=== PATIENT | female | born 1935 | race Caucasian/White ===

== ENCOUNTER 2019-07-24 10:55 | Outpatient (CLI) | payer MEDICARE, OTHER, SELFPAY ==
[2019-07-24 11:41] LABS: Basophils Absolute Auto 0.1 K/mm3 (0.0-0.1); Basophils Percent Auto 0.7 % (0.2-1.2); Eosinophils Absolute Auto 0.2 K/mm3 (0-0.3); Eosinophils Percent Auto 1.5 % (0-4.4); Hematocrit 42.2 % (37.0-47.0); Hemoglobin 13.6 g/dL (12.0-15.0); Immature Granulocyte Absolute 0.11 K/mm3 (0.00-0.031); Lymphocytes Absolute Auto 2.88 K/mm3 (0.9-3.2); Lymphocytes Percent Auto 26.8 % (18.3-44.2); Mean Corpuscular HGB Conc 32.2 g/dl (32-36); Mean Corpuscular Hemoglobin 30.7 pg (26-34); Mean Corpuscular Volume 95.3 fl (80-100); Mean Platelet Volume 9.7 fl (7.4-10.4); Monocytes Absolute Auto 0.9 K/mm3 (0.1-0.6); Monocytes Percent Auto 8.5 % (2.6-8.5); Neutrophils Absolute Auto 6.6 K/mm3 (1.3-6.7); Neutrophils Percent Auto 61.5 % (45.5-73.1); Platelet Count Result 340 k/mm3 (150-375); Red Blood Count 4.43 M/mm3 (4.2-5.4); Red Cell Distribution Width 14.4 % (11.5-14.5); White Blood Count 10.7 K/mm3 (4.5-10.0)
[2019-07-24 11:56] LABS: Alanine Aminotransferase 18 U/L (4-35); Albumin Level 4.2 g/dL (3.5-5.1); Alkaline Phosphatase 42 U/L (38-126); Aspartate Amino Transferase 32 U/L (14-36); Bilirubin,Total 0.4 mg/dL (0.2-1.3); Blood Urea Nitrogen 12 mg/dL (7-17); Calcium 9.4 mg/dL (8.4-10.2); Carbon Dioxide 26 mmol/L (22-30); Chloride 102 mmol/L (98-107); Estimated Glomerular Filt Rate > 60; Glucose 86 mg/dL (65-105); Potassium 3.3 mmol/L (3.4-5.0); Sodium 138 mmol/L (137-145)
[2019-07-24 12:06] LABS: Erythrocyte Sedimentation Rate 13 mm/hr (0-20)
== END 2019-07-24 10:56 | disposition home or self-care (01) ==
LOC: ANHLAB 10:57
PROVIDERS: PCP Family Medicine; Visit Provider Family Medicine
DX: D72.9 Disorder of white blood cells, unspecified (principal); I10 Essential (primary) hypertension
CPT/HCPCS: 36415; 80053; 85025; 85652

== ENCOUNTER 2020-02-23 08:58 | Inpatient (IN) | payer MEDICARE, OTHER, SELFPAY ==
[2020-02-23] VITALS (9 sets, daily range): BP systolic 91–108; BP diastolic 53–77; PULSE 64–95; RESP 16–26; TEMP 36.1–38.2; O2SAT 91–98; BMI 20.5
--- NOTE | ~2020-02-23 | XR_ITS ---
XR chest 1V portable DATE: 03/04/2020 05:41 INDICATION: Covid 19 pneumonia TECHNIQUE: Portable upright AP chest on 03/04/2020 at 0528 hours COMPARISON: 03/03/2020 portable AP chest at 0535 hours FINDINGS: Right upper extremity PIC catheter tip overlies the right atrium. There are extensive patchy bilateral pulmonary infiltrates, mildly improved since 03/03/2020. There ar e Ezio B-lines suggesting pulmonary interstitial edema or interstitial pneumonitis. Heart size is l ikely within normal limits although not optimally evaluated on AP projection because of magnification . There is aortic calcification. IMPRESSION: Mild improvement of extensive bilateral pulmonary infiltrates since 03/03/2020 Reviewed, dictated and finalized at location A.
--- NOTE | ~2020-02-23 | XR_ITS ---
XR chest 1V portable DATE: 03/06/2020 05:49 INDICATION: Respiratory failure TECHNIQUE: Portable AP chest on 03/06/2020 at 0534 hours COMPARISON: 03/05/2020 portable AP chest at 0526 hours FINDINGS: There are extensive patchy bilateral pulmonary infiltrates, with minimal improvement since 03/05/2020. Cardiomegaly. Aortic calcification. There is minimal if any pleural effusion. No pneumothorax. Right upper extremity PIC catheter tip overlies the upper right atrium. IMPRESSION: Extensive patchy infiltrates are noted throughout both lungs, with minimal improvement si nce 03/05/2020 Reviewed, dictated and finalized at location A. IMPRESSION: Extensive patchy infiltrates are noted throughout both lungs, with minimal improvement since 03/05/2020
--- NOTE | ~2020-02-23 | XR_ITS ---
XR chest 1V portable EXAM DATE: 03/01/2020 06:28 INDICATION: COVID-19 pneumonia. TECHNIQUE: Portable AP frontal chest x-ray was obtained. Comparison is made to prior examination from 02/27. FINDINGS: There is a right-sided PICC line with tip projecting over the cavoatrial junction. There is diffuse acute infectious process consistent with acute lung injury from SARS-CoV-2. No pneumothorax or pleural effusion. Cardiomediastinal silhouette is normal. There is aortic arteriosclerosis. Ther e are no osseous abnormalities identified. Accounting for differences in technique, there is no significant interval change. IMPRESSION: 1. Diffuse bilateral acute infectious process unchanged. Reviewed, dictated and finalized at location A.
--- NOTE | ~2020-02-23 | CT_ITS ---
EXAMINATION: CTA chest PE protocol EXAM DATE: 02/23/2020 10:51 INDICATION: Shortness of breath with elevated d-dimer. TECHNIQUE: Spiral CTA of the chest (pulmonary arteries) was performed with 100 cc Omnipaque 350 intr avenous contrast injection. Images were acquired during the pulmonary arterial phase. Coronal maxi mum intensity projection 3D-reconstructions were created by the technologist on dedicated workstation . Axial, coronal and sagittal reformatted images were reviewed. The dose-length product (DLP) for t his examination was 153.91 mGy-cm. The exposure was tailored according to patient size (auto mA exp osure control), and iterative reconstruction (ASIR) was used as additional dose reduction technique. There is no prior study for comparison. FINDINGS: Pulmonary arteries are well opacified and without intraluminal filling defects. No thora cic aortic dissection. There are rather extensive bilateral geographically shaped peripheral predomi nant groundglass opacities. Appearance is typical of COVID 19, acute lung injury. Less likely acute possibilities include influenza, pulmonary edema or hemorrhage. Some chronic processes that can have this appearance include cryptogenic organizing pneumonia, desquamative interstitial pneumonia, nonsp ecific interstitial pneumonia, drug toxicity, connective tissue disease. Please clinically correlate and test as appropriate. There are no pleural or pericardial effusions. Tracheobronchial tree is patent. There is no media stinal, hilar or axillary lymphadenopathy. There is no pneumothorax. Mild cardiomegaly. There is small sliding gastroesophageal hiatal hernia. There is mild coronary arterial calcification, arteria l sclerosis. There are cholecystectomy clips. No osteoblastic or osteolytic lesions identified. IMPRESSION: 1. Patchy bilateral airspace disease suspicious for COVID-19 pneumonia. Clinical correlation. 2. No pulmonary emboli. Reviewed, dictated and finalized at location B. IMPRESSION: 1. Patchy bilateral airspace disease suspicious for COVID-19 pneumonia. Clinic al correlation. 2. No pulmonary emboli.
--- NOTE | ~2020-02-23 | XR_ITS ---
XR chest 1V portable 03/10/2020 06:29 Indication: Respiratory failure Procedure: AP portable chest Comparison: Comparison to multiple prior studies sequentially, with oldest reviewed study dated 11/2019. Findings: Cardiomegaly. Unchanged diffuse bilateral airspace disease. There is atherosclerosis. No pl eural effusion or pneumothorax. Central line tip in the condyle aspect of the SVC near the cavoatrial junction. Impression: 1: Unchanged bilateral airspace disease which may represent edema or pneumonia. Reviewed, dictated and finalized at location A. Impression: 1: Unchanged bilateral airspace disease which may represent edema or pneumonia.
--- NOTE | ~2020-02-23 | XR_ITS ---
XR chest 1V portable DATE: 03/07/2020 06:03 INDICATION: Respiratory failure TECHNIQUE: Portable AP chest on 03/07/2020 at 0533 hours COMPARISON: 03/06/2020 portable AP chest at 0534 hours FINDINGS: There is no significant change in extensive diffuse bilateral pulmonary infiltrates since 1 . Right upper extremity PIC catheter tip overlies the superior vena cava near this superior cavoatrial junction. Heart size is within normal range. Aortic calcification. IMPRESSION: No significant change in extensive diffuse bilateral pulmonary infiltrates since 0 Reviewed, dictated and finalized at location A. IMPRESSION: No significant change in extensive diffuse bilateral pulmonary infi ltrates since 03/06/2020
--- NOTE | ~2020-02-23 | XR_ITS ---
EXAMINATION: XR chest 1V portable EXAM DATE: 02/28/2020 05:58 INDICATION: COVID-19 pneumonia. TECHNIQUE: Portable AP frontal chest x-ray was obtained. Comparison is made to prior examination from 02/26, 02/24. FINDINGS: There is diffuse acute infectious process consistent with acute lung injury from SARS-CoV-2 . Right-sided PICC line in position. No pneumothorax or pleural effusion. The cardiomediastinal silho uette is prominent but magnified on this AP technique. There is aortic arteriosclerosis. There are n o osseous abnormalities identified. IMPRESSION: 1. Diffuse bilateral acute infectious process unchanged. Reviewed, dictated and finalized at location A.
--- NOTE | ~2020-02-23 | XR_ITS ---
XR chest 1V portable EXAM DATE: 03/02/2020 06:09 INDICATION: COVID-19 pneumonia. TECHNIQUE: Portable AP frontal chest x-ray was obtained. Comparison is made to prior examination from 03/01/2020. FINDINGS: There is a right-sided PICC line with tip projecting over the cavoatrial junction. There is diffuse acute infectious process consistent with acute lung injury from SARS-CoV-2. No pneumothorax or pleural effusion. Cardiomediastinal silhouette is normal. There is aortic arteriosclerosis. Ther e are no osseous abnormalities identified. Accounting for differences in technique, there is no significant interval change. IMPRESSION: Diffuse bilateral acute infectious process unchanged. Reviewed, dictated and finalized at location A.
--- NOTE | ~2020-02-23 | XR_ITS ---
XR chest 1V portable 03/09/2020 05:48 Indication: Respiratory failure Procedure: AP portable chest Comparison: Comparison to multiple prior studies sequentially, with oldest reviewed study dated 10/2019. Findings: Right subclavian central line tip near the cavoatrial junction. Cardiomegaly. Diffuse bilat eral airspace disease. No significant pleural effusion. There is chronic apical pleural thickening. N o acute osseous abnormality. There are cholecystectomy clips. Impression: 1: Diffuse bilateral airspace disease without significant change. This may represent edema or pneumon ia. Reviewed, dictated and finalized at location A. Impression: 1: Diffuse bilateral airspace disease without significant change. This may repr esent edema or pneumonia.
--- NOTE | ~2020-02-23 | XR_ITS ---
XR chest PICC line 02/25/2020 11:41 Indication: PICC line placement Procedure: AP portable chest Comparison: Comparison to multiple prior studies sequentially, with oldest reviewed study dated 11/2011. Findings: Cardiomegaly with interstitial edema. Right subclavian PICC line tip in the caudal aspect o f the SVC. There is atherosclerosis. No pleural effusion or pneumothorax. No acute osseous abnormalit y. Impression: 1: Cardiomegaly with mild interstitial edema. Reviewed, dictated and finalized at location A. Impression: 1: Cardiomegaly with mild interstitial edema.
--- NOTE | ~2020-02-23 | XR_ITS ---
EXAMINATION: XR chest 1V portable EXAM DATE: 02/23/2020 09:43 INDICATION: Chest pain, nausea and vomiting. TECHNIQUE: Frontal and lateral projections of the chest obtained and reviewed. Comparison is made to prior examination from 05/26/2012. FINDINGS: Patchy bilateral acute airspace disease, most pronounced in the left upper lobe and right lower lobe. Could be viral or bacterial pneumonia. Please clinically correlate. No pneumothorax or pl eural effusion. Cardiomediastinal silhouette is normal. The bones are osteopenic. There are bony deg enerative changes. IMPRESSION: Moderate patchy bilateral acute airspace disease most likely infection. Consider both vi ral and bacterial etiologies. Reviewed, dictated and finalized at location B. IMPRESSION: Moderate patchy bilateral acute airspace disease most likely infec tion. Consider both viral and bacterial etiologies.
--- NOTE | ~2020-02-23 | XR_ITS ---
XR chest 1V portable EXAM DATE: 03/03/2020 06:19 INDICATION: COVID-19 pneumonia. TECHNIQUE: Portable AP frontal chest x-ray was obtained. Comparison is made to prior examination from 03/02, 03/01, 02/28. FINDINGS: There is a right-sided PICC line with tip projecting over the cavoatrial junction. There is extensive acute infectious process consistent with acute lung injury from SARS-CoV-2. No pneumothora x or pleural effusion. Cardiomediastinal silhouette is normal. There is aortic arteriosclerosis. Th ere are no osseous abnormalities identified. Compared to 02/28, there has been progression in the extensive airspace disease, but difficult to appr eciate any significant interval change compared to yesterday's exam. IMPRESSION: Extensive bilateral acute infectious process unchanged. Reviewed, dictated and finalized at location A.
--- NOTE | ~2020-02-23 | XR_ITS ---
EXAMINATION: XR chest 1V portable EXAM DATE: 02/27/2020 06:10 INDICATION: COVID-19 pneumonia. TECHNIQUE: Portable AP frontal chest x-ray was obtained. Comparison is made to prior examination from 02/22, 02/24. FINDINGS: There is been progression in the right upper lobe component of the overall moderate diffuse acute infectious process consistent with acute lung injury from SARS-CoV-2. Right-sided PICC line in position. No pneumothorax or pleural effusion. The cardiomediastinal silhouette is prominent but mag nified on this AP technique. There are no osseous abnormalities identified. IMPRESSION: 1. Moderate bilateral acute infectious process, some progression in the right upper lobe. Reviewed, dictated and finalized at location A.
--- NOTE | ~2020-02-23 | XR_ITS ---
XR chest 1V portable DATE: 03/08/2020 05:56 INDICATION: Respiratory failure TECHNIQUE: Portable AP chest on 03/08/2020 at 0549 hours COMPARISON: 03/07/2020 portable AP chest at 0533 hours FINDINGS: There are diffuse bilateral pulmonary infiltrates, not significantly changed since 0. Heart size appears within upper limits of normal. Is aortic calcification. No pleural effusion or pne umothorax is evident. Surgical clips overlie the right upper quadrant, consistent with cholecystectomy. Diffuse osteopenia. IMPRESSION: No significant change in extensive diffuse bilateral pulmonary infiltrates since 0 Reviewed, dictated and finalized at location A. IMPRESSION: No significant change in extensive diffuse bilateral pulmonary infi ltrates since 03/07/2020
--- NOTE | ~2020-02-23 | XR_ITS ---
XR chest 1V portable EXAM DATE: 02/29/2020 05:55 INDICATION: COVID-19 pneumonia. TECHNIQUE: Portable AP frontal chest x-ray was obtained. Comparison is made to prior examination from 02/27. FINDINGS: There is diffuse acute infectious process consistent with acute lung injury from SARS-CoV-2 . Right-sided PICC line in position. No pneumothorax or pleural effusion. Cardiomediastinal silhouett e is normal. There is aortic arteriosclerosis. There are no osseous abnormalities identified. There is no significant interval change. IMPRESSION: 1. Diffuse bilateral acute infectious process unchanged. Reviewed, dictated and finalized at location A.
--- NOTE | ~2020-02-23 | XR_ITS ---
XR chest 1V portable DATE: 03/05/2020 06:01 INDICATION: Covid 19 pneumonia TECHNIQUE: Portable AP chest on 03/05/2020 at 0526 hours COMPARISON: 03/04/2020 portable AP chest at 0528 hours FINDINGS: There is no significant change of extensive patchy infiltrates throughout both lung cristobal since 03/04/2020. Right upper extremity PIC catheter tip overlies the superior vena cava. No pleural effusion or pneumothorax. IMPRESSION: No significant change of extensive bilateral pulmonary infiltrates since 03/04/2020 Reviewed, dictated and finalized at location A.
[2020-02-23] MEDS: LACTATED RINGERS 1,000 ML 999 ML IV CONT (09:21)
--- NOTE | 2020-02-23 09:23 | ED.NAVMDI ---
HPI - Nausea/Vomiting/Diarrhea General Chief complaint: Nausea/Vomiting/Diarrhea Stated complaint: nausea/diarrhea Time Seen by Provider: 02/23/20 09:04 History of Present Illness HPI Narrative: Pt c/o n/v/d, cough and fever x 6 days. Vomitus is mostly described as dry heaving, diarrhea is loose watery, non bloody. Pt denies cp, sob, abd pain, or urinary symptoms. Related Data Home Medications Medication Instructions Recorded Confirmed aspirin 81 mg tablet,delayed 81 mg PO DAILY 04/10/19 release Allergies Allergy/AdvReac Type Severity Reaction Status Date / Time Penicillins Allergy Unknown Rash Verified 02/23/20 09:08 Cxvkeft-Cpk-Kcw Reductase Allergy Unknown Muscle Verified 02/23/20 09:08 Inhibitor Spasms tetracycline Allergy Unknown Rash Verified 02/23/20 09:08 Review of Systems Review of Systems: All systems reviewed & are unremarkable except as noted in HPI and below Constitutional: Constitutional: Denies body ache(s), Reports chills, Denies excessive sweating, Reports fatigue, Reports fever(s), Denies headache(s), Denies lethargy and Denies weight loss Eyes: Eyes: Denies blurry vision, Denies change in vision and Denies loss of vision ENT: Denies dizziness, Denies ear discharge, Denies headache(s), Denies lip swelling, Denies epistaxis, Denies nasal congestion, Denies neck pain, Denies throat swelling and Denies tongue swelling Cardiovascular: Cardiovascular: Denies chest pain, Denies chest pain at rest, Denies chest pain with activity, Denies diaphoresis, Denies rapid heart rate, Denies edema, Denies irregular heart rhythm, Denies lightheadedness, Denies palpitations, Denies dyspnea and Denies dyspnea on exertion Respiratory: Respiratory: Denies chest congestion, Denies cough, Denies hemoptysis, Denies dyspnea and Denies dyspnea on exertion Gastrointestinal: Gastrointestinal: Denies melena, Denies hematochezia and Denies hematemesis Musculoskeletal: Musculoskeletal: Denies abnormal gait, Denies deformity, Denies joint swelling, Denies limited range of motion, Denies neck pain and Denies numbness Neurologic: Denies Abnormal speech present, Denies abnormal gait, Denies confusion, Denies dizziness, Denies headache(s), Denies focal weakness, Denies loss of vision, Denies numbness, Denies Other visual disturbances, Denies Sensory deficit (Neuro) and Denies weakness Psychiatric: Psychiatric: Denies confusion, Denies depression, Denies auditory hallucinations, Denies homicidal ideation and Denies suicidal ideation Endocrine: Endocrine: Denies cold intolerance, Denies excessive sweating, Denies fatigue, Denies heat intolerance and Denies palpitations Hematologic/Lymphatic: Hematologic/Lymphatic: Denies easy bleeding and Denies easy bruising Allergic/Immunologic: Allergic/Immunologic: Denies lip swelling, Denies throat swelling and Denies tongue swelling [facility] Social History Social History (Updated 07/24/19 @ 09:46 by Lavern Barone) Social History: Smoking status: Never smoker Second hand tobacco smoke exposure: No Alcohol intake: never Substance use: never Substance use type: does not use Gender identity (if verbalized by the patient): Female Exam Const: General: alert, awake and ill appearing; No confusion Orientation/consciousness: oriented to person, oriented to place, oriented to time, patient oriented x3 and No confusion Limitations: no limitations Other: moderate distress, frail, ill appearing HENMT: Head: normal to inspection, normocephalic and atraumatic Ears: hearing grossly normal bilaterally, TM normal on the right and TM normal on the left General nose exam: Normal external nose present, Normal nares present and No nasal discharge present Face and sinus: normal facial exam Mouth: Yes Normal oral and palatal mucosa present, Yes lip normal, Yes tongue normal and Yes oropharynx normal Throat: posterior oropharynx normal, tonsils normal and uvula midline Eyes: Gener
[2020-02-23 09:30] LABS: Alveolar/Arterial O2 Gradient 148.2 mmHg; Base Excess ABG -6.8 mEq/l (+/-2.0); Carboxyhemoglobin 0.6 % THb (0-2.0); Fractional Inspired Oxygen 32 %; HCO3 ABG 14.9 mEq/l (22.0-26.0); Methemoglobin ABG 0.2 %THb (0-1.5); Oxygen Content ABG 18.3 %vol (16.0-22.0); Oxygen Saturation ABG 90.1 % (95.0-100.0); Oxyhemoglobin 88.5 % THb (90.0-100.0); PO2 ABG 53.9 mmHg (80.0-100.0); PO2 FiO2 Ratio Arterial Blood 1.68 %; Reduced Hemoglobin 10.7 %THb (0-5.0); Total Hemoglobin 14.7 g/dL (12.0-18.0); pH ABG 7.444 (7.350-7.450)
[2020-02-23 09:31] LABS: Device NASAL CANNULA; Modified Allen's Test Pass; PCO2 ABG 22.3 mmHg (35.0-45.0); Site Drawn RIGHT RADIAL
[2020-02-23] MEDS: PROMETHAZINE HCL 25 MG/ML AMPUL 12.5 MG IV PUSH (09:33)
[2020-02-23 09:47] LABS: Basophils Percent Auto 0.4 % (0.2-1.2); Eosinophils Percent Auto 0.1 % (0-4.4); Hematocrit 48.7 % (37.0-47.0); Hemoglobin 15.6 g/dL (12.0-15.0); Immature Granulocyte Absolute 0.05 K/mm3 (0.00-0.031); Immature Granulocyte Percent A 0.5 % (0-0.5); Lymphocytes Absolute Auto 2.71 K/mm3 (0.9-3.2); Lymphocytes Percent Auto 24.9 % (18.3-44.2); Mean Corpuscular Hemoglobin 30.2 pg (26-34); Mean Corpuscular Volume 94.4 fl (80-100); Mean Platelet Volume 10.2 fl (7.4-10.4); Monocytes Absolute Auto 0.2 K/mm3 (0.1-0.6); Monocytes Percent Auto 1.6 % (2.6-8.5); Neutrophils Absolute Auto 7.9 K/mm3 (1.3-6.7); Neutrophils Percent Auto 72.5 % (45.5-73.1); Platelet Count Result 321 k/mm3 (150-375); Red Blood Count 5.16 M/mm3 (4.2-5.4); Red Cell Distribution Width 14.8 % (11.5-14.5); White Blood Count 10.9 K/mm3 (4.5-10.0)
[2020-02-23 09:53] LABS: Lactic Acid Reflex 2.4 mmol/L (0.7-2.1)
[2020-02-23 09:54] LABS: D Dimer 0.95 ug/mL (<0.48)
[2020-02-23 09:55] LABS: Alanine Aminotransferase 17 U/L (4-35); Albumin Level 3.9 g/dL (3.5-5.1); Alkaline Phosphatase 45 U/L (38-126); Anion Gap 11 mmol/L (8-16); Aspartate Amino Transferase 66 U/L (14-36); Bilirubin,Total 0.6 mg/dL (0.2-1.3); Blood Urea Nitrogen 17 mg/dL (7-17); Carbon Dioxide 20 mmol/L (22-30); Chloride 104 mmol/L (98-107); Estimated CRCL calculation 29 ml/min; Estimated Glomerular Filt Rate 53; Glucose 90 mg/dL (65-105); Potassium 3.8 mmol/L (3.4-5.0); Sodium 135 mmol/L (137-145)
[2020-02-23 10:13] LABS: NT Pro B Type Natriuretic Pept 681 PG/ML (5-100); Troponin I 0.037 ng/mL (0.000-0.034)
[2020-02-23] MEDS: ASPIRIN 81 MG CHEWABLE TABLET 324 MG PO (11:10)
[2020-02-23 12:40] LABS: Reflex Lactic Acid Yes or No Add Lactic
[2020-02-23 13:22] LABS: Lactic Acid 1.4 mmol/L (0.7-2.1)
--- NOTE | 2020-02-23 13:24 | ECG_ITS ---
Measurements Intervals [place] Rate: 70 P: 58 DE: 190 QRS: -16 QRSD: 97 T: 150 QT: 397 QTc: 429 Interpretive Statements SINUS RHYTHM ANTEROSEPTAL INFARCT, AGE INDETERMINATE INFERIOR INFARCT, AGE INDETERMINATE ST-T WAVE ABNORMALITY IN HIGH LATERAL LEADS- CONSIDER ISCHEMIA BASELINE ARTIFACT- I, II, AVR, AVF ABNORMAL ECG Electronically Signed On 02-23-2020 20:19:08 CDT by Rui Altman D.O.
--- NOTE | 2020-02-23 14:58 | ADMGEN ---
This patient, Tra Amin, was admitted to Intensive Care Unit-8. Patient/family oriented to hospital policies and general routines including ID bracelet, bed and alarms, visiting hours, pain management, procedures, bathroom and other care routines, personal items, smoking policy, room service/diet, and visiting hours. Valuables list has been completed. Information on how to activate the Rapid Response Team has been discussed. Patient/Family are encouraged to report perceived risks to care and to ask questions if they do not understand what they are told or what they should do.
--- NOTE | 2020-02-23 18:39 | PM.IMHP ---
H&P: HPI History of Present Illness Date/Time: 02/23/20 18:39 Chief complaint: pneumonia Narrative: Tra Amin is a 84 year old female Who lives home alone. She has her daughter come to her house and help her out at times. She stated that her daughter is not sick but the son-in-law all his sick now. The patient tells me that she has been running a fever on and off for 6 days. I asked her what was her temperature and she stated she thinks that it got up to 101 at 1 time. She has had some nausea and diarrhea as well. She did not notice any blood in her stool. She has also been having some dry heaving but did not vomit. Patient stated that her appetite was fairly well up until yesterday she said that she could not taste anything. Influenza a and B were negative. Arterial blood gases her pH was normal but her PO2 was low at 53.9. Oxygen was applied at 5 L per nasal cannula. her O2 saturation with the oxygen is now 90-91%. She does dropped down in the upper 80s when her oxygen is off. She does not wear oxygen at home. Patient is short of breath with activity. She has not taken any [id number]-[id number] medications for this. She did not follow-up with her primary care doctor. The patient had a CTA performed and was read as patchy bilateral airspace disease suspicious for covid 19 pneumonia. No pulmonary emboli. She was started on Zithromax and Rocephin. she was also started on lactated Ringer's which has been stopped. She was given an aspirin in the emergency room. She was given Phenergan in the emergency room as well. She was given Tylenol in the emergency room. Patient was tested for covid 19. Troponin 0.037. BNP 681. Date of service 02/23/2020 Review of Systems Review of Systems: All systems reviewed & are unremarkable except as noted in HPI and below Constitutional: Constitutional: Reports as per HPI and Reports no additional constitutional complaints Eyes: Eyes: Reports as per HPI and Reports no additional eye complaints ENT: Reports system reviewed and no additional complaints, except as documented and Reports Normal hearing present Cardiovascular: Cardiovascular: Reports no additional cardiovascular complaints Respiratory: Respiratory: Reports no additional respiratory complaints and Reports no additional respiratory complaints Gastrointestinal: Gastrointestinal: Reports as per HPI and Reports no additional gastrointestinal complaints Musculoskeletal: Musculoskeletal: Reports no additional musculoskeletal complaints Integumentary/Breasts: Skin/Breast: Reports system reviewed and no additional complaints, except as docu and Reports as per HPI Neurologic: Reports system reviewed and no additional complaints, except as documented, Reports as per HPI and Reports Normal hearing present Psychiatric: Psychiatric: Reports no additional psychiatric complaints and Reports as per HPI Endocrine: Endocrine: Reports no additional endocrine complaints Hematologic/Lymphatic: Hematologic/Lymphatic: Reports no additional hematologic/lymphatic complaints Allergic/Immunologic: Allergic/Immunologic: Reports no additional allergic/immunologic complaints [facility] Past Medical History Medical History (Updated 02/23/20 @ 19:05 by Tova Jackson NP) Acute arthritis Shukla's palsy Essential (primary) hypertension History of myocardial infarction Hyperlipidemia Hypothyroidism, unspecified 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
[2020-02-23 21:32] LABS: Troponin I < 0.012 ng/mL (0.000-0.034)
[2020-02-23 21:50] LABS: Alveolar/Arterial O2 Gradient 556.4 mmHg; Base Excess ABG -6.2 mEq/l (+/-2.0); Carboxyhemoglobin 0.3 % THb (0-2.0); Fractional Inspired Oxygen 100 %; HCO3 ABG 16.1 mEq/l (22.0-26.0); Methemoglobin ABG 0.1 %THb (0-1.5); Oxygen Content ABG 20.7 %vol (16.0-22.0); Oxygen Saturation ABG 98.8 % (95.0-100.0); Oxyhemoglobin 97.4 % THb (90.0-100.0); PO2 ABG 131.6 mmHg (80.0-100.0); PO2 FiO2 Ratio Arterial Blood 1.32 %; Reduced Hemoglobin 2.2 %THb (0-5.0); pH ABG 7.428 (7.350-7.450)
[2020-02-23 21:51] LABS: Device NON-REBREATHER MASK; Modified Allen's Test Pass; Site Drawn LEFT RADIAL
[2020-02-24] VITALS (12 sets, daily range): BP systolic 107–138; BP diastolic 46–93; PULSE 65–84; RESP 18–22; TEMP 36.1–36.8; O2SAT 95–100
[2020-02-24 02:12] LABS: SARS-CoV-2 RNA PCR Positive
[2020-02-24] MEDS: LEVOTHYROXINE SODIUM 25 MCG TABLET PO (06:18)
[2020-02-24 06:51] LABS: Alanine Aminotransferase 17 U/L (4-35); Albumin Level 3.4 g/dL (3.5-5.1); Alkaline Phosphatase 39 U/L (38-126); Anion Gap 9 mmol/L (8-16); Aspartate Amino Transferase 53 U/L (14-36); Bilirubin,Total 0.4 mg/dL (0.2-1.3); Blood Urea Nitrogen 16 mg/dL (7-17); Calcium 8.7 mg/dL (8.4-10.2); Carbon Dioxide 21 mmol/L (22-30); Chloride 103 mmol/L (98-107); Estimated CRCL calculation 32 ml/min; Estimated Glomerular Filt Rate 60; Glucose 156 mg/dL (65-105); Lactate Dehydrogenase 897 U/L (313-618); Potassium 4.1 mmol/L (3.4-5.0); Sodium 133 mmol/L (137-145)
[2020-02-24 07:05] LABS: CRP 23.6 mg/dL (<1.0)
[2020-02-24 07:42] LABS: Thyroid Stimulating Hormone Reflex 0.123 uIU/mL (0.465-4.68)
[2020-02-24 08:42] LABS: Free T4 Free Thyroxine Reflex 0.23 ng/dL (0.78-2.19)
[2020-02-24] MEDS: DEXAMETHASONE SOD PHOS INJ 4 MG/ML VIAL 6 MG IV PUSH (10:06)
[2020-02-24] MEDS: FENOFIBRATE NANOCRYSTALLIZED 145 MG TABLET PO (10:06)
[2020-02-24] MEDS: ASPIRIN 81 MG ENTERIC TABLET PO (10:06)
--- NOTE | 2020-02-24 16:55 | PM.IMPN ---
Progress Note: A&P Assessment and Plan (1) Suspected COVID-19 virus infection: Code(s): Z20.828 - Contact with and (suspected) exposure to other viral communicable diseases Status: Acute Assessment and Plan: COVID is positive pt is on IV rocephin and iv zithromax, oxygen and iv steroids, started yesterday I will start remdesivir after talking to her daughter (2) CAP (community acquired pneumonia): Code(s): J18.9 - Pneumonia, unspecified organism Status: Acute Assessment and Plan: Patient was treated with a Zithromax and Rocephin. (3) Hyperlipidemia: Code(s): E78.5 - Hyperlipidemia, unspecified Status: Chronic Assessment and Plan: Continue with fenofibrate. (4) Hypothyroidism, unspecified: Code(s): E03.9 - Hypothyroidism, unspecified Status: Chronic Assessment and Plan: Continue levothyroxine. (5) Essential (primary) hypertension: Code(s): I10 - Essential (primary) hypertension Status: Chronic Assessment and Plan: Continue Bp medications. Subjective Date/time seen: 02/24/20 16:55 Interval history: 84 year old female Who lives home alone. She has her daughter come to her house and help her out at times. Found to be covid positive with pneumonia on CXR. Pt is on 9 liters of oxygen and is in some resp distress. Review of Systems Constitutional: Constitutional: Reports body ache(s) and Reports fatigue Comments: fevers Respiratory: Respiratory: Reports dyspnea Exam Narrative: Exam Narrative: Temp Pulse Resp BP Pulse Ox 36.6 C 72 18 112/89 96 02/24/20 16:00 02/24/20 16:00 02/24/20 16:00 02/24/20 16:00 02/24/20 16:00 Pt is in some respiratory distress on oxygen Looks unwell, older lady Objective Data Vital Signs Vital Signs: Vital Signs - 24 hr 02/23/20 18:00 02/23/20 20:00 02/23/20 22:14 Temperature 36.1 C L Pulse Rate 69 64 82 Respiratory Rate 18 22 H Blood Pressure 108/57 L Pulse Oximetry 98 91 02/24/20 00:00 02/24/20 04:00 02/24/20 05:48 Temperature 36.1 C L 36.1 C L Pulse Rate 67 65 76 Respiratory Rate 20 21 H Blood Pressure 122/93 H 114/57 L Pulse Oximetry 95 98 02/24/20 08:00 02/24/20 10:00 02/24/20 10:55 Temperature 36.1 C L Pulse Rate 76 72 73 Respiratory Rate 18 Blood Pressure 138/63 Pulse Oximetry 95 96 02/24/20 11:56 02/24/20 12:00 02/24/20 13:28 Temperature Pulse Rate 72 69 73 Respiratory Rate 20 Blood Pressure 133/65 Pulse Oximetry 95 02/24/20 16:00 Temperature 36.6 C Pulse Rate 72 Respiratory Rate 18 Blood Pressure 112/89 Pulse Oximetry 96 Intake/Output Intake/Output: Intake & Output 02/21/20 02/22/20 02/23/20 02/24/20 23:59 23:59 23:59 23:59 Intake Total 1365 780 Output Total 400 Balance 965 780 Meds/Results Medications: Active Medications Generic Name Dose Route Start Last Admin Trade Name Freq PRN Reason Stop Dose Admin Acetaminophen 650 mg 02/23/20 19:21 Tylenol Tablet PO Q4H PRN Mild Pain (1-3) or Fever Aspirin 81 mg 02/24/20 09:00 02/24/20 10:06 Aspirin Ec PO 81 mg DAILY RORY Administration Dexamethasone Sodium Phosphate 6 mg 02/24/20 09:00 02/24/20 10:06 Decadron 4 Mg/Ml Inj IV PUSH 03/04/20 09:01 6 mg DAILY RORY Administration Fenofibrate 145 mg 02/24/20 09:00 02/24/20 10:06 Tricor PO 145 mg DAILY RORY Administration Ceftriaxone Sodium/Dextrose 1 gm in 50 mls @ 100 mls/hr 02/23/20 06:00 02/24/20 07:26 Rocephin 1 Gm/D5w 50 Ml IVPB Not Given Q24H RORY Azithromycin 500 mg in 250 mls @ 250 mls/hr 02/24/20 12:00 02/24/20 16:54 Zithromax IVPB Infused Q24H [facility] Infusion Levothyroxine Sodium 25 mcg 02/24/20 06:30 02/24/20 06:18 Synthroid PO 25 mcg DAILY@0630 [facility]
[2020-02-24] MEDS: REMDESIVIR 200 MG/NS 250 ML 200 MG/250 ML BAG 250 MG IVPB (18:17)
[2020-02-25] VITALS (13 sets, daily range): BP systolic 138–158; BP diastolic 66–85; PULSE 74–92; RESP 20–28; TEMP 36.7–37.1; O2SAT 91–98
[2020-02-25] MEDS: LEVOTHYROXINE SODIUM 25 MCG TABLET PO (06:30)
[2020-02-25] MEDS: FENOFIBRATE NANOCRYSTALLIZED 145 MG TABLET PO (10:33)
[2020-02-25] MEDS: DEXAMETHASONE SOD PHOS INJ 4 MG/ML VIAL 6 MG IV PUSH (10:33)
[2020-02-25] MEDS: METOCLOPRAMIDE HCL 10 MG TABLET PO (10:33)
[2020-02-25] MEDS: ASPIRIN 81 MG ENTERIC TABLET PO (10:34)
[2020-02-25 12:30] LABS: Alanine Aminotransferase 19 U/L (4-35)
--- NOTE | 2020-02-25 12:57 | ADMGEN ---
This patient, Tra Amin, was admitted to [facility] Surg Room 331-01. Patient/family oriented to hospital policies and general routines including ID bracelet, bed and alarms, visiting hours, pain management, procedures, bathroom and other care routines, personal items, smoking policy, room service/diet, and visiting hours. Valuables list has been completed. Information on how to activate the Rapid Response Team has been discussed. Patient/Family are encouraged to report perceived risks to care and to ask questions if they do not understand what they are told or what they should do.
[2020-02-25] MEDS: CENTRAL LINE FLUSH 10 ML IV PUSH ×2 (13:25→21:40)
[2020-02-25] MEDS: REMDESIVIR 100 MG/NS 250 ML 100 MG/250 ML BAG 250 MG IVPB (16:23)
--- NOTE | 2020-02-25 17:49 | PM.IMPN ---
Progress Note: A&P Assessment and Plan (1) Suspected COVID-19 virus infection: Code(s): Z20.828 - Contact with and (suspected) exposure to other viral communicable diseases Status: Acute Assessment and Plan: COVID is positive pt is on IV rocephin and iv zithromax, oxygen and iv steroids, started, Remdesivir started Day 2. Mucinex added (2) CAP (community acquired pneumonia): Code(s): J18.9 - Pneumonia, unspecified organism Status: Acute Assessment and Plan: Patient was treated with a Zithromax and Rocephin. Viral with superimposed Bacterial pneumonia (3) Hyperlipidemia: Code(s): E78.5 - Hyperlipidemia, unspecified Status: Chronic Assessment and Plan: Continue with fenofibrate. (4) Hypothyroidism, unspecified: Code(s): E03.9 - Hypothyroidism, unspecified Status: Chronic Assessment and Plan: Continue levothyroxine. (5) Essential (primary) hypertension: Code(s): I10 - Essential (primary) hypertension Status: Chronic Assessment and Plan: Continue Bp medications. Additional Plan Subjective Date/time seen: 02/25/20 17:49 Interval history: 84 year old female Who lives home alone. She has her daughter come to her house and help her out at times. Found to be covid positive with pneumonia on CXR. Pt is on 9 liters of oxygen but comfortable, not in distress. Nurse report difficulty with coughing. Review of Systems Respiratory: Respiratory: Reports chest congestion, Reports cough and Reports dyspnea Comments: No fever Exam Narrative: Exam Narrative: Temp Pulse Resp BP Pulse Ox 36.6 C 72 18 112/89 96 02/24/20 16:00 02/24/20 16:00 02/24/20 16:00 02/24/20 16:00 02/24/20 16:00 Seen from glass door Comfortable not in any distress Older lady on oxygen Objective Data Vital Signs Vital Signs: Vital Signs - 24 hr 02/24/20 18:00 02/24/20 20:00 02/25/20 00:00 Temperature 36.8 C 36.8 C Pulse Rate 65 77 76 Respiratory Rate 22 H 21 H Blood Pressure 107/46 L 138/69 Pulse Oximetry 100 98 02/25/20 04:00 02/25/20 07:59 02/25/20 08:00 Temperature 37.0 C 36.7 C Pulse Rate 80 83 87 Respiratory Rate 27 H 20 Blood Pressure 147/69 H 140/66 Pulse Oximetry 97 93 02/25/20 09:51 02/25/20 10:00 02/25/20 12:00 Temperature Pulse Rate 75 87 85 Respiratory Rate 20 24 H Blood Pressure 158/70 H Pulse Oximetry 92 92 02/25/20 14:00 02/25/20 16:00 Temperature 37.1 C Pulse Rate 78 92 Respiratory Rate 28 H Blood Pressure 139/74 Pulse Oximetry 91 Intake/Output Intake/Output: Intake & Output 02/22/20 02/23/20 02/24/20 02/25/20 23:59 23:59 23:59 23:59 Intake Total 1365 1440 1080 Output Total 400 300 300 Balance 965 1140 780 Meds/Results Medications: Active Medications Generic Name Dose Route Start Last Admin Trade Name Freq PRN Reason Stop Dose Admin Acetaminophen 650 mg 02/23/20 19:21 Tylenol Tablet PO Q4H PRN Mild Pain (1-3) or Fever Aspirin 81 mg 02/24/20 09:00 02/25/20 10:34 Aspirin Ec PO 81 mg DAILY RORY Administration Dexamethasone Sodium Phosphate 6 mg 02/24/20 09:00 02/25/20 10:33 Decadron 4 Mg/Ml Inj IV PUSH 03/04/20 09:01 6 mg DAILY RORY Administration Fenofibrate 145 mg 02/24/20 09:00 02/25/20 10:33 Tricor PO 145 mg DAILY RORY Administration Azithromycin 500 mg in 250 mls @ 250 mls/hr 02/24/20 12:00 02/25/20 16:24 Zithromax IVPB Infused Q24H [facility] Infusion Remdesivir 100 mg in 250 mls @ 250 mls/hr 02/25/20 18:00 02/25/20 16:23 IVPB 02/28/20 18:01 250 mls/hr Q24H RORY Administration Levothyroxine Sodium 25 mcg 02/24/20 06:30 02/25/20 06:30 Synthroid PO 25 mcg DAILY@0630 RORY Administration Lidocaine HCl 5 ml 02/25/20 17:59 02/25/20 1
[2020-02-25] MEDS: guaiFENesin 12 HR 600 MG TABCR 1200 MG PO (20:16)
[2020-02-26] VITALS (15 sets, daily range): BP systolic 152–165; BP diastolic 72–98; PULSE 64–89; RESP 18–26; TEMP 36.4–36.9; O2SAT 88–95
[2020-02-26] MEDS: CENTRAL LINE FLUSH 10 ML IV PUSH ×3 (05:20→19:50)
[2020-02-26 09:05] LABS: Hematocrit 38.4 % (37.0-47.0); Hemoglobin 12.7 g/dL (12.0-15.0); Mean Corpuscular HGB Conc 33.1 g/dl (32-36); Mean Corpuscular Hemoglobin 30.7 pg (26-34); Mean Corpuscular Volume 92.8 fl (80-100); Mean Platelet Volume 10.8 fl (7.4-10.4); Platelet Count Result 367 k/mm3 (150-375); Red Blood Count 4.14 M/mm3 (4.2-5.4); Red Cell Distribution Width 14.6 % (11.5-14.5); White Blood Count 7.8 K/mm3 (4.5-10.0)
[2020-02-26 09:17] LABS: Anion Gap 10 mmol/L (8-16); Blood Urea Nitrogen 19 mg/dL (7-17); Calcium 8.6 mg/dL (8.4-10.2); Carbon Dioxide 27 mmol/L (22-30); Chloride 101 mmol/L (98-107); Estimated CRCL calculation 36 ml/min; Estimated Glomerular Filt Rate > 60; Glucose 149 mg/dL (65-105); Potassium 3.7 mmol/L (3.4-5.0); Sodium 138 mmol/L (137-145)
[2020-02-26 09:21] LABS: Alanine Aminotransferase 16 U/L (4-35)
[2020-02-26] MEDS: guaiFENesin 12 HR 600 MG TABCR 1200 MG PO ×2 (11:13→19:49)
[2020-02-26] MEDS: DEXAMETHASONE SOD PHOS INJ 4 MG/ML VIAL 6 MG IV PUSH (11:14)
[2020-02-26] MEDS: FENOFIBRATE NANOCRYSTALLIZED 145 MG TABLET PO (11:14)
[2020-02-26] MEDS: LEVOTHYROXINE SODIUM 25 MCG TABLET PO (11:14)
[2020-02-26] MEDS: ASPIRIN 81 MG ENTERIC TABLET PO (11:14)
[2020-02-26] MEDS: SODIUM CHLORIDE 0.9% IV 1,000 ML 75 ML IV CONT (14:13)
--- NOTE | 2020-02-26 14:48 | PM.IMPN ---
Progress Note: A&P Assessment and Plan (1) Respiratory failure: Code(s): J96.90 - Respiratory failure, unspecified, unspecified whether with hypoxia or hypercapnia Status: Acute Assessment and Plan: patient with increasing oxygen requirement, currently on 15 L high-flow nasal . Patient seems to be comfortable - continue ceftriaxone and azithromycin - continue Mucinex (2) Pneumonia due to COVID-19 virus: Code(s): U07.1 - COVID-19; J12.89 - Other viral pneumonia Status: Acute Assessment and Plan: SARS-CoV-2 PCR positive on 02/23/2020 - continue Remdesivir ( started 02/25/2020) and dexamethasone( started 02/24/2020) - continue droplet, airborne, contact isolation /precautions - elevated D-dimer, LDH, C-reactive protein, ferritin (3) Hypothyroidism, unspecified: Code(s): E03.9 - Hypothyroidism, unspecified Status: Chronic Assessment and Plan: continue levothyroxine (4) Essential (primary) hypertension: Code(s): I10 - Essential (primary) hypertension Status: Chronic Assessment and Plan: patient hypertensive, will start amlodipine (5) Hyperlipidemia: Code(s): E78.5 - Hyperlipidemia, unspecified Status: Chronic (6) DVT prophylaxis: Code(s): Z29.9 - Encounter for prophylactic measures, unspecified Status: Acute Assessment and Plan: Lovenox Additional Plan discussed with patient updated with her condition and plan of care Subjective Date/time seen: 02/26/20 14:48 Interval history: 84 year old female Who lives At home alone. She has her daughter come to her house and help her out at times. Found to be covid positive with pneumonia on CXR. Oxygen requirements have increased since yesterday and now she is on 15 L high-flow nasal cannula with adequate O2 sats. Is not in any distress. States she does not know how she is feeling. Is any chest pain, shortness of breath, abdominal pain, nausea, vomiting. Patient has diarrhea incontinent stools Review of Systems Review of Systems: All systems reviewed & are unremarkable except as noted in HPI and below Exam Const: General: comfortable and no acute distress HENMT: Other: dry mucous membranes Eyes: Sclera: sclerae normal Pupils: Equal, round and reactive pupils present Neck: Neck: supple Resp: Effort & Inspection: normal respiratory effort Auscultation: rales and diminished lung sounds Cardio: Rate: regular rate Rhythm: regular rhythm GI: Other: abdominal was soft, non distended, non tender, normoactive bowel sounds : Other: Corea catheter in place Urinary Catheter: Urinary Catheter: patent and draining and urine clear Skin: Other: mild bruising noted on the lower extremities and upper extremities Neuro: Other: patient is awake, alert, oriented x3, nonfocal Extrem: General: normal to inspection, no edema and no pedal edema Psych: Mental Status: mental status grossly normal Affect: Sad affect present Objective Data Vital Signs Vital Signs: Vital Signs - 24 hr 02/25/20 16:00 02/25/20 17:57 02/25/20 20:00 Temperature 98.8 F 98.7 F Pulse Rate 92 74 87 Respiratory Rate 28 H 25 H Blood Pressure 139/74 146/85 H Pulse Oximetry 91 97 02/25/20 21:54 02/25/20 22:00 02/26/20 00:00 Temperature Pulse Rate 78 75 Respiratory Rate Blood Pressure Pulse Oximetry 98 02/26/20 00:30 02/26/20 02:00 02/26/20 04:00 Temperature 98.4 F Pulse Rate 89 66 64 Respiratory Rate 26 H Blood Pressure 156/86 H Pulse Oximetry 88 L 02/26/20 04:25 02/26/20 06:00 02/26/20 11:27 Temperature 98.1 F Pulse Rate 76 66 Respiratory Rate 24 H Blood Pressure 154/87 H Pulse Oximetry 89 L 94 Intake/Output Intake/Output: Intake & Output 02/23/20 02/24/20 02/25/20 02/26/20 23:59 23:59 23:59 23:59 Intake Total 1365 1440 1450 240 Output Total 400 300 300 Balance 965 1140 1150 240 Meds/Results Medi
[2020-02-26] MEDS: amLODIPine BESYLATE 2.5 MG TABLET PO (18:44)
[2020-02-26] MEDS: amLODIPine BESYLATE 5 MG TABLET PO (18:44)
[2020-02-26] MEDS: REMDESIVIR 100 MG/NS 250 ML 100 MG/250 ML BAG 250 MG IVPB (18:45)
[2020-02-26] MEDS: ENOXAPARIN 40 MG/0.4 ML SYRINGE SUB-Q (18:45)
[2020-02-27] VITALS (14 sets, daily range): BP systolic 145–164; BP diastolic 72–77; PULSE 67–95; RESP 15–29; TEMP 35.9–36.7; O2SAT 90–96
[2020-02-27] MEDS: LEVOTHYROXINE SODIUM 25 MCG TABLET PO (05:44)
[2020-02-27] MEDS: CENTRAL LINE FLUSH 10 ML IV PUSH ×3 (05:46→21:50)
[2020-02-27 05:50] LABS: Basophils Percent Auto 0.2 % (0.2-1.2); Hematocrit 38.3 % (37.0-47.0); Hemoglobin 12.7 g/dL (12.0-15.0); Immature Granulocyte Absolute 0.07 K/mm3 (0.00-0.031); Immature Granulocyte Percent A 0.6 % (0-0.5); Lymphocytes Absolute Auto 0.83 K/mm3 (0.9-3.2); Mean Corpuscular HGB Conc 33.2 g/dl (32-36); Mean Corpuscular Hemoglobin 30.2 pg (26-34); Mean Platelet Volume 9.8 fl (7.4-10.4); Monocytes Absolute Auto 0.3 K/mm3 (0.1-0.6); Monocytes Percent Auto 2.5 % (2.6-8.5); Neutrophils Absolute Auto 10.6 K/mm3 (1.3-6.7); Neutrophils Percent Auto 89.7 % (45.5-73.1); Platelet Count Result 361 k/mm3 (150-375); Red Blood Count 4.21 M/mm3 (4.2-5.4); Red Cell Distribution Width 14.1 % (11.5-14.5); White Blood Count 11.8 K/mm3 (4.5-10.0)
[2020-02-27 06:04] LABS: Alanine Aminotransferase 14 U/L (4-35)
[2020-02-27 06:07] LABS: Anion Gap 5 mmol/L (8-16); Blood Urea Nitrogen 16 mg/dL (7-17); Carbon Dioxide 29 mmol/L (22-30); Chloride 104 mmol/L (98-107); Estimated CRCL calculation 47 ml/min; Estimated Glomerular Filt Rate > 60; Glucose 127 mg/dL (65-105); Magnesium 2.2 mg/dL (1.6-2.3); Phosphorus 2.1 mg/dL (2.5-4.5); Potassium 3.6 mmol/L (3.4-5.0); Sodium 138 mmol/L (137-145)
[2020-02-27] MEDS: amLODIPine BESYLATE 5 MG TABLET PO (08:36)
[2020-02-27] MEDS: amLODIPine BESYLATE 2.5 MG TABLET PO (08:36)
[2020-02-27] MEDS: ASPIRIN 81 MG ENTERIC TABLET PO (08:36)
[2020-02-27] MEDS: FENOFIBRATE NANOCRYSTALLIZED 145 MG TABLET PO (08:36)
[2020-02-27] MEDS: DEXAMETHASONE SOD PHOS INJ 4 MG/ML VIAL 6 MG IV PUSH (08:37)
[2020-02-27] MEDS: ENOXAPARIN 40 MG/0.4 ML SYRINGE SUB-Q (08:37)
[2020-02-27] MEDS: guaiFENesin 12 HR 600 MG TABCR 1200 MG PO ×2 (08:38→21:48)
[2020-02-27] MEDS: POTASSIUM/PHOSPHORUS/SODIUM 1.5 GM PACKET 1 PACKET PO (12:46)
--- NOTE | 2020-02-27 13:01 | PM.IMPN ---
Progress Note: A&P Assessment and Plan (1) Respiratory failure: Code(s): J96.90 - Respiratory failure, unspecified, unspecified whether with hypoxia or hypercapnia Status: Acute Assessment and Plan: patient with increasing oxygen requirement, currently on 15 L high-flow nasal . Patient seems to be comfortable - continue ceftriaxone (#2) and azithromycin (#3) - continue Mucinex for cough (2) Pneumonia due to COVID-19 virus: Code(s): U07.1 - COVID-19; J12.89 - Other viral pneumonia Status: Acute Assessment and Plan: SARS-CoV-2 PCR positive on 02/23/2020 - continue Remdesivir ( started 02/25/2020) and dexamethasone( started 02/24/2020) - continue droplet, airborne, contact isolation /precautions - elevated D-dimer, LDH, C-reactive protein, ferritin (3) Hypothyroidism, unspecified: Code(s): E03.9 - Hypothyroidism, unspecified Status: Chronic Assessment and Plan: continue levothyroxine (4) Essential (primary) hypertension: Code(s): I10 - Essential (primary) hypertension Status: Chronic Assessment and Plan: will increase amlodipine to 10 mg daily (5) DVT prophylaxis: Code(s): Z29.9 - Encounter for prophylactic measures, unspecified Status: Acute Assessment and Plan: Lovenox (6) Hyperlipidemia: Code(s): E78.5 - Hyperlipidemia, unspecified Status: Chronic Assessment and Plan: continue fenofibrate Additional Plan discussed with patient and her daughter and updated them with patient's condition and plan of care. Both are aware that the oxygen requirements have increased. I did tell the daughter that patient is on dexamethasone and Remdesivir code status: DNR Subjective Date/time seen: 02/27/20 13:01 Interval history: 84 year old female Who lives At home alone. She has her daughter come to her house and help her out at times. Found to be covid positive with pneumonia on CXR. patient in IMU secondary to increasing oxygen requirements. 02/27/2020: Patient seen examined will remains on 50 L high-flow nasal cannula along with non-rebreather mask O2 sats have been adequate, patient seems to be comfortable with no respiratory distress. Denies any chest pain, abdominal pain, nausea vomiting output has been adequate, patient is afebrile blood cultures are negative x2, WBC count trending up which could be secondary to dexamethasone. Review of Systems Review of Systems: All systems reviewed & are unremarkable except as noted in HPI and below Exam Const: General: comfortable and no acute distress HENMT: Other: dry mucous membranes Eyes: Sclera: sclerae normal Pupils: Equal, round and reactive pupils present Neck: Neck: supple Resp: Effort & Inspection: normal respiratory effort Auscultation: rales and diminished lung sounds Cardio: Rate: regular rate Rhythm: regular rhythm GI: Other: abdominal was soft, non distended, non tender, normoactive bowel sounds : Other: Corea catheter in place Urinary Catheter: Urinary Catheter: patent and draining and urine clear Skin: Other: mild bruising noted on the lower extremities and upper extremities Neuro: Cranial nerves: Yes Equal, round and reactive pupils present Other: patient is awake, alert, oriented x3, nonfocal Extrem: General: normal to inspection, no edema and no pedal edema Psych: Mental Status: mental status grossly normal Affect: Sad affect present Objective Data Vital Signs Vital Signs: Vital Signs - 24 hr 02/26/20 14:00 02/26/20 16:00 02/26/20 18:00 Temperature 97.8 F Pulse Rate 73 75 76 Respiratory Rate 20 Blood Pressure 155/98 H Pulse Oximetry 91 02/26/20 20:00 02/26/20 22:00 02/27/20 00:00 Temperature 98.0 F Pulse Rate 78 68 73 Respiratory Rate 23 H 22 H Blood Pressure 152/82 H 158/73 H Pulse Oximetry 93 92 02/27/20 02:00 02/27/20 04:00 02/27/20 06:00 Temperature Pulse Rate
[2020-02-27 13:28] LABS: CRP 6.9 mg/dL (<1.0); Lactate Dehydrogenase 1485 U/L (313-618)
[2020-02-27] MEDS: REMDESIVIR 100 MG/NS 250 ML 100 MG/250 ML BAG 250 MG IVPB (17:17)
[2020-02-28] VITALS (20 sets, daily range): BP systolic 133–158; BP diastolic 67–88; PULSE 64–92; RESP 13–25; TEMP 36.4–36.9; O2SAT 86–96
[2020-02-28 05:35] LABS: Basophils Percent Auto 0.2 % (0.2-1.2); Hematocrit 40.7 % (37.0-47.0); Hemoglobin 13.7 g/dL (12.0-15.0); Immature Granulocyte Absolute 0.15 K/mm3 (0.00-0.031); Immature Granulocyte Percent A 0.9 % (0-0.5); Lymphocytes Absolute Auto 1.23 K/mm3 (0.9-3.2); Lymphocytes Percent Auto 7.1 % (18.3-44.2); Mean Corpuscular HGB Conc 33.7 g/dl (32-36); Mean Corpuscular Hemoglobin 30.7 pg (26-34); Mean Corpuscular Volume 91.3 fl (80-100); Mean Platelet Volume 10.2 fl (7.4-10.4); Monocytes Absolute Auto 0.4 K/mm3 (0.1-0.6); Monocytes Percent Auto 2.1 % (2.6-8.5); Neutrophils Absolute Auto 15.5 K/mm3 (1.3-6.7); Neutrophils Percent Auto 89.7 % (45.5-73.1); Platelet Count Result 429 k/mm3 (150-375); Red Blood Count 4.46 M/mm3 (4.2-5.4); Red Cell Distribution Width 14.1 % (11.5-14.5); White Blood Count 17.3 K/mm3 (4.5-10.0)
[2020-02-28] MEDS: LEVOTHYROXINE SODIUM 25 MCG TABLET PO (05:41)
[2020-02-28] MEDS: CENTRAL LINE FLUSH 10 ML IV PUSH ×3 (05:41→20:35)
[2020-02-28 05:55] LABS: D Dimer 1.33 ug/mL (<0.48)
[2020-02-28 05:58] LABS: Alanine Aminotransferase 14 U/L (4-35); Anion Gap 10 mmol/L (8-16); Blood Urea Nitrogen 14 mg/dL (7-17); CRP 7.8 mg/dL (<1.0); Calcium 8.4 mg/dL (8.4-10.2); Carbon Dioxide 29 mmol/L (22-30); Chloride 99 mmol/L (98-107); Estimated CRCL calculation 47 ml/min; Estimated Glomerular Filt Rate > 60; Glucose 134 mg/dL (65-105); Lactate Dehydrogenase 1517 U/L (313-618); Magnesium 2.4 mg/dL (1.6-2.3); Potassium 3.1 mmol/L (3.4-5.0); Sodium 138 mmol/L (137-145)
[2020-02-28] MEDS: amLODIPine BESYLATE 5 MG TABLET PO (09:41)
[2020-02-28] MEDS: POTASSIUM/PHOSPHORUS/SODIUM 1.5 GM PACKET 1 PACKET PO (09:41)
[2020-02-28] MEDS: ASPIRIN 81 MG ENTERIC TABLET PO (09:41)
[2020-02-28] MEDS: ENOXAPARIN 40 MG/0.4 ML SYRINGE SUB-Q (09:42)
[2020-02-28] MEDS: DEXAMETHASONE SOD PHOS INJ 4 MG/ML VIAL 6 MG IV PUSH (09:42)
[2020-02-28] MEDS: guaiFENesin 12 HR 600 MG TABCR 1200 MG PO ×2 (09:42→20:35)
[2020-02-28] MEDS: FENOFIBRATE NANOCRYSTALLIZED 145 MG TABLET PO (09:42)
--- NOTE | 2020-02-28 10:03 | PCSTNOTE ---
Please refer to the Bedside Swallow Evaluation in the EMR.
[2020-02-28] MEDS: REMDESIVIR 100 MG/NS 250 ML 100 MG/250 ML BAG 250 MG IVPB (17:07)
--- NOTE | 2020-02-28 17:30 | WPDCNINT ---
Assessment and Plan Assessment and plan (1) Respiratory failure: Code(s): J96.90 - Respiratory failure, unspecified, unspecified whether with hypoxia or hypercapnia Status: Acute Assessment and Plan: patient with increasing oxygen requirement, currently on 15 L high-flow nasal . Patient seems to be comfortable - continue ceftriaxone (#3) and azithromycin (#4) - continue Mucinex for cough (2) Pneumonia due to COVID-19 virus: Code(s): U07.1 - COVID-19; J12.89 - Other viral pneumonia Status: Acute Assessment and Plan: SARS-CoV-2 PCR positive on 02/23/2020 - continue Remdesivir ( started 02/25/2020) and dexamethasone( started 02/24/2020) - continue droplet, airborne, contact isolation /precautions - elevated D-dimer, LDH, C-reactive protein, ferritin - have ordered a unit of convalescent plasma to be transfused today (3) Hypothyroidism, unspecified: Code(s): E03.9 - Hypothyroidism, unspecified Status: Chronic Assessment and Plan: continue levothyroxine (4) Essential (primary) hypertension: Code(s): I10 - Essential (primary) hypertension Status: Chronic Assessment and Plan: continue amlodipine, blood pressure is more stable (5) DVT prophylaxis: Code(s): Z29.9 - Encounter for prophylactic measures, unspecified Status: Acute Assessment and Plan: Lovenox (6) Hyperlipidemia: Code(s): E78.5 - Hyperlipidemia, unspecified Status: Chronic Assessment and Plan: continue fenofibrate Additional Plan discussed with patient and her daughter and updated them with patient's condition and plan of care. Both are aware that the oxygen requirements have increased. I did tell the daughter that patient is on dexamethasone and Remdesivir and that she will be receiving a unit of continue listen plasma. code status: DNR Critical care time spent: 44 minutes [employer] Area [employer] Consult Note Consult date: 02/28/20 Time Seen: 07:09 Reason for consult: acute respiratory failure, COVID-19 pneumonia, increasing oxygen requirement, HPI: Tra Amin is a 84 year old female with past medical history of acute arthritis, essential hypertension, history of coronary artery disease and MT, hyperlipidemia, hypothyroidism presented the ED on 02/23/2020 with nausea, vomiting and diarrhea along with cough and fevers for the last 6 days prior to admission. Influenza a and B were negative. ABG showed a PO2 of 53, placed on 5 L oxygen via nasal cannula, following days intermediate unit. Patient was tested positive for COVID-19 with worsening chest x-ray increased oxygen requirements. Currently patient is on Airvo 85% FiO2, 50 L. WBC count has trended up. Ferritin, LDH and D-dimer elevated, CRP trending down. patient was made ICU this morning due to her increased oxygen requirements Patient seen and examined the ICU this morning. Remains on 85% FiO2, 50 L flow rate on the Airvo high-flow therapy. patient with will worsening leukocytosis. Elevated D-dimer, ferritin and LDH. CRP elevated but stable. Patient is unable to tell me how she feels, though she is able to answer questions and denies any chest pain, abdominal pain, nausea vomiting. 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
[2020-02-29] VITALS (17 sets, daily range): BP systolic 140–172; BP diastolic 67–89; PULSE 60–91; RESP 12–21; TEMP 35.9–36.6; O2SAT 91–96
[2020-02-29] MEDS: LEVOTHYROXINE SODIUM 25 MCG TABLET PO (05:39)
[2020-02-29 06:21] LABS: Basophils Percent Auto 0.1 % (0.2-1.2); Hematocrit 37.8 % (37.0-47.0); Hemoglobin 12.9 g/dL (12.0-15.0); Immature Granulocyte Percent A 0.7 % (0-0.5); Lymphocytes Absolute Auto 0.58 K/mm3 (0.9-3.2); Mean Corpuscular HGB Conc 34.1 g/dl (32-36); Mean Corpuscular Volume 90.9 fl (80-100); Mean Platelet Volume 10.8 fl (7.4-10.4); Monocytes Absolute Auto 0.4 K/mm3 (0.1-0.6); Monocytes Percent Auto 2.5 % (2.6-8.5); Neutrophils Absolute Auto 13.4 K/mm3 (1.3-6.7); Neutrophils Percent Auto 92.7 % (45.5-73.1); Platelet Count Result 416 k/mm3 (150-375); Red Blood Count 4.16 M/mm3 (4.2-5.4); Red Cell Distribution Width 14.1 % (11.5-14.5); White Blood Count 14.4 K/mm3 (4.5-10.0)
[2020-02-29 06:28] LABS: D Dimer 1.85 ug/mL (<0.48)
[2020-02-29] MEDS: CENTRAL LINE FLUSH 10 ML IV PUSH ×3 (06:55→20:18)
[2020-02-29 07:03] LABS: Alanine Aminotransferase 14 U/L (4-35); Albumin Level 2.9 g/dL (3.5-5.1); Alkaline Phosphatase 43 U/L (38-126); Anion Gap 6 mmol/L (8-16); Aspartate Amino Transferase 41 U/L (14-36); Bilirubin,Total 0.7 mg/dL (0.2-1.3); Blood Urea Nitrogen 16 mg/dL (7-17); CRP 8.8 mg/dL (<1.0); Calcium 8.4 mg/dL (8.4-10.2); Carbon Dioxide 28 mmol/L (22-30); Chloride 101 mmol/L (98-107); Estimated CRCL calculation 55 ml/min; Estimated Glomerular Filt Rate > 60; Glucose 133 mg/dL (65-105); Lactate Dehydrogenase 1615 U/L (313-618); Sodium 135 mmol/L (137-145)
[2020-02-29] MEDS: ASPIRIN 81 MG ENTERIC TABLET PO (08:11)
[2020-02-29] MEDS: ENOXAPARIN 40 MG/0.4 ML SYRINGE SUB-Q ×2 (08:11→20:17)
[2020-02-29] MEDS: guaiFENesin 12 HR 600 MG TABCR 1200 MG PO ×2 (08:11→20:18)
[2020-02-29] MEDS: amLODIPine BESYLATE 5 MG TABLET 10 MG PO (08:11)
[2020-02-29] MEDS: DEXAMETHASONE SOD PHOS INJ 4 MG/ML VIAL 6 MG IV PUSH (08:11)
[2020-02-29] MEDS: FENOFIBRATE NANOCRYSTALLIZED 145 MG TABLET PO (08:11)
[2020-02-29] MEDS: MEGESTROL ACETATE (*CHEMO) ORAL SUSP 40 MG/ML SYR 800 MG PO (08:12)
--- NOTE | 2020-02-29 12:18 | WPDINTPN ---
Progress Note: A&P Assessment and Plan (1) Respiratory failure: Code(s): J96.90 - Respiratory failure, unspecified, unspecified whether with hypoxia or hypercapnia Status: Acute Assessment and Plan: patient with increasing oxygen requirement, currently on 85% FiO2, 50 L flow rate on high-flow therapy . Patient seems to be comfortable - continue ceftriaxone (#4) and azithromycin (#5) - continue Mucinex for cough (2) Pneumonia due to COVID-19 virus: Code(s): U07.1 - COVID-19; J12.89 - Other viral pneumonia Status: Acute Assessment and Plan: SARS-CoV-2 PCR positive on 02/23/2020 - continue Remdesivir ( started 02/25/2020) and dexamethasone( started 02/24/2020) - continue droplet, airborne, contact isolation /precautions - elevated D-dimer, LDH, C-reactive protein, ferritin - 02/28/2020 patient was transfused 1 unit of convalescent plasma. (3) Hypothyroidism, unspecified: Code(s): E03.9 - Hypothyroidism, unspecified Status: Chronic Assessment and Plan: continue levothyroxine (4) Essential (primary) hypertension: Code(s): I10 - Essential (primary) hypertension Status: Chronic Assessment and Plan: Will increase amlodipine and start metoprolol as patient pressures are elevated (5) DVT prophylaxis: Code(s): Z29.9 - Encounter for prophylactic measures, unspecified Status: Acute Assessment and Plan: Lovenox 40 mg subcu q.12 hours (6) Hyperlipidemia: Code(s): E78.5 - Hyperlipidemia, unspecified Status: Chronic Assessment and Plan: continue fenofibrate Additional Plan discussed with patient and her daughter and updated them with patient's condition and plan of care. Both are aware that the oxygen requirements have increased. I did tell the daughter that patient is on dexamethasone and Remdesivir and that she she received a unit of convalescent plasma on 02/28/2020 code status: DNR Critical care time spent: 33 minutes Subjective Date/time seen: 02/29/20 12:18 Interval history: 84 year old female Who lives At home alone. She has her daughter come to her house and help her out at times. Found to be covid positive with pneumonia on CXR. patient in IMU secondary to increasing oxygen requirements. Reason for consult: acute respiratory failure, COVID-19 pneumonia, increasing oxygen requirement, patient made ICU 02/28/2020 - convalescent plasma transfused on 02/28/2020 02/29/2020: Patient remains on 85% FiO2, 50 L high-flow therapy. Not requiring the non-rebreather at this time. Patient seems to be more awake, able to converse better , answers questions more appropriately than yesterday. Patient denies any chest pain, abdominal pain, nausea, vomiting, diarrhea. Urine output has been adequate, blood pressures are slightly elevated. Review of Systems Review of Systems: All systems reviewed & are unremarkable except as noted in HPI and below Exam Const: General: comfortable and no acute distress HENMT: Other: dry mucous membranes Eyes: Sclera: sclerae normal Pupils: Equal, round and reactive pupils present Neck: Neck: supple Resp: Effort & Inspection: normal respiratory effort Auscultation: rales and diminished lung sounds Cardio: Rate: regular rate Rhythm: regular rhythm GI: Inspection: non-distended GI Palp: Yes Soft to palpation and No Tenderness to palpation present (GI) Auscultation: normal bowel sounds : Other: Corea catheter in place Urinary Catheter: Urinary Catheter: patent and draining and urine clear Skin: Other: mild bruising noted on the lower extremities and upper extremities Neuro: Cranial nerves: Yes Equal, round and reactive pupils present Other: patient is awake, alert, oriented x3, nonfocal Extrem: General: normal to inspection, no edema and no pedal edema Psych: Mental Status: mental status grossly normal Affect: Sad affect present
[2020-02-29] MEDS: METOPROLOL TARTRATE 25 MG TABLET PO ×2 (12:43→20:17)
[2020-03-01] VITALS (21 sets, daily range): BP systolic 126–164; BP diastolic 69–98; PULSE 67–90; RESP 13–23; TEMP 36.1–36.5; O2SAT 87–97; BMI 21.4
[2020-03-01 03:33] LABS: Hematocrit 38.1 % (37.0-47.0); Hemoglobin 12.9 g/dL (12.0-15.0); Mean Corpuscular HGB Conc 33.9 g/dl (32-36); Mean Corpuscular Hemoglobin 30.2 pg (26-34); Mean Corpuscular Volume 89.2 fl (80-100); Mean Platelet Volume 10.3 fl (7.4-10.4); Platelet Count Result 460 k/mm3 (150-375); Red Blood Count 4.27 M/mm3 (4.2-5.4); Red Cell Distribution Width 14.1 % (11.5-14.5); White Blood Count 15.7 K/mm3 (4.5-10.0)
[2020-03-01 03:42] LABS: Anion Gap 5 mmol/L (8-16); Blood Urea Nitrogen 16 mg/dL (7-17); Calcium 8.2 mg/dL (8.4-10.2); Carbon Dioxide 28 mmol/L (22-30); Chloride 102 mmol/L (98-107); Estimated CRCL calculation 55 ml/min; Estimated Glomerular Filt Rate > 60; Glucose 140 mg/dL (65-105); Magnesium 2.4 mg/dL (1.6-2.3); Phosphorus 1.7 mg/dL (2.5-4.5); Potassium 3.5 mmol/L (3.4-5.0); Sodium 135 mmol/L (137-145)
[2020-03-01] MEDS: CENTRAL LINE FLUSH 10 ML IV PUSH ×3 (06:24→20:04)
[2020-03-01] MEDS: LEVOTHYROXINE SODIUM 25 MCG TABLET PO (06:25)
[2020-03-01] MEDS: guaiFENesin 12 HR 600 MG TABCR 1200 MG PO ×2 (07:24→20:02)
[2020-03-01] MEDS: ENOXAPARIN 40 MG/0.4 ML SYRINGE SUB-Q ×2 (07:24→20:03)
[2020-03-01] MEDS: MEGESTROL ACETATE (*CHEMO) ORAL SUSP 40 MG/ML SYR 800 MG PO (07:24)
[2020-03-01] MEDS: FENOFIBRATE NANOCRYSTALLIZED 145 MG TABLET PO (07:25)
[2020-03-01] MEDS: ASPIRIN 81 MG ENTERIC TABLET PO (07:25)
[2020-03-01] MEDS: DEXAMETHASONE SOD PHOS INJ 4 MG/ML VIAL 6 MG IV PUSH (07:25)
[2020-03-01] MEDS: amLODIPine BESYLATE 5 MG TABLET 10 MG PO (07:25)
[2020-03-01] MEDS: METOPROLOL TARTRATE 25 MG TABLET PO ×2 (07:26→20:02)
[2020-03-01] MEDS: POTASSIUM PHOS,M-BASIC-D-BASIC 20 MMOL in SODIUM CHLORIDE 0.9% IV 250 ML 62.5 MMOL IVPB (08:18)
--- NOTE | 2020-03-01 11:41 | WPDINTPN ---
Progress Note: A&P Assessment and Plan (1) Respiratory failure: Code(s): J96.90 - Respiratory failure, unspecified, unspecified whether with hypoxia or hypercapnia Status: Acute Assessment and Plan: patient with increasing oxygen requirement, oxygen requirements improving, currently on 75% FiO2 and 50 L high-flow therapy. - Patient seems to be very comfortable - continue ceftriaxone (#5) and azithromycin (#6) ( continue for total of 7 days) - continue Mucinex for cough which seems to be improving (2) Pneumonia due to COVID-19 virus: Code(s): U07.1 - COVID-19; J12.89 - Other viral pneumonia Status: Acute Assessment and Plan: SARS-CoV-2 PCR positive on 02/23/2020 - continue Remdesivir ( started 02/25/2020) and dexamethasone( started 02/24/2020) - continue droplet, airborne, contact isolation /precautions - elevated D-dimer, LDH, C-reactive protein, ferritin - 02/28/2020 patient was transfused 1 unit of convalescent plasma. (3) Hypothyroidism, unspecified: Code(s): E03.9 - Hypothyroidism, unspecified Status: Chronic Assessment and Plan: continue levothyroxine (4) Essential (primary) hypertension: Code(s): I10 - Essential (primary) hypertension Status: Chronic Assessment and Plan: continue amlodipine and metoprolol, pressure is much improved (5) DVT prophylaxis: Code(s): Z29.9 - Encounter for prophylactic measures, unspecified Status: Acute Assessment and Plan: Lovenox 40 mg subcu q.12 hours (6) Hyperlipidemia: Code(s): E78.5 - Hyperlipidemia, unspecified Status: Chronic Assessment and Plan: continue fenofibrate Additional Plan discussed with patient and her daughter and updated them with patient's condition and plan of care. discussed with them regarding decrease in oxygen requirements. They aware that patient has not received a 1 unit of convalescent plasma, status post Remdesivir and continues to be on dexamethasone code status: DNR Critical care time spent: 32 minutes Subjective Date/time seen: 03/01/20 11:41 Interval history: 84 year old female Who lives At home alone. She has her daughter come to her house and help her out at times. Found to be covid positive with pneumonia on CXR. patient in IMU secondary to increasing oxygen requirements. Reason for consult: acute respiratory failure, COVID-19 pneumonia, increasing oxygen requirement, patient made ICU 02/28/2020 - convalescent plasma transfused on 02/28/2020 03/01/2020: Oxygen requirements down, currently on 75% FiO2 and 15 L high-flow therapy. Patient seems to be doing better, appetite has improved, denies any chest pain, shortness of breath, abdominal pain, nausea vomiting. Complains of mild cough. Urine output has been adequate, blood pressures better controlled after increasing her medications yesterday Review of Systems Review of Systems: All systems reviewed & are unremarkable except as noted in HPI and below Exam Const: General: comfortable and no acute distress HENMT: Mouth: Yes moist mucous membranes Other: Eyes: Sclera: sclerae normal Pupils: Equal, round and reactive pupils present Neck: Neck: supple Resp: Effort & Inspection: normal respiratory effort Auscultation: rales and diminished lung sounds Cardio: Rate: regular rate Rhythm: regular rhythm GI: Inspection: non-distended GI Palp: Yes Soft to palpation and No Tenderness to palpation present (GI) Auscultation: normal bowel sounds Other: abdominal was soft, non distended, non tender, normoactive bowel sounds : Other: Corea catheter in place Urinary Catheter: Urinary Catheter: patent and draining and urine clear Skin: Other: mild bruising noted on the lower extremities and upper extremities Neuro: Cranial nerves: Yes Equal, round and reactive pupils present Other: patient is awake, alert, oriented x3, nonfocal Extre
--- NOTE | 2020-03-01 17:21 | PM.IMPN ---
Progress Note: A&P Assessment and Plan (1) Respiratory failure: Code(s): J96.90 - Respiratory failure, unspecified, unspecified whether with hypoxia or hypercapnia Status: Acute Assessment and Plan: Patient with acute hypoxic respiratory fialure related to COVID pneumonia. Maintaining saturation on high flow nasal cannula. Patient appears comfortable and has been able to be more active. Continue to wean O2 as toelrated. Continue Mucinex for cough. Not on inhalers or nebs. (2) Pneumonia due to COVID-19 virus: Code(s): U07.1 - COVID-19; J12.89 - Other viral pneumonia Status: Acute Assessment and Plan: SARS-CoV-2 PCR positive on 02/23/2020. Treated with a 5 day course of Remdesivir through 02/28/20. Was transfused 1 unit of convalescent plasma on 02/27. Also started on dexamethasone Day 8 (started 02/22 in the ER). Also remains on ceftriaxone Day 8 (although missed 02/24 dose) and azithromycin (Day #8). Continue droplet, airborne, contact isolation. CXR showing diffuse airspace disease unchanged. LDH and DDimer climbing. CRP better initially but climbing now. (3) Hypothyroidism, unspecified: Code(s): E03.9 - Hypothyroidism, unspecified Status: Chronic Assessment and Plan: TSH low at 0.123 with FT4 0.23. Suspect euthyroid sick. Will continue levothyroxine. Plan to repeat levels once she is back to her baseline steroid dosing. (4) Inflammatory polyarthropathy: Code(s): M06.4 - Inflammatory polyarthropathy Status: Acute Assessment and Plan: No active tenosynovitis most likely the fact the patient is on dexamethasone. After 10 days of Dexamethasone, will switch to prednisone and taper down to dose. (5) Essential (primary) hypertension: Code(s): I10 - Essential (primary) hypertension Status: Chronic Assessment and Plan: Patient's blood pressure was reviewed on 03/01 Blood pressure remains reasonably well controlled. Will continue current medications with Lopressor and Norvasc. (6) Hyperlipidemia: Code(s): E78.5 - Hyperlipidemia, unspecified Status: Chronic Assessment and Plan: Stable. Fenofibrate has been continued. (7) DVT prophylaxis: Code(s): Z29.9 - Encounter for prophylactic measures, unspecified Status: Acute Assessment and Plan: Jacklynhaley Subjective Date/time seen: 03/01/20 17:21 Interval history: Date of service: 03/01 84yo female with HTN and inflammatroy arthopathy on chronic Prednisone here for acute respiratory failure with COVID pneumonia. Patient feels better today. Oxygen requirement has improved. She has been doing exercises in the bed. She was able to get up and ambulate in the room earlier today. She denies any chest pain. Shortness of breath is better. Eating well. No nausea or vomiting. Exam Narrative: Exam Narrative: AF 97.5 137/73 74 20 94% HFNC Gen - NARD sitting up in bed Chest - distant but clear BS, nml RR CV - RRR S1/S2; Tele showing occas PVCs Abd - Soft, NT/ND, Positive BS - Corea secured draining clear yellow urine Ext - No pitting pedal edema Psych - Nml mood and affect Skin - Warm and dry Objective Data Vital Signs Vital Signs: Vital Signs - 24 hr 02/29/20 18:00 02/29/20 19:50 02/29/20 20:00 Temperature 97.5 F L Pulse Rate 68 80 67 Respiratory Rate 14 17 Blood Pressure 154/80 H Pulse Oximetry 95 96 02/29/20 20:17 02/29/20 22:00 03/01/20 00:00 Temperature 97.7 F Pulse Rate 75 60 68 Respiratory Rate 20 20 Blood Pressure 156/89 H 164/72 H Pulse Oximetry 93 90 03/01/20 02:00 03/01/20 04:00 03/01/20 06:00 Temperature 97 F L Pulse Rate 70 71 80 Respiratory Rate 18 19 18 Blood Pressure 162/73 H 138/76 162/78 H Pulse Oximetry 92 97 92 03/01/20 07:26 03/01/20 08:00 03/01/20 08:10 Temperature 97.7 F Pulse Rate 75 77 81 Respiratory Rate 19 20 Blood Pressure 142/76
[2020-03-02] VITALS (22 sets, daily range): BP systolic 130–158; BP diastolic 63–79; PULSE 67–89; RESP 16–26; TEMP 36.1–36.7; O2SAT 90–96
[2020-03-02 04:26] LABS: Hematocrit 36.3 % (37.0-47.0); Hemoglobin 12.4 g/dL (12.0-15.0); Mean Corpuscular HGB Conc 34.2 g/dl (32-36); Mean Corpuscular Hemoglobin 30.2 pg (26-34); Mean Corpuscular Volume 88.3 fl (80-100); Mean Platelet Volume 10.7 fl (7.4-10.4); Platelet Count Result 462 k/mm3 (150-375); Red Blood Count 4.11 M/mm3 (4.2-5.4); Red Cell Distribution Width 14.1 % (11.5-14.5); White Blood Count 17.6 K/mm3 (4.5-10.0)
[2020-03-02 04:37] LABS: Anion Gap 5 mmol/L (8-16); Blood Urea Nitrogen 14 mg/dL (7-17); Calcium 8.2 mg/dL (8.4-10.2); Carbon Dioxide 28 mmol/L (22-30); Chloride 101 mmol/L (98-107); Estimated CRCL calculation 55 ml/min; Estimated Glomerular Filt Rate > 60; Glucose 151 mg/dL (65-105); Magnesium 2.2 mg/dL (1.6-2.3); Phosphorus 1.8 mg/dL (2.5-4.5); Potassium 3.4 mmol/L (3.4-5.0); Sodium 134 mmol/L (137-145)
[2020-03-02] MEDS: CENTRAL LINE FLUSH 10 ML IV PUSH ×3 (06:26→20:15)
[2020-03-02] MEDS: LEVOTHYROXINE SODIUM 25 MCG TABLET PO (06:26)
--- NOTE | 2020-03-02 08:57 | WPDINTPN ---
Progress Note: A&P Assessment and Plan (1) Respiratory failure: Code(s): J96.90 - Respiratory failure, unspecified, unspecified whether with hypoxia or hypercapnia Status: Acute Assessment and Plan: patient with increasing oxygen requirement, oxygen requirements improving, currently on 75% FiO2 and 50 L high-flow therapy. - Patient seems to be very comfortable - continue ceftriaxone (#5) and azithromycin (#6) ( continue for total of 7 days) - continue Mucinex for cough which seems to be improving - will add bronchodilators (2) Pneumonia due to COVID-19 virus: Code(s): U07.1 - COVID-19; J12.89 - Other viral pneumonia Status: Acute Assessment and Plan: SARS-CoV-2 PCR positive on 02/23/2020 - continue Remdesivir ( started 02/25/2020) and dexamethasone( started 02/24/2020) - continue droplet, airborne, contact isolation /precautions - follow inflammatory markers - 02/28/2020 patient was transfused 1 unit of convalescent plasma. (3) Hypothyroidism, unspecified: Code(s): E03.9 - Hypothyroidism, unspecified Status: Chronic Assessment and Plan: continue levothyroxine (4) Essential (primary) hypertension: Code(s): I10 - Essential (primary) hypertension Status: Chronic Assessment and Plan: continue amlodipine and metoprolol, pressure is much improved (5) DVT prophylaxis: Code(s): Z29.9 - Encounter for prophylactic measures, unspecified Status: Acute Assessment and Plan: Lovenox 40 mg subcu q.12 hours (6) Hyperlipidemia: Code(s): E78.5 - Hyperlipidemia, unspecified Status: Chronic Assessment and Plan: continue fenofibrate Additional Plan discussed with patient and her daughter and updated them with patient's condition and plan of care. discussed with them regarding decrease in oxygen requirements. They aware that patient has not received a 1 unit of convalescent plasma, status post Remdesivir and continues to be on dexamethasone code status: DNR Critical care time spent: 32 minutes Subjective Date/time seen: 03/02/20 08:57 Interval history: 84 year old female Who lives At home alone. She has her daughter come to her house and help her out at times. Found to be covid positive with pneumonia on CXR. patient in IMU secondary to increasing oxygen requirements. Reason for consult: acute respiratory failure, COVID-19 pneumonia, increasing oxygen requirement, patient made ICU 02/28/2020 - convalescent plasma transfused on 02/28/2020 03/02/2020: Oxygen requirement slightly going up today 80% FiO2 and 60 L flow rate on high-flow therapy. Urine output has been adequate, patient is afebrile, hemodynamically stable with adequate blood pressure control. Appetite is improving, continues to have a mild cough. PT/OT following the patient patient was up in chair yesterday Review of Systems Review of Systems: All systems reviewed & are unremarkable except as noted in HPI and below Exam Const: General: comfortable and no acute distress HENMT: Mouth: Yes moist mucous membranes Other: Eyes: Sclera: sclerae normal Pupils: Equal, round and reactive pupils present Neck: Neck: supple Resp: Effort & Inspection: normal respiratory effort Auscultation: rales and diminished lung sounds Cardio: Rate: regular rate Rhythm: regular rhythm GI: Inspection: non-distended Auscultation: normal bowel sounds Other: abdominal was soft, non distended, non tender, normoactive bowel sounds : Other: Corea catheter in place Urinary Catheter: Urinary Catheter: patent and draining and urine clear Skin: Other: mild bruising noted on the lower extremities and upper extremities Neuro: Cranial nerves: Yes Equal, round and reactive pupils present Other: patient is awake, alert, oriented x3, nonfocal Extrem: General: normal to inspection, no edema and no pedal edema Psych: Mental Status: ment
[2020-03-02] MEDS: METOPROLOL TARTRATE 25 MG TABLET PO ×2 (09:13→20:14)
[2020-03-02] MEDS: MEGESTROL ACETATE (*CHEMO) ORAL SUSP 40 MG/ML SYR 800 MG PO (09:13)
[2020-03-02] MEDS: amLODIPine BESYLATE 5 MG TABLET 10 MG PO (09:13)
[2020-03-02] MEDS: ASPIRIN 81 MG ENTERIC TABLET PO (09:13)
[2020-03-02] MEDS: guaiFENesin 12 HR 600 MG TABCR 1200 MG PO ×2 (09:13→20:14)
[2020-03-02] MEDS: FENOFIBRATE NANOCRYSTALLIZED 145 MG TABLET PO (09:13)
[2020-03-02] MEDS: DEXAMETHASONE SOD PHOS INJ 4 MG/ML VIAL 6 MG IV PUSH (09:13)
[2020-03-02] MEDS: ENOXAPARIN 40 MG/0.4 ML SYRINGE SUB-Q ×2 (09:14→20:13)
--- NOTE | 2020-03-02 13:11 | PM.IMPN ---
Progress Note: A&P Assessment and Plan (1) Respiratory failure: Code(s): J96.90 - Respiratory failure, unspecified, unspecified whether with hypoxia or hypercapnia Status: Acute Assessment and Plan: Patient with acute hypoxic respiratory fialure related to COVID pneumonia. Maintaining saturation on high flow nasal cannula. Patient appears comfortable. Continue to wean O2 as tolerated. Continue Mucinex for cough. Nebs added. (2) Pneumonia due to COVID-19 virus: Code(s): U07.1 - COVID-19; J12.89 - Other viral pneumonia Status: Acute Assessment and Plan: SARS-CoV-2 PCR positive on 02/23/2020. Treated with a 5 day course of Remdesivir through 02/28/20. Was transfused 1 unit of convalescent plasma on 02/27. Also started on dexamethasone Day 9 (started 02/22 in the ER). Patient completed a course of ceftriaxone and azithromycin. WBC worse today. CXR showing diffuse airspace disease unchanged but worsening overall. Continue droplet, airborne, contact isolation. Continue supportive care. (3) Hypothyroidism, unspecified: Code(s): E03.9 - Hypothyroidism, unspecified Status: Chronic Assessment and Plan: TSH low at 0.123 with FT4 0.23. Suspect euthyroid sick. Will continue levothyroxine. Plan to repeat levels once she is back to her baseline steroid dosing. (4) Inflammatory polyarthropathy: Code(s): M06.4 - Inflammatory polyarthropathy Status: Acute Assessment and Plan: No active tenosynovitis most likely the fact the patient is on dexamethasone. After 10 days of Dexamethasone, will switch to prednisone and taper down to home dose. (5) Essential (primary) hypertension: Code(s): I10 - Essential (primary) hypertension Status: Chronic Assessment and Plan: Patient's blood pressure was reviewed on 03/02 Blood pressure remains reasonably well controlled. Will continue current medications with Lopressor and Norvasc. (6) Hyperlipidemia: Code(s): E78.5 - Hyperlipidemia, unspecified Status: Chronic Assessment and Plan: Stable. Fenofibrate has been continued. (7) DVT prophylaxis: Code(s): Z29.9 - Encounter for prophylactic measures, unspecified Status: Acute Assessment and Plan: Lovenox Subjective Date/time seen: 03/02/20 13:11 Interval history: Date of service: 03/02 84yo female with HTN and inflammatory arthopathy on chronic Prednisone here for acute respiratory failure with COVID pneumonia. Patient slept poorly last night. She is eating but only small amounts. She denies feeling SOB. Denies CP. Exam Narrative: Exam Narrative: AF 97.4 140/74 72 22 95% HFNC Gen - NARD sitting up in bed Chest - bibasilar inspiratory crackles CV - RRR S1/S2; Tele showing occas PVCs Abd - Soft, NT/ND, Positive BS - Corea secured draining clear yellow urine Ext - No pitting pedal edema Psych - Nml mood and affect Skin - Warm and dry Objective Data Vital Signs Vital Signs: Vital Signs - 24 hr 03/01/20 13:39 03/01/20 13:58 03/01/20 14:00 Temperature Pulse Rate 76 79 79 Respiratory Rate 20 13 Blood Pressure 146/71 H Pulse Oximetry 92 94 03/01/20 14:18 03/01/20 16:00 03/01/20 18:00 Temperature 97.5 F L Pulse Rate 81 74 79 Respiratory Rate 20 20 15 Blood Pressure 137/73 147/83 H Pulse Oximetry 90 94 91 03/01/20 19:16 03/01/20 19:42 03/01/20 20:00 Temperature 97.5 F L Pulse Rate 85 81 87 Respiratory Rate 22 H 22 H 23 H Blood Pressure 129/82 Pulse Oximetry 87 L 93 92 03/01/20 20:02 03/01/20 22:00 03/02/20 00:00 Temperature 98 F Pulse Rate 86 68 69 Respiratory Rate 20 20 Blood Pressure 145/69 H 158/64 H Pulse Oximetry 91 91 03/02/20 02:00 03/02/20 04:00 03/02/20 06:00 Temperature 97.7 F Pulse Rate 71 76 76 Respiratory Rate 20 19 21 H Blood Pressure 155/79 H 156/74 H 157/73 H Pulse Oximetry 92 92 90 03/02/20 0
[2020-03-02] MEDS: IPRATROPIUM BR 0.02% INH SOLN 0.5 MG/2.5 ML VIAL INHALATION ×2 (14:52→20:59)
[2020-03-02] MEDS: ALBUTEROL SULFATE NEB 2.5 MG/0.5 ML INH INHALATION ×2 (14:52→21:00)
[2020-03-03] VITALS (23 sets, daily range): BP systolic 123–175; BP diastolic 61–99; PULSE 66–98; RESP 12–26; TEMP 36.6–37.3; O2SAT 90–97
[2020-03-03] MEDS: ALBUTEROL SULFATE NEB 2.5 MG/0.5 ML INH INHALATION ×4 (02:55→20:10)
[2020-03-03] MEDS: IPRATROPIUM BR 0.02% INH SOLN 0.5 MG/2.5 ML VIAL INHALATION ×4 (02:55→20:10)
[2020-03-03] MEDS: CENTRAL LINE FLUSH 10 ML IV PUSH ×3 (05:26→20:18)
[2020-03-03] MEDS: LEVOTHYROXINE SODIUM 25 MCG TABLET PO (05:27)
[2020-03-03 05:44] LABS: Hematocrit 35.3 % (37.0-47.0); Hemoglobin 11.8 g/dL (12.0-15.0); Mean Corpuscular HGB Conc 33.4 g/dl (32-36); Mean Corpuscular Hemoglobin 30.2 pg (26-34); Mean Corpuscular Volume 90.3 fl (80-100); Mean Platelet Volume 10.5 fl (7.4-10.4); Platelet Count Result 441 k/mm3 (150-375); Red Blood Count 3.91 M/mm3 (4.2-5.4); Red Cell Distribution Width 14.4 % (11.5-14.5); White Blood Count 15.5 K/mm3 (4.5-10.0)
[2020-03-03 05:59] LABS: D Dimer 1.58 ug/mL (<0.48)
[2020-03-03 06:46] LABS: Anion Gap 6 mmol/L (8-16); Blood Urea Nitrogen 15 mg/dL (7-17); CRP 4.2 mg/dL (<1.0); Calcium 8.1 mg/dL (8.4-10.2); Carbon Dioxide 23 mmol/L (22-30); Chloride 103 mmol/L (98-107); Estimated CRCL calculation 55 ml/min; Estimated Glomerular Filt Rate > 60; Glucose 144 mg/dL (65-105); Lactate Dehydrogenase 1406 U/L (313-618); Magnesium 2.2 mg/dL (1.6-2.3); Potassium 4.6 mmol/L (3.4-5.0); Sodium 132 mmol/L (137-145)
[2020-03-03] MEDS: DEXAMETHASONE SOD PHOS INJ 4 MG/ML VIAL 6 MG IV PUSH (08:19)
[2020-03-03] MEDS: ENOXAPARIN 40 MG/0.4 ML SYRINGE SUB-Q ×2 (08:19→20:15)
[2020-03-03] MEDS: SODIUM PHOSPHATE 20 MM in DEXTROSE 5% IN WATER 250 ML 50 MM IVPB (08:33)
--- NOTE | 2020-03-03 08:35 | WPDINTPN ---
Progress Note: A&P Assessment and Plan (1) Respiratory failure: Code(s): J96.90 - Respiratory failure, unspecified, unspecified whether with hypoxia or hypercapnia Status: Acute Assessment and Plan: patient with increasing oxygen requirement, oxygen requirements improving, currently on 75% FiO2 and 50 L high-flow therapy. - Patient seems to be very comfortable - status post 7 day course of ceftriaxone and azithromycin - continue Mucinex for cough which seems to be improving - continue bronchodilators (2) Pneumonia due to COVID-19 virus: Code(s): U07.1 - COVID-19; J12.89 - Other viral pneumonia Status: Acute Assessment and Plan: SARS-CoV-2 PCR positive on 02/23/2020 - status post Remdesivir - on dexamethasone - continue droplet, airborne, contact isolation /precautions - D-dimer, CRP, LDH will trending down, ferritin mildly elevated - 02/28/2020 patient was transfused 1 unit of convalescent plasma. (3) Hypothyroidism, unspecified: Code(s): E03.9 - Hypothyroidism, unspecified Status: Chronic Assessment and Plan: continue levothyroxine (4) Essential (primary) hypertension: Code(s): I10 - Essential (primary) hypertension Status: Chronic Assessment and Plan: continue amlodipine and metoprolol, pressure is much improved (5) DVT prophylaxis: Code(s): Z29.9 - Encounter for prophylactic measures, unspecified Status: Acute Assessment and Plan: Lovenox 40 mg subcu q.12 hours (6) Hyperlipidemia: Code(s): E78.5 - Hyperlipidemia, unspecified Status: Chronic Assessment and Plan: continue fenofibrate Additional Plan discussed with patient and her daughter and updated them with patient's condition and plan of care. discussed with them regarding decrease in oxygen requirements. They aware that patient has not received a 1 unit of convalescent plasma, status post Remdesivir and continues to be on dexamethasone code status: DNR Critical care time spent: 33 minutes Subjective Date/time seen: 03/03/20 08:35 Interval history: 84 year old female Who lives At home alone. She has her daughter come to her house and help her out at times. Found to be covid positive with pneumonia on CXR. patient in IMU secondary to increasing oxygen requirements. Reason for consult: acute respiratory failure, COVID-19 pneumonia, increasing oxygen requirement, patient made ICU 02/28/2020 - convalescent plasma transfused on 02/28/2020 03/03/2020: remains on high-flow oxygen therapy, 80% FiO2 from a 60 L flow rate, patient states she is having trouble breathing and does not feel good this morning. Patient is hemodynamically stable, urine output has been adequate. Patient is afebrile. Continues to cough. nor the issues overnight Review of Systems Review of Systems: All systems reviewed & are unremarkable except as noted in HPI and below Exam Const: General: comfortable and no acute distress HENMT: Mouth: Yes moist mucous membranes Other: Eyes: Sclera: sclerae normal Pupils: Equal, round and reactive pupils present Neck: Neck: supple Resp: Effort & Inspection: normal respiratory effort Auscultation: rales and diminished lung sounds Cardio: Rate: regular rate Rhythm: regular rhythm GI: Inspection: non-distended GI Palp: Yes Soft to palpation and No Tenderness to palpation present (GI) Auscultation: normal bowel sounds Other: abdominal was soft, non distended, non tender, normoactive bowel sounds : Other: Corea catheter in place Urinary Catheter: Urinary Catheter: patent and draining and urine clear Skin: Other: mild bruising noted on the lower extremities and upper extremities Neuro: Cranial nerves: Yes Equal, round and reactive pupils present Other: patient is awake, alert, oriented x3, nonfocal Extrem: General: normal to inspection, no edema and no pedal edema Psych: Men
[2020-03-03] MEDS: ASPIRIN 81 MG ENTERIC TABLET PO (10:18)
[2020-03-03] MEDS: amLODIPine BESYLATE 5 MG TABLET 10 MG PO (10:19)
[2020-03-03] MEDS: METOPROLOL TARTRATE 25 MG TABLET PO ×2 (10:19→20:14)
[2020-03-03] MEDS: MEGESTROL ACETATE (*CHEMO) ORAL SUSP 40 MG/ML SYR 800 MG PO (10:19)
[2020-03-03] MEDS: FENOFIBRATE NANOCRYSTALLIZED 145 MG TABLET PO (10:19)
[2020-03-03] MEDS: guaiFENesin 12 HR 600 MG TABCR 1200 MG PO ×2 (10:19→20:13)
--- NOTE | 2020-03-03 14:03 | PM.IMPN ---
Progress Note: A&P Assessment and Plan (1) Respiratory failure: Code(s): J96.90 - Respiratory failure, unspecified, unspecified whether with hypoxia or hypercapnia Status: Acute Assessment and Plan: Patient with acute hypoxic respiratory fialure related to COVID pneumonia. Maintaining saturation on high flow nasal cannula. Continue to wean O2 as tolerated. Continue Mucinex for cough and Nebs. (2) Pneumonia due to COVID-19 virus: Code(s): U07.1 - COVID-19; J12.89 - Other viral pneumonia Status: Acute Assessment and Plan: SARS-CoV-2 PCR positive on 02/23/2020. Treated with a 5 day course of Remdesivir through 02/28/20. Was transfused 1 unit of convalescent plasma on 02/27. Also started on dexamethasone Day 10 (started 02/22 in the ER). Patient completed a course of ceftriaxone and azithromycin. WBC better today. CXR showing diffuse airspace disease; xray slowly worsening over the past many days. Continue droplet, airborne, contact isolation. Continue supportive care. (3) Hypothyroidism, unspecified: Code(s): E03.9 - Hypothyroidism, unspecified Status: Chronic Assessment and Plan: TSH low at 0.123 with FT4 0.23. Suspect euthyroid sick and the fact she is on steroids. Will continue levothyroxine. Plan to repeat levels once she is back to her baseline steroid dosing. (4) Inflammatory polyarthropathy: Code(s): M06.4 - Inflammatory polyarthropathy Status: Acute Assessment and Plan: No active tenosynovitis most likely the fact the patient is on dexamethasone. After 10 days of Dexamethasone, will switch to prednisone and taper down to home dose. (5) Essential (primary) hypertension: Code(s): I10 - Essential (primary) hypertension Status: Chronic Assessment and Plan: Patient's blood pressure was reviewed on 03/03 Blood pressure remains reasonably well controlled. Will continue current medications with Lopressor and Norvasc. (6) Hyperlipidemia: Code(s): E78.5 - Hyperlipidemia, unspecified Status: Chronic Assessment and Plan: Stable. Fenofibrate has been continued. (7) DVT prophylaxis: Code(s): Z29.9 - Encounter for prophylactic measures, unspecified Status: Acute Assessment and Plan: Lovenox Subjective Date/time seen: 03/03/20 14:03 Interval history: Date of service: 03/03 84yo female with HTN and inflammatory arthopathy on chronic Prednisone here for acute respiratory failure with COVID pneumonia. Patient desats with exertion even with using bedpan. No CP. Eating better but still with occasional nausea. Exam Narrative: Exam Narrative: AF 98.0 143/71 66 20 96% HFNC Gen - NARD lying semirecumbent in bed Chest - decreased BS left base o/w improved air exchange. CV - RRR S1/S2; Tele showing abraham significnat dysrhythmias Abd - Soft, NT/ND, Positive BS - Corea secured draining clear yellow urine Ext - No pitting pedal edema Psych - Nml mood and affect Skin - Warm and dry Objective Data Vital Signs Vital Signs: Vital Signs - 24 hr 03/02/20 14:53 03/02/20 14:58 03/02/20 16:00 Temperature 97.5 F L Pulse Rate 76 79 75 Respiratory Rate 20 16 22 H Blood Pressure 138/68 Pulse Oximetry 95 03/02/20 18:00 03/02/20 20:00 03/02/20 20:14 Temperature 98.1 F Pulse Rate 89 86 82 Respiratory Rate 22 H 22 H Blood Pressure 132/67 145/72 H Pulse Oximetry 92 96 03/02/20 20:50 03/02/20 20:53 03/02/20 21:00 Temperature Pulse Rate 75 74 75 Respiratory Rate 22 H 22 H 22 H Blood Pressure Pulse Oximetry 93 03/02/20 22:00 03/02/20 23:26 03/03/20 00:00 Temperature 97.1 F L Pulse Rate 67 68 79 Respiratory Rate 19 22 H Blood Pressure 133/66 133/68 Pulse Oximetry 95 95 03/03/20 02:00 03/03/20 02:45 03/03/20 02:56 Temperature Pulse Rate 80 73 73 Respiratory Rate 12 25 H 25 H Blood Pressure 175/78 H Pulse Oxime
[2020-03-04] VITALS (22 sets, daily range): BP systolic 133–165; BP diastolic 65–80; PULSE 70–96; RESP 20–30; TEMP 36.2–36.6; O2SAT 90–99
[2020-03-04] MEDS: IPRATROPIUM BR 0.02% INH SOLN 0.5 MG/2.5 ML VIAL INHALATION ×4 (02:39→19:52)
[2020-03-04] MEDS: ALBUTEROL SULFATE NEB 2.5 MG/0.5 ML INH INHALATION ×4 (02:39→19:51)
[2020-03-04 05:28] LABS: Hematocrit 33.4 % (37.0-47.0); Hemoglobin 11.2 g/dL (12.0-15.0); Mean Corpuscular HGB Conc 33.5 g/dl (32-36); Mean Corpuscular Hemoglobin 29.8 pg (26-34); Mean Corpuscular Volume 88.8 fl (80-100); Mean Platelet Volume 10.8 fl (7.4-10.4); Platelet Count Result 420 k/mm3 (150-375); Red Blood Count 3.76 M/mm3 (4.2-5.4); White Blood Count 15.5 K/mm3 (4.5-10.0)
[2020-03-04 05:53] LABS: Anion Gap 4 mmol/L (8-16); Blood Urea Nitrogen 16 mg/dL (7-17); Calcium 8.1 mg/dL (8.4-10.2); Carbon Dioxide 28 mmol/L (22-30); Chloride 103 mmol/L (98-107); Estimated CRCL calculation 47 ml/min; Estimated Glomerular Filt Rate > 60; Glucose 157 mg/dL (65-105); Magnesium 2.2 mg/dL (1.6-2.3); Phosphorus 2.4 mg/dL (2.5-4.5); Potassium 3.7 mmol/L (3.4-5.0); Sodium 135 mmol/L (137-145)
[2020-03-04] MEDS: CENTRAL LINE FLUSH 10 ML IV PUSH ×3 (07:16→20:22)
[2020-03-04] MEDS: LEVOTHYROXINE SODIUM 25 MCG TABLET PO (07:22)
[2020-03-04] MEDS: ENOXAPARIN 40 MG/0.4 ML SYRINGE SUB-Q ×2 (08:19→20:21)
[2020-03-04] MEDS: amLODIPine BESYLATE 5 MG TABLET 10 MG PO (08:19)
[2020-03-04] MEDS: DEXAMETHASONE SOD PHOS INJ 4 MG/ML VIAL 6 MG IV PUSH (08:20)
[2020-03-04] MEDS: guaiFENesin 12 HR 600 MG TABCR 1200 MG PO ×2 (08:20→20:21)
[2020-03-04] MEDS: FENOFIBRATE NANOCRYSTALLIZED 145 MG TABLET PO (08:20)
[2020-03-04] MEDS: ASPIRIN 81 MG ENTERIC TABLET PO (08:20)
[2020-03-04] MEDS: MEGESTROL ACETATE (*CHEMO) ORAL SUSP 40 MG/ML SYR 800 MG PO (08:20)
[2020-03-04] MEDS: METOPROLOL TARTRATE 25 MG TABLET PO ×2 (08:21→20:21)
--- NOTE | 2020-03-04 09:37 | PM.IMPN ---
Progress Note: A&P Assessment and Plan (1) Respiratory failure: Code(s): J96.90 - Respiratory failure, unspecified, unspecified whether with hypoxia or hypercapnia Status: Acute Assessment and Plan: Patient with acute hypoxic respiratory failure related to COVID pneumonia. Maintaining saturation on high flow nasal cannula. Continue to wean O2 as tolerated. Continue Mucinex for cough and Nebs. (2) Pneumonia due to COVID-19 virus: Code(s): U07.1 - COVID-19; J12.89 - Other viral pneumonia Status: Acute Assessment and Plan: SARS-CoV-2 PCR positive on 02/23/2020. Treated with a 5 day course of Remdesivir through 02/28/20. Was transfused 1 unit of convalescent plasma on 02/27. Also started on dexamethasone Day 10 (started 02/22 in the ER) that was completed 03/03/20. Patient completed a course of ceftriaxone and azithromycin. WBC unchanged today and felt related to steroids. CXR showing diffuse airspace disease with may be slight improvement. Continue droplet, airborne, contact isolation. Continue supportive care. (3) Hypothyroidism, unspecified: Code(s): E03.9 - Hypothyroidism, unspecified Status: Chronic Assessment and Plan: TSH low at 0.123 with FT4 0.23. Suspect euthyroid sick and the fact she is on steroids. Will continue levothyroxine. Plan to repeat levels once she is back to her baseline steroid dosing. (4) Inflammatory polyarthropathy: Code(s): M06.4 - Inflammatory polyarthropathy Status: Acute Assessment and Plan: No active tenosynovitis most likely the fact the patient is on dexamethasone. She has finished 10 days of Dexamethasone so will switch to prednisone and taper down to home dose. (5) Essential (primary) hypertension: Code(s): I10 - Essential (primary) hypertension Status: Chronic Assessment and Plan: Patient's blood pressure was reviewed on 03/03 Blood pressure remains reasonably well controlled. Will continue current medications with Lopressor and Norvasc. (6) Hyperlipidemia: Code(s): E78.5 - Hyperlipidemia, unspecified Status: Chronic Assessment and Plan: Stable. Fenofibrate has been continued. (7) DVT prophylaxis: Code(s): Z29.9 - Encounter for prophylactic measures, unspecified Status: Acute Assessment and Plan: Lovenox Subjective Date/time seen: 03/04/20 09:37 Interval history: Date of service: 03/04 84yo female with HTN and inflammatory arthopathy on chronic Prednisone here for acute respiratory failure with COVID pneumonia. Patient slept poorly last night. She feels tired today. No CP. SOB about the same. She feels nauseous but then later states she is hungry and is waiting for breakfast. Exam Narrative: Exam Narrative: AF 97.6 150/80 84 22 96% HFNC 60L Gen - NARD lying semirecumbent in bed Chest - few lower lung field inspiratory crackles but otherwise clear. nml RR. no conversational dyspnea CV - RRR S1/S2; Tele showing PVCs Abd - Soft, NT/ND, Positive BS - Corea secured draining clear yellow urine Ext - No pitting pedal edema Psych - Nml mood and affect; appears tired Skin - Warm and dry; bruising noted bilateral abd flanks L>R Objective Data Vital Signs Vital Signs: Vital Signs - 24 hr 03/03/20 10:00 03/03/20 10:19 03/03/20 12:00 Temperature Pulse Rate 89 85 66 Respiratory Rate 22 H 20 Blood Pressure 160/75 H 143/71 H Pulse Oximetry 90 96 03/03/20 14:00 03/03/20 14:37 03/03/20 14:47 Temperature Pulse Rate 72 74 76 Respiratory Rate 22 H 22 H 21 H Blood Pressure 132/61 Pulse Oximetry 97 03/03/20 16:00 03/03/20 18:00 03/03/20 20:00 Temperature 98 F 99.1 F Pulse Rate 78 88 96 Respiratory Rate 18 20 26 H Blood Pressure 141/66 H 139/78 123/99 H Pulse Oximetry 96 95 95 03/03/20 20:11 03/03/20 20:14 03/03/20 20:21 Temperature Pulse Rate 95 94 98 Respiratory Rate 23 H 22 H
--- NOTE | 2020-03-04 10:25 | WPDINTPN ---
Progress Note: A&P Assessment and Plan (1) Respiratory failure: Code(s): J96.90 - Respiratory failure, unspecified, unspecified whether with hypoxia or hypercapnia Status: Acute Assessment and Plan: secondary to COVID-19 pneumonia - continue supplemental oxygen, patient currently on 80% FiO2 and 60 L high-flow therapy. - Patient seems to comfortable and in no respiratory distress - status post 7 day course of ceftriaxone and azithromycin - continue Mucinex for cough which seems to be improving - continue bronchodilators (2) Pneumonia due to COVID-19 virus: Code(s): U07.1 - COVID-19; J12.89 - Other viral pneumonia Status: Acute Assessment and Plan: SARS-CoV-2 PCR positive on 02/23/2020 - status post Remdesivir - on dexamethasone and will complete a 10 day course today 03/04 - convalescent plasma transfused on 02/28/2020 - chest x-ray continues to show bilateral infiltrates - continue droplet, airborne, contact isolation /precautions - monitor inflammatory markers - check BNP (3) Hypothyroidism, unspecified: Code(s): E03.9 - Hypothyroidism, unspecified Status: Chronic Assessment and Plan: continue levothyroxine (4) Essential (primary) hypertension: Code(s): I10 - Essential (primary) hypertension Status: Chronic Assessment and Plan: continue amlodipine and metoprolol, pressure is much improved (5) DVT prophylaxis: Code(s): Z29.9 - Encounter for prophylactic measures, unspecified Status: Acute Assessment and Plan: Lovenox 40 mg subcu q.12 hours (6) Hyperlipidemia: Code(s): E78.5 - Hyperlipidemia, unspecified Status: Chronic Assessment and Plan: continue fenofibrate Additional Plan SUP- PPI code status: DNR Total Critical Care Time - 30 minutes Due to a high probability of clinically significant, life threatening deterioration, the patient required my highest level of preparedness to intervene emergently and I personally spent this critical care time directly and personally managing the patient. This critical care time included obtaining a history; examining the patient; pulse oximetry; ordering and review of studies; arranging urgent treatment with development of a management plan; evaluation of patient's response to treatment; frequent reassessment; and discussions with other providers. It was exclusive of separately billable procedures and treating other patients and teaching time. Please see Assessment and Plan section and the rest of the note for further information on patient assessment and treatment Subjective Date/time seen: 03/04/20 Overnight events reviewed. Afebrile . Continues to be Airvo at 80% and 60 L Vitals acceptable she states she feels short of breath whenever her oxygen is off and feels all right as long as her oxygen is on. Positive dry cough, diarrhea p.o. intake is decreased from baseline but she is able to eat portion of her meal Patient denies fever, chest pain, nausea vomiting, abdominal pain, headache or constipation. Interval history: 84 year old female Who lives At home alone. She has her daughter come to her house and help her out at times. Found to be covid positive with pneumonia on CXR. patient in IMU secondary to increasing oxygen requirements. Reason for consult: acute respiratory failure, COVID-19 pneumonia, increasing oxygen requirement, patient made ICU 02/28/2020 - convalescent plasma transfused on 02/28/2020 Review of Systems Review of Systems: All systems reviewed & are unremarkable except as noted in HPI and below ( subjective) Exam Const: General: comfortable and no acute distress HENMT: Mouth: Yes moist mucous membranes Other: Eyes: Sclera: sclerae normal Pupils: Equal, round and reactive pupils present Neck: Neck: supple Resp: Effort & Inspection: normal respiratory effort Auscultation: rales and
[2020-03-04 11:11] LABS: NT Pro B Type Natriuretic Pept 1040 PG/ML (5-100)
[2020-03-04] MEDS: PANTOPRAZOLE 40 MG TABLET PO (11:18)
--- NOTE | 2020-03-04 13:17 | PCDIET ---
Nutrition Follow-Up Complete: Nutrition Diagnosis: Suboptimal oral intake related to low appetite as evidenced by meal records less than 50% at most meals. Nutrition Goal: Patient to consume 50% of meals/supplements or greater. Goal in progress. Most meals consumed have been 50% or less on regular diet. Patient requesting increase in Thrive to TID with meals which is appropriate. Recommend continuing Ensure Clear TID at this time. Last recorded weight is 54.6 kg which is increased from last review. Bowel Motility: +BMs overnight, per RN. Labs Reviewed: Hgb (11.2), Hct (33.4), Glu (157), Cr (0.6), PO4 (2.4), Na (135) Meds Noted: Albuterol, Decadron, Synthroid, Megace, Reglan Additional Notes: Right arm skin tear. No documented pressure ulcers. Will continue to monitor with same goal. Nutrition Monitoring and Evaluation: Follow up every 3 days.
[2020-03-05] VITALS (26 sets, daily range): BP systolic 124–163; BP diastolic 64–90; PULSE 73–115; RESP 15–29; TEMP 36–36.9; O2SAT 89–98
[2020-03-05] MEDS: ALBUTEROL SULFATE NEB 2.5 MG/0.5 ML INH INHALATION ×4 (01:25→19:31)
[2020-03-05] MEDS: IPRATROPIUM BR 0.02% INH SOLN 0.5 MG/2.5 ML VIAL INHALATION ×4 (01:25→19:31)
[2020-03-05 04:44] LABS: Hematocrit 35.6 % (37.0-47.0); Hemoglobin 11.9 g/dL (12.0-15.0); Mean Corpuscular HGB Conc 33.4 g/dl (32-36); Mean Corpuscular Hemoglobin 30.4 pg (26-34); Mean Corpuscular Volume 90.8 fl (80-100); Mean Platelet Volume 10.8 fl (7.4-10.4); Platelet Count Result 411 k/mm3 (150-375); Red Blood Count 3.92 M/mm3 (4.2-5.4); White Blood Count 15.5 K/mm3 (4.5-10.0)
[2020-03-05 05:07] LABS: Anion Gap 4 mmol/L (8-16); Blood Urea Nitrogen 18 mg/dL (7-17); CRP 1.1 mg/dL (<1.0); Calcium 8.1 mg/dL (8.4-10.2); Carbon Dioxide 28 mmol/L (22-30); Chloride 102 mmol/L (98-107); Estimated CRCL calculation 47 ml/min; Estimated Glomerular Filt Rate > 60; Glucose 141 mg/dL (65-105); Lactate Dehydrogenase 992 U/L (313-618); Magnesium 2.1 mg/dL (1.6-2.3); Phosphorus 1.9 mg/dL (2.5-4.5); Potassium 3.4 mmol/L (3.4-5.0); Sodium 134 mmol/L (137-145)
[2020-03-05] MEDS: LEVOTHYROXINE SODIUM 25 MCG TABLET PO (05:36)
[2020-03-05] MEDS: CENTRAL LINE FLUSH 10 ML IV PUSH ×3 (05:36→19:43)
[2020-03-05] MEDS: guaiFENesin 12 HR 600 MG TABCR 1200 MG PO ×2 (08:46→19:42)
[2020-03-05] MEDS: FENOFIBRATE NANOCRYSTALLIZED 145 MG TABLET PO (08:46)
[2020-03-05] MEDS: FUROSEMIDE INJ 40 MG/4 ML VIAL 20 MG IV PUSH (08:46)
[2020-03-05] MEDS: PANTOPRAZOLE 40 MG TABLET PO (08:47)
[2020-03-05] MEDS: METOPROLOL TARTRATE 25 MG TABLET PO ×2 (08:47→19:43)
[2020-03-05] MEDS: amLODIPine BESYLATE 5 MG TABLET 10 MG PO (08:47)
[2020-03-05] MEDS: MEGESTROL ACETATE (*CHEMO) ORAL SUSP 40 MG/ML SYR 800 MG PO (08:47)
[2020-03-05] MEDS: predniSONE 20 MG TABLET 40 MG PO (08:47)
[2020-03-05] MEDS: ASPIRIN 81 MG ENTERIC TABLET PO (08:47)
[2020-03-05] MEDS: ENOXAPARIN 40 MG/0.4 ML SYRINGE SUB-Q ×2 (08:47→19:42)
--- NOTE | 2020-03-05 10:57 | PCDIET ---
ICU Rounding Note: Patient remains on regular diet with Thrive TID and Ensure Clear TID. Intakes only around 25% of meals, but patient taking supplements well, per RN. Recommend continuing current diet and supplements. Last recorded weight is 56.5kg which is increased from last review. Bowel Motility: BM x 5 today. ordering c. Diff testing. Labs Reviewed: Hgb (11.9), Hct (35.6), BUN (18), Cr (0.6), Na (134), PO4 (1.9), Ca (8.1) Meds Noted: Albuterol, Norvasc, Atrovent, Synthroid, Megace, Protonix, Prednisone, Lasix Additional Notes: No new albumin available for calcium correction. Right upper lip with scab. Right arm with skin tear. No documented pressure ulcers. Following daily in ICU rounds. Assessing/reassessing every 3 days.
--- NOTE | 2020-03-05 11:43 | WPDINTPN ---
Progress Note: A&P Assessment and Plan (1) Respiratory failure: Code(s): J96.90 - Respiratory failure, unspecified, unspecified whether with hypoxia or hypercapnia Status: Acute Assessment and Plan: secondary to COVID-19 pneumonia - continue supplemental oxygen, patient currently on 60% FiO2 and 50 L high-flow therapy. - Patient seems to slightly tachypneic but in no respiratory distress - status post 7 day course of ceftriaxone and azithromycin - continue Mucinex for cough which seems to be improving - continue bronchodilators - will give Lasix 20 mg IV x1 today as BNP 1040 and patient positive on her balance (2) Pneumonia due to COVID-19 virus: Code(s): U07.1 - COVID-19; J12.89 - Other viral pneumonia Status: Acute Assessment and Plan: SARS-CoV-2 PCR positive on 02/23/2020 - status post 5 day course of Remdesivir - on dexamethasone and will complete a 10 day course today 03/04 - convalescent plasma transfused on 02/28/2020 - chest x-ray continues to show bilateral infiltrates without significant improvement - continue droplet, airborne, contact isolation /precautions - monitor inflammatory markers which have improved but are still elevated (3) Hypothyroidism, unspecified: Code(s): E03.9 - Hypothyroidism, unspecified Status: Chronic Assessment and Plan: continue levothyroxine (4) Essential (primary) hypertension: Code(s): I10 - Essential (primary) hypertension Status: Chronic Assessment and Plan: continue amlodipine and metoprolol, pressure is much improved (5) DVT prophylaxis: Code(s): Z29.9 - Encounter for prophylactic measures, unspecified Status: Acute Assessment and Plan: Lovenox 40 mg subcu q.12 hours (6) Hyperlipidemia: Code(s): E78.5 - Hyperlipidemia, unspecified Status: Chronic Assessment and Plan: continue fenofibrate Additional Plan SUP- PPI code status: I had a detailed discussion with patient. Low patient is alert oriented x3 it does not appear that she understands the details and nature of her illness she kept on repeatedly asking me why her treatment for COVID-19 pneumonia was stopped when I try to explain to her that her course of steroids and remdesivir was complete. When I inquired about code status she did not give me a straight answer and kept on referring me to her daughter Awa. She asked me details about CPR which I explained to her but she requested me to call and talk to her daughter to clarify. I called and spoke to patient's daughter Awa by phone and explained her patient's current status and Hospital Course over last 10 days and her continued need for significant amount of oxygen. I also explained that patient may need intubation if further worsens although at this time oxygenation remains stable with current supplemental oxygen therapy. She told me that she wants her mother to be full code which includes resuscitation in the event of cardiac arrest and intubation and mechanical ventilation if her respiratory status worsened. I did explain to her the expected morbidity and mortality with COVID-19 pneumonia related respiratory failure specially in patient's age group. I also explained that once patient is on ventilator she may not come off of it. I modified the order in the chart to full code and will continue current medical therapy Total Critical Care Time - 50 minutes Due to a high probability of clinically significant, life threatening deterioration, the patient required my highest level of preparedness to intervene emergently and I personally spent this critical care time directly and personally managing the patient. This critical care time included obtaining a history; examining the patient; pulse oximetry; ordering and review of studies; arranging urgent treatment with development of a management plan; evaluation of patient's response to treatment; fr
--- NOTE | 2020-03-05 15:01 | PM.IMPN ---
Progress Note: A&P Assessment and Plan (1) Respiratory failure: Code(s): J96.90 - Respiratory failure, unspecified, unspecified whether with hypoxia or hypercapnia Status: Acute Assessment and Plan: Patient with acute hypoxic respiratory failure related to COVID pneumonia. Maintaining saturation on high flow nasal cannula. Continue to wean O2 as tolerated. Continue Mucinex for cough and Nebs. (2) Pneumonia due to COVID-19 virus: Code(s): U07.1 - COVID-19; J12.89 - Other viral pneumonia Status: Acute Assessment and Plan: SARS-CoV-2 PCR positive on 02/23/2020. Treated with a 5 day course of Remdesivir through 02/28/20. Was transfused 1 unit of convalescent plasma on 02/27. Also started on dexamethasone Day 10 (started 02/22 in the ER) that was completed 03/03/20. Patient completed a course of ceftriaxone and azithromycin. WBC unchanged today and felt related to steroids. Continue supportive care. (3) Hypothyroidism, unspecified: Code(s): E03.9 - Hypothyroidism, unspecified Status: Chronic Assessment and Plan: TSH low at 0.123 with FT4 0.23. Suspect euthyroid sick and the fact she is on steroids. Will continue levothyroxine. Plan to repeat levels once she is back to her baseline steroid dosing. (4) Inflammatory polyarthropathy: Code(s): M06.4 - Inflammatory polyarthropathy Status: Acute Assessment and Plan: No active tenosynovitis most likely the fact the patient is on dexamethasone. She has finished 10 days of Dexamethasone so will switch to prednisone and taper down to home dose. (5) Essential (primary) hypertension: Code(s): I10 - Essential (primary) hypertension Status: Chronic Assessment and Plan: Patient's blood pressure was reviewed on 03/05 Blood pressure remains reasonably well controlled. Will continue current medications with Lopressor and Norvasc. (6) Hyperlipidemia: Code(s): E78.5 - Hyperlipidemia, unspecified Status: Chronic Assessment and Plan: Stable. Fenofibrate has been continued. (7) DVT prophylaxis: Code(s): Z29.9 - Encounter for prophylactic measures, unspecified Status: Acute Assessment and Plan: Lovenox Subjective Date/time seen: 03/05/20 15:01 Interval history: Date of service: 03/05 84yo female with HTN and inflammatory arthopathy on chronic Prednisone here for acute respiratory failure with COVID pneumonia. Sitting in chair. She feels tired today. No CP. SOB about the same. appetite still poor Exam Narrative: Exam Narrative: AF 97.6 136/70 84 22 98 % HFNC 40L at 60% Gen - NARD sitting in chair Chest - few lower lung field inspiratory crackles but otherwise clear. nml RR. no conversational dyspnea CV - RRR S1/S2 Abd - Soft, NT/ND, Positive BS - Corea secured draining clear yellow urine Ext - No pitting pedal edema Psych - Nml mood and affect; appears tired Skin - Warm and dry; bruising noted bilateral abd flanks L>R Objective Data Vital Signs Vital Signs: Vital Signs - 24 hr 03/04/20 16:00 03/04/20 18:00 03/04/20 19:49 Temperature 36.6 C Pulse Rate 77 85 83 Respiratory Rate 20 27 H 22 H Blood Pressure 133/71 134/77 Pulse Oximetry 93 93 92 03/04/20 20:00 03/04/20 20:02 03/04/20 20:21 Temperature 36.6 C Pulse Rate 89 88 88 Respiratory Rate 22 H 30 H Blood Pressure 163/71 H Pulse Oximetry 90 03/04/20 22:00 03/05/20 00:00 03/05/20 01:26 Temperature Pulse Rate 79 73 76 Respiratory Rate 24 H 21 H 19 Blood Pressure 140/72 146/71 H Pulse Oximetry 95 93 03/05/20 01:35 03/05/20 02:00 03/05/20 03:41 Temperature Pulse Rate 75 73 Respiratory Rate 19 21 H Blood Pressure 146/71 H Pulse Oximetry 93 93 03/05/20 04:00 03/05/20 06:00 03/05/20 08:00 Temperature 36.6 C Pulse Rate 81 87 91 Respiratory Rate 23 H 15 24 H Blood Pressure 151/71 H 151/75 H 139/73 Pulse Oximet
[2020-03-06] VITALS (27 sets, daily range): BP systolic 116–162; BP diastolic 61–80; PULSE 81–123; RESP 15–27; TEMP 35.8–37.3; O2SAT 85–99
[2020-03-06] MEDS: IPRATROPIUM BR 0.02% INH SOLN 0.5 MG/2.5 ML VIAL INHALATION ×4 (01:16→20:56)
[2020-03-06] MEDS: ALBUTEROL SULFATE NEB 2.5 MG/0.5 ML INH INHALATION ×4 (01:16→20:56)
[2020-03-06 05:02] LABS: Hematocrit 36.3 % (37.0-47.0); Hemoglobin 12.4 g/dL (12.0-15.0); Mean Corpuscular HGB Conc 34.2 g/dl (32-36); Mean Corpuscular Volume 90.8 fl (80-100); Mean Platelet Volume 10.7 fl (7.4-10.4); Platelet Count Result 420 k/mm3 (150-375); White Blood Count 18.9 K/mm3 (4.5-10.0)
[2020-03-06] MEDS: CENTRAL LINE FLUSH 10 ML IV PUSH ×3 (05:02→20:09)
[2020-03-06] MEDS: LEVOTHYROXINE SODIUM 25 MCG TABLET PO (05:02)
[2020-03-06 05:14] LABS: Alanine Aminotransferase 14 U/L (4-35); Albumin Level 2.8 g/dL (3.5-5.1); Alkaline Phosphatase 76 U/L (38-126); Anion Gap 9 mmol/L (8-16); Aspartate Amino Transferase 26 U/L (14-36); Bilirubin,Total 0.4 mg/dL (0.2-1.3); Blood Urea Nitrogen 19 mg/dL (7-17); Calcium 8.4 mg/dL (8.4-10.2); Carbon Dioxide 27 mmol/L (22-30); Chloride 99 mmol/L (98-107); Estimated CRCL calculation 41 ml/min; Estimated Glomerular Filt Rate > 60; Glucose 141 mg/dL (65-105); Magnesium 2.2 mg/dL (1.6-2.3); Potassium 3.2 mmol/L (3.4-5.0); Sodium 135 mmol/L (137-145)
[2020-03-06] MEDS: ENOXAPARIN 40 MG/0.4 ML SYRINGE SUB-Q ×2 (08:04→20:03)
[2020-03-06] MEDS: FENOFIBRATE NANOCRYSTALLIZED 145 MG TABLET PO (08:48)
[2020-03-06] MEDS: guaiFENesin 12 HR 600 MG TABCR 1200 MG PO (08:48)
[2020-03-06] MEDS: ASPIRIN 81 MG ENTERIC TABLET PO (08:48)
[2020-03-06] MEDS: PANTOPRAZOLE 40 MG TABLET PO (08:48)
[2020-03-06] MEDS: MEGESTROL ACETATE (*CHEMO) ORAL SUSP 40 MG/ML SYR 800 MG PO (08:48)
[2020-03-06] MEDS: amLODIPine BESYLATE 5 MG TABLET 10 MG PO (08:49)
[2020-03-06] MEDS: predniSONE 20 MG, predniSONE 10 MG 30 MG PO (08:49)
[2020-03-06] MEDS: METOPROLOL TARTRATE 25 MG TABLET PO ×2 (08:49→20:02)
--- NOTE | 2020-03-06 11:13 | PCDIET ---
ICU Rounding Note: Patient continues to eat poorly (0-25% of meals) but is taking Thrive/Frozen Nutritional Treat (300kcal, 9g protein) TID. Refused Nepro and has refused all other supplements available. Recommend continuing regular diet with Thrive TID and discontinuing Nepro. Last recorded weight is 55.2kg which is down from last review, but still up from admission. Bowel Motility: Small liquid BM this morning, per RN. Labs Reviewed: Glu (141), K (3.2), Na (135), Alb (2.8) Meds Noted: Albuterol, Norvasc, Atrovent, Synthroid, Megace, Reglan, Protonix, Prednisone, KCl Additional Notes: Right upper arm skin tear. Right upper lip scab. No pressure sores. Following daily in ICU rounds. Assessing/reassessing every 3 days.
--- NOTE | 2020-03-06 11:23 | WPDINTPN ---
Progress Note: A&P Assessment and Plan (1) Respiratory failure: Code(s): J96.90 - Respiratory failure, unspecified, unspecified whether with hypoxia or hypercapnia Status: Acute Assessment and Plan: secondary to COVID-19 pneumonia - continue supplemental oxygen, patient currently on 60% FiO2 and 30 L high-flow therapy. - Patient seems to slightly tachypneic but in no respiratory distress - status post 7 day course of ceftriaxone and azithromycin - continue bronchodilators - will give Lasix 20 mg IV x1 03/05, continue Lasix as needed (2) Pneumonia due to COVID-19 virus: Code(s): U07.1 - COVID-19; J12.89 - Other viral pneumonia Status: Acute Assessment and Plan: SARS-CoV-2 PCR positive on 02/23/2020 - status post 5 day course of Remdesivir - on dexamethasone and will complete a 10 day course today 03/04 - convalescent plasma transfused on 02/28/2020 - chest x-ray continues to show bilateral infiltrates without significant improvement - continue droplet, airborne, contact isolation /precautions - monitor inflammatory markers which have improved but are still elevated (3) Hypothyroidism, unspecified: Code(s): E03.9 - Hypothyroidism, unspecified Status: Chronic Assessment and Plan: continue levothyroxine (4) Essential (primary) hypertension: Code(s): I10 - Essential (primary) hypertension Status: Chronic Assessment and Plan: continue amlodipine and metoprolol, pressure is much improved (5) DVT prophylaxis: Code(s): Z29.9 - Encounter for prophylactic measures, unspecified Status: Acute Assessment and Plan: Lovenox 40 mg subcu q.12 hours (6) Hyperlipidemia: Code(s): E78.5 - Hyperlipidemia, unspecified Status: Chronic Assessment and Plan: continue fenofibrate (7) Electrolyte abnormality: Code(s): E87.8 - Other disorders of electrolyte and fluid balance, not elsewhere classified Status: Acute Assessment and Plan: replace low potassium (8) Leucocytosis: Code(s): D72.829 - Elevated white blood cell count, unspecified Status: Acute Assessment and Plan: likely secondary to steroids. Patient is afebrile and completed a course of antibiotic monitor Additional Plan SUP- PPI PT/OT code status: 03/05 I had a detailed discussion with patient. Low patient is alert oriented x3 it does not appear that she understands the details and nature of her illness she kept on repeatedly asking me why her treatment for COVID-19 pneumonia was stopped when I try to explain to her that her course of steroids and remdesivir was complete. When I inquired about code status she did not give me a straight answer and kept on referring me to her daughter Aaw. She asked me details about CPR which I explained to her but she requested me to call and talk to her daughter to clarify. I called and spoke to patient's daughter Awa by phone and explained her patient's current status and Hospital Course over last 10 days and her continued need for significant amount of oxygen. I also explained that patient may need intubation if further worsens although at this time oxygenation remains stable with current supplemental oxygen therapy. She told me that she wants her mother to be full code which includes resuscitation in the event of cardiac arrest and intubation and mechanical ventilation if her respiratory status worsened. I did explain to her the expected morbidity and mortality with COVID-19 pneumonia related respiratory failure specially in patient's age group. I also explained that once patient is on ventilator she may not come off of it. I modified the order in the chart to full code and will continue current medical therapy patient is full code at this time Total Critical Care Time - 30 minutes Due to a high probability of clinically significant, life threatening deterioration, t
[2020-03-06] MEDS: POTASSIUM CHLORIDE 20 MEQ TABLET 40 MEQ PO ×2 (12:38→17:18)
--- NOTE | 2020-03-06 15:16 | PM.IMPN ---
Progress Note: A&P Assessment and Plan (1) Respiratory failure: Code(s): J96.90 - Respiratory failure, unspecified, unspecified whether with hypoxia or hypercapnia Status: Acute Assessment and Plan: Patient with acute hypoxic respiratory failure related to COVID pneumonia. Maintaining saturation on high flow nasal cannula. Continue to wean O2 as tolerated. Continue Mucinex for cough and Nebs. (2) Pneumonia due to COVID-19 virus: Code(s): U07.1 - COVID-19; J12.89 - Other viral pneumonia Status: Acute Assessment and Plan: SARS-CoV-2 PCR positive on 02/23/2020. Treated with a 5 day course of Remdesivir through 02/28/20. Was transfused 1 unit of convalescent plasma on 02/27. Also started on dexamethasone Day 10 (started 02/22 in the ER) that was completed 03/03/20. Patient completed a 7 day course of ceftriaxone and azithromycin. WBC unchanged today and felt related to steroids. Continue supportive care. (3) Hypothyroidism, unspecified: Code(s): E03.9 - Hypothyroidism, unspecified Status: Chronic Assessment and Plan: TSH low at 0.123 with FT4 0.23. Suspect euthyroid sick and the fact she is on steroids. Will continue levothyroxine. Plan to repeat levels once she is back to her baseline steroid dosing. (4) Inflammatory polyarthropathy: Code(s): M06.4 - Inflammatory polyarthropathy Status: Acute Assessment and Plan: No active tenosynovitis most likely the fact the patient is on dexamethasone. She has finished 10 days of Dexamethasone so will switch to prednisone and taper down to home dose. (5) Essential (primary) hypertension: Code(s): I10 - Essential (primary) hypertension Status: Chronic Assessment and Plan: Patient's blood pressure was reviewed on 03/06 Blood pressure remains reasonably well controlled. Will continue current medications with Lopressor and Norvasc. (6) Hyperlipidemia: Code(s): E78.5 - Hyperlipidemia, unspecified Status: Chronic Assessment and Plan: Stable. Fenofibrate has been continued. (7) DVT prophylaxis: Code(s): Z29.9 - Encounter for prophylactic measures, unspecified Status: Acute Assessment and Plan: Lovenox bid with covid Subjective Date/time seen: 03/06/20 15:16 Interval history: Date of service: 03/06 84yo female with HTN and inflammatory arthopathy on chronic Prednisone here for acute respiratory failure with COVID pneumonia. Sitting in chair. She feels tired today. No CP. SOB about the same. appetite still poor but eating a lilttle more Exam Narrative: Exam Narrative: AF 97.6 124/72 82 22 95 % HFNC 30L at 55% Gen - NARD sitting in chair Chest - few right sided lower lung field inspiratory crackles but otherwise clear. CV - RRR S1/S2 Abd - Soft, NT/ND, Positive BS - Corea secured draining clear yellow urine Ext - No pitting pedal edema Psych - Slightly depressed mood and affect; appears tired Skin - Warm and dry; bruising noted bilateral abd flanks L>R Objective Data Vital Signs Vital Signs: Vital Signs - 24 hr 03/05/20 16:00 03/05/20 18:00 03/05/20 19:31 Temperature 36.6 C Pulse Rate 102 H 99 92 Respiratory Rate 26 H 24 H 22 H Blood Pressure 151/88 H 148/81 H Pulse Oximetry 93 93 93 03/05/20 19:38 03/05/20 19:43 03/05/20 20:00 Temperature 36.9 C Pulse Rate 101 H 110 H 115 H Respiratory Rate 29 H 24 H Blood Pressure 163/90 H Pulse Oximetry 89 L 03/05/20 22:00 03/05/20 22:44 03/05/20 23:47 Temperature Pulse Rate 99 109 H Respiratory Rate 24 H 25 H Blood Pressure 138/72 Pulse Oximetry 97 93 97 03/06/20 00:00 03/06/20 01:16 03/06/20 01:22 Temperature Pulse Rate 92 82 83 Respiratory Rate 21 H 24 H 15 Blood Pressure 133/75 Pulse Oximetry 98 03/06/20 02:00 03/06/20 04:00 03/06/20 06:00 Temperature Pulse Rate 81 84 83 Respiratory Rate 20 22 H 20 Blood
[2020-03-07] VITALS (23 sets, daily range): BP systolic 124–162; BP diastolic 62–90; PULSE 86–113; RESP 19–32; TEMP 36.2–36.8; O2SAT 85–98
[2020-03-07] MEDS: IPRATROPIUM BR 0.02% INH SOLN 0.5 MG/2.5 ML VIAL INHALATION ×4 (02:20→19:50)
[2020-03-07] MEDS: ALBUTEROL SULFATE NEB 2.5 MG/0.5 ML INH INHALATION ×4 (02:20→19:50)
[2020-03-07 05:10] LABS: Hematocrit 35.8 % (37.0-47.0); Hemoglobin 12.1 g/dL (12.0-15.0); Mean Corpuscular HGB Conc 33.8 g/dl (32-36); Mean Corpuscular Hemoglobin 30.6 pg (26-34); Mean Corpuscular Volume 90.6 fl (80-100); Mean Platelet Volume 11.1 fl (7.4-10.4); Platelet Count Result 372 k/mm3 (150-375); Red Blood Count 3.95 M/mm3 (4.2-5.4); Red Cell Distribution Width 14.1 % (11.5-14.5); White Blood Count 16.4 K/mm3 (4.5-10.0)
[2020-03-07 05:27] LABS: D Dimer 1.35 ug/mL (<0.48)
[2020-03-07] MEDS: LEVOTHYROXINE SODIUM 25 MCG TABLET PO (05:46)
[2020-03-07] MEDS: CENTRAL LINE FLUSH 10 ML IV PUSH ×3 (05:47→20:33)
[2020-03-07 05:53] LABS: CRP 1.5 mg/dL (<1.0); Lactate Dehydrogenase 1081 U/L (313-618)
[2020-03-07 07:40] LABS: Alanine Aminotransferase 14 U/L (4-35); Albumin Level 2.9 g/dL (3.5-5.1); Alkaline Phosphatase 62 U/L (38-126); Anion Gap 6 mmol/L (8-16); Aspartate Amino Transferase 32 U/L (14-36); Bilirubin,Total 0.7 mg/dL (0.2-1.3); Blood Urea Nitrogen 17 mg/dL (7-17); Calcium 8.1 mg/dL (8.4-10.2); Carbon Dioxide 26 mmol/L (22-30); Chloride 104 mmol/L (98-107); Estimated CRCL calculation 55 ml/min; Estimated Glomerular Filt Rate > 60; Glucose 123 mg/dL (65-105); Magnesium 2.3 mg/dL (1.6-2.3); Potassium 5.4 mmol/L (3.4-5.0); Sodium 136 mmol/L (137-145)
[2020-03-07] MEDS: ENOXAPARIN 40 MG/0.4 ML SYRINGE SUB-Q ×2 (08:30→20:32)
[2020-03-07] MEDS: amLODIPine BESYLATE 5 MG TABLET 10 MG PO (08:33)
[2020-03-07] MEDS: MEGESTROL ACETATE (*CHEMO) ORAL SUSP 40 MG/ML SYR 800 MG PO (08:33)
[2020-03-07] MEDS: PANTOPRAZOLE 40 MG TABLET PO (08:33)
[2020-03-07] MEDS: METOPROLOL TARTRATE 25 MG TABLET PO ×2 (08:33→20:33)
[2020-03-07] MEDS: ASPIRIN 81 MG ENTERIC TABLET PO (08:33)
[2020-03-07] MEDS: FENOFIBRATE NANOCRYSTALLIZED 145 MG TABLET PO (08:34)
[2020-03-07] MEDS: predniSONE 20 MG, predniSONE 10 MG 30 MG PO (08:34)
--- NOTE | 2020-03-07 10:48 | PCDIET ---
Nutrition Follow-Up Complete: Nutrition Diagnosis: Suboptimal oral intake related to low appetite as evidenced by meal records less than 50% at most meals. Nutrition Goal: Patient to consume 50% of meals/supplements or greater. Goal not met. Patient consumed 25-75% of meals yesterday. Continues to take Thrive with most meals, but has refused all other supplements. Recommend continuing Thrive TID with meals. If medically appropriate, may benefit from medication to help with mood. Last recorded weight is 54.2 kg which is down from last review, slightly up from admission. Bowel Motility: BM x 2 on 03/06/20. Labs Reviewed: Hct (35.8), Glu (123), Cr (0.5), K (5.4), Na (136), Alb (2.9) Meds Noted: Albuterol, Atrovent, Synthroid, Megace, Protonix Additional Notes: Corrected calcium WNL. Right upper lip scab. Right upper arm skin tear. No documented pressure sores. Nutrition Monitoring and Evaluation: Follow up every 3 days.
--- NOTE | 2020-03-07 11:31 | WPDINTPN ---
Progress Note: A&P Assessment and Plan (1) Respiratory failure: Code(s): J96.90 - Respiratory failure, unspecified, unspecified whether with hypoxia or hypercapnia Status: Acute Assessment and Plan: secondary to COVID-19 pneumonia - continue supplemental oxygen, patient currently on 60% FiO2 and 30 L high-flow therapy. - Patient is intermittently slightly tachypneic when anxious but settle down easily and in no respiratory distress - status post 7 day course of ceftriaxone and azithromycin - continue bronchodilators - will give Lasix 20 mg IV x1 03/05, will give another dose today (2) Pneumonia due to COVID-19 virus: Code(s): U07.1 - COVID-19; J12.89 - Other viral pneumonia Status: Acute Assessment and Plan: SARS-CoV-2 PCR positive on 02/23/2020 - status post 5 day course of Remdesivir - on dexamethasone and will complete a 10 day course today 03/04 - convalescent plasma transfused on 02/28/2020 - chest x-ray continues to show bilateral infiltrates without significant improvement - continue droplet, airborne, contact isolation /precautions - monitor inflammatory markers which have improved but are still elevated (3) Hypothyroidism, unspecified: Code(s): E03.9 - Hypothyroidism, unspecified Status: Chronic Assessment and Plan: continue levothyroxine (4) Essential (primary) hypertension: Code(s): I10 - Essential (primary) hypertension Status: Chronic Assessment and Plan: continue amlodipine and metoprolol, pressure is much improved (5) DVT prophylaxis: Code(s): Z29.9 - Encounter for prophylactic measures, unspecified Status: Acute Assessment and Plan: Lovenox 40 mg subcu q.12 hours (6) Hyperlipidemia: Code(s): E78.5 - Hyperlipidemia, unspecified Status: Chronic Assessment and Plan: continue fenofibrate (7) Electrolyte abnormality: Code(s): E87.8 - Other disorders of electrolyte and fluid balance, not elsewhere classified Status: Acute Assessment and Plan: Lasix today (8) Leucocytosis: Code(s): D72.829 - Elevated white blood cell count, unspecified Status: Acute Assessment and Plan: likely secondary to steroids. Patient is afebrile and completed a course of antibiotic monitor Additional Plan SUP- PPI PT/OT code status: 03/05 I had a detailed discussion with patient. Low patient is alert oriented x3 it does not appear that she understands the details and nature of her illness she kept on repeatedly asking me why her treatment for COVID-19 pneumonia was stopped when I try to explain to her that her course of steroids and remdesivir was complete. When I inquired about code status she did not give me a straight answer and kept on referring me to her daughter Awa. She asked me details about CPR which I explained to her but she requested me to call and talk to her daughter to clarify. I called and spoke to patient's daughter Awa by phone and explained her patient's current status and Hospital Course over last 10 days and her continued need for significant amount of oxygen. I also explained that patient may need intubation if further worsens although at this time oxygenation remains stable with current supplemental oxygen therapy. She told me that she wants her mother to be full code which includes resuscitation in the event of cardiac arrest and intubation and mechanical ventilation if her respiratory status worsened. I did explain to her the expected morbidity and mortality with COVID-19 pneumonia related respiratory failure specially in patient's age group. I also explained that once patient is on ventilator she may not come off of it. I modified the order in the chart to full code and will continue current medical therapy patient is full code at this time patient does appear withdrawn and disheartened with lack of improvement in her heal
[2020-03-07] MEDS: FUROSEMIDE INJ 40 MG/4 ML VIAL 20 MG IV PUSH (13:40)
--- NOTE | 2020-03-07 15:35 | PC.NURSE ---
Received report from YIFAN Dixon. No change isn assessment at this time.
--- NOTE | 2020-03-07 16:49 | PC.NURSE ---
Received update from PT. Patient unable to transfer to chair. Linen change and bath per PT.
--- NOTE | 2020-03-07 16:59 | PM.IMPN ---
Progress Note: A&P Assessment and Plan (1) Respiratory failure: Code(s): J96.90 - Respiratory failure, unspecified, unspecified whether with hypoxia or hypercapnia Status: Acute Assessment and Plan: Patient with acute hypoxic respiratory failure related to COVID pneumonia. Maintaining saturation on high flow nasal cannula. Continue to wean O2 as tolerated. Continue Mucinex for cough and Nebs. (2) Pneumonia due to COVID-19 virus: Code(s): U07.1 - COVID-19; J12.89 - Other viral pneumonia Status: Acute Assessment and Plan: SARS-CoV-2 PCR positive on 02/23/2020. Treated with a 5 day course of Remdesivir through 02/28/20. Was transfused 1 unit of convalescent plasma on 02/27. Also started on dexamethasone Day 10 (started 02/22 in the ER) that was completed 03/03/20. Patient completed a 7 day course of ceftriaxone and azithromycin. WBC unchanged today and felt related to steroids. Continue supportive care. (3) Hypothyroidism, unspecified: Code(s): E03.9 - Hypothyroidism, unspecified Status: Chronic Assessment and Plan: TSH low at 0.123 with FT4 0.23. Suspect euthyroid sick and the fact she is on steroids. Will continue levothyroxine. Plan to repeat levels once she is back to her baseline steroid dosing. (4) Inflammatory polyarthropathy: Code(s): M06.4 - Inflammatory polyarthropathy Status: Acute Assessment and Plan: No active tenosynovitis most likely the fact the patient is on dexamethasone. She has finished 10 days of Dexamethasone so will switch to prednisone and taper down to home dose. (5) Essential (primary) hypertension: Code(s): I10 - Essential (primary) hypertension Status: Chronic Assessment and Plan: Patient's blood pressure was reviewed on 03/07 Blood pressure remains reasonably well controlled. Will continue current medications with Lopressor and Norvasc. (6) Hyperlipidemia: Code(s): E78.5 - Hyperlipidemia, unspecified Status: Chronic Assessment and Plan: Stable. Fenofibrate has been continued. (7) DVT prophylaxis: Code(s): Z29.9 - Encounter for prophylactic measures, unspecified Status: Acute Assessment and Plan: Lovenox bid with covid Subjective Date/time seen: 03/07/20 16:59 Interval history: Date of service: 03/07 84yo female with HTN and inflammatory arthopathy on chronic Prednisone here for acute respiratory failure with COVID pneumonia. Sitting in bed. She feels tired today. No CP. SOB about the same. appetite still poor but eating a lilttle Exam Narrative: Exam Narrative: AF 97.6 124/78 100 22 95 % HFNC 30L at 55% Gen - NARD sitting in chair Chest - clear today CV - RRR S1/S2 Abd - Soft, NT/ND, Positive BS - Corea secured draining clear yellow urine Ext - No pitting pedal edema Psych - depressed mood and affect; appears tired Skin - Warm and dry; bruising noted bilateral abd flanks L>R Objective Data Vital Signs Vital Signs: Vital Signs - 24 hr 03/06/20 18:00 03/06/20 20:00 03/06/20 20:02 Temperature 37.3 C Pulse Rate 94 108 H 110 H Respiratory Rate 22 H 20 Blood Pressure 128/70 137/80 Pulse Oximetry 95 95 03/06/20 20:56 03/06/20 21:03 03/06/20 21:06 Temperature Pulse Rate 97 100 99 Respiratory Rate 23 H 23 H 24 H Blood Pressure Pulse Oximetry 96 03/06/20 22:00 03/07/20 00:00 03/07/20 02:00 Temperature 36.8 C Pulse Rate 93 106 H 86 Respiratory Rate 18 22 H 20 Blood Pressure 130/77 157/84 H 134/87 Pulse Oximetry 99 94 94 03/07/20 02:15 03/07/20 04:00 03/07/20 04:25 Temperature 36.6 C Pulse Rate 90 94 92 Respiratory Rate 25 H 21 H 24 H Blood Pressure 162/88 H Pulse Oximetry 94 96 03/07/20 06:00 03/07/20 08:00 03/07/20 08:02 Temperature 36.6 C Pulse Rate 93 100 104 H Respiratory Rate 19 32 H 24 H Blood Pressure 143/80 H 140/75 Pulse Oximetry 96 89 L 89 L 10
[2020-03-08] VITALS (25 sets, daily range): BP systolic 114–144; BP diastolic 53–95; PULSE 84–122; RESP 14–29; TEMP 36.2–36.9; O2SAT 88–95
[2020-03-08] MEDS: ALBUTEROL SULFATE NEB 2.5 MG/0.5 ML INH INHALATION ×4 (02:27→20:44)
[2020-03-08] MEDS: IPRATROPIUM BR 0.02% INH SOLN 0.5 MG/2.5 ML VIAL INHALATION ×4 (02:27→20:44)
[2020-03-08] MEDS: CENTRAL LINE FLUSH 10 ML IV PUSH ×3 (06:28→21:24)
[2020-03-08] MEDS: LEVOTHYROXINE SODIUM 25 MCG TABLET PO (06:29)
[2020-03-08 06:34] LABS: Hematocrit 38.9 % (37.0-47.0); Hemoglobin 13.1 g/dL (12.0-15.0); Mean Corpuscular HGB Conc 33.7 g/dl (32-36); Mean Corpuscular Hemoglobin 30.4 pg (26-34); Mean Corpuscular Volume 90.3 fl (80-100); Mean Platelet Volume 10.9 fl (7.4-10.4); Platelet Count Result 421 k/mm3 (150-375); Red Blood Count 4.31 M/mm3 (4.2-5.4); Red Cell Distribution Width 14.4 % (11.5-14.5); White Blood Count 17.8 K/mm3 (4.5-10.0)
[2020-03-08 06:58] LABS: Alanine Aminotransferase 17 U/L (4-35); Albumin Level 3.2 g/dL (3.5-5.1); Alkaline Phosphatase 83 U/L (38-126); Anion Gap 10 mmol/L (8-16); Aspartate Amino Transferase 31 U/L (14-36); Bilirubin,Total 0.5 mg/dL (0.2-1.3); Blood Urea Nitrogen 16 mg/dL (7-17); Calcium 8.5 mg/dL (8.4-10.2); Carbon Dioxide 22 mmol/L (22-30); Chloride 104 mmol/L (98-107); Estimated CRCL calculation 41 ml/min; Estimated Glomerular Filt Rate > 60; Glucose 170 mg/dL (65-105); Magnesium 2.3 mg/dL (1.6-2.3); Potassium 3.6 mmol/L (3.4-5.0); Sodium 136 mmol/L (137-145)
[2020-03-08] MEDS: ALTEPLASE 2 MG VIAL (CATHFLO) IV PUSH ×2 (09:26)
[2020-03-08] MEDS: predniSONE 20 MG TABLET PO (09:30)
[2020-03-08] MEDS: amLODIPine BESYLATE 5 MG TABLET 10 MG PO (09:30)
[2020-03-08] MEDS: ENOXAPARIN 40 MG/0.4 ML SYRINGE SUB-Q ×2 (09:31→21:23)
[2020-03-08] MEDS: FENOFIBRATE NANOCRYSTALLIZED 145 MG TABLET PO (09:32)
[2020-03-08] MEDS: METOPROLOL TARTRATE 25 MG TABLET PO ×2 (09:32→21:23)
[2020-03-08] MEDS: MEGESTROL ACETATE (*CHEMO) ORAL SUSP 40 MG/ML SYR 800 MG PO (09:32)
[2020-03-08] MEDS: ASPIRIN 81 MG ENTERIC TABLET PO (09:33)
[2020-03-08] MEDS: PANTOPRAZOLE 40 MG TABLET PO (09:33)
--- NOTE | 2020-03-08 10:22 | WPDINTPN ---
Progress Note: A&P Assessment and Plan (1) Respiratory failure: Code(s): J96.90 - Respiratory failure, unspecified, unspecified whether with hypoxia or hypercapnia Status: Acute Assessment and Plan: secondary to COVID-19 pneumonia - continue supplemental oxygen, patient currently AirVo on 30 L high-flow therapy. I have wean down FiO2 to 45% - Patient is intermittently slightly tachypneic when anxious but settle down easily and in no respiratory distress - status post 7 day course of ceftriaxone and azithromycin - continue bronchodilators - patient receiving Lasix intermittently (2) Pneumonia due to COVID-19 virus: Code(s): U07.1 - COVID-19; J12.89 - Other viral pneumonia Status: Acute Assessment and Plan: SARS-CoV-2 PCR positive on 02/23/2020 - status post 5 day course of Remdesivir - on dexamethasone and will complete a 10 day course today 03/04 - convalescent plasma transfused on 02/28/2020 - chest x-ray continues to show bilateral infiltrates without significant improvement - continue droplet, airborne, contact isolation /precautions - monitor inflammatory markers which have improved but are still elevated (3) Hypothyroidism, unspecified: Code(s): E03.9 - Hypothyroidism, unspecified Status: Chronic Assessment and Plan: continue levothyroxine (4) Essential (primary) hypertension: Code(s): I10 - Essential (primary) hypertension Status: Chronic Assessment and Plan: continue amlodipine and metoprolol, pressure is much improved (5) DVT prophylaxis: Code(s): Z29.9 - Encounter for prophylactic measures, unspecified Status: Acute Assessment and Plan: Lovenox 40 mg subcu q.12 hours (6) Hyperlipidemia: Code(s): E78.5 - Hyperlipidemia, unspecified Status: Chronic Assessment and Plan: continue fenofibrate (7) Electrolyte abnormality: Code(s): E87.8 - Other disorders of electrolyte and fluid balance, not elsewhere classified Status: Acute Assessment and Plan: replace potassium (8) Leucocytosis: Code(s): D72.829 - Elevated white blood cell count, unspecified Status: Acute Assessment and Plan: likely secondary to steroids. Patient is afebrile and completed a course of antibiotic monitor Additional Plan SUP- PPI PT/OT code status: 03/05 I had a detailed discussion with patient. Low patient is alert oriented x3 it does not appear that she understands the details and nature of her illness she kept on repeatedly asking me why her treatment for COVID-19 pneumonia was stopped when I try to explain to her that her course of steroids and remdesivir was complete. When I inquired about code status she did not give me a straight answer and kept on referring me to her daughter Awa. She asked me details about CPR which I explained to her but she requested me to call and talk to her daughter to clarify. I called and spoke to patient's daughter Awa by phone and explained her patient's current status and Hospital Course over last 10 days and her continued need for significant amount of oxygen. I also explained that patient may need intubation if further worsens although at this time oxygenation remains stable with current supplemental oxygen therapy. She told me that she wants her mother to be full code which includes resuscitation in the event of cardiac arrest and intubation and mechanical ventilation if her respiratory status worsened. I did explain to her the expected morbidity and mortality with COVID-19 pneumonia related respiratory failure specially in patient's age group. I also explained that once patient is on ventilator she may not come off of it. I modified the order in the chart to full code and will continue current medical therapy patient is full code at this time patient does appear withdrawn and disheartened with lack of improvement in her h
--- NOTE | 2020-03-08 10:40 | PC.NURSE ---
At bedside, attempted to assist patient with zoom call to family with out success. Attempted to call Awa without success.
--- NOTE | 2020-03-08 10:57 | PC.NURSE ---
Contacted daughter Awa, family to coordinate zoom call with patient. Daughter updated on plan of care.
--- NOTE | 2020-03-08 11:45 | PCDIET ---
Nutrition Follow-Up Complete: Nutrition Diagnosis: Suboptimal oral intake related to low appetite as evidenced by meal records less than 50% at most meals. Nutrition Goal: Patient to consume 50% of meals/supplements or greater. Goal in progress. Patient continues to eat small amounts at meals, but does take Thrive (Frozen Nutritional Treat: 300kcal, 9g protein) which is provided with meals. Last recorded weight is 54 kg which is stable with last review. Bowel Motility: BM x 2 on 03/06/20. Labs Reviewed: Glu (170), Na (136), Alb (3.2) Meds Noted: Albuterol, Atrovent, Synthroid, Megace, Protonix, Prednisone Additional Notes: Upper lip scab; right upper arm skin tear. Will continue to monitor with same goal. Nutrition Monitoring and Evaluation: Follow up every 3 days.
[2020-03-08] MEDS: POTASSIUM CHLORIDE 20 MEQ PACKET (FOR LIQUID) PO (12:09)
--- NOTE | 2020-03-08 13:02 | PCPTNOTE ---
The PT treatment was unable to be completed today due to patient refusal. Will continue per Plan of Care frequency and duration.
--- NOTE | 2020-03-08 14:45 | PC.NURSE ---
Roopa Crenshaw notified that one visitor allowed outside room for no more than fifteen minutes.
--- NOTE | 2020-03-08 15:07 | PC.NURSE ---
Daughter Flower outside room communicating with patient via personal telephone from [phone].
--- NOTE | 2020-03-08 17:10 | PM.IMPN ---
Progress Note: A&P Assessment and Plan (1) Respiratory failure: Code(s): J96.90 - Respiratory failure, unspecified, unspecified whether with hypoxia or hypercapnia Status: Acute Assessment and Plan: Patient with acute hypoxic respiratory failure related to COVID pneumonia. Maintaining saturation on high flow nasal cannula. Continue to wean O2 as tolerated and decreased to 45% today. Continue Mucinex for cough and Nebs. (2) Pneumonia due to COVID-19 virus: Code(s): U07.1 - COVID-19; J12.89 - Other viral pneumonia Status: Acute Assessment and Plan: SARS-CoV-2 PCR positive on 02/23/2020. Treated with a 5 day course of Remdesivir through 02/28/20. Was transfused 1 unit of convalescent plasma on 02/27. Also started on dexamethasone Day 10 (started 02/22 in the ER) that was completed 03/03/20. Patient completed a 7 day course of ceftriaxone and azithromycin. WBC unchanged today and felt related to steroids. Continue supportive care. (3) Hypothyroidism, unspecified: Code(s): E03.9 - Hypothyroidism, unspecified Status: Chronic Assessment and Plan: TSH low at 0.123 with FT4 0.23. Suspect euthyroid sick and the fact she is on steroids. Will continue levothyroxine. Plan to repeat levels once she is back to her baseline steroid dosing. (4) Inflammatory polyarthropathy: Code(s): M06.4 - Inflammatory polyarthropathy Status: Acute Assessment and Plan: No active tenosynovitis most likely the fact the patient is on dexamethasone. She has finished 10 days of Dexamethasone so will switch to prednisone and taper down to home dose. (5) Essential (primary) hypertension: Code(s): I10 - Essential (primary) hypertension Status: Chronic Assessment and Plan: Patient's blood pressure was reviewed on 03/08 Blood pressure remains reasonably well controlled. Will continue current medications with Lopressor and Norvasc. (6) Hyperlipidemia: Code(s): E78.5 - Hyperlipidemia, unspecified Status: Chronic Assessment and Plan: Stable. Fenofibrate has been continued. (7) DVT prophylaxis: Code(s): Z29.9 - Encounter for prophylactic measures, unspecified Status: Acute Assessment and Plan: Lovenox bid with covid Subjective Date/time seen: 03/08/20 17:10 Interval history: Date of service: 03/08 84yo female with HTN and inflammatory arthopathy on chronic Prednisone here for acute respiratory failure with COVID pneumonia. Sitting in bed. . No CP. SOB about the same. appetite still poor but eating a little Exam Narrative: Exam Narrative: AF 97.6 132/90 96 20 95 % HFNC 30L at 45% Gen - NARD sitting in chair Chest - clear today CV - RRR S1/S2 Abd - Soft, NT/ND, Positive BS - Corea secured draining clear yellow urine Ext - No pitting pedal edema Psych - depressed mood and affect; appears tired Skin - Warm and dry; bruising noted bilateral abd flanks L>R Objective Data Vital Signs Vital Signs: Vital Signs - 24 hr 03/07/20 18:00 03/07/20 19:51 03/07/20 20:00 Temperature 36.4 C Pulse Rate 108 H 99 99 Respiratory Rate 23 H 22 H 22 H Blood Pressure 139/74 139/77 Pulse Oximetry 93 91 95 03/07/20 20:33 03/07/20 22:00 03/08/20 00:00 Temperature 36.6 C Pulse Rate 113 H 107 H 94 Respiratory Rate 22 H 18 Blood Pressure 129/74 120/67 Pulse Oximetry 92 89 L 03/08/20 02:00 03/08/20 02:27 03/08/20 02:32 Temperature 36.7 C Pulse Rate 94 94 100 Respiratory Rate 14 23 H 23 H Blood Pressure 121/70 Pulse Oximetry 90 03/08/20 04:00 03/08/20 06:00 03/08/20 08:00 Temperature 36.9 C Pulse Rate 98 99 97 Respiratory Rate 16 22 H 23 H Blood Pressure 140/84 114/53 L 130/84 Pulse Oximetry 89 L 89 L 92 03/08/20 09:22 03/08/20 09:23 03/08/20 09:30 Temperature Pulse Rate 122 H 99 118 H Respiratory Rate 29 H 22 H 25 H Blood Pressure Pulse Oximetry 92
[2020-03-09] VITALS (29 sets, daily range): BP systolic 112–153; BP diastolic 73–99; PULSE 88–112; RESP 17–30; TEMP 36.1–36.9; O2SAT 83–96
[2020-03-09] MEDS: IPRATROPIUM BR 0.02% INH SOLN 0.5 MG/2.5 ML VIAL INHALATION ×4 (02:37→21:27)
[2020-03-09] MEDS: ALBUTEROL SULFATE NEB 2.5 MG/0.5 ML INH INHALATION ×4 (02:37→21:27)
[2020-03-09] MEDS: METOCLOPRAMIDE HCL 10 MG TABLET PO (04:40)
[2020-03-09] MEDS: CENTRAL LINE FLUSH 10 ML IV PUSH ×3 (04:41→20:57)
[2020-03-09 05:09] LABS: Hematocrit 37.9 % (37.0-47.0); Hemoglobin 12.4 g/dL (12.0-15.0); Mean Corpuscular HGB Conc 32.7 g/dl (32-36); Mean Corpuscular Hemoglobin 30.4 pg (26-34); Mean Corpuscular Volume 92.9 fl (80-100); Mean Platelet Volume 11.1 fl (7.4-10.4); Platelet Count Result 379 k/mm3 (150-375); Red Blood Count 4.08 M/mm3 (4.2-5.4); Red Cell Distribution Width 14.8 % (11.5-14.5); White Blood Count 17.5 K/mm3 (4.5-10.0)
[2020-03-09 05:20] LABS: Alveolar/Arterial O2 Gradient 257.5 mmHg; Carboxyhemoglobin 0.3 % THb (0-2.0); Fractional Inspired Oxygen 50 %; HCO3 ABG 19.8 mEq/l (22.0-26.0); Methemoglobin ABG 0.1 %THb (0-1.5); Oxygen Content ABG 17.4 %vol (16.0-22.0); Oxygen Saturation ABG 95.5 % (95.0-100.0); Oxyhemoglobin 93.1 % THb (90.0-100.0); PCO2 ABG 26.1 mmHg (35.0-45.0); PO2 ABG 69.6 mmHg (80.0-100.0); PO2 FiO2 Ratio Arterial Blood 1.39 %; Reduced Hemoglobin 6.5 %THb (0-5.0); Total Hemoglobin 13.3 g/dL (12.0-18.0); pH ABG 7.497 (7.350-7.450)
[2020-03-09 05:21] LABS: Device HIGH FLOW THERAPY; Modified Allen's Test Pass; Site Drawn RIGHT RADIAL
[2020-03-09 05:25] LABS: Glucose Point of Care 148 (65-105)
[2020-03-09 05:26] LABS: D Dimer 1.11 ug/mL (<0.48)
[2020-03-09] MEDS: LEVOTHYROXINE SODIUM 25 MCG TABLET PO (05:30)
[2020-03-09] MEDS: ENOXAPARIN 40 MG/0.4 ML SYRINGE SUB-Q ×2 (08:37→19:33)
[2020-03-09] MEDS: MEGESTROL ACETATE (*CHEMO) ORAL SUSP 40 MG/ML SYR 800 MG PO (08:38)
[2020-03-09] MEDS: predniSONE 20 MG TABLET PO (08:38)
[2020-03-09] MEDS: amLODIPine BESYLATE 5 MG TABLET 10 MG PO (08:39)
[2020-03-09] MEDS: ASPIRIN 81 MG ENTERIC TABLET PO (08:39)
[2020-03-09] MEDS: METOPROLOL TARTRATE 25 MG TABLET PO ×2 (08:40→20:57)
[2020-03-09] MEDS: PANTOPRAZOLE 40 MG TABLET PO (08:40)
[2020-03-09] MEDS: FENOFIBRATE NANOCRYSTALLIZED 145 MG TABLET PO (08:40)
[2020-03-09 10:53] LABS: Alanine Aminotransferase 18 U/L (4-35); Albumin Level 2.8 g/dL (3.5-5.1); Alkaline Phosphatase 80 U/L (38-126); Anion Gap 13 mmol/L (8-16); Aspartate Amino Transferase 36 U/L (14-36); Bilirubin,Total 0.7 mg/dL (0.2-1.3); Blood Urea Nitrogen 17 mg/dL (7-17); CRP 1.4 mg/dL (<1.0); Calcium 8.5 mg/dL (8.4-10.2); Carbon Dioxide 16 mmol/L (22-30); Chloride 107 mmol/L (98-107); Estimated CRCL calculation 47 ml/min; Estimated Glomerular Filt Rate > 60; Glucose 174 mg/dL (65-105); Lactate Dehydrogenase 874 U/L (313-618); Magnesium 2.3 mg/dL (1.6-2.3); Potassium 4.4 mmol/L (3.4-5.0); Sodium 136 mmol/L (137-145)
--- NOTE | 2020-03-09 11:18 | WPDINTPN ---
Progress Note: A&P Assessment and Plan (1) Respiratory failure: Code(s): J96.90 - Respiratory failure, unspecified, unspecified whether with hypoxia or hypercapnia Status: Acute Assessment and Plan: secondary to COVID-19 pneumonia - continue supplemental oxygen, patient currently AirVo on 30 L high-flow therapy. I have wean down FiO2 to 45% - Patient is intermittently slightly tachypneic when anxious but settle down easily and in no respiratory distress - status post 7 day course of ceftriaxone and azithromycin - continue bronchodilators - patient receiving Lasix intermittently (2) Pneumonia due to COVID-19 virus: Code(s): U07.1 - COVID-19; J12.89 - Other viral pneumonia Status: Acute Assessment and Plan: SARS-CoV-2 PCR positive on 02/23/2020 - status post 5 day course of Remdesivir - on dexamethasone and will complete a 10 day course today 03/04 - convalescent plasma transfused on 02/28/2020 - chest x-ray continues to show bilateral infiltrates without significant improvement - continue droplet, airborne, contact isolation /precautions - monitor inflammatory markers which have improved but are still elevated (3) Hypothyroidism, unspecified: Code(s): E03.9 - Hypothyroidism, unspecified Status: Chronic Assessment and Plan: continue levothyroxine (4) Essential (primary) hypertension: Code(s): I10 - Essential (primary) hypertension Status: Chronic Assessment and Plan: continue amlodipine and metoprolol, pressure is much improved (5) DVT prophylaxis: Code(s): Z29.9 - Encounter for prophylactic measures, unspecified Status: Acute Assessment and Plan: Lovenox 40 mg subcu q.12 hours (6) Hyperlipidemia: Code(s): E78.5 - Hyperlipidemia, unspecified Status: Chronic Assessment and Plan: continue fenofibrate (7) Electrolyte abnormality: Code(s): E87.8 - Other disorders of electrolyte and fluid balance, not elsewhere classified Status: Acute Assessment and Plan: monitor electrolytes and replace accordingly (8) Leucocytosis: Code(s): D72.829 - Elevated white blood cell count, unspecified Status: Acute Assessment and Plan: likely secondary to steroids. Patient is afebrile and completed a course of antibiotic patient is on steroid taper monitor Additional Plan SUP- PPI PT/OT Code status: patient on admission wanted to be DNR but later changed her mind and her daughters also felt the patient would want full resuscitation. patient is full code at this time 03/08- had a long meeting with patient's 3 daughters by phone. I updated them with patient's current status and her hospital. I answered the questions regarding the treatment the patient is leaving an experimental treatment they had heard about on social media and news media. Patient does appear withdrawn and disheartened with lack of improvement in her health status. I again today tried to encourage patient to stay positive today. I have requested memory care director to start process for LTAC placement next week Total Critical Care Time - 30 minutes Due to a high probability of clinically significant, life threatening deterioration, the patient required my highest level of preparedness to intervene emergently and I personally spent this critical care time directly and personally managing the patient. This critical care time included obtaining a history; examining the patient; pulse oximetry; ordering and review of studies; arranging urgent treatment with development of a management plan; evaluation of patient's response to treatment; frequent reassessment; and discussions with other providers. It was exclusive of separately billable procedures and treating other patients and teaching time. Please see Assessment and Plan section and the rest of the note for further information on patient asse
[2020-03-09] MEDS: SODIUM BICARBONATE TAB 650 MG TABLET 1300 MG PO (15:50)
--- NOTE | 2020-03-09 17:11 | PM.IMPN ---
Progress Note: A&P Assessment and Plan (1) Respiratory failure: Code(s): J96.90 - Respiratory failure, unspecified, unspecified whether with hypoxia or hypercapnia Status: Acute Assessment and Plan: Patient with acute hypoxic respiratory failure related to COVID pneumonia. Maintaining saturation on high flow nasal cannula. Continue to wean O2 as tolerated and decreased to 50% today up slightly from 03/08. Continue Mucinex for cough and Nebs. (2) Pneumonia due to COVID-19 virus: Code(s): U07.1 - COVID-19; J12.89 - Other viral pneumonia Status: Acute Assessment and Plan: SARS-CoV-2 PCR positive on 02/23/2020. Treated with a 5 day course of Remdesivir through 02/28/20. Was transfused 1 unit of convalescent plasma on 02/27. Also started on dexamethasone Day 10 (started 02/22 in the ER) that was completed 03/03/20. Patient completed a 7 day course of ceftriaxone and azithromycin. WBC unchanged today and felt related to steroids. Continue supportive care. (3) Hypothyroidism, unspecified: Code(s): E03.9 - Hypothyroidism, unspecified Status: Chronic Assessment and Plan: TSH low at 0.123 with FT4 0.23. Suspect euthyroid sick and the fact she is on steroids. Will continue levothyroxine. Plan to repeat levels once she is back to her baseline steroid dosing. (4) Inflammatory polyarthropathy: Code(s): M06.4 - Inflammatory polyarthropathy Status: Acute Assessment and Plan: No active tenosynovitis most likely the fact the patient is on dexamethasone. She has finished 10 days of Dexamethasone so will switch to prednisone and taper down to home dose. (5) Essential (primary) hypertension: Code(s): I10 - Essential (primary) hypertension Status: Chronic Assessment and Plan: Patient's blood pressure was reviewed on 03/08 Blood pressure remains reasonably well controlled. Will continue current medications with Lopressor and Norvasc. (6) Hyperlipidemia: Code(s): E78.5 - Hyperlipidemia, unspecified Status: Chronic Assessment and Plan: Stable. Fenofibrate has been continued. (7) DVT prophylaxis: Code(s): Z29.9 - Encounter for prophylactic measures, unspecified Status: Acute Assessment and Plan: Lovenox bid with covid Subjective Date/time seen: 03/09/20 17:11 Interval history: Date of service: 03/09 84yo female with HTN and inflammatory arthopathy on chronic Prednisone here for acute respiratory failure with COVID pneumonia. Sitting in chair. . No CP. SOB about the same. appetite still poor but eating a little Exam Narrative: Exam Narrative: AF 97.6 124/80 100 20 95 % HFNC 30L at 50% Gen - NARD sitting in chair Chest - clear today CV - RRR S1/S2 Abd - Soft, NT/ND, Positive BS - Corea secured draining clear yellow urine Ext - No pitting pedal edema Psych - depressed mood and affect; appears tired Skin - Warm and dry; bruising noted bilateral abd flanks L>R Objective Data Vital Signs Vital Signs: Vital Signs - 24 hr 03/08/20 18:00 03/08/20 20:00 03/08/20 20:35 Temperature 36.7 C Pulse Rate 107 H 102 H 98 Respiratory Rate 21 H 23 H 25 H Blood Pressure 135/80 141/84 H Pulse Oximetry 93 88 L 03/08/20 20:44 03/08/20 20:45 03/08/20 21:23 Temperature Pulse Rate 103 H 98 109 H Respiratory Rate 25 H 25 H Blood Pressure Pulse Oximetry 94 03/08/20 22:00 03/09/20 00:00 03/09/20 02:00 Temperature 36.9 C Pulse Rate 103 H 104 H 100 Respiratory Rate 20 20 20 Blood Pressure 139/80 130/74 134/78 Pulse Oximetry 91 95 93 03/09/20 02:25 03/09/20 02:38 03/09/20 04:00 Temperature 36.4 C Pulse Rate 98 98 104 H Respiratory Rate 23 H 23 H 20 Blood Pressure 132/83 Pulse Oximetry 83 L 03/09/20 04:02 03/09/20 04:08 03/09/20 06:00 Temperature Pulse Rate 105 H 102 H Respiratory Rate 20 30 H Blood Pressure 136/81 Pulse Oximet
[2020-03-09 21:43] LABS: Alveolar/Arterial O2 Gradient 434.2 mmHg; Base Excess ABG 0.9 mEq/l (+/-2.0); Carboxyhemoglobin 0.3 % THb (0-2.0); Fractional Inspired Oxygen 73 %; HCO3 ABG 22.5 mEq/l (22.0-26.0); Methemoglobin ABG 0.3 %THb (0-1.5); Oxygen Content ABG 16.8 %vol (16.0-22.0); Oxygen Saturation ABG 92.8 % (95.0-100.0); Oxyhemoglobin 89.9 % THb (90.0-100.0); PCO2 ABG 27.7 mmHg (35.0-45.0); PO2 ABG 56.7 mmHg (80.0-100.0); PO2 FiO2 Ratio Arterial Blood 0.78 %; Reduced Hemoglobin 9.5 %THb (0-5.0); Total Hemoglobin 13.3 g/dL (12.0-18.0)
[2020-03-09 21:44] LABS: Device HIGH FLOW THERAPY; Modified Allen's Test Pass; Site Drawn LEFT RADIAL; pH ABG 7.528 (7.350-7.450)
--- NOTE | 2020-03-09 22:15 | PC.NURSE ---
Spoke with pt's daughter, Awa Garcia ([phone]). Updated her to pt's current condition. Explained that pt required an increase in O2 requirements over a short period of time. Pt's O2 sat currently in the mid 90s. Awa states that the family has already discussed that they would like for the pt to be intubated if she were to require it. Awa verbalized that she understands pt's condition could rapidly deteriorate. Staff to notify Awa of any changes.
[2020-03-10] VITALS (27 sets, daily range): BP systolic 102–149; BP diastolic 60–111; PULSE 83–115; RESP 18–26; TEMP 36.1–36.6; O2SAT 93–100
[2020-03-10] MEDS: ALBUTEROL SULFATE NEB 2.5 MG/0.5 ML INH INHALATION ×4 (02:20→19:29)
[2020-03-10] MEDS: IPRATROPIUM BR 0.02% INH SOLN 0.5 MG/2.5 ML VIAL INHALATION ×4 (02:20→19:29)
[2020-03-10] MEDS: CENTRAL LINE FLUSH 10 ML IV PUSH ×3 (05:35→19:37)
[2020-03-10] MEDS: LEVOTHYROXINE SODIUM 25 MCG TABLET PO (05:35)
[2020-03-10 06:00] LABS: Hematocrit 36.5 % (37.0-47.0); Mean Corpuscular HGB Conc 32.9 g/dl (32-36); Mean Corpuscular Hemoglobin 30.6 pg (26-34); Mean Corpuscular Volume 93.1 fl (80-100); Platelet Count Result 347 k/mm3 (150-375); Red Blood Count 3.92 M/mm3 (4.2-5.4); Red Cell Distribution Width 14.8 % (11.5-14.5); White Blood Count 15.9 K/mm3 (4.5-10.0)
[2020-03-10 06:13] LABS: Alanine Aminotransferase 15 U/L (4-35); Albumin Level 2.8 g/dL (3.5-5.1); Alkaline Phosphatase 60 U/L (38-126); Anion Gap 5 mmol/L (8-16); Aspartate Amino Transferase 35 U/L (14-36); Bilirubin,Total 0.8 mg/dL (0.2-1.3); Blood Urea Nitrogen 17 mg/dL (7-17); Calcium 8.1 mg/dL (8.4-10.2); Carbon Dioxide 25 mmol/L (22-30); Chloride 106 mmol/L (98-107); Estimated CRCL calculation 41 ml/min; Estimated Glomerular Filt Rate > 60; Glucose 113 mg/dL (65-105); Magnesium 2.3 mg/dL (1.6-2.3); Potassium 4.5 mmol/L (3.4-5.0); Sodium 136 mmol/L (137-145)
[2020-03-10] MEDS: ASPIRIN 81 MG ENTERIC TABLET PO (08:50)
[2020-03-10] MEDS: FENOFIBRATE NANOCRYSTALLIZED 145 MG TABLET PO (08:50)
[2020-03-10] MEDS: PANTOPRAZOLE 40 MG TABLET PO (08:50)
[2020-03-10] MEDS: METOPROLOL TARTRATE 25 MG TABLET PO ×2 (08:50→19:37)
[2020-03-10] MEDS: ENOXAPARIN 40 MG/0.4 ML SYRINGE SUB-Q ×2 (08:51→19:37)
[2020-03-10] MEDS: amLODIPine BESYLATE 5 MG TABLET 10 MG PO (08:51)
[2020-03-10] MEDS: SODIUM BICARBONATE TAB 650 MG TABLET 1300 MG PO ×2 (08:52→18:15)
[2020-03-10] MEDS: MEGESTROL ACETATE (*CHEMO) ORAL SUSP 40 MG/ML SYR 800 MG PO (08:52)
--- NOTE | 2020-03-10 11:51 | WPDINTPN ---
Progress Note: A&P Assessment and Plan (1) Respiratory failure: Code(s): J96.90 - Respiratory failure, unspecified, unspecified whether with hypoxia or hypercapnia Status: Acute Assessment and Plan: secondary to COVID-19 pneumonia - continue supplemental oxygen, patient currently AirVo on 50 L high-flow therapy and FiO2 is at 50% - chest x-ray reviewed and shows persistent bilateral infiltrates - status post 7 day course of ceftriaxone and azithromycin - continue bronchodilators - patient receiving Lasix intermittently (2) Pneumonia due to COVID-19 virus: Code(s): U07.1 - COVID-19; J12.89 - Other viral pneumonia Status: Acute Assessment and Plan: SARS-CoV-2 PCR positive on 02/23/2020 - status post 5 day course of Remdesivir - on dexamethasone and will complete a 10 day course today 03/04 - convalescent plasma transfused on 02/28/2020 - chest x-ray continues to show bilateral infiltrates without significant improvement - continue droplet, airborne, contact isolation /precautions - monitor inflammatory markers which have improved but are still elevated (3) Hypothyroidism, unspecified: Code(s): E03.9 - Hypothyroidism, unspecified Status: Chronic Assessment and Plan: continue levothyroxine (4) Essential (primary) hypertension: Code(s): I10 - Essential (primary) hypertension Status: Chronic Assessment and Plan: continue amlodipine and metoprolol, pressure is much improved (5) DVT prophylaxis: Code(s): Z29.9 - Encounter for prophylactic measures, unspecified Status: Acute Assessment and Plan: Lovenox 40 mg subcu q.12 hours (6) Hyperlipidemia: Code(s): E78.5 - Hyperlipidemia, unspecified Status: Chronic Assessment and Plan: continue fenofibrate (7) Electrolyte abnormality: Code(s): E87.8 - Other disorders of electrolyte and fluid balance, not elsewhere classified Status: Acute Assessment and Plan: monitor electrolytes and replace accordingly (8) Leucocytosis: Code(s): D72.829 - Elevated white blood cell count, unspecified Status: Acute Assessment and Plan: likely secondary to steroids. Patient is afebrile and completed a course of antibiotic patient is on steroid taper WBC improving (9) Dietary counseling and surveillance: Code(s): Z71.3 - Dietary counseling and surveillance Status: Acute Assessment and Plan: patient is getting nutrition supplementation as her p.o. intake is limited (10) Delirium: Code(s): R41.0 - Disorientation, unspecified Status: Acute Assessment and Plan: she appears to be having delirium at night which has been getting worse through the hospital's course I will decrease her prednisone down to her home dose of 5 mg May need low-dose Seroquel Additional Plan SUP- PPI continue PT/OT Code status: patient on admission wanted to be DNR but later changed her mind and her daughters also felt the patient would want full resuscitation. patient is full code at this time 03/08- had a long meeting with patient's 3 daughters by phone. I updated them with patient's current status and her hospital. I answered the questions regarding the treatment the patient is leaving an experimental treatment they had heard about on social media and news media. Total Critical Care Time - 35 minutes Due to a high probability of clinically significant, life threatening deterioration, the patient required my highest level of preparedness to intervene emergently and I personally spent this critical care time directly and personally managing the patient. This critical care time included obtaining a history; examining the patient; pulse oximetry; ordering and review of studies; arranging urgent treatment with development of a management plan; evaluation of patient's response to treatment; frequent reas
--- NOTE | 2020-03-10 12:28 | PCPTNOTE ---
The PT treatment was unable to be completed today due to patient refusal. Will continue per Plan of Care frequency and duration.
[2020-03-10] MEDS: predniSONE 5 MG TABLET PO (12:29)
--- NOTE | 2020-03-10 16:35 | PM.IMPN ---
Progress Note: A&P Assessment and Plan (1) Respiratory failure: Code(s): J96.90 - Respiratory failure, unspecified, unspecified whether with hypoxia or hypercapnia Status: Acute Assessment and Plan: Patient with acute hypoxic respiratory failure related to COVID pneumonia. Maintaining saturation on high flow nasal cannula. Continue to wean O2 as tolerated and decreased to 50% today up slightly from 03/08. Continue Mucinex for cough and Nebs. (2) Pneumonia due to COVID-19 virus: Code(s): U07.1 - COVID-19; J12.89 - Other viral pneumonia Status: Acute Assessment and Plan: SARS-CoV-2 PCR positive on 02/23/2020. Treated with a 5 day course of Remdesivir through 02/28/20. Was transfused 1 unit of convalescent plasma on 02/27. Also started on dexamethasone Day 10 (started 02/22 in the ER) that was completed 03/03/20. Patient completed a 7 day course of ceftriaxone and azithromycin. WBC unchanged today and felt related to steroids. Continue supportive care. (3) Hypothyroidism, unspecified: Code(s): E03.9 - Hypothyroidism, unspecified Status: Chronic Assessment and Plan: TSH low at 0.123 with FT4 0.23. Suspect euthyroid sick and the fact she is on steroids. Will continue levothyroxine. Plan to repeat levels once she is back to her baseline steroid dosing. (4) Inflammatory polyarthropathy: Code(s): M06.4 - Inflammatory polyarthropathy Status: Acute Assessment and Plan: No active tenosynovitis most likely the fact the patient is on dexamethasone. She has finished 10 days of Dexamethasone so will switch to prednisone and taper down to home dose. (5) Essential (primary) hypertension: Code(s): I10 - Essential (primary) hypertension Status: Chronic Assessment and Plan: Patient's blood pressure was reviewed on 03/10 Blood pressure remains reasonably well controlled. Will continue current medications with Lopressor and Norvasc. (6) Hyperlipidemia: Code(s): E78.5 - Hyperlipidemia, unspecified Status: Chronic Assessment and Plan: Stable. Fenofibrate has been continued. (7) DVT prophylaxis: Code(s): Z29.9 - Encounter for prophylactic measures, unspecified Status: Acute Assessment and Plan: Lovenox bid with covid Subjective Date/time seen: 03/10/20 16:35 Interval history: Date of service: 03/10 84yo female with HTN and inflammatory arthopathy on chronic Prednisone here for acute respiratory failure with COVID pneumonia. Lying in bed. . No CP. SOB about the same. appetite still poor but eating a little Exam Narrative: Exam Narrative: AF 97.6 126/74 90 20 95 % HFNC 45L at 50% Gen - NARD lying in bed Chest - clear today CV - RRR S1/S2 Abd - Soft, NT/ND, Positive BS - Corea secured draining clear yellow urine Ext - No pitting pedal edema Psych - depressed mood and affect; appears tired Skin - Warm and dry; bruising noted bilateral abd flanks L>R Objective Data Vital Signs Vital Signs: Vital Signs - 24 hr 03/09/20 17:52 03/09/20 18:00 03/09/20 19:29 Temperature 36.7 C Pulse Rate 106 H 111 H 96 Respiratory Rate 29 H 26 H Blood Pressure 129/79 131/94 H Pulse Oximetry 94 96 03/09/20 20:00 03/09/20 20:57 03/09/20 21:00 Temperature Pulse Rate 96 108 H Respiratory Rate Blood Pressure Pulse Oximetry 83 L 03/09/20 21:06 03/09/20 21:08 03/09/20 21:25 Temperature Pulse Rate 110 H 99 Respiratory Rate 23 H 20 Blood Pressure Pulse Oximetry 83 L 88 L 93 03/09/20 21:28 03/09/20 21:38 03/09/20 22:00 Temperature Pulse Rate 100 102 H 112 H Respiratory Rate 18 21 H 28 H Blood Pressure 153/74 H Pulse Oximetry 96 03/10/20 00:00 03/10/20 02:00 03/10/20 02:20 Temperature 36.2 C L Pulse Rate 108 H 88 95 Respiratory Rate 19 18 21 H Blood Pressure 132/91 H 123/70 Pulse Oximetry 97 97 03/10/20 02:28 03/10
[2020-03-11] VITALS (23 sets, daily range): BP systolic 112–135; BP diastolic 56–88; PULSE 86–104; RESP 16–25; TEMP 36.4–36.9; O2SAT 93–98
[2020-03-11] MEDS: SALINE 0.65% NAS SOLN 44 ML BTL 1 SPRAY NASAL (01:00)
[2020-03-11] MEDS: IPRATROPIUM BR 0.02% INH SOLN 0.5 MG/2.5 ML VIAL INHALATION ×4 (01:27→20:15)
[2020-03-11] MEDS: ALBUTEROL SULFATE NEB 2.5 MG/0.5 ML INH INHALATION ×4 (01:27→20:15)
[2020-03-11 06:24] LABS: Hematocrit 35.1 % (37.0-47.0); Hemoglobin 11.4 g/dL (12.0-15.0); Mean Corpuscular HGB Conc 32.5 g/dl (32-36); Mean Corpuscular Hemoglobin 29.8 pg (26-34); Mean Corpuscular Volume 91.6 fl (80-100); Mean Platelet Volume 10.7 fl (7.4-10.4); Platelet Count Result 309 k/mm3 (150-375); Red Blood Count 3.83 M/mm3 (4.2-5.4); Red Cell Distribution Width 14.8 % (11.5-14.5); White Blood Count 14.2 K/mm3 (4.5-10.0)
[2020-03-11 06:35] LABS: D Dimer 0.72 ug/mL (<0.48)
[2020-03-11] MEDS: LEVOTHYROXINE SODIUM 25 MCG TABLET PO (06:44)
[2020-03-11] MEDS: CENTRAL LINE FLUSH 10 ML IV PUSH ×3 (06:44→21:14)
[2020-03-11 06:49] LABS: Alanine Aminotransferase 14 U/L (4-35); Albumin Level 2.7 g/dL (3.5-5.1); Alkaline Phosphatase 60 U/L (38-126); Anion Gap 4 mmol/L (8-16); Aspartate Amino Transferase 31 U/L (14-36); Bilirubin,Total 0.7 mg/dL (0.2-1.3); Blood Urea Nitrogen 15 mg/dL (7-17); CRP 2.3 mg/dL (<1.0); Calcium 8.1 mg/dL (8.4-10.2); Carbon Dioxide 29 mmol/L (22-30); Chloride 105 mmol/L (98-107); Estimated CRCL calculation 41 ml/min; Estimated Glomerular Filt Rate > 60; Glucose 93 mg/dL (65-105); Lactate Dehydrogenase 769 U/L (313-618); Magnesium 2.4 mg/dL (1.6-2.3); Potassium 3.6 mmol/L (3.4-5.0); Sodium 138 mmol/L (137-145)
[2020-03-11] MEDS: FENOFIBRATE NANOCRYSTALLIZED 145 MG TABLET PO (09:13)
[2020-03-11] MEDS: ASPIRIN 81 MG ENTERIC TABLET PO (09:13)
[2020-03-11] MEDS: SODIUM BICARBONATE TAB 650 MG TABLET 1300 MG PO (09:13)
[2020-03-11] MEDS: PANTOPRAZOLE 40 MG TABLET PO (09:13)
[2020-03-11] MEDS: METOPROLOL TARTRATE 25 MG TABLET PO ×2 (09:14→21:14)
[2020-03-11] MEDS: MEGESTROL ACETATE (*CHEMO) ORAL SUSP 40 MG/ML SYR 800 MG PO (09:14)
[2020-03-11] MEDS: ENOXAPARIN 40 MG/0.4 ML SYRINGE SUB-Q ×2 (09:14→21:15)
[2020-03-11] MEDS: amLODIPine BESYLATE 5 MG TABLET 10 MG PO (09:14)
[2020-03-11] MEDS: predniSONE 5 MG TABLET PO (09:16)
--- NOTE | 2020-03-11 09:31 | WPDINTPN ---
Progress Note: A&P Assessment and Plan (1) Respiratory failure: Code(s): J96.90 - Respiratory failure, unspecified, unspecified whether with hypoxia or hypercapnia Status: Acute Assessment and Plan: secondary to COVID-19 pneumonia - continue supplemental oxygen, patient currently on 4 L nasal cannula with adequate O2 sats between 93-98% - chest x-ray reviewed and shows persistent bilateral infiltrates - status post 7 day course of ceftriaxone and azithromycin - continue bronchodilators - patient receiving Lasix intermittently (2) Pneumonia due to COVID-19 virus: Code(s): U07.1 - COVID-19; J12.89 - Other viral pneumonia Status: Acute Assessment and Plan: SARS-CoV-2 PCR positive on 02/23/2020 - status post 5 day course of Remdesivir - status post 10 day course of dexamethasone - convalescent plasma transfused on 02/28/2020 - chest x-ray continues to show bilateral infiltrates without significant improvement - continue droplet, airborne, contact isolation /precautions - monitor inflammatory markers which have improved but are still elevated (3) Hypothyroidism, unspecified: Code(s): E03.9 - Hypothyroidism, unspecified Status: Chronic Assessment and Plan: continue levothyroxine (4) Essential (primary) hypertension: Code(s): I10 - Essential (primary) hypertension Status: Chronic Assessment and Plan: continue amlodipine and metoprolol, pressure is much improved (5) DVT prophylaxis: Code(s): Z29.9 - Encounter for prophylactic measures, unspecified Status: Acute Assessment and Plan: Lovenox 40 mg subcu q.12 hours (6) Hyperlipidemia: Code(s): E78.5 - Hyperlipidemia, unspecified Status: Chronic Assessment and Plan: continue fenofibrate (7) Electrolyte abnormality: Code(s): E87.8 - Other disorders of electrolyte and fluid balance, not elsewhere classified Status: Acute Assessment and Plan: monitor electrolytes and replace accordingly (8) Leucocytosis: Code(s): D72.829 - Elevated white blood cell count, unspecified Status: Acute Assessment and Plan: likely secondary to steroids. Patient is afebrile and completed a course of antibiotic patient is on steroid taper WBC improving (9) Dietary counseling and surveillance: Code(s): Z71.3 - Dietary counseling and surveillance Status: Acute Assessment and Plan: patient is getting nutrition supplementation as her p.o. intake is limited (10) Delirium: Code(s): R41.0 - Disorientation, unspecified Status: Acute Assessment and Plan: she appears to be having delirium at night which has been getting worse through the hospital's course I will decrease her prednisone down to her home dose of 5 mg May need low-dose Seroquel Additional Plan SUP- PPI continue PT/OT Code status: full code Total Critical Care Time - 32 minutes Due to a high probability of clinically significant, life threatening deterioration, the patient required my highest level of preparedness to intervene emergently and I personally spent this critical care time directly and personally managing the patient. This critical care time included obtaining a history; examining the patient; pulse oximetry; ordering and review of studies; arranging urgent treatment with development of a management plan; evaluation of patient's response to treatment; frequent reassessment; and discussions with other providers. It was exclusive of separately billable procedures and treating other patients and teaching time. Please see Assessment and Plan section and the rest of the note for further information on patient assessment and treatment Subjective Date/time seen: 03/11/20 09:31 Interval history: Reason for consult: acute respiratory failure, COVID-19 pneumonia, increasing oxygen requirement, patient made ICU 02/27
--- NOTE | 2020-03-11 11:49 | PCDIET ---
Nutrition Follow-Up Complete: Nutrition Diagnosis: Suboptimal oral intake related to low appetite as evidenced by meal records less than 50% at most meals. Nutrition Goal: Patient to consume 50% of meals/supplements or greater. Goal not met. Intakes 0-30% since last review on regular diet. Recommend continuing [employer] TID with meals. If aggressive nutritional therapy is desired, would begin to consider supplemental nutrition support. Last recorded weight is 53.7 kg which is stable with last review. Bowel Motility: Last documented BM on 03/10/20 x 1. Labs Reviewed: Hgb (11.4), Hct (35.1), Alb (2.7), Serafin Ca (9.14) Meds Noted: Albuterol, Megace, Protonix, Prednisone, Atrovent, Synthroid, Reglan Additional Notes: Right arm skin tear. Right upper lip scab. Will continue to monitor with same goal. Nutrition Monitoring and Evaluation: Follow up every 3 days.
--- NOTE | 2020-03-11 12:52 | PCPTNOTE ---
The PT treatment was unable to be completed today. Attempted PT, patient became agitated and argumentative. Will continue per Plan of Care frequency and duration.
--- NOTE | 2020-03-11 13:38 | PCOTNOTE ---
Attempted to see patient this pm, however patient refused. Pt repeated Odin Uh. when encouraged to participate.
--- NOTE | 2020-03-11 17:38 | PM.IMPN ---
Progress Note: A&P Assessment and Plan (1) Respiratory failure: Code(s): J96.90 - Respiratory failure, unspecified, unspecified whether with hypoxia or hypercapnia Status: Acute Assessment and Plan: Patient with acute hypoxic respiratory failure related to COVID pneumonia. Maintaining now on 4L NC nasal cannula. Continue to wean O2 as tolerated and . Continue Mucinex for cough and Nebs. (2) Pneumonia due to COVID-19 virus: Code(s): U07.1 - COVID-19; J12.89 - Other viral pneumonia Status: Acute Assessment and Plan: SARS-CoV-2 PCR positive on 02/23/2020. Treated with a 5 day course of Remdesivir through 02/28/20. Was transfused 1 unit of convalescent plasma on 02/27. Also started on dexamethasone Day 10 (started 02/22 in the ER) that was completed 03/03/20. Patient completed a 7 day course of ceftriaxone and azithromycin. WBC slowly falling and felt related to steroids. Continue supportive care. (3) Hypothyroidism, unspecified: Code(s): E03.9 - Hypothyroidism, unspecified Status: Chronic Assessment and Plan: TSH low at 0.123 with FT4 0.23. Suspect euthyroid sick and the fact she is on steroids. Will continue levothyroxine. Plan to repeat levels once she is back to her baseline steroid dosing. (4) Inflammatory polyarthropathy: Code(s): M06.4 - Inflammatory polyarthropathy Status: Acute Assessment and Plan: No active tenosynovitis most likely the fact the patient is on dexamethasone. She has finished 10 days of Dexamethasone so will switch to prednisone and tapered down to home dose jof 5mg qd. (5) Essential (primary) hypertension: Code(s): I10 - Essential (primary) hypertension Status: Chronic Assessment and Plan: Patient's blood pressure was reviewed on 03/11 Blood pressure remains reasonably well controlled. Will continue current medications with Lopressor and Norvasc. (6) Hyperlipidemia: Code(s): E78.5 - Hyperlipidemia, unspecified Status: Chronic Assessment and Plan: Stable. Fenofibrate has been continued. (7) DVT prophylaxis: Code(s): Z29.9 - Encounter for prophylactic measures, unspecified Status: Acute Assessment and Plan: Lovenox bid with covid (8) Failure to thrive: Status: Acute Assessment and Plan: Continues to be withdrawn and depressed. Megace was added for appetite stimulant. hopefully family will be able to visit soon for encouragement Subjective Date/time seen: 03/11/20 17:38 Interval history: Date of service: 03/11 84yo female with HTN and inflammatory arthopathy on chronic Prednisone here for acute respiratory failure with COVID pneumonia. Lying in bed. . No CP. SOB about the same. appetite still poor but eating a little Off high flow 02 Exam Narrative: Exam Narrative: AF 97.6 118/64 90 20 96 % 4L NC Gen - NARD lying in bed Chest - clear today CV - RRR S1/S2 Abd - Soft, NT/ND, Positive BS - Corea secured draining clear yellow urine Ext - No pitting pedal edema Psych - depressed mood and affect; appears tired Skin - Warm and dry; Objective Data Vital Signs Vital Signs: Vital Signs - 24 hr 03/10/20 18:00 03/10/20 19:30 03/10/20 19:31 Temperature Pulse Rate 96 97 90 Respiratory Rate 24 H 21 H 20 Blood Pressure 120/77 Pulse Oximetry 96 93 03/10/20 19:35 03/10/20 19:37 03/10/20 20:00 Temperature 36.2 C L Pulse Rate 92 91 101 H Respiratory Rate 22 H 18 Blood Pressure 120/77 Pulse Oximetry 96 03/10/20 21:29 03/10/20 22:00 03/10/20 23:58 Temperature 36.4 C L Pulse Rate 85 83 Respiratory Rate 26 H Blood Pressure 134/70 Pulse Oximetry 95 03/11/20 00:00 03/11/20 01:26 03/11/20 01:27 Temperature Pulse Rate 88 89 93 Respiratory Rate 20 16 22 H Blood Pressure 116/63 Pulse Oximetry 97 98 03/11/20 01:32 03/11/20 02:00 03/11/20 03:15 Temperature
--- NOTE | 2020-03-11 18:37 | PC.NURSE ---
This patient, Tra Amin, was transferred to [facility] on 03/11/20 at 1825. Personal belongings sent with patient. Report given to Paul SAHA. Appropriate documentation sent with patient.
--- NOTE | 2020-03-11 19:25 | PC.NURSE ---
Patient arrived on 3 med surg at 1835
[2020-03-11] MEDS: SODIUM CHLORIDE NASAL GEL 14.1 GM 1 APPLIC NASAL (21:15)
[2020-03-12] VITALS (16 sets, daily range): BP systolic 101–142; BP diastolic 59–75; PULSE 78–102; RESP 20–22; TEMP 36.3–37; O2SAT 90–99
[2020-03-12] MEDS: CENTRAL LINE FLUSH 10 ML IV PUSH ×3 (05:55→21:40)
[2020-03-12] MEDS: LEVOTHYROXINE SODIUM 25 MCG TABLET PO (05:55)
[2020-03-12 06:13] LABS: Basophils Absolute Auto 0.1 K/mm3 (0.0-0.1); Basophils Percent Auto 0.5 % (0.2-1.2); Eosinophils Absolute Auto 0.3 K/mm3 (0-0.3); Eosinophils Percent Auto 2.1 % (0-4.4); Hematocrit 36.3 % (37.0-47.0); Hemoglobin 11.8 g/dL (12.0-15.0); Immature Granulocyte Absolute 0.45 K/mm3 (0.00-0.031); Lymphocytes Absolute Auto 1.58 K/mm3 (0.9-3.2); Lymphocytes Percent Auto 10.5 % (18.3-44.2); Mean Corpuscular HGB Conc 32.5 g/dl (32-36); Mean Corpuscular Hemoglobin 30.4 pg (26-34); Mean Corpuscular Volume 93.6 fl (80-100); Mean Platelet Volume 10.6 fl (7.4-10.4); Monocytes Absolute Auto 0.7 K/mm3 (0.1-0.6); Monocytes Percent Auto 4.6 % (2.6-8.5); Neutrophils Absolute Auto 11.9 K/mm3 (1.3-6.7); Neutrophils Percent Auto 79.3 % (45.5-73.1); Nucleated Red Blood Cells Absolute Auto 0.1 K/mm3 (0.0-0.012); Nucleated Red Blood Cells Perc 0.3 % (0.0-0.2); Platelet Count Result 264 k/mm3 (150-375); Red Blood Count 3.88 M/mm3 (4.2-5.4); Red Cell Distribution Width 15.2 % (11.5-14.5)
[2020-03-12 06:39] LABS: Alanine Aminotransferase 13 U/L (4-35); Albumin Level 2.7 g/dL (3.5-5.1); Alkaline Phosphatase 48 U/L (38-126); Anion Gap 5 mmol/L (8-16); Aspartate Amino Transferase 30 U/L (14-36); Bilirubin,Total 0.7 mg/dL (0.2-1.3); Blood Urea Nitrogen 14 mg/dL (7-17); Carbon Dioxide 28 mmol/L (22-30); Chloride 106 mmol/L (98-107); Estimated CRCL calculation 41 ml/min; Estimated Glomerular Filt Rate > 60; Glucose 89 mg/dL (65-105); Magnesium 2.4 mg/dL (1.6-2.3); Phosphorus 3.2 mg/dL (2.5-4.5); Potassium 3.5 mmol/L (3.4-5.0); Sodium 139 mmol/L (137-145)
[2020-03-12] MEDS: IPRATROPIUM BR 0.02% INH SOLN 0.5 MG/2.5 ML VIAL INHALATION ×3 (08:11→19:49)
[2020-03-12] MEDS: ALBUTEROL SULFATE NEB 2.5 MG/0.5 ML INH INHALATION ×3 (08:11→19:49)
[2020-03-12] MEDS: ASPIRIN 81 MG ENTERIC TABLET PO (08:25)
[2020-03-12] MEDS: ENOXAPARIN 40 MG/0.4 ML SYRINGE SUB-Q (08:25)
[2020-03-12] MEDS: amLODIPine BESYLATE 5 MG TABLET 10 MG PO (08:25)
[2020-03-12] MEDS: FENOFIBRATE NANOCRYSTALLIZED 145 MG TABLET PO (08:27)
[2020-03-12] MEDS: PANTOPRAZOLE 40 MG TABLET PO (08:28)
[2020-03-12] MEDS: MEGESTROL ACETATE (*CHEMO) ORAL SUSP 40 MG/ML SYR 800 MG PO (08:29)
[2020-03-12] MEDS: METOPROLOL TARTRATE 25 MG TABLET PO ×2 (08:29→20:14)
--- NOTE | 2020-03-12 10:18 | ECG_ITS ---
Measurements Intervals [place] Rate: 85 P: 35 NV: 190 QRS: -15 QRSD: 103 T: 176 QT: 398 QTc: 475 Interpretive Statements SINUS RHYTHM LEFT VENTRICULAR HYPERTROPHY AND ST-T CHANGE BORDERLINE R WAVE PROGRESSION, ANTERIOR LEADS ST-T WAVE ABNORMALITY IN ANTEROLAT/HIGH LAT LEADS- CONSIDER ISCHEMIA BASELINE ARTIFACT- I, II, III, AVR, AVL, AVF, V2-V4 ABNORMAL ECG Electronically Signed On 03-12-2020 10:57:09 CDT by Rui Altman D.O.
--- NOTE | 2020-03-12 11:07 | PC.NURSE ---
Daughter (Deena) of Khadra called in and was updated about her mothers current condition and how her mothers night went. All questions answered verbalized by Deena.
[2020-03-12] MEDS: predniSONE 5 MG TABLET PO (12:08)
[2020-03-12 13:13] LABS: SARS-CoV-2 RNA PCR Positive
--- NOTE | 2020-03-12 15:36 | PM.IMPN ---
Progress Note: A&P Assessment and Plan (1) Respiratory failure: Code(s): J96.90 - Respiratory failure, unspecified, unspecified whether with hypoxia or hypercapnia Status: Acute Assessment and Plan: Patient with acute hypoxic respiratory failure related to COVID pneumonia. Improving O2 requirement. Now on 3L NC nasal cannula. Continue to wean O2 as tolerated. Decrease frequency of Nebs. (2) Pneumonia due to COVID-19 virus: Code(s): U07.1 - COVID-19; J12.89 - Other viral pneumonia Status: Acute Assessment and Plan: SARS-CoV-2 PCR positive on 02/23/2020. Treated with a 5 day course of Remdesivir through 02/28/20. Was transfused 1 unit of convalescent plasma on 02/27. Also started on dexamethasone Day 10 (started 02/22 in the ER) that was completed 03/04/20. Patient completed a 7 day course of ceftriaxone and azithromycin. WBC about the same today. Repeat COVID-19 test still positive. Continue supportive care. (3) Failure to thrive: Status: Acute Assessment and Plan: Continues to be withdrawn and depressed. Megace was added for appetite stimulant. Eating anywhere from 0-50% of meals. Continue to encourage oral intake. Increase activity. (4) Hypothyroidism, unspecified: Code(s): E03.9 - Hypothyroidism, unspecified Status: Chronic Assessment and Plan: TSH low at 0.123 with FT4 0.23. Suspect euthyroid sick and the fact she is on steroids. Will continue levothyroxine. Plan to repeat levels once she is back to her baseline steroid dosing. (5) Inflammatory polyarthropathy: Code(s): M06.4 - Inflammatory polyarthropathy Status: Acute Assessment and Plan: No active tenosynovitis most likely the fact the patient was on dexamethasone for 10 days. She was switched to prednisone and tapered down to home dose of 5mg qd. (6) Essential (primary) hypertension: Code(s): I10 - Essential (primary) hypertension Status: Chronic Assessment and Plan: Patient's blood pressure was reviewed on 03/12 Blood pressure remains well controlled. Continue current medications with Lopressor and Norvasc. (7) Hyperlipidemia: Code(s): E78.5 - Hyperlipidemia, unspecified Status: Chronic Assessment and Plan: Stable. Continue Fenofibrate. (8) DVT prophylaxis: Code(s): Z29.9 - Encounter for prophylactic measures, unspecified Status: Acute Assessment and Plan: Lovenox bid with covid; will change to daily. Subjective Date/time seen: 03/12/20 15:36 Interval history: Date of service: 03/12 84yo female with HTN and inflammatory arthopathy on chronic Prednisone here for acute respiratory failure with COVID pneumonia. Denies feeling SOB. Denies cough. No CP. Eating okay. Out of bed for meals. Exam Narrative: Exam Narrative: AF 97.4 101/59 80 20 96% 3L NC Gen - NARD lying almost flat in bed HEENT - dried eschar right upper lip Chest - CTA bilaterally, nml RR CV - RRR S1/S2 Abd - Soft, NT/ND, Positive BS - Corea secured draining clear yellow urine Ext - No pedal edema Psych - depressed mood and affect Skin - Warm and dry Objective Data Vital Signs Vital Signs: Vital Signs - 24 hr 03/11/20 16:00 03/11/20 18:00 03/11/20 18:30 Temperature 98.4 F 98.3 F Pulse Rate 94 92 Respiratory Rate 22 H 18 18 Blood Pressure 118/64 130/68 Pulse Oximetry 96 95 03/11/20 20:00 03/11/20 20:15 03/11/20 20:24 Temperature 97.6 F Pulse Rate 100 97 95 Respiratory Rate 16 18 18 Blood Pressure 128/77 Pulse Oximetry 93 93 03/11/20 21:14 03/12/20 00:00 03/12/20 04:00 Temperature 98.3 F 98.3 F Pulse Rate 94 93 93 Respiratory Rate 20 20 Blood Pressure 135/61 135/61 Pulse Oximetry 90 90 03/12/20 08:00 03/12/20 08:12 03/12/20 08:21 Temperature 98.0 F Pulse Rate 90 78 80 Respiratory Rate 20 20 20 Blood Pressure 142/75 H Pulse Oximetry 97
--- NOTE | 2020-03-12 18:05 | PC.NURSE ---
Daughter Deena was called and was notified that her mother was sleeping and that she would not be able to participate in a video chat. This nurse told Deena that maybe trying again tomorrow for a video chat while her mother is awake would be best.
[2020-03-12] MEDS: SODIUM CHLORIDE NASAL GEL 14.1 GM 1 APPLIC NASAL (20:14)
[2020-03-13] VITALS (11 sets, daily range): BP systolic 98–132; BP diastolic 60–77; PULSE 80–100; RESP 16–22; TEMP 36.6–36.9; O2SAT 90–99
[2020-03-13 05:21] LABS: Hematocrit 34.5 % (37.0-47.0); Hemoglobin 11.4 g/dL (12.0-15.0); Mean Corpuscular Volume 93.8 fl (80-100); Mean Platelet Volume 10.6 fl (7.4-10.4); Platelet Count Result 245 k/mm3 (150-375); Red Blood Count 3.68 M/mm3 (4.2-5.4); Red Cell Distribution Width 15.5 % (11.5-14.5); White Blood Count 13.4 K/mm3 (4.5-10.0)
[2020-03-13] MEDS: LEVOTHYROXINE SODIUM 25 MCG TABLET PO (05:40)
[2020-03-13] MEDS: CENTRAL LINE FLUSH 10 ML IV PUSH (05:40)
[2020-03-13] MEDS: ENOXAPARIN 40 MG/0.4 ML SYRINGE SUB-Q (08:45)
[2020-03-13] MEDS: ASPIRIN 81 MG ENTERIC TABLET PO (08:46)
[2020-03-13] MEDS: PANTOPRAZOLE 40 MG TABLET PO (08:46)
[2020-03-13] MEDS: MEGESTROL ACETATE (*CHEMO) ORAL SUSP 40 MG/ML SYR 800 MG PO (08:46)
[2020-03-13] MEDS: predniSONE 5 MG TABLET PO (08:46)
[2020-03-13] MEDS: FENOFIBRATE NANOCRYSTALLIZED 145 MG TABLET PO (08:46)
[2020-03-13] MEDS: amLODIPine BESYLATE 5 MG TABLET 10 MG PO (08:47)
--- NOTE | 2020-03-13 08:57 | PM.IMPN ---
Progress Note: A&P Assessment and Plan (1) Respiratory failure: Code(s): J96.90 - Respiratory failure, unspecified, unspecified whether with hypoxia or hypercapnia Status: Acute Assessment and Plan: Patient with acute hypoxic respiratory failure related to COVID pneumonia. Improving O2 requirement. Now on 2L NC nasal cannula. Continue to wean O2 as tolerated. Continue nebs. (2) Pneumonia due to COVID-19 virus: Code(s): U07.1 - COVID-19; J12.89 - Other viral pneumonia Status: Acute Assessment and Plan: SARS-CoV-2 PCR positive on 02/23/2020. Treated with a 5 day course of Remdesivir through 02/28/20. Was transfused 1 unit of convalescent plasma on 02/27. Also started on dexamethasone Day 10 (started 02/22 in the ER) that was completed 03/04/20. Patient completed a 7 day course of ceftriaxone and azithromycin. WBC better today. Repeat COVID-19 test still positive. Continue supportive care. Placement being arranged. (3) Failure to thrive: Status: Acute Assessment and Plan: Continues to be withdrawn and depressed. Megace was added for appetite stimulant. Eating anywhere from 0-50% of meals. Continue to encourage oral intake. Increase activity. (4) Hypothyroidism, unspecified: Code(s): E03.9 - Hypothyroidism, unspecified Status: Chronic Assessment and Plan: TSH low at 0.123 with FT4 0.23. Suspect euthyroid sick and the fact she is on steroids. Will continue levothyroxine. Plan to repeat levels once she is back to her baseline steroid dosing. (5) Inflammatory polyarthropathy: Code(s): M06.4 - Inflammatory polyarthropathy Status: Acute Assessment and Plan: No active tenosynovitis most likely the fact the patient was on dexamethasone for 10 days. She was switched to prednisone and tapered down to home dose of 5mg qd. (6) Essential (primary) hypertension: Code(s): I10 - Essential (primary) hypertension Status: Chronic Assessment and Plan: Patient's blood pressure was reviewed on 03/13 Blood pressure remains well controlled. Continue current medications with Lopressor and Norvasc. (7) Hyperlipidemia: Code(s): E78.5 - Hyperlipidemia, unspecified Status: Chronic Assessment and Plan: Stable. Continue Fenofibrate. (8) DVT prophylaxis: Code(s): Z29.9 - Encounter for prophylactic measures, unspecified Status: Acute Assessment and Plan: Lovenox Subjective Date/time seen: 03/13/20 08:57 Interval history: Date of service: 03/13 84yo female with HTN and inflammatory arthropathy on chronic Prednisone here for acute respiratory failure with COVID pneumonia. Slept well. Complains of dry mouth. No issues overnight Exam Narrative: Exam Narrative: AF 98.5 129/77 87 20 92% 2L NC Gen - NARD lying almost flat in bed HEENT - dried eschar right upper lip Chest - few basilar rhonchi, nml RR CV - RRR S1/S2 Abd - Soft, NT/ND, Positive BS - Corea secured draining clear yellow urine Ext - No pedal edema Psych - depressed mood and affect Skin - Warm and dry Objective Data Vital Signs Vital Signs: Vital Signs - 24 hr 03/12/20 10:19 03/12/20 12:00 03/12/20 14:10 Temperature 97.4 F L Pulse Rate 102 H 80 Respiratory Rate 20 20 Blood Pressure 101/59 L Pulse Oximetry 98 96 03/12/20 16:00 03/12/20 19:38 03/12/20 19:50 Temperature 98.1 F Pulse Rate 97 93 Respiratory Rate 20 22 H Blood Pressure 124/72 Pulse Oximetry 98 99 95 03/12/20 20:00 03/12/20 20:06 03/12/20 20:14 Temperature 98.6 F Pulse Rate 94 98 95 Respiratory Rate 20 20 Blood Pressure 125/69 Pulse Oximetry 94 03/13/20 00:00 03/13/20 04:00 Temperature 98.5 F 98.5 F Pulse Rate 80 87 Respiratory Rate 18 20 Blood Pressure 127/71 129/77 Pulse Oximetry 90 92 Intake/Output Intake/Output: Intake & Output 03/10/20 03/11/20 03/12/20
[2020-03-13] MEDS: IPRATROPIUM BR 0.02% INH SOLN 0.5 MG/2.5 ML VIAL INHALATION (09:03)
[2020-03-13] MEDS: ALBUTEROL SULFATE NEB 2.5 MG/0.5 ML INH INHALATION ×2 (09:03→13:12)
[2020-03-13] MEDS: METOPROLOL TARTRATE 25 MG TABLET PO (09:30)
--- NOTE | 2020-03-13 13:06 | PM.DS ---
DS: Admitting Diagnosis Admitting Diagnosis Admitting Diagnosis: pneumonia DS: Discharge Diagnosis Discharge Diagnosis (1) Respiratory failure: Code(s): J96.90 - Respiratory failure, unspecified, unspecified whether with hypoxia or hypercapnia Status: Acute Assessment and Plan: Patient with acute hypoxic respiratory failure related to COVID pneumonia. Improving O2 requirement. We continued to wean O2 as tolerated. We continued nebs. (2) Pneumonia due to COVID-19 virus: Code(s): U07.1 - COVID-19; J12.89 - Other viral pneumonia Status: Acute Assessment and Plan: SARS-CoV-2 PCR positive on 02/23/2020. Treated with a 5 day course of Remdesivir through 02/28/20. Was transfused 1 unit of convalescent plasma on 02/27. Also treated with dexamethasone and completed a 10 Day course (started 02/22 in the ER) that was completed 03/04/20. Patient completed a 7 day course of ceftriaxone and azithromycin. WBC better today. Repeat COVID-19 test still positive. Patient moved to rehab facility today. (3) Failure to thrive: Status: Acute Assessment and Plan: Continues to be withdrawn and depressed. Megace was added for appetite stimulant. Eating anywhere from 0-50% of meals. We continued to encourage oral intake and increased her activity. She did have persistent urine retention with Corea trials. Plan for Corea at discharge and to hopefully be able to remove once she is more ambulatory. (4) Hypothyroidism, unspecified: Code(s): E03.9 - Hypothyroidism, unspecified Status: Chronic Assessment and Plan: TSH low at 0.123 with FT4 0.23. Suspect euthyroid sick and the fact she is on steroids. We continued levothyroxine. Plan to repeat levels once she is back to her baseline steroid dosing. (5) Inflammatory polyarthropathy: Code(s): M06.4 - Inflammatory polyarthropathy Status: Acute Assessment and Plan: No active tenosynovitis most likely the fact the patient was on dexamethasone for 10 days. She was switched to prednisone and tapered down to home dose of 5mg qd. (6) Essential (primary) hypertension: Code(s): I10 - Essential (primary) hypertension Status: Chronic Assessment and Plan: Patient's blood pressure was monitored Blood pressure remained well controlled. We continued current medications with Lopressor and Norvasc. (7) Hyperlipidemia: Code(s): E78.5 - Hyperlipidemia, unspecified Status: Chronic Assessment and Plan: Stable. We continued Fenofibrate. DS: Summary Hospital Course Reason for hospitalization: 84yo female here for acute respiratory failure from COVID. Please see H&P for details Hospital Course: as above Time Spent with Patient Time attestation: Total time spent providing and/or coordinating discharge services: 35 minutes Time spent: Greater than 30 minutes Exam Narrative: Exam Narrative: AF 98.5 129/77 87 20 92% 2L NC Gen - NARD lying almost flat in bed HEENT - dried eschar right upper lip Chest - few basilar rhonchi, nml RR CV - RRR S1/S2 Abd - Soft, NT/ND, Positive BS - Corea secured draining clear yellow urine Ext - No pedal edema Psych - depressed mood and affect Skin - Warm and dry DS: Data Data Completed and Pending Labs on day of discharge: Labs from last 24 hours 03/13/20 03/11/20 05:08 15:15 WBC 13.4 H RBC 3.68 L Hgb 11.4 L Hct 34.5 L MCV 93.8 MCH 31.0 MCHC 33.0 RDW 15.5 H Plt Count 245 MPV 10.6 H SARS-CoV-2 RNA (RT-PCR) Positive A Discharge Plan Discharge Attending physician on discharge: Alonzo Jarquin Consulting providers: Lasha Steven Discharging Clinician: Alonzo Jarquin Anticipated Discharge Date/Time: 03/13/20 13:12 Patient Disposition: Hospital Swing Bed Activity: as tolerated Diet: other - see discharge instructions Discharge Instructions: Regula
[2020-03-13] MEDS: NEOMYCIN/POLYMYXIN/BACITRACIN OINTMENT PACKET 1 PACKET (13:51)
== END 2020-03-13 16:00 | disposition swing bed (61) | DRG 177 ==
LOC: ANHED 13:42 → ANHICU 02-26 15:40 → ANH3MEDSUR 03-11 20:08 → ANHICU 03-14 13:35
PROVIDERS: Family Medicine; Internal Medicine; Nurse Practitioner; Admitting Provider Family Medicine; Emergency Provider Emergency Medicine; PCP Family Medicine; Visit Provider Internal Medicine
DX: U07.1 COVID-19 (principal); J12.89 Other viral pneumonia; J96.00 Acute respiratory failure, unspecified whether with hypoxia or hypercapnia; E78.5 Hyperlipidemia, unspecified; E03.9 Hypothyroidism, unspecified; I10 Essential (primary) hypertension; M06.4 Inflammatory polyarthropathy; R62.7 Adult failure to thrive; Z68.21 Body mass index [BMI] 21.0-21.9, adult
CPT/HCPCS: 36415; 36430; 36569; 36600; 71045; 71275; 80048; 80053; 82375; 82728; 82805; 83050; 83605; 83615; 83735; 83880; 84100; 84439; 84443; 84460; 84484; 85025; 85027; 85380; 85730; 86140; 86850; 86900; 86901; 87040; 87086; 87088; 87324; 87635; 87804; 92610; 93005; 94640; 96361; 96365; 96367; 96368; 96375; 97110; 97161; 97165; 97530; 99285; A9270; C1751; C9803; J0131; J0456; J0696; J1100; J1650; J1940; J2550; J2997; J3480; J7030; J7050; J7060; J7120; J7512; P9059; Q9967; U0003

== ENCOUNTER 2020-03-13 17:06 | Inpatient (IN) | payer MEDICARE, OTHER, SELFPAY ==
--- NOTE | ~2020-03-13 | CT_ITS ---
EXAMINATION: CTA chest PE protocol DATE: 03/21/2020 11:30 INDICATION: Shortness of breath. TECHNIQUE: Computed tomography angiography (CTA) of the chest was performed with 100 mL Omnipaque-350 intravenous contrast timed to evaluate the pulmonary arteries. Coronal maximum intensity projection 3D-reconstructions were created by the technologist. Automated exposure control and iterative reconst ruction technique were employed. The dose-length product was 214.99 mGy-cm. COMPARISON: Chest CT 02/23/2020 FINDINGS: There are airspace, groundglass, and interstitial opacities with architectural distortion t hroughout the lungs bilaterally. There is widespread mild bronchiectasis. No honeycombing. Calcified left lung nodules and calcified left hilar lymph nodes are consistent with old granulomatous disease. No pleural effusion. Cardiomegaly is noted. There are coronary artery calcifications. No pericardial effusion. There is a small sliding hiatal hernia. Calcifications in the spleen are consistent with o ld granulomatous disease. There is no pulmonary embolus. Thoracic kyphosis is noted. IMPRESSION: 1. No pulmonary embolus. 2. Diffuse lung disease with worsening from 02/23/2020, consistent with a combination of pneumonia and /or pulmonary edema and worsening chronic interstitial lung disease. 3. Small sliding hiatal hernia. Reviewed, dictated and finalized at location A. IMPRESSION: 1. No pulmonary embolus. 2. Diffuse lung disease with worsening from 02/23/2020, consistent with a combin ation of pneumonia and/or pulmonary edema and worsening chronic interstitial adolfo ng disease. 3. Small sliding hiatal hernia.
--- NOTE | ~2020-03-13 | XR_ITS ---
EXAMINATION: XR chest 1V portable DATE: 03/16/2020 09:10 INDICATION: Shortness of breath. TECHNIQUE: A single frontal view of the chest was obtained. COMPARISON: Chest single view 03/10/2020, chest CT 02/23/2020 FINDINGS: There are patchy airspace opacities involving all lung zones bilaterally. Calcified left adolfo ng nodules and calcified left hilar lymph nodes are consistent with old granulomatous disease. No ple ural effusion or pneumothorax. The heart size is normal. IMPRESSION: 1. Diffuse lung disease with slight improvement, consistent with pneumonia versus pulmonary edema willie karthik acute respiratory distress syndrome (ARDS). Reviewed, dictated and finalized at location A. IMPRESSION: 1. Diffuse lung disease with slight improvement, consistent with pneumonia vers us pulmonary edema versus acute respiratory distress syndrome (ARDS).
--- NOTE | ~2020-03-13 | XR_ITS ---
EXAMINATION: XR chest 2V DATE: 03/20/2020 14:50 INDICATION: Hypoxia. TECHNIQUE: Frontal and lateral views of the chest were obtained. COMPARISON: Chest single view 03/16/2020, chest CT 02/23/2020, CT abdomen and pelvis 06/24/2019 FINDINGS: There are patchy airspace opacities and coarse interstitial opacities throughout the lungs bilaterally. Calcified left lung nodules and calcified left hilar lymph nodes are consistent with old granulomatous disease. No pleural effusion or pneumothorax. Cardiomegaly is noted. There is a chroni c burst fracture of L1. IMPRESSION: 1. Stable diffuse lung disease, consistent with pneumonia versus pulmonary edema versus acute respira tory distress syndrome (ARDS). 2. Cardiomegaly. Reviewed, dictated and finalized at location A. IMPRESSION: 1. Stable diffuse lung disease, consistent with pneumonia versus pulmonary vonda a versus acute respiratory distress syndrome (ARDS). 2. Cardiomegaly.
[2020-03-13 17:15] VITALS: BP 126/67; PULSE 94; RESP 20; TEMP 36.6; O2SAT 93; BMI 21.7
[2020-03-13 17:59] VITALS: PULSE 86; RESP 20; O2SAT 92
--- NOTE | 2020-03-13 19:26 | PM.IMHP ---
H&P: HPI History of Present Illness Date/Time: 03/13/20 19:26 Chief complaint: Covid Narrative: Tra Amin is a 84 year old female that presented to [facility] for swing rehab. She was admitted to [place] for acute hypoxic respiratory failure 2/2 covid pneumonia and CAP. She tested positive on 02/22 and was treated with 5 days of Remdesivir, 1u of convalescent plasma, and 10 days of dexamethasone. She was weaned down to 2L. During her stay she became weak, started eating less and appeared depressed. As she was not strong enough to go home she was sent here for rehab. Today she admits being weak but has no other acute concerns and denies any acute pain. Review of Systems Constitutional: Constitutional: Reports body ache(s), Reports fatigue, Reports lethargy and Reports weakness Eyes: Eyes: Reports no additional eye complaints ENT: Reports system reviewed and no additional complaints, except as documented Cardiovascular: Cardiovascular: Denies chest pain and Denies palpitations Respiratory: Respiratory: Reports cough, Denies hemoptysis, Reports dyspnea and Reports dyspnea on exertion Gastrointestinal: Gastrointestinal: Reports no additional gastrointestinal complaints Genitourinary: Genitourinary: Reports no additional female genitourinary complaints Musculoskeletal: Musculoskeletal: Reports myalgias Integumentary/Breasts: Skin/Breast: Reports system reviewed and no additional complaints, except as docu Neurologic: Reports system reviewed and no additional complaints, except as documented Psychiatric: Psychiatric: Reports no additional psychiatric complaints [facility] Past Medical History Medical History (Updated 03/11/20 @ 17:43 by Jignesh Cruz MD) Acute arthritis Shukla's palsy Essential (primary) hypertension History of myocardial infarction Hyperlipidemia Hypothyroidism, unspecified 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) Low back pain Nausea Other chronic pain Other malaise Weakness Wedge compression fracture of first lumbar vertebra, subsequent encounter for fracture with routine healing Surgical History Surgical History H/O bilateral cataract extraction H/O heart artery stent 2011 H/O tubal ligation Hx of cholecystectomy Presence of left artificial hip joint Family History Family History Mother Hypertension Cerebrovascular accident, Onset Age: 40 Patient's mother is Father Family history of chronic obstructive pulmonary disease, Onset Age: 70 Patient's father is Daughter MS (multiple sclerosis) Social History Social History Social History: . the patient has 7 daughters but 1 has due to MS. The patient does not have a durable power senior attorney for healthcare. States that she wants to be a DNR. The patient worked at [employer] for brief period time before she retired. She lives home alone. And her daughter comes over to help her out at times. She is a lifelong nonsmoker does not use any marijuana alcohol or illicit drugs. Smoking status: Never smoker Second hand tobacco smoke exposure: No Alcohol intake: never Substance use: never Substance use type: does not use Gender identity (if verbalized by the patient): Female Spiritual care concerns: No Meds Home Medications and Allergies Home Medications Medication Instructions Recorded Confirmed Type aspirin 81 mg tablet,delayed 81 mg PO DAILY 04/10/19 03/13/20 History release ergocalciferol (vitamin D2) 1,250 50,000 unit PO WEEKLY #14 cap 05/29/19 03/13/20 Rx mcg (50,000 unit) capsule metoclopramide HCl [Reglan] 10 mg PO Q6H PRN #14 tablet 06/24/19 03/13/20 Rx levothyroxine 25 mcg tablet 25 mcg PO DAILY #90 tablet 12/05/19
--- NOTE | 2020-03-13 19:36 | PC.NURSE ---
Patient admitted to room 210 on droplet precautions isolation. Patient oriented to room and call light.
[2020-03-13] MEDS: NYSTATIN OINTMENT 15 GM TUBE 1 APPLIC TOPICAL (21:37)
[2020-03-14] VITALS: BP 112/70; PULSE 94; RESP 20; TEMP 36.4; O2SAT 94
--- NOTE | 2020-03-14 00:13 | PC.NURSE ---
Addendum entered by Danielle Ryan RN 03/14/20 00:23: Charge nurse was made aware. Original Note: Patient incontinent of a large amount of BM. Medium Cycle Salesperson assisted patient with incontinence care and changed linens. Patient able to roll easily independently using bedside rails to hold herself over. After cares were completed the patient began reporting feeling short of breath. SPO2 was checked and noted to be down to 87-88% on 3.5 liters O2. Medium Cycle Salesperson increased her oxygen one liter at at a time until SPO2 began to increase. SPO2 got up to 94% at 6 liters. Patient was noted to be tachycardic at this time with rate in the 110s and palpated pulse was irregular. After a few minutes the patients pulse slowed to between 75-80 and her SPO2 increased. Oxygen was lowered to 4 liters and spo2 stayed steady at 95% on the 4 liters. Patient has call light in reach and she was instructed to call if she became short of breath again. Bed alarm was also activated for patient safety.
--- NOTE | 2020-03-14 01:15 | PC.NURSE ---
Patient appears to be sleeping. Breathing appears unlabored.
--- NOTE | 2020-03-14 02:22 | PC.NURSE ---
Patient appears to be sleeping. Breathing appears unlabored.
[2020-03-14] MEDS: LEVOTHYROXINE SODIUM 25 MCG TABLET PO (05:28)
[2020-03-14 08:00] VITALS: BP 120/69; PULSE 92; RESP 20; TEMP 37.1; O2SAT 93
[2020-03-14] MEDS: ENOXAPARIN 40 MG/0.4 ML SYRINGE SUB-Q (09:47)
[2020-03-14 09:48] VITALS: PULSE 93
[2020-03-14] MEDS: predniSONE 5 MG TABLET PO (09:48)
[2020-03-14] MEDS: FENOFIBRATE NANOCRYSTALLIZED 145 MG TABLET PO (09:48)
[2020-03-14] MEDS: ASPIRIN 81 MG ENTERIC TABLET PO (09:48)
[2020-03-14] MEDS: amLODIPine BESYLATE 5 MG TABLET 10 MG PO (09:48)
[2020-03-14] MEDS: MEGESTROL ACETATE (*CHEMO) ORAL SUSP 40 MG/ML SYR 800 MG PO (09:48)
[2020-03-14] MEDS: PANTOPRAZOLE 40 MG TABLET PO (09:48)
[2020-03-14] MEDS: NYSTATIN OINTMENT 15 GM TUBE 1 APPLIC TOPICAL ×2 (09:48→20:30)
[2020-03-14] MEDS: METOPROLOL TARTRATE 25 MG TABLET PO ×2 (09:48→17:48)
--- NOTE | 2020-03-14 11:15 | PC.NURSE ---
Patient resting quietly in bed. Denies any needs. HOB elevated. Call light at side. 02@4l per nc on.
--- NOTE | 2020-03-14 14:26 | PM.EVENT ---
Event Note Event Note Event Note: 03/14/2020 RN brought to my attention that the Pt has a sore tongue. When asked the Pt states that a sore came up on her upper left lip prior to her tongue becoming sore. 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 Currently the lip canker sore is present with a large right buccal lesion and multiple lesions about her tongue. Pt's mouth was too sore to explore further without more pain. Outcome: Ordered Mag-Al Plus with Benadryl as a swish and spit Q2H PRN and Acyclovir 400 mg TID PO x 7 days. At this time I did not want to add Viscous Lidocaine to the mixture as I have been informed that this Pt is sometimes confused and I did not want to risk Pt attempting to drink or eat with a numb oral cavity.
[2020-03-14 16:25] VITALS: BP 100/79; PULSE 88; RESP 20; TEMP 36.3; O2SAT 93
--- NOTE | 2020-03-14 16:40 | PCSTNOTE ---
Please refer to the Bedside Swallow Evaluation in the EMR.
--- NOTE | 2020-03-14 17:00 | PC.NURSE ---
Patient states daughter Awa is the main contact she would like us to speak with about her care.
[2020-03-14 17:48] VITALS: PULSE 90
[2020-03-14] MEDS: ACETAMINOPHEN 325 MG TABLET 650 MG PO (17:48)
[2020-03-14] MEDS: ACYCLOVIR 200 MG CAPSULE 400 MG PO (17:48)
[2020-03-15] VITALS: BP 124/63; PULSE 77; RESP 18; TEMP 36; O2SAT 95
[2020-03-15] MEDS: ACETAMINOPHEN 325 MG TABLET 650 MG PO (00:30)
[2020-03-15 05:36] LABS: Hematocrit 36.2 % (35.0-42.0); Hemoglobin 11.3 g/dL (11.7-13.8); Mean Corpuscular HGB Conc 31.2 g/dL (32.0-36.0); Mean Corpuscular Hemoglobin 29.7 pg (27.0-31.0); Mean Corpuscular Volume 95.3 fL (78.0-102.0); Platelet Count Result 223 K/mm3 (150-420); Red Cell Distribution Width 15.5 % (11.6-14.4); White Blood Count 7.4 K/mm3 (4.8-10.8)
[2020-03-15 05:48] LABS: Anion Gap 10 mmol/L (8-16); Blood Urea Nitrogen 7 mg/dL (7-18); Carbon Dioxide 24 mmol/L (21-32); Chloride 105 mmol/L (98-108); Estimated CRCL calculation 30 ml/min; Estimated Glomerular Filt Rate 57; Glucose 109 mg/dL (70-99); Magnesium 2.1 mg/dL (1.8-2.4); Osmolality Calculated 287 mOsm/kg (285-295); Potassium 2.7 mmol/L (3.5-5.1); Sodium 139 mmol/L (136-145)
[2020-03-15] MEDS: LEVOTHYROXINE SODIUM 25 MCG TABLET PO (06:11)
[2020-03-15 07:30] VITALS: BP 129/63; PULSE 82; RESP 20; TEMP 35.9; O2SAT 94
--- NOTE | 2020-03-15 08:06 | PC.NURSE ---
CALLED ADMITTING TO LET THEM KNOW PATIENT WAS MOVED TO [address]
--- NOTE | 2020-03-15 08:16 | PM.IMPN ---
Progress Note: A&P Assessment and Plan (1) Failure to thrive: Status: Acute <LIZBETH ArteagaN-C - Last Filed: 03/15/20 13:16> Assessment and Plan: 03/15/2020 Megace to increase appetite, PT/OT to increase strength and abilities to perform most ADLs, regular diet <Gaurav Gonzalez CANDLE POURER-C - Last Filed: 03/15/20 13:16> (2) COVID-19 virus detected: Code(s): U07.1 - COVID-19 <Gaurav Gonzalez CANDLE POURER-C - Last Filed: 03/15/20 13:16> Status: Acute <Gaurav Gonzalez APN-C - Last Filed: 03/15/20 13:16> Assessment and Plan: 03/15/2020 patient was positive on 02/23/2020, a 2nd test was performed on 03/11/2020 which was positive and can be expected to be so, this was done for senior living placement at previous facility, patient was on isolation for the severe respiratory illness related to COVID, patient has since gone 20 days of post positive test in [place] be placed in a regular room, will continue to monitor respiratory status, as noted above occasional shortness of breath reported by patient without increased oxygen demand, Lovenox for DVT prophylaxis, supplemental oxygen for SpO2 greater than or equal to 92% <Gaurav Gonzalez CANDLE POURER-C - Last Filed: 03/15/20 13:16> (3) Hypothyroidism, unspecified: Code(s): E03.9 - Hypothyroidism, unspecified <Gaurav Gonzalez CANDLE POURER-C - Last Filed: 03/15/20 13:16> Status: Chronic <Gaurav Gonzalez CANDLE POURER-C - Last Filed: 03/15/20 13:16> Assessment and Plan: continue with home medication <Gaurav Gonzalez CANDLE POURER-C - Last Filed: 03/15/20 13:16> Additional Plan Chronic Conditions: will be monitored, interventions and medication adjustments will be made as needed CAD/HLD/HTN: -fenofibrate (does not tolerate statins) -ASA 81mg QD -metoprolol -Amlodipine Inflammatory polyarthropathy -prednisone 5mg daily GERD: -Continue protonix DVT/GI -Lovenox for DVT prophylaxis -Protonix for GI ulcer prophylaxis. <FAMILIA Arteaga - Last Filed: 03/15/20 13:16> Subjective Date/time seen: 03/15/20 08:16 Patient is sitting up in chair watching television. She states she is feeling fine with occasional shortness of breath. States her mouth today feels better some of the times with the oral swish and spit medication. She denies chest pain, no abdominal issues, and as stated occasional slight shortness of breath. <FAMILIA Arteaga - Last Filed: 03/15/20 13:16> Review of Systems Constitutional: Constitutional: Reports no additional constitutional complaints <FAMILIA Arteaga - Last Filed: 03/15/20 13:16> Cardiovascular: Cardiovascular: Denies chest pain, Denies chest pain at rest and Denies chest pain with activity <FAMILIA Arteaga - Last Filed: 03/15/20 13:16> Respiratory: Respiratory: Reports dyspnea (Occasional not requiring additional oxygen than what she is currently using) <FAMILIA Arteaga - Last Filed: 03/15/20 13:16> Gastrointestinal: Gastrointestinal: Reports no additional gastrointestinal complaints <FAMILIA Arteaga - Last Filed: 03/15/20 13:16> Exam Const: General: cooperative, no acute distress, alert, awake, tired appearing and other (frail in appearance) <FAMILIA Arteaga - Last Filed: 03/15/20 13:16> Resp: Auscultation: clear to auscultation bilaterally (shallow respirations) <FAMILIA Arteaga - Last Filed: 03/15/20 13:16> Cardio: Rate: regular rate <FAMILIA Arteaga - Last Filed: 03/15/20 13:16> Rhythm: regular rhythm <FAMILIA Arteaga - Last Filed: 03/15/20 13:16> Heart sounds: S1 normal heart sound present and S2 normal heart sound present <FAMILIA Arteaga - Last Filed: 03/15/20 13:16> GI: GI Palp: Yes Soft to palpation and Yes No hepatosplenomegaly present <FAMILIA Arteaga - Last Filed: 03/15/20 13:16> Auscultation: normal bowel sounds <FAMILIA Arteaga - Last Filed: 03/15/20 13:16> Urinary Catheter:
[2020-03-15] MEDS: KCL 20 MEQ/SW 100 ML 100 ML 50 MEQ IVPB ×2 (09:19→11:23)
[2020-03-15] MEDS: SODIUM CHLORIDE 0.9% IV 500 ML 100 ML IV CONT (09:22)
[2020-03-15] MEDS: MEGESTROL ACETATE (*CHEMO) ORAL SUSP 40 MG/ML SYR 800 MG PO (09:25)
[2020-03-15] MEDS: ENOXAPARIN 40 MG/0.4 ML SYRINGE SUB-Q (09:25)
[2020-03-15] MEDS: ASPIRIN 81 MG ENTERIC TABLET PO (09:25)
[2020-03-15] MEDS: POTASSIUM CHLORIDE 20 MEQ TABLET 40 MEQ PO (09:25)
[2020-03-15] MEDS: amLODIPine BESYLATE 5 MG TABLET 10 MG PO (09:25)
[2020-03-15 09:26] VITALS: PULSE 82
[2020-03-15] MEDS: METOPROLOL TARTRATE 25 MG TABLET PO ×2 (09:26→17:59)
[2020-03-15] MEDS: predniSONE 5 MG TABLET PO (09:26)
[2020-03-15] MEDS: PANTOPRAZOLE 40 MG TABLET PO (09:26)
[2020-03-15] MEDS: ACYCLOVIR 200 MG CAPSULE 400 MG PO ×3 (09:26→17:59)
[2020-03-15] MEDS: FENOFIBRATE NANOCRYSTALLIZED 145 MG TABLET PO (09:37)
[2020-03-15] MEDS: SALINE LOCK FLUSH 2 ML IV PUSH (13:50)
--- NOTE | 2020-03-15 15:10 | PM.EVENT ---
Event Note Event Note Event Note: 03/15/2020 Removed 1/[address] from patient's incision on her back, 18 ct were removed, site is clean and well healed, no bleeding, no signs of infection, patient tolerated this well, will remove the remaining ct in 2 days.
--- NOTE | 2020-03-15 15:20 | PC.NURSE ---
Patient sitting up in recliner with BLE elevated. Denies any needs. Daughter in room sitting at patients side visiting. Call light at side. 02 4L per nc on.
[2020-03-15 16:00] VITALS: BP 123/62; PULSE 86; RESP 18; TEMP 36.3; O2SAT 97
[2020-03-15 17:59] VITALS: PULSE 86
[2020-03-15] MEDS: NYSTATIN OINTMENT 15 GM TUBE 1 APPLIC TOPICAL (21:31)
[2020-03-16] VITALS (8 sets, daily range): BP systolic 115–122; BP diastolic 53–68; PULSE 84–102; RESP 16–30; TEMP 36.1–36.9; O2SAT 86–95
[2020-03-16] MEDS: ACETAMINOPHEN 325 MG TABLET 650 MG PO (05:30)
[2020-03-16] MEDS: LEVOTHYROXINE SODIUM 25 MCG TABLET PO (05:31)
[2020-03-16 05:36] LABS: Anion Gap 9 mmol/L (8-16); Blood Urea Nitrogen 7 mg/dL (7-18); Calcium 7.9 mg/dL (8.5-10.1); Carbon Dioxide 23 mmol/L (21-32); Chloride 108 mmol/L (98-108); Estimated CRCL calculation 31 ml/min; Estimated Glomerular Filt Rate > 60; Glucose 97 mg/dL (70-99); Osmolality Calculated 288 mOsm/kg (285-295); Sodium 140 mmol/L (136-145)
--- NOTE | 2020-03-16 08:21 | ECG_ITS ---
Measurements Intervals [place] Rate: 87 P: 56 RI: 163 QRS: -5 QRSD: 102 T: 193 QT: 352 QTc: 424 Interpretive Statements SINUS RHYTHM LEFT VENTRICULAR HYPERTROPHY WITH ST-T CHANGE BORDERLINE R WAVE PROGRESSION, ANTERIOR LEADS BORDERLINE ST-T WAVE ABNORMALITY- DIFFUSE LEADS BASELINE ARTIFACT- I, II, III, AVR, AVL, AVF BORDERLINE ECG Electronically Signed On 03-18-2020 6:30:52 CDT by Rui Altman D.O.
[2020-03-16] MEDS: ENOXAPARIN 40 MG/0.4 ML SYRINGE SUB-Q (09:33)
[2020-03-16] MEDS: NYSTATIN OINTMENT 15 GM TUBE 1 APPLIC TOPICAL ×2 (09:34→21:27)
[2020-03-16] MEDS: amLODIPine BESYLATE 5 MG TABLET 10 MG PO (09:34)
[2020-03-16] MEDS: MEGESTROL ACETATE (*CHEMO) ORAL SUSP 40 MG/ML SYR 800 MG PO (09:34)
[2020-03-16] MEDS: PANTOPRAZOLE 40 MG TABLET PO (09:34)
[2020-03-16] MEDS: ACYCLOVIR 200 MG CAPSULE 400 MG PO ×3 (09:34→17:51)
[2020-03-16] MEDS: ASPIRIN 81 MG ENTERIC TABLET PO (09:34)
[2020-03-16] MEDS: FENOFIBRATE NANOCRYSTALLIZED 145 MG TABLET PO (09:34)
[2020-03-16] MEDS: METOPROLOL TARTRATE 25 MG TABLET PO ×2 (09:35→17:50)
[2020-03-16] MEDS: predniSONE 5 MG TABLET PO (09:36)
--- NOTE | 2020-03-16 11:00 | PM.EVENT ---
Event Note Event Note Event Note: 03/16/2020 At approximately 0830 hours this morning I was called to the patient's room by the nurse. After the patient was transferred to the commode the patient had increased heart rate respiration rate of about 30 per minute with increased oxygen demand. SpO2 dropped to 88% on 3 L. oxygen flow was eventually increased to 7 L to maintain SpO2 at 92%. EKG and chest x-ray one view obtained. Radiology report for chest x-ray: diffuse lung disease with slight improvement, consistent with pneumonia versus pulmonary edema versus acute respiratory distress syndrome. My interpretation of EKG was normal sinus rhythm. Patient's lungs are clear in all cristobal. After about 15-20 minutes patient's breathing returned normal as did her oxygen demand. She was transferred to bed and at that point her oxygen was weaned down to her current needs of 3 L and her SpO2 was 93%. I discussed this with Dr. Nunez and the plan at this time is to continue monitoring the patient. <FAMILIA Arteaga - Last Filed: 03/16/20 11:06> I personally saw the patient with the nurse practitioner on rounds. I agree with the assessment and plan. See above note for further details. <Jose Nunez, - Last Filed: 03/17/20 01:09>
[2020-03-17] MEDS: ACETAMINOPHEN 325 MG TABLET 650 MG PO ×2 (03:03→12:59)
[2020-03-17] MEDS: LEVOTHYROXINE SODIUM 25 MCG TABLET PO (05:32)
[2020-03-17 08:00] VITALS: BP 127/66; PULSE 97; RESP 18; TEMP 36.7; O2SAT 93
[2020-03-17] MEDS: MEGESTROL ACETATE (*CHEMO) ORAL SUSP 40 MG/ML SYR 800 MG PO (08:44)
[2020-03-17] MEDS: ENOXAPARIN 40 MG/0.4 ML SYRINGE SUB-Q (08:44)
[2020-03-17 08:45] VITALS: PULSE 96
[2020-03-17] MEDS: predniSONE 5 MG TABLET PO (08:45)
[2020-03-17] MEDS: METOPROLOL TARTRATE 25 MG TABLET PO ×2 (08:45→16:43)
[2020-03-17] MEDS: NYSTATIN OINTMENT 15 GM TUBE 1 APPLIC TOPICAL ×2 (08:45→21:07)
[2020-03-17] MEDS: ACYCLOVIR 200 MG CAPSULE 400 MG PO ×3 (08:45→16:43)
[2020-03-17] MEDS: amLODIPine BESYLATE 5 MG TABLET 10 MG PO (08:45)
[2020-03-17] MEDS: ASPIRIN 81 MG ENTERIC TABLET PO (08:45)
[2020-03-17] MEDS: FENOFIBRATE NANOCRYSTALLIZED 145 MG TABLET PO (08:45)
[2020-03-17] MEDS: PANTOPRAZOLE 40 MG TABLET PO (08:46)
[2020-03-17 16:00] VITALS: BP 118/64; PULSE 86; RESP 18; TEMP 36.6; O2SAT 96
[2020-03-17 16:43] VITALS: PULSE 86
[2020-03-17 23:53] VITALS: BP 114/60; PULSE 83; RESP 20; TEMP 36.1; O2SAT 95
[2020-03-18] MEDS: LEVOTHYROXINE SODIUM 25 MCG TABLET PO (06:13)
[2020-03-18 08:00] VITALS: BP 119/64; PULSE 92; RESP 20; TEMP 36.1; O2SAT 94
[2020-03-18 09:14] VITALS: PULSE 92
[2020-03-18] MEDS: METOPROLOL TARTRATE 25 MG TABLET PO ×2 (09:14→17:21)
[2020-03-18] MEDS: predniSONE 5 MG TABLET PO (09:14)
[2020-03-18] MEDS: PANTOPRAZOLE 40 MG TABLET PO (09:14)
[2020-03-18] MEDS: amLODIPine BESYLATE 5 MG TABLET 10 MG PO (09:14)
[2020-03-18] MEDS: FENOFIBRATE NANOCRYSTALLIZED 145 MG TABLET PO (09:14)
[2020-03-18] MEDS: ACYCLOVIR 200 MG CAPSULE 400 MG PO ×3 (09:14→17:20)
[2020-03-18] MEDS: ASPIRIN 81 MG ENTERIC TABLET PO (09:14)
[2020-03-18] MEDS: ENOXAPARIN 40 MG/0.4 ML SYRINGE SUB-Q (09:17)
[2020-03-18] MEDS: MEGESTROL ACETATE (*CHEMO) ORAL SUSP 40 MG/ML SYR 800 MG PO (09:17)
[2020-03-18] MEDS: NYSTATIN OINTMENT 15 GM TUBE 1 APPLIC TOPICAL ×2 (09:17→20:52)
[2020-03-18] MEDS: THERAPEUTIC MULTIVITAMINS/MINERALS TAB (*BKC) 1 TABLET PO (11:37)
[2020-03-18 16:00] VITALS: BP 114/71; PULSE 94; RESP 18; TEMP 36.3; O2SAT 93
[2020-03-18 17:21] VITALS: PULSE 94
[2020-03-19] VITALS: BP 115/64; PULSE 90; RESP 20; TEMP 36.3; O2SAT 94
[2020-03-19] MEDS: LEVOTHYROXINE SODIUM 25 MCG TABLET PO (05:38)
[2020-03-19 07:41] VITALS: BP 115/56; PULSE 94; RESP 20; TEMP 36.2; O2SAT 92
--- NOTE | 2020-03-19 08:32 | PC.NURSE ---
Incontinent of loose pasty stool, cleansed and cream applied, parmjit care provided around weeks, redness around parmjit area noted, more pink than red today, assisted up to chair for breakfast, feels more SOB today, used gait belt and SBA, took steps well, just very fatigued with activity, compalints of dry mouth
--- NOTE | 2020-03-19 08:48 | PM.EVENT ---
Event Note Event Note Event Note: labs and vital signs reviewed
[2020-03-19] MEDS: ENOXAPARIN 40 MG/0.4 ML SYRINGE SUB-Q (08:52)
[2020-03-19] MEDS: PANTOPRAZOLE 40 MG TABLET PO (08:53)
[2020-03-19] MEDS: MEGESTROL ACETATE (*CHEMO) ORAL SUSP 40 MG/ML SYR 800 MG PO (08:53)
[2020-03-19] MEDS: FENOFIBRATE NANOCRYSTALLIZED 145 MG TABLET PO (08:53)
[2020-03-19] MEDS: ACYCLOVIR 200 MG CAPSULE 400 MG PO ×3 (08:54→17:01)
[2020-03-19] MEDS: ASPIRIN 81 MG ENTERIC TABLET PO (08:54)
[2020-03-19] MEDS: amLODIPine BESYLATE 5 MG TABLET 10 MG PO (08:55)
[2020-03-19] MEDS: predniSONE 5 MG TABLET PO (08:55)
[2020-03-19] MEDS: THERAPEUTIC MULTIVITAMINS/MINERALS TAB (*BKC) 1 TABLET PO (08:55)
[2020-03-19 08:56] VITALS: PULSE 94
[2020-03-19] MEDS: NYSTATIN OINTMENT 15 GM TUBE 1 APPLIC TOPICAL ×2 (08:56→20:36)
[2020-03-19] MEDS: METOPROLOL TARTRATE 25 MG TABLET PO ×2 (08:56→17:00)
--- NOTE | 2020-03-19 13:30 | PC.NURSE ---
napping off and on in bed, daughter at the bedside, call light in reach, weeks patent and draining
[2020-03-19 15:50] VITALS: BP 118/62; PULSE 86; RESP 20; TEMP 36.3; O2SAT 93
[2020-03-19 17:00] VITALS: PULSE 83
--- NOTE | 2020-03-19 18:10 | PC.NURSE ---
Resting in bed, call light in reach of patient, frequent checks completed
[2020-03-19 20:00] VITALS: PULSE 82; RESP 20; O2SAT 93
[2020-03-19] MEDS: ACETAMINOPHEN 325 MG TABLET 650 MG PO (21:30)
[2020-03-20] VITALS (7 sets, daily range): BP systolic 122–131; BP diastolic 55–65; PULSE 68–95; RESP 16–22; TEMP 36.3–36.6; O2SAT 92–95
[2020-03-20] MEDS: LEVOTHYROXINE SODIUM 25 MCG TABLET PO (05:48)
--- NOTE | 2020-03-20 07:20 | PC.NURSE ---
physical therapy in to get patient to chair for breakfast, noted increase compalint of sob, PO noted 82%, increase to 5 L for activity, will recheck once at rest, legs elevated and warm blanket applied
--- NOTE | 2020-03-20 07:50 | PC.NURSE ---
Recheck oxygen level 94-95%, oxygen decreased back to 4 L NC, resting quietly in chair
[2020-03-20] MEDS: ACYCLOVIR 200 MG CAPSULE 400 MG PO ×3 (08:50→16:30)
[2020-03-20] MEDS: ENOXAPARIN 40 MG/0.4 ML SYRINGE SUB-Q (08:50)
[2020-03-20] MEDS: MEGESTROL ACETATE (*CHEMO) ORAL SUSP 40 MG/ML SYR 800 MG PO (08:50)
[2020-03-20] MEDS: NYSTATIN OINTMENT 15 GM TUBE 1 APPLIC TOPICAL ×2 (08:51→20:03)
[2020-03-20] MEDS: PANTOPRAZOLE 40 MG TABLET PO (08:52)
[2020-03-20] MEDS: THERAPEUTIC MULTIVITAMINS/MINERALS TAB (*BKC) 1 TABLET PO (08:52)
[2020-03-20] MEDS: METOPROLOL TARTRATE 25 MG TABLET PO ×2 (08:52→16:29)
[2020-03-20] MEDS: ASPIRIN 81 MG ENTERIC TABLET PO (08:52)
[2020-03-20] MEDS: amLODIPine BESYLATE 5 MG TABLET 10 MG PO (08:52)
[2020-03-20] MEDS: predniSONE 5 MG TABLET PO (09:01)
[2020-03-20] MEDS: FENOFIBRATE NANOCRYSTALLIZED 145 MG TABLET PO (09:01)
[2020-03-20] MEDS: ERGOCALCIFEROL 50,000 UNIT CAPSULE 50000 UNITS PO (09:02)
--- NOTE | 2020-03-20 10:11 | PC.NURSE ---
Daughter requesting urine be checked for UTI, plan is to try taking weeks out and trial void today, will obtain urine sample prior to removal of catheter
--- NOTE | 2020-03-20 10:29 | P.PN_ITS ---
Progress Note: A&P Assessment and Plan (1) COVID-19 virus detected: Code(s): U07.1 - COVID-19 <Jak Robins TALENT DEVELOPMENT CONSULTANTAlejandroCate - Last Filed: 03/20/20 12:14> Status: Acute <Jak Robins GABINOCate - Last Filed: 03/20/20 12:14> Assessment and Plan: * patient was positive on 02/23/2020, a 2nd test was performed on 03/11/2020 which was positive and can be expected to be so, this was done for snf placement at previous facility, patient was on isolation for the severe respiratory illness related to COVID, patient has since gone 20 days of post positive test in [place] be placed in a regular room, will continue to monitor respiratory status, as noted above occasional shortness of breath reported by patient without increased oxygen demand, Lovenox for DVT prophylaxis, supplemental oxygen for SpO2 greater than or equal to 92% <Levonmali FlashDEINSON AdameAlejandroCate - Last Filed: 03/20/20 12:14> (2) Failure to thrive: Status: Acute <Jak Robins HUMAIRA - Last Filed: 03/20/20 12:14> Assessment and Plan: * Continue Megace, slight improvement. <Jak Morales ANA RobinsKathieCate - Last Filed: 03/20/20 12:14> (3) Hyperlipidemia: Code(s): E78.5 - Hyperlipidemia, unspecified <Jak Robins GABINOCate - Last Filed: 03/20/20 12:14> Status: Chronic <Jak Morales ANA RobinsKathieCate - Last Filed: 03/20/20 12:14> Assessment and Plan: * -fenofibrate (does not tolerate statins) <Levonmali FlashANA AdameP-C - Last Filed: 03/20/20 12:14> (4) Essential (primary) hypertension: Code(s): I10 - Essential (primary) hypertension <Levonmali FlashEDINSON Adame-Cate - Last Filed: 03/20/20 12:14> Status: Chronic <Jak FlashEDINSON AdameAlejandroCate - Last Filed: 03/20/20 12:14> Assessment and Plan: * Continue metoprolol 25 mg twice daily and Norvasc 10 mg daily * Blood pressure 122/55 * Continue vital signs * Adjust medication as needed <Levonmali FlashHUMAIRA Adame - Last Filed: 03/20/20 12:14> (5) GERD (gastroesophageal reflux disease): Code(s): K21.9 - Gastro-esophageal reflux disease without esophagitis <Levonmali FlashHUMAIRA Adame - Last Filed: 03/20/20 12:14> Status: Acute <Jak VidalesHUMAIRA Adame - Last Filed: 03/20/20 12:14> Assessment and Plan: * Continue Protonix <Levonmali FlashHUMAIRA Adame - Last Filed: 03/20/20 12:14> (6) Polyarthralgia: Code(s): M25.50 - Pain in unspecified joint <LevonHUMAIRA Montiel - Last Filed: 03/20/20 12:14> Status: Acute <Levonmali FlashHUMAIRA Adame - Last Filed: 03/20/20 12:14> Assessment and Plan: * Continue prednisone 5 mg daily <LevonHUMAIRA Montiel - Last Filed: 03/20/20 12:14> (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 - Herpesviral infection, unspecified <LevonHUMAIRA Montiel - Last Filed: 03/20/20 12:14> Status: Acute <Jak Morales HUMAIRA Robins - Last Filed: 03/20/20 12:14> Assessment and Plan: * Blisters to her mouth * Continue antiviral zovirax for 7 days * Continue Magic wash * Started benzocaine/ menthol lozenge <HUMAIRA Chambers - Last Filed: 03/20/20 12:14> (8) Hypothyroidism, unspecified: Code(s): E03.9 - Hypothyroidism, unspecified <HUMAIRA Chambers - Last Filed: 03/20/20 12:14> Status: Chronic <Jak FlashHUMAIRA Adame - Last Filed: 03/20/20 12:14> Assessment and Plan: * Continue Synthroid t 25 MCG's daily <EDINSON Chambers-C - Last Filed: 03/20/20 12:14> (9) CAD (coronary artery disease): Code(s): I25.10 - Atherosclerot
--- NOTE | 2020-03-20 10:29 | WPDPN ---
Progress Note: A&P Assessment and Plan (1) COVID-19 virus detected: Code(s): U07.1 - COVID-19 <Jak Morales HUMAIRA Robins - Last Filed: 03/20/20 12:14> Status: Acute <Jak RobinsEDINSONAlejandroCate - Last Filed: 03/20/20 12:14> Assessment and Plan: patient was positive on 02/23/2020, a 2nd test was performed on 03/11/2020 which was positive and can be expected to be so, this was done for penitentiary placement at previous facility, patient was on isolation for the severe respiratory illness related to COVID, patient has since gone 20 days of post positive test in [place] be placed in a regular room, will continue to monitor respiratory status, as noted above occasional shortness of breath reported by patient without increased oxygen demand, Lovenox for DVT prophylaxis, supplemental oxygen for SpO2 greater than or equal to 92% <Levonmali FlashHUMAIRA Adame - Last Filed: 03/20/20 12:14> (2) Failure to thrive: Status: Acute <Jak RobinsEDINSONAlejandroCate - Last Filed: 03/20/20 12:14> Assessment and Plan: Continue Megace, slight improvement. <Levonmali FlashHUMAIRA Adame - Last Filed: 03/20/20 12:14> (3) Hyperlipidemia: Code(s): E78.5 - Hyperlipidemia, unspecified <Jak RobinsEDINSONAlejandroCate - Last Filed: 03/20/20 12:14> Status: Chronic <Jak FlashEDINSON AdameAlejandroCate - Last Filed: 03/20/20 12:14> Assessment and Plan: -fenofibrate (does not tolerate statins) <LevonEDINSON Montiel-Cate - Last Filed: 03/20/20 12:14> (4) Essential (primary) hypertension: Code(s): I10 - Essential (primary) hypertension <Levonmali FlashHUMAIRA Adame - Last Filed: 03/20/20 12:14> Status: Chronic <Jak FlashHUMAIRA Adame - Last Filed: 03/20/20 12:14> Assessment and Plan: Continue metoprolol 25 mg twice daily and Norvasc 10 mg daily Blood pressure 122/55 Continue vital signs Adjust medication as needed <Jak VidalesHUMAIRA Adame - Last Filed: 03/20/20 12:14> (5) GERD (gastroesophageal reflux disease): Code(s): K21.9 - Gastro-esophageal reflux disease without esophagitis <Jak VidalesHUMAIRA Adame - Last Filed: 03/20/20 12:14> Status: Acute <Jak VidalesHUMAIRA Adame - Last Filed: 03/20/20 12:14> Assessment and Plan: Continue Protonix <Jak VidalesHUMAIRA Adame - Last Filed: 03/20/20 12:14> (6) Polyarthralgia: Code(s): M25.50 - Pain in unspecified joint <Levonmali FlashHUMAIRA Adame - Last Filed: 03/20/20 12:14> Status: Acute <Levonmali FlashHUMAIRA Adame - Last Filed: 03/20/20 12:14> Assessment and Plan: Continue prednisone 5 mg daily <Jak VidalesHUMAIRA Adame - Last Filed: 03/20/20 12:14> (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 - Herpesviral infection, unspecified <LevonHUMAIRA Montiel - Last Filed: 03/20/20 12:14> Status: Acute <Jak VidalesHUMAIRA Adame - Last Filed: 03/20/20 12:14> Assessment and Plan: Blisters to her mouth Continue antiviral zovirax for 7 days Continue Magic wash Started benzocaine/ menthol lozenge <LevonHUMAIRA Montiel - Last Filed: 03/20/20 12:14> (8) Hypothyroidism, unspecified: Code(s): E03.9 - Hypothyroidism, unspecified <HUMAIRA Chambers - Last Filed: 03/20/20 12:14> Status: Chronic <Levonmali FlashHUMAIRA Adame - Last Filed: 03/20/20 12:14> Assessment and Plan: Continue Synthroid t 25 MCG's daily <HUMAIRA Chambers - Last Filed: 03/20/20 12:14> (9) CAD (coronary artery disease): Code(s): I25.10 - Atherosclerotic heart disease of [place] coronary artery without angina pectoris <HUMAIRA Chambers - Last Filed: 03/20/20 12:14> Status: Acute <HUMAIRA Chambers - Last Filed: 03/20/20 12:14> (10) Urinary tract infection: Code(s): N39.0 - Urinary tract infection, site not specified <HUMAIRA Chambers - Last Filed: 03/20/20 12:1
[2020-03-20 10:43] LABS: Add Urine Microscopic? YES; Appearance Urine Cloudy (Clear); Bilirubin Urine Negative (Negative); Blood Urine 2+ (Negative); Color Urine Yellow (Yellow); Glucose Urine UA Negative (Negative); Ketones Urine Negative (Negative); Leukocyte Esterase Ur 2+ LEU/UL (Negative); Nitrate Urine Positive (Negative); Protein Urine Trace (Negative); Specific Grav Ur 1.015 (1.010-1.020); Urobilinogen Urine 0.2 mg/dL (0.2-1.0)
[2020-03-20 10:50] LABS: Bacteria Urine 1+ /hpf; Squamous Epithelial Cell Urine Rare /hpf (Few); WBC Urine 31-50 /hpf (0-3)
--- NOTE | 2020-03-20 13:37 | PM.EVENT ---
Event Note Event Note Event Note: Please see the white count physical therapy/Occupational Therapy that during treatment today patient saturations dropped in the upper 80s. She also notes that she talked oxygen up to 6 L and at that time patient saturations were in the 90s. Will complete a chest x-ray and a D-dimer with a BMP.
[2020-03-20 14:12] LABS: BNP 107 pg/mL (0-100)
--- NOTE | 2020-03-20 14:25 | PC.NURSE ---
Currently up in chair, daughter here to visit, no void at this time, sats noted 80's with activity continue, additional orders per hosptialist obtained
--- NOTE | 2020-03-20 14:39 | PC.NURSE ---
Assisted up from chair to WC, oxygen in place, to imaging for CXR
--- NOTE | 2020-03-20 14:55 | PC.NURSE ---
PT RETURNING FROM RADIOLOGY NOW. NO DISTRESS.
[2020-03-20 14:56] LABS: D Dimer 0.63 mg/L (0.19-0.50)
--- NOTE | 2020-03-20 16:14 | PC.NURSE ---
Tamia Robins NP, notified of BNP and DDImer results. No new orders at this time.
[2020-03-20] MEDS: BENZOCAINE/MENTHOL (*BKC) 18 EA LOZENGE 1 LOZENGE PO (16:33)
--- NOTE | 2020-03-20 16:40 | PC.NURSE ---
LOZENGE GIVEN TO HOPEFULLY NUMB MOUTH FOR DINNER AND ALLOW PATIENT TO EAT W/LESS DISCOMFORT, PT STATES IT DID NOT HELP AND SPIT IT OUT.
--- NOTE | 2020-03-20 18:40 | PC.NURSE ---
PT GIVEN TOOTHETTES MOISTENED WITH ICE WATER FOR PATIENT TO WIPE INSIDE MOUTH, PT USING PAPERTOWELS CURRENTLY. LIKES THE TOOTHETTES AND ICE WATER FEELS GOOD . DAUGHTER REMAINS AT BEDSIDE.
[2020-03-20] MEDS: ACETAMINOPHEN 325 MG TABLET 650 MG PO (20:17)
[2020-03-21] VITALS: BP 119/62; PULSE 84; RESP 18; TEMP 36.6; O2SAT 92
[2020-03-21] MEDS: LEVOTHYROXINE SODIUM 25 MCG TABLET PO (05:43)
[2020-03-21 08:00] VITALS: BP 129/63; PULSE 95; RESP 20; TEMP 36.3; O2SAT 94
--- NOTE | 2020-03-21 08:34 | PM.EVENT ---
Event Note Event Note Event Note: Patient chest x-ray has not changed from previous 1 chest x-ray indicate Stable diffuse lung disease, consistent with pneumonia versus pulmonary edema versus acute respiratory distress syndrome (ARDS). Started patient on cefdinir 300 mg twice daily for the treatment of a urinary tract infection and possible pneumonia. Blood culture collected
[2020-03-21 09:18] LABS: Hematocrit 36.6 % (35.0-42.0); Hemoglobin 11.6 g/dL (11.7-13.8); Mean Corpuscular HGB Conc 31.7 g/dL (32.0-36.0); Mean Corpuscular Hemoglobin 30.2 pg (27.0-31.0); Mean Corpuscular Volume 95.3 fL (78.0-102.0); Platelet Count Result 434 K/mm3 (150-420); Red Blood Count 3.84 M/mm3 (4.20-5.40); Red Cell Distribution Width 16.6 % (11.6-14.4); White Blood Count 9.6 K/mm3 (4.8-10.8)
[2020-03-21 09:33] LABS: Alanine Aminotransferase 15 U/L (14-59); Albumin Level 2.5 g/dL (3.4-5.0); Alkaline Phosphatase 45 U/L (46-116); Anion Gap 14 mmol/L (8-16); Aspartate Amino Transferase 18 U/L (15-37); Bilirubin,Total 0.4 mg/dL (0.00-1.00); Blood Urea Nitrogen 10 mg/dL (7-18); Calcium 8.5 mg/dL (8.5-10.1); Carbon Dioxide 20 mmol/L (21-32); Chloride 105 mmol/L (98-108); Estimated CRCL calculation 26 ml/min; Estimated Glomerular Filt Rate 49; Glucose 100 mg/dL (70-99); Osmolality Calculated 287 mOsm/kg (285-295); Potassium 3.3 mmol/L (3.5-5.1); Sodium 139 mmol/L (136-145); Total Protein 6.5 g/dL (6.4-8.2)
[2020-03-21] MEDS: ENOXAPARIN 40 MG/0.4 ML SYRINGE SUB-Q (09:37)
[2020-03-21] MEDS: ACYCLOVIR 200 MG CAPSULE 400 MG PO ×3 (09:37→16:42)
[2020-03-21] MEDS: MEGESTROL ACETATE (*CHEMO) ORAL SUSP 40 MG/ML SYR 800 MG PO (09:37)
[2020-03-21] MEDS: PANTOPRAZOLE 40 MG TABLET PO (09:38)
[2020-03-21] MEDS: NYSTATIN OINTMENT 15 GM TUBE 1 APPLIC TOPICAL ×2 (09:38→20:36)
[2020-03-21] MEDS: CEFDINIR 300 MG CAPSULE PO ×2 (09:38→20:35)
[2020-03-21] MEDS: predniSONE 5 MG TABLET PO (09:38)
[2020-03-21] MEDS: THERAPEUTIC MULTIVITAMINS/MINERALS TAB (*BKC) 1 TABLET PO (09:38)
[2020-03-21] MEDS: FENOFIBRATE NANOCRYSTALLIZED 145 MG TABLET PO (09:38)
[2020-03-21 09:39] VITALS: PULSE 95
[2020-03-21] MEDS: amLODIPine BESYLATE 5 MG TABLET 10 MG PO (09:39)
[2020-03-21] MEDS: METOPROLOL TARTRATE 25 MG TABLET PO ×2 (09:39→16:45)
[2020-03-21] MEDS: ASPIRIN 81 MG ENTERIC TABLET PO (09:39)
--- NOTE | 2020-03-21 11:28 | PCOTNOTE ---
03-21-20 Pt was attempted to be seen by OT at 8:30 am but nursing recommended to hold off of seeing patient due to change in medical/mental status. Pt was checked on again for OT about 10:00 am but daughter and dr/nurses were in room with patient. Therapist came back at 11:30 and patient was not in room. Daughter reported to therapist that patient was taken down for CT scan and was unsure when patient would return. Pt was unable/unavailable to be seen by OT for morning session. Therapist will attempt to see patient in the PM.
[2020-03-21] MEDS: POTASSIUM CHLORIDE 20 MEQ TABLET 40 MEQ PO (15:42)
[2020-03-21 16:00] VITALS: BP 116/65; PULSE 89; RESP 18; TEMP 37.2; O2SAT 95
[2020-03-21] MEDS: BISMUTH SUBSALICYLATE 262 MG CHEWABLE TABLET 524 MG PO (16:42)
[2020-03-21 16:45] VITALS: PULSE 89
[2020-03-21 23:40] VITALS: BP 115/58; PULSE 85; RESP 22; TEMP 36.9; O2SAT 93
[2020-03-22] MEDS: LEVOTHYROXINE SODIUM 25 MCG TABLET PO (05:51)
[2020-03-22 07:28] VITALS: BP 116/55; PULSE 90; RESP 22; TEMP 36.4; O2SAT 94
--- NOTE | 2020-03-22 08:17 | PC.NURSE ---
repositioned in bed for breakfast, cleansed due to incontinent of bowel and bladder, loose stool noted, protective cream applied to redened areas
[2020-03-22] MEDS: ENOXAPARIN 40 MG/0.4 ML SYRINGE SUB-Q (08:48)
[2020-03-22 08:49] VITALS: PULSE 90
[2020-03-22] MEDS: PANTOPRAZOLE 40 MG TABLET PO (08:49)
[2020-03-22] MEDS: METOPROLOL TARTRATE 25 MG TABLET PO ×2 (08:49→16:43)
[2020-03-22] MEDS: MEGESTROL ACETATE (*CHEMO) ORAL SUSP 40 MG/ML SYR 800 MG PO (08:49)
[2020-03-22] MEDS: THERAPEUTIC MULTIVITAMINS/MINERALS TAB (*BKC) 1 TABLET PO (08:49)
[2020-03-22] MEDS: ASPIRIN 81 MG ENTERIC TABLET PO (08:49)
[2020-03-22] MEDS: CEFDINIR 300 MG CAPSULE PO ×2 (08:49→21:01)
[2020-03-22] MEDS: predniSONE 5 MG TABLET PO (08:49)
[2020-03-22] MEDS: amLODIPine BESYLATE 5 MG TABLET 10 MG PO (08:49)
[2020-03-22] MEDS: NYSTATIN OINTMENT 15 GM TUBE 1 APPLIC TOPICAL ×2 (08:50→21:29)
[2020-03-22] MEDS: FENOFIBRATE NANOCRYSTALLIZED 145 MG TABLET PO (08:50)
--- NOTE | 2020-03-22 09:58 | PC.NURSE ---
Therapy attempted to get patient to sit up and go to chair, refuses, cries out that she can't breath, pulse ox checked and does drop with activity, will try a simple mask to see if assists in helping patient to breath easier with activity, hospitalist aware
--- NOTE | 2020-03-22 10:35 | PC.NURSE ---
Oxygen decreased to 4 L NC, after therapy and at rest, oxygen level in creased to 96%, felt like nose was burning,
[2020-03-22] MEDS: ACETAMINOPHEN 325 MG TABLET 650 MG PO ×2 (11:57→21:02)
[2020-03-22] MEDS: LORazepam (*CRX) 0.5 MG TABLET PO ×2 (13:13→21:01)
--- NOTE | 2020-03-22 13:15 | PC.NURSE ---
ativan 0.5 mg given prior to working with therapy per family request
--- NOTE | 2020-03-22 13:45 | PC.NURSE ---
Therapy in to see patient
[2020-03-22 16:00] VITALS: BP 110/61; PULSE 86; RESP 20; TEMP 36.7; O2SAT 91
[2020-03-22 16:43] VITALS: PULSE 86
[2020-03-22] MEDS: predniSONE 20 MG TABLET PO (16:44)
[2020-03-22] MEDS: BENZOCAINE/MENTHOL (*BKC) 18 EA LOZENGE 1 LOZENGE PO (19:38)
--- NOTE | 2020-03-22 19:48 | PC.NURSE ---
Patient complaining that she was SOB and felt like 02 was not on. Tested 02 -was functioning properly. changed )2 to alternative side and changed water bottle -bubbling reassures her 02 is functioning. Reminded patient to close her mouth when breathing.
[2020-03-23] VITALS: BP 105/52; PULSE 81; RESP 18; TEMP 36.1; O2SAT 97
[2020-03-23] MEDS: LEVOTHYROXINE SODIUM 25 MCG TABLET PO (05:53)
[2020-03-23 07:17] VITALS: BP 131/62; PULSE 90; RESP 20; TEMP 36.9; O2SAT 97
--- NOTE | 2020-03-23 07:55 | PM.EVENT ---
Event Note Event Note Event Note: Patient UA with the growth of Klebsielle pneumonia sensitive to Cefdinir. I have spoken with the daughter on a daily basis concerning treatment plan for patient. I have explained the patient's condition and treatment plan daily. Patient's daughter was under the impression that her mother will be seen daily by the hospitalist and MD. I explained to daughter that patient is a rehab swing patient before transferring to swing bed she is medically stable and it is not required for us to visit her on a daily basis her main objective here is to complete physical therapy/Occupational Therapy for strengthening. During physical therapy/Occupational Therapy it was reported that patient sats drop in the 88%. It was also noted that patient is a mouth breather and does not breathe through her nose which could be possible causing her sats to dropping. Patient will wear a facemask during physical therapy/Occupational Therapy. I have also increased prednisone from 5 mg to 20 mg daily. She is being treated for UTI the antibiotic that I am giving her cefdinir will also treat pneumonia if it exists. Daughter is also concerned about patient abdomen being distended. Approximately 2 days ago we did do a bladder scan which showed 94 mL in her bladder patient is not complaining of abdominal pain.
[2020-03-23] MEDS: NYSTATIN OINTMENT 15 GM TUBE 1 APPLIC TOPICAL ×2 (08:44→20:46)
[2020-03-23] MEDS: THERAPEUTIC MULTIVITAMINS/MINERALS TAB (*BKC) 1 TABLET PO (08:45)
[2020-03-23] MEDS: amLODIPine BESYLATE 5 MG TABLET 10 MG PO (08:45)
[2020-03-23] MEDS: CEFDINIR 300 MG CAPSULE PO (08:45)
[2020-03-23] MEDS: PANTOPRAZOLE 40 MG TABLET PO ×2 (08:46→20:46)
[2020-03-23] MEDS: predniSONE 20 MG TABLET PO (08:46)
[2020-03-23 08:47] VITALS: PULSE 97
[2020-03-23] MEDS: METOPROLOL TARTRATE 25 MG TABLET PO ×2 (08:47→16:51)
[2020-03-23] MEDS: ENOXAPARIN 40 MG/0.4 ML SYRINGE SUB-Q (08:47)
[2020-03-23] MEDS: ASPIRIN 81 MG ENTERIC TABLET PO (08:47)
[2020-03-23] MEDS: FENOFIBRATE NANOCRYSTALLIZED 145 MG TABLET PO (08:47)
[2020-03-23] MEDS: MEGESTROL ACETATE (*CHEMO) ORAL SUSP 40 MG/ML SYR 800 MG PO (08:48)
--- NOTE | 2020-03-23 10:31 | PC.NURSE ---
Family concerned patient appears more confused today, not wanting to get out of bed, turned and cleansed, cream to red areas, tolerated fair
--- NOTE | 2020-03-23 10:55 | P.PNCROSS_ITS ---
Event Note Event Note Event Note: family is requesting that patient be transferred to [facility]. family member feel as if the patient condition and confusion had worsened. Called [facility] waiting call back. Informed family that patient will need to be on isolation for COVID 19 due to positive testing. Daughter doesn't want patient on isolation she believe patient will deteriorate more.
[2020-03-23 12:58] LABS: Hematocrit 35.1 % (35.0-42.0); Hemoglobin 11.2 g/dL (11.7-13.8); Mean Corpuscular HGB Conc 31.9 g/dL (32.0-36.0); Mean Corpuscular Hemoglobin 30.4 pg (27.0-31.0); Mean Corpuscular Volume 95.4 fL (78.0-102.0); Mean Platelet Volume 9.9 fl (9.2-11.8); Platelet Count Result 650 K/mm3 (150-420); Red Blood Count 3.68 M/mm3 (4.20-5.40); Red Cell Distribution Width 16.5 % (11.6-14.4); White Blood Count 7.9 K/mm3 (4.8-10.8)
[2020-03-23 13:01] LABS: Alanine Aminotransferase 18 U/L (14-59); Albumin Level 2.6 g/dL (3.4-5.0); Alkaline Phosphatase 48 U/L (46-116); Anion Gap 15 mmol/L (8-16); Aspartate Amino Transferase 23 U/L (15-37); Bilirubin,Total 0.2 mg/dL (0.00-1.00); Blood Urea Nitrogen 12 mg/dL (7-18); Calcium 8.7 mg/dL (8.5-10.1); Carbon Dioxide 19 mmol/L (21-32); Chloride 104 mmol/L (98-108); Estimated CRCL calculation 23 ml/min; Estimated Glomerular Filt Rate 42; Glucose 179 mg/dL (70-99); Osmolality Calculated 289 mOsm/kg (285-295); Potassium 4.1 mmol/L (3.5-5.1); Sodium 138 mmol/L (136-145); Total Protein 6.7 g/dL (6.4-8.2)
[2020-03-23 13:06] LABS: Lactic Acid Reflex 2.9 mmol/L (0.4-2.0)
[2020-03-23 13:07] LABS: BNP 149 pg/mL (0-100)
[2020-03-23] MEDS: SODIUM CHLORIDE 0.9% IV 1,000 ML 150 ML IV CONT (14:57)
[2020-03-23 15:31] VITALS: BP 111/56; PULSE 90; RESP 22; TEMP 36.6; O2SAT 96
[2020-03-23 15:45] LABS: Reflex Lactic Acid Yes or No Add Lactic
[2020-03-23 16:51] VITALS: PULSE 90
[2020-03-23] MEDS: SACCHAROMYCES BOULARDII 250 MG CAPSULE PO (16:51)
[2020-03-23 16:58] LABS: Lactic Acid 2.5 mmol/L (0.4-2.0)
[2020-03-23] MEDS: BUDESONIDE/FORMOTEROL 80/4.5 MCG 6.9 GM INHALER (*SP) 2 PUFF INHALATION (18:00)
--- NOTE | 2020-03-23 18:50 | PC.NURSE ---
Fluids infusing for 1 liter, tolerated well, more oriented this evening than was this am, daughter here all day and noted difference, sob appears to be less this evening with turning for diaper changes, having good wet diapers this evening
--- NOTE | 2020-03-23 21:41 | PC.NURSE ---
Fluids infused, saline lock flushed, tolerated well, more oriented and using call light, wide awake tonight, feeling better, oxygen at 4 L NC
[2020-03-24] VITALS (12 sets, daily range): BP systolic 110–120; BP diastolic 50–90; PULSE 74–90; RESP 20–24; TEMP 35.8–36.8; O2SAT 86–97
--- NOTE | 2020-03-24 00:16 | PC.NURSE ---
Inc care provided. Barrier cream applied.
[2020-03-24] MEDS: BUDESONIDE/FORMOTEROL 80/4.5 MCG 6.9 GM INHALER (*SP) 2 PUFF INHALATION (05:26)
[2020-03-24] MEDS: LEVOTHYROXINE SODIUM 25 MCG TABLET PO (05:27)
--- NOTE | 2020-03-24 05:47 | PCDIET ---
Rested good from 3a.m- 7am No complaints other then gets winded with exertion. Have o2 to 3l/ min.n.c. with sats in mid 90's. Will continue to observe/check.
[2020-03-24 06:16] LABS: Alanine Aminotransferase 18 U/L (14-59)
--- NOTE | 2020-03-24 07:38 | PM.EVENT ---
Event Note Event Note Event Note: Note from 03/23/2020 -once again spoke with patient's daughter. Patient's daughter requests the patient be transferred to [place] according patient's daughter patient is declined. I also informed the patient that due to patient's positive Covid results per [place] protocol patient will have to go back on isolation. Patient daughter noted if patient goes back on isolation and cannot see her family she will deteriorate. Called to [place] spoke with Dr. Mohan, Dr Mohan informed me that due to lack of beds and the great demand to admit patient with higher priority he would not be able to accept the patient. He also noted that the treatment that the patient is receiving at [place] would be the same treatment she is receiving here and we are capable of managing her condition. Patient's daughter also noted that PO antibiotics may be the cause for her stomach upset and confusion. I did start the patient on IV antibiotics, and DC the Ativan. Patient asked that I contact [facility] to see if they would admit her. I will call [facility] today to see if they will admit patient. I did repeat labs on patient her renal function has slightly worsened gave patient 1 L of fluids lactic acid slightly elevated at 2.9 and then again at 2.5. I also repeated a COVID-19 test in hopes that the repeat test will be negative so that she will not be placed on isolation with her lateral transfer.
[2020-03-24] MEDS: THERAPEUTIC MULTIVITAMINS/MINERALS TAB (*BKC) 1 TABLET PO (09:05)
[2020-03-24] MEDS: ENOXAPARIN 40 MG/0.4 ML SYRINGE SUB-Q (09:06)
[2020-03-24] MEDS: FENOFIBRATE NANOCRYSTALLIZED 145 MG TABLET PO (09:06)
[2020-03-24] MEDS: MEGESTROL ACETATE (*CHEMO) ORAL SUSP 40 MG/ML SYR 800 MG PO (09:06)
[2020-03-24] MEDS: amLODIPine BESYLATE 5 MG TABLET 10 MG PO (09:06)
[2020-03-24] MEDS: predniSONE 20 MG TABLET PO (09:06)
[2020-03-24] MEDS: ASPIRIN 81 MG ENTERIC TABLET PO (09:06)
[2020-03-24] MEDS: METOPROLOL TARTRATE 25 MG TABLET PO ×2 (09:06→16:54)
[2020-03-24] MEDS: PANTOPRAZOLE 40 MG TABLET PO ×2 (09:06→20:54)
[2020-03-24] MEDS: SACCHAROMYCES BOULARDII 250 MG CAPSULE PO (09:17)
--- NOTE | 2020-03-24 11:21 | PM.EVENT ---
Event Note Event Note Event Note: Patient's daughter informs me the patient has had multiple bowel movements today. According to nursing staff she has always had soft stools since admission. I will stop the Florastor to see if that is the cause of the frequent bowel movement. If it does not resolve I will complete a C diff. I will also work work on transferring her to [place] per family request today.
--- NOTE | 2020-03-24 11:46 | PC.NURSE ---
Roddy in chair at this time
--- NOTE | 2020-03-24 13:18 | PC.NURSE ---
Remains in chair at this time, rocephin infusing
--- NOTE | 2020-03-24 13:24 | P.PNCROSS_ITS ---
Event Note Event Note Event Note: Call ed transfer line at [facility] for acceptance of patient. Patient placed on waiting list no beds currently available. Informed by patient's daughter that she would need a few hours to decide whether or not the patient needs to transfer. I informed patient family she will need to let me know as soon as possible whether or not she want her mother to transfer to [facility]. I informed her that her mother is on the waiting list and if she is not going to transfer the bed can be given to someone in need. Today patient's daughter states that her mother situation has improved she wants her mother to remain. I did educate patient's daughter that she would have to be patient with the care of her mother and that her mother will have bad days. I did complete a COVID-19 in case patient's daughetr change her mind again.
--- NOTE | 2020-03-24 16:25 | PC.NURSE ---
In chair visiting with daughter
--- NOTE | 2020-03-24 18:21 | PC.NURSE ---
Resting in bed with head of bed elevated and legs on pillow for comfort to keep heels off bed, no acute distress noted, oxygen at 4 L NC when at rest, good day today, sat in chair for better part of afternoon,
[2020-03-24] MEDS: ACETAMINOPHEN 325 MG TABLET 650 MG PO (21:07)
[2020-03-25] VITALS: BP 117/53; PULSE 80; RESP 18; TEMP 36.9; O2SAT 96
[2020-03-25 05:57] LABS: Alanine Aminotransferase 18 U/L (14-59)
[2020-03-25] MEDS: LEVOTHYROXINE SODIUM 25 MCG TABLET PO (06:02)
[2020-03-25 08:00] VITALS: BP 129/69; PULSE 97; RESP 20; TEMP 37.1; O2SAT 96
--- NOTE | 2020-03-25 08:57 | PM.EVENT ---
Event Note Event Note Event Note: Spoke with patient this a.m. patient notes that when she wakes up in the morning she gets a little confused and sometimes it takes her time to get orientated. I explained to patient that this could be caused residual from her COVID-19 and throughout the day her orientation will improve as it has the last few days. Patient did note that she thinks her anxiety is getting better yesterday when she got up her heart did start beating fast. I explained to patient that with time her condition will possibly improve but we are would need to be patient.
[2020-03-25 09:09] VITALS: PULSE 97
[2020-03-25] MEDS: amLODIPine BESYLATE 5 MG TABLET 10 MG PO (09:09)
[2020-03-25] MEDS: METOPROLOL TARTRATE 25 MG TABLET PO ×2 (09:09→17:53)
[2020-03-25] MEDS: THERAPEUTIC MULTIVITAMINS/MINERALS TAB (*BKC) 1 TABLET PO (09:09)
[2020-03-25] MEDS: ASPIRIN 81 MG ENTERIC TABLET PO (09:09)
[2020-03-25] MEDS: predniSONE 20 MG TABLET PO (09:10)
[2020-03-25] MEDS: FENOFIBRATE NANOCRYSTALLIZED 145 MG TABLET PO (09:10)
[2020-03-25] MEDS: PANTOPRAZOLE 40 MG TABLET PO ×2 (09:10→21:05)
[2020-03-25] MEDS: ENOXAPARIN 40 MG/0.4 ML SYRINGE SUB-Q (09:10)
[2020-03-25] MEDS: MEGESTROL ACETATE (*CHEMO) ORAL SUSP 40 MG/ML SYR 800 MG PO (09:11)
[2020-03-25 11:16] LABS: SARS-CoV-2 RNA PCR Negative
[2020-03-25 16:00] VITALS: BP 118/66; PULSE 78; RESP 18; TEMP 36.5; O2SAT 97
[2020-03-25 17:53] VITALS: PULSE 78
[2020-03-25] MEDS: BUDESONIDE/FORMOTEROL 80/4.5 MCG 6.9 GM INHALER (*SP) 2 PUFF INHALATION (17:53)
[2020-03-25 20:00] VITALS: PULSE 82; RESP 18; O2SAT 96
[2020-03-26] VITALS: BP 115/52; PULSE 78; RESP 18; TEMP 36.6; O2SAT 97
[2020-03-26] MEDS: LEVOTHYROXINE SODIUM 25 MCG TABLET PO (06:06)
[2020-03-26 07:25] VITALS: BP 112/62; PULSE 88; RESP 20; TEMP 37.2; O2SAT 97
[2020-03-26] MEDS: FENOFIBRATE NANOCRYSTALLIZED 145 MG TABLET PO (09:03)
[2020-03-26] MEDS: MEGESTROL ACETATE (*CHEMO) ORAL SUSP 40 MG/ML SYR 800 MG PO (09:03)
[2020-03-26 09:04] VITALS: PULSE 88
[2020-03-26] MEDS: amLODIPine BESYLATE 5 MG TABLET 10 MG PO (09:04)
[2020-03-26] MEDS: predniSONE 20 MG TABLET PO (09:04)
[2020-03-26] MEDS: METOPROLOL TARTRATE 25 MG TABLET PO ×2 (09:04→16:48)
[2020-03-26] MEDS: ASPIRIN 81 MG ENTERIC TABLET PO (09:04)
[2020-03-26] MEDS: THERAPEUTIC MULTIVITAMINS/MINERALS TAB (*BKC) 1 TABLET PO (09:05)
[2020-03-26] MEDS: PANTOPRAZOLE 40 MG TABLET PO ×2 (09:05→21:10)
[2020-03-26] MEDS: ENOXAPARIN 40 MG/0.4 ML SYRINGE SUB-Q (09:05)
--- NOTE | 2020-03-26 10:03 | PC.NURSE ---
Fresh pepsi given to patient, in chair, re adjusted for comfort, denies pain, no distress at rest
[2020-03-26 12:22] LABS: Alanine Aminotransferase 20 U/L (14-59); Vancomycin Trough 5.8 ug/mL (10.0-15.0)
--- NOTE | 2020-03-26 13:21 | PC.NURSE ---
While up with therapy sat on commode and voided urine, parmjit care given
[2020-03-26 16:00] VITALS: BP 121/65; PULSE 82; RESP 20; TEMP 36.3; O2SAT 98
[2020-03-26 16:48] VITALS: PULSE 82
--- NOTE | 2020-03-26 17:19 | PC.NURSE ---
pt sitting up in chair, dinner tray set up, daughter reports the pt c/o pain when swallowing, charge nurse notified
[2020-03-26] MEDS: BUDESONIDE/FORMOTEROL 80/4.5 MCG 6.9 GM INHALER (*SP) 2 PUFF INHALATION (18:30)
[2020-03-27] VITALS: BP 120/60; PULSE 77; RESP 20; TEMP 37.1; O2SAT 98
--- NOTE | 2020-03-27 01:19 | PC.NURSE ---
Sleeping, turned self to left. No distress noted.
[2020-03-27 06:01] LABS: Alanine Aminotransferase 18 U/L (14-59)
[2020-03-27] MEDS: BUDESONIDE/FORMOTEROL 80/4.5 MCG 6.9 GM INHALER (*SP) 2 PUFF INHALATION ×2 (06:20→17:56)
[2020-03-27] MEDS: LEVOTHYROXINE SODIUM 25 MCG TABLET PO (06:21)
--- NOTE | 2020-03-27 07:40 | PM.IMPN ---
Progress Note: A&P Assessment and Plan (1) COVID-19 virus detected: Code(s): U07.1 - COVID-19 Status: Acute Assessment and Plan: patient was positive on 02/23/2020, a 2nd test was performed on 03/11/2020 which was positive and can be expected to be so, this was done for residential placement at previous facility, patient was on isolation for the severe respiratory illness related to COVID, patient has since gone 20 days of post positive test in canal be placed in a regular room, will continue to monitor respiratory status, as noted above occasional shortness of breath reported by patient without increased oxygen demand, Lovenox for DVT prophylaxis, supplemental oxygen for SpO2 greater than or equal to 92% 03/27/2020 patient remains on 3 L/min NC with SpO2 greater than 92%, PT report indicates that SpO2 decreases into the 80s with activity, will need to do a walk test for home oxygen prior to discharge (2) Failure to thrive: Status: Acute Assessment and Plan: Continue Megace, slight improvement. 03/27/2020 continue with Megace, appetite has improved, patient states she is eating more today, nursing staff says she completed her breakfast today, however patient says she feels bloated (3) Hyperlipidemia: Code(s): E78.5 - Hyperlipidemia, unspecified Status: Chronic Assessment and Plan: -fenofibrate (does not tolerate statins) 03/27/2020 continue (4) Essential (primary) hypertension: Code(s): I10 - Essential (primary) hypertension Status: Chronic Assessment and Plan: 03/27/2020 continue medication, continue to monitor, make adjustments as necessary (5) GERD (gastroesophageal reflux disease): Code(s): K21.9 - Gastro-esophageal reflux disease without esophagitis Status: Acute Assessment and Plan: Continue Protonix (6) Polyarthralgia: Code(s): M25.50 - Pain in unspecified joint Status: Acute Assessment and Plan: 03/27/2020 prednisone was increased last week to 20 mg daily (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 - Herpesviral infection, unspecified Status: Acute Assessment and Plan: 03/27/2020 this has resolved, no more lesions on the tongue or cheek or the upper lip (8) Hypothyroidism, unspecified: Code(s): E03.9 - Hypothyroidism, unspecified Status: Chronic Assessment and Plan: Continue Synthroid t 25 MCG's daily (9) CAD (coronary artery disease): Code(s): I25.10 - Atherosclerotic heart disease of [place] coronary artery without angina pectoris Status: Acute Assessment and Plan: 03/27/2020 no complaints of chest pain (10) Urinary tract infection: Code(s): N39.0 - Urinary tract infection, site not specified Status: Acute Assessment and Plan: 03/27/2020 today is supposed to be the last day for antibiotics for Klebsiella UTI Additional Plan Chronic Conditions: will be monitored, interventions and medication adjustments will be made as needed CAD/HLD/HTN: -fenofibrate (does not tolerate statins) -ASA 81mg QD -metoprolol -Amlodipine Inflammatory polyarthropathy -prednisone 20mg daily GERD: -Continue Protonix DVT/GI -Lovenox for DVT prophylaxis -Protonix for GI ulcer prophylaxis. Subjective Date/time seen: 03/27/20 07:40 This morning patient states that she was doing fine she is having no aches or pains, no trouble with breathing, no chest pain, no abdominal pain, patient had no complaints. with the daughter at the bedside patient seems to have sensation of abdominal bloating, feeling like she is being rushed through activities, does not feel like she is getting better as fast as she hoped. Review of Systems Constitutional: Constitutional: Reports lethargy Cardiovascular: Cardiovascular: Denies chest pain, Denies chest pain at rest and Denies chest pain with activity Respiratory: Respiratory: Denies cough, Denies pain on inspirat
[2020-03-27 08:00] VITALS: BP 121/58; PULSE 78; RESP 20; TEMP 36.4; O2SAT 97
[2020-03-27 08:20] LABS: Hemoglobin 10.4 g/dL (11.7-13.8); Mean Corpuscular HGB Conc 32.5 g/dL (32.0-36.0); Mean Corpuscular Volume 95.5 fL (78.0-102.0); Mean Platelet Volume 9.5 fl (9.2-11.8); Platelet Count Result 620 K/mm3 (150-420); Red Blood Count 3.35 M/mm3 (4.20-5.40); White Blood Count 6.9 K/mm3 (4.8-10.8)
[2020-03-27 08:31] LABS: Anion Gap 9 mmol/L (8-16); Blood Urea Nitrogen 11 mg/dL (7-18); Calcium 8.6 mg/dL (8.5-10.1); Carbon Dioxide 26 mmol/L (21-32); Chloride 105 mmol/L (98-108); Estimated CRCL calculation 31 ml/min; Estimated Glomerular Filt Rate 60; Glucose 96 mg/dL (70-99); Osmolality Calculated 289 mOsm/kg (285-295); Potassium 3.4 mmol/L (3.5-5.1); Sodium 140 mmol/L (136-145)
[2020-03-27] MEDS: ENOXAPARIN 40 MG/0.4 ML SYRINGE SUB-Q (09:47)
[2020-03-27] MEDS: MEGESTROL ACETATE (*CHEMO) ORAL SUSP 40 MG/ML SYR 800 MG PO (09:47)
[2020-03-27] MEDS: FENOFIBRATE NANOCRYSTALLIZED 145 MG TABLET PO (09:47)
[2020-03-27 09:48] VITALS: PULSE 72
[2020-03-27] MEDS: amLODIPine BESYLATE 5 MG TABLET 10 MG PO (09:48)
[2020-03-27] MEDS: predniSONE 20 MG TABLET PO (09:48)
[2020-03-27] MEDS: PANTOPRAZOLE 40 MG TABLET PO ×2 (09:48→20:52)
[2020-03-27] MEDS: ASPIRIN 81 MG ENTERIC TABLET PO (09:48)
[2020-03-27] MEDS: THERAPEUTIC MULTIVITAMINS/MINERALS TAB (*BKC) 1 TABLET PO (09:48)
[2020-03-27] MEDS: METOPROLOL TARTRATE 25 MG TABLET PO ×2 (09:48→17:53)
[2020-03-27] MEDS: ERGOCALCIFEROL 50,000 UNIT CAPSULE 50000 UNITS PO (09:50)
[2020-03-27] MEDS: POTASSIUM CHLORIDE 20 MEQ TABLET 40 MEQ PO (09:50)
[2020-03-27 16:00] VITALS: BP 109/61; PULSE 80; RESP 20; TEMP 36.6; O2SAT 96
[2020-03-27 17:53] VITALS: PULSE 72
[2020-03-28] VITALS: BP 122/61; PULSE 75; RESP 18; TEMP 36.4; O2SAT 98
[2020-03-28] MEDS: ACETAMINOPHEN 325 MG TABLET 650 MG PO (00:45)
[2020-03-28] MEDS: LEVOTHYROXINE SODIUM 25 MCG TABLET PO (05:56)
[2020-03-28] MEDS: BUDESONIDE/FORMOTEROL 80/4.5 MCG 6.9 GM INHALER (*SP) 2 PUFF INHALATION ×2 (05:56→18:45)
[2020-03-28 07:35] VITALS: BP 121/59; PULSE 76; RESP 18; TEMP 36.5; O2SAT 98
[2020-03-28] MEDS: FENOFIBRATE NANOCRYSTALLIZED 145 MG TABLET PO (08:45)
[2020-03-28 08:46] VITALS: PULSE 76
[2020-03-28] MEDS: ENOXAPARIN 40 MG/0.4 ML SYRINGE SUB-Q (08:46)
[2020-03-28] MEDS: amLODIPine BESYLATE 5 MG TABLET 10 MG PO (08:46)
[2020-03-28] MEDS: predniSONE 20 MG TABLET PO (08:46)
[2020-03-28] MEDS: PANTOPRAZOLE 40 MG TABLET PO ×2 (08:46→20:16)
[2020-03-28] MEDS: MEGESTROL ACETATE (*CHEMO) ORAL SUSP 40 MG/ML SYR 800 MG PO (08:46)
[2020-03-28] MEDS: METOPROLOL TARTRATE 25 MG TABLET PO ×2 (08:46→16:56)
[2020-03-28] MEDS: THERAPEUTIC MULTIVITAMINS/MINERALS TAB (*BKC) 1 TABLET PO (08:46)
[2020-03-28] MEDS: ASPIRIN 81 MG ENTERIC TABLET PO (08:46)
[2020-03-28 16:05] VITALS: BP 116/54; PULSE 86; RESP 20; TEMP 36.4; O2SAT 98
[2020-03-28 16:56] VITALS: PULSE 86
[2020-03-28 23:59] VITALS: BP 113/58; PULSE 116; TEMP 36.6; O2SAT 99
[2020-03-29] MEDS: LEVOTHYROXINE SODIUM 25 MCG TABLET PO (05:53)
[2020-03-29] MEDS: BUDESONIDE/FORMOTEROL 80/4.5 MCG 6.9 GM INHALER (*SP) 2 PUFF INHALATION ×2 (05:53→17:35)
[2020-03-29 07:35] VITALS: BP 115/61; PULSE 83; RESP 20; TEMP 36.7; O2SAT 98
[2020-03-29] MEDS: BISMUTH SUBSALICYLATE 262 MG CHEWABLE TABLET 524 MG PO (08:38)
[2020-03-29] MEDS: ENOXAPARIN 40 MG/0.4 ML SYRINGE SUB-Q (08:38)
[2020-03-29] MEDS: MEGESTROL ACETATE (*CHEMO) ORAL SUSP 40 MG/ML SYR 800 MG PO (08:38)
[2020-03-29] MEDS: FENOFIBRATE NANOCRYSTALLIZED 145 MG TABLET PO (08:38)
[2020-03-29 08:39] VITALS: PULSE 83
[2020-03-29] MEDS: METOPROLOL TARTRATE 25 MG TABLET PO ×2 (08:39→17:35)
[2020-03-29] MEDS: PANTOPRAZOLE 40 MG TABLET PO ×2 (08:39→20:19)
[2020-03-29] MEDS: THERAPEUTIC MULTIVITAMINS/MINERALS TAB (*BKC) 1 TABLET PO (08:39)
[2020-03-29] MEDS: ASPIRIN 81 MG ENTERIC TABLET PO (08:39)
[2020-03-29] MEDS: amLODIPine BESYLATE 5 MG TABLET 10 MG PO (08:39)
[2020-03-29] MEDS: predniSONE 20 MG TABLET PO (08:39)
[2020-03-29 15:50] VITALS: BP 120/60; PULSE 76; RESP 18; TEMP 36.1; O2SAT 99
[2020-03-29 17:35] VITALS: PULSE 81
[2020-03-29 23:42] VITALS: BP 112/54; PULSE 70; RESP 20; TEMP 36.3; O2SAT 96
--- NOTE | 2020-03-29 23:57 | PC.NURSE ---
Pt expelled liquid stool mixed with urine in BSC. Short of breath with exertion.
[2020-03-30] MEDS: LEVOTHYROXINE SODIUM 25 MCG TABLET PO (06:11)
[2020-03-30] MEDS: BUDESONIDE/FORMOTEROL 80/4.5 MCG 6.9 GM INHALER (*SP) 2 PUFF INHALATION ×2 (06:11→17:59)
--- NOTE | 2020-03-30 06:38 | PC.NURSE ---
Inc lg amt thin brown liquid stool. Inc care provided. Barrier cream applied.
[2020-03-30 08:00] VITALS: BP 121/58; PULSE 79; RESP 18; TEMP 36.3; O2SAT 98
[2020-03-30 09:23] VITALS: PULSE 79
[2020-03-30] MEDS: PANTOPRAZOLE 40 MG TABLET PO ×2 (09:23→20:26)
[2020-03-30] MEDS: BISMUTH SUBSALICYLATE 262 MG CHEWABLE TABLET 524 MG PO ×2 (09:23→20:26)
[2020-03-30] MEDS: ASPIRIN 81 MG ENTERIC TABLET PO (09:23)
[2020-03-30] MEDS: ENOXAPARIN 40 MG/0.4 ML SYRINGE SUB-Q (09:23)
[2020-03-30] MEDS: predniSONE 20 MG TABLET PO (09:23)
[2020-03-30] MEDS: METOPROLOL TARTRATE 25 MG TABLET PO ×2 (09:23→17:58)
[2020-03-30] MEDS: FENOFIBRATE NANOCRYSTALLIZED 145 MG TABLET PO (09:23)
[2020-03-30] MEDS: THERAPEUTIC MULTIVITAMINS/MINERALS TAB (*BKC) 1 TABLET PO (09:23)
[2020-03-30] MEDS: amLODIPine BESYLATE 5 MG TABLET 10 MG PO (09:23)
[2020-03-30] MEDS: MEGESTROL ACETATE (*CHEMO) ORAL SUSP 40 MG/ML SYR 800 MG PO (09:24)
[2020-03-30] MEDS: ACETAMINOPHEN 325 MG TABLET 650 MG PO (14:32)
[2020-03-30 16:00] VITALS: BP 122/62; PULSE 82; RESP 18; TEMP 36.2; O2SAT 96
[2020-03-30 17:58] VITALS: PULSE 82
[2020-03-30 23:25] VITALS: BP 114/46; PULSE 70; RESP 18; TEMP 36.9; O2SAT 97
[2020-03-31] MEDS: LEVOTHYROXINE SODIUM 25 MCG TABLET PO (06:05)
[2020-03-31] MEDS: BUDESONIDE/FORMOTEROL 80/4.5 MCG 6.9 GM INHALER (*SP) 2 PUFF INHALATION ×2 (06:05→17:54)
[2020-03-31 08:00] VITALS: BP 113/60; PULSE 80; RESP 18; TEMP 36.4; O2SAT 98
[2020-03-31] MEDS: BISMUTH SUBSALICYLATE 262 MG CHEWABLE TABLET 524 MG PO (09:10)
[2020-03-31] MEDS: FENOFIBRATE NANOCRYSTALLIZED 145 MG TABLET PO (09:11)
[2020-03-31] MEDS: amLODIPine BESYLATE 5 MG TABLET 10 MG PO (09:11)
[2020-03-31] MEDS: ASPIRIN 81 MG ENTERIC TABLET PO (09:11)
[2020-03-31] MEDS: PANTOPRAZOLE 40 MG TABLET PO ×2 (09:11→20:56)
[2020-03-31] MEDS: predniSONE 20 MG TABLET PO (09:11)
[2020-03-31 09:12] VITALS: PULSE 80
[2020-03-31] MEDS: THERAPEUTIC MULTIVITAMINS/MINERALS TAB (*BKC) 1 TABLET PO (09:12)
[2020-03-31] MEDS: METOPROLOL TARTRATE 25 MG TABLET PO ×2 (09:12→17:54)
[2020-03-31] MEDS: MEGESTROL ACETATE (*CHEMO) ORAL SUSP 40 MG/ML SYR 800 MG PO (09:12)
[2020-03-31] MEDS: ENOXAPARIN 40 MG/0.4 ML SYRINGE SUB-Q (09:12)
[2020-03-31 16:00] VITALS: BP 107/59; PULSE 74; RESP 18; TEMP 36.2; O2SAT 97
[2020-03-31 17:54] VITALS: PULSE 74
[2020-04-01] VITALS (11 sets, daily range): BP systolic 104–132; BP diastolic 45–62; PULSE 72–90; RESP 16–18; TEMP 36.2–36.4; O2SAT 87–98
[2020-04-01] MEDS: BUDESONIDE/FORMOTEROL 80/4.5 MCG 6.9 GM INHALER (*SP) 2 PUFF INHALATION ×2 (05:49→18:01)
[2020-04-01] MEDS: LEVOTHYROXINE SODIUM 25 MCG TABLET PO (05:49)
[2020-04-01] MEDS: ASPIRIN 81 MG ENTERIC TABLET PO (09:08)
[2020-04-01] MEDS: MEGESTROL ACETATE (*CHEMO) ORAL SUSP 40 MG/ML SYR 800 MG PO (09:08)
[2020-04-01] MEDS: amLODIPine BESYLATE 5 MG TABLET 10 MG PO (09:08)
[2020-04-01] MEDS: THERAPEUTIC MULTIVITAMINS/MINERALS TAB (*BKC) 1 TABLET PO (09:08)
[2020-04-01] MEDS: ENOXAPARIN 40 MG/0.4 ML SYRINGE SUB-Q (09:08)
[2020-04-01] MEDS: BISMUTH SUBSALICYLATE 262 MG CHEWABLE TABLET 524 MG PO ×2 (09:08→15:48)
[2020-04-01] MEDS: FENOFIBRATE NANOCRYSTALLIZED 145 MG TABLET PO (09:08)
[2020-04-01] MEDS: PANTOPRAZOLE 40 MG TABLET PO ×2 (09:09→21:58)
[2020-04-01] MEDS: predniSONE 20 MG TABLET PO (09:09)
[2020-04-01] MEDS: METOPROLOL TARTRATE 25 MG TABLET PO ×2 (09:09→18:01)
[2020-04-01] MEDS: ACETAMINOPHEN 325 MG TABLET 650 MG PO (12:01)
--- NOTE | 2020-04-01 15:48 | HOMEO2EVAL ---
Home Oxygen Evaluation RC: Home Oxygen (O2) Evaluation Start: 04/01/20 15:39 Freq: Status: Active Protocol: RPE Activity Type Activity Date Activity User E-Sign Co-Sign Detail Recorded Client Recorded Date Recorded By Document 04/01/20 15:00 KATHY [id number] 04/01/20 15:48 KATHY Document 04/01/20 15:03 KATHY [id number] 04/01/20 15:48 KATHY Document 04/01/20 15:05 KATHY [id number] 04/01/20 15:48 KATHY Document 04/01/20 15:07 KATHY [id number] 04/01/20 15:48 KATHY Document 04/01/20 15:09 KATHY [id number] 04/01/20 15:48 KATHY Document 04/01/20 15:11 KATHY [id number] 04/01/20 15:48 KATHY 04/01/20 04/01/20 04/01/20 15:00 15:03 15:05 Home O2 Evaluation Test Phase Resting Exercise Resting Oxygen Delivery Room Air Room Air Nasal Cannula Oxygen Flow Rate (L/min) 2 Pulse Oximetry (90-100 %) 91 87 L 97 Pulse Rate (60-100 beats/min) 74 90 79 Activity Tolerance Good Rating of Perceived Dyspnea (PD) +2 Mild, Some Difficulty, Noticeable to the Observer Rate of Perceived Exertion (PE) 13 Somewhat Hard Ambulation Distance (feet) 15 Home Oxygen Evaluation Comments patient walked 15 feet on room air with desaturation to 87%. will start 02 2 lpm Treatment Charges O2 Evaluation 04/01/20 04/01/20 04/01/20 15:07 15:09 15:11 Home O2 Evaluation Test Phase Exercise Exercise Exercise Oxygen Delivery Nasal Cannula Nasal Cannula Nasal Cannula Oxygen Flow Rate (L/min) 2 3 4 Pulse Oximetry (90-100 %) 89 L 89 L 95 Pulse Rate (60-100 beats/min) 90 86 82 Activity Tolerance Fair Fair Good Rating of Perceived Dyspnea (PD) +2 Mild, Some +2 Mild, Some +2 Mild, Some Difficulty, Difficulty, Difficulty, Noticeable to Noticeable to Noticeable to the Observer the Observer the Observer Rate of Perceived Exertion (PE) 13 Somewhat 13 Somewhat 13 Somewhat Hard Hard Hard Ambulation Distance (feet) 45 15 30 Home Oxygen Evaluation Comments walked 45 ft. w getting tired. Sp02 maintained / 02 @ 2lpm desaturation to at 95% with with 89%. will activity on 4 desaturation to increase to 4 lpm 89%. will lpm increase to 3 lpm Treatment Charges
[2020-04-02] VITALS: BP 123/57; PULSE 77; RESP 18; TEMP 36.3; O2SAT 95
[2020-04-02] MEDS: BUDESONIDE/FORMOTEROL 80/4.5 MCG 6.9 GM INHALER (*SP) 2 PUFF INHALATION (05:33)
[2020-04-02] MEDS: LEVOTHYROXINE SODIUM 25 MCG TABLET PO (05:34)
[2020-04-02 05:42] LABS: Hematocrit 34.1 % (35.0-42.0); Hemoglobin 10.5 g/dL (11.7-13.8); Mean Corpuscular HGB Conc 30.8 g/dL (32.0-36.0); Mean Corpuscular Hemoglobin 29.5 pg (27.0-31.0); Mean Corpuscular Volume 95.8 fL (78.0-102.0); Mean Platelet Volume 9.6 fl (9.2-11.8); Platelet Count Result 409 K/mm3 (150-420); Red Blood Count 3.56 M/mm3 (4.20-5.40); Red Cell Distribution Width 15.2 % (11.6-14.4); White Blood Count 10.4 K/mm3 (4.8-10.8)
[2020-04-02 05:54] LABS: Anion Gap 11 mmol/L (8-16); Blood Urea Nitrogen 11 mg/dL (7-18); Calcium 8.2 mg/dL (8.5-10.1); Carbon Dioxide 25 mmol/L (21-32); Chloride 105 mmol/L (98-108); Estimated CRCL calculation 34 ml/min; Estimated Glomerular Filt Rate > 60; Glucose 111 mg/dL (70-99); Osmolality Calculated 292 mOsm/kg (285-295); Potassium 3.4 mmol/L (3.5-5.1); Sodium 141 mmol/L (136-145)
[2020-04-02 08:00] VITALS: BP 135/61; PULSE 73; RESP 20; TEMP 36.9; O2SAT 97
[2020-04-02] MEDS: METOPROLOL TARTRATE 25 MG TABLET PO (08:17)
[2020-04-02] MEDS: ENOXAPARIN 40 MG/0.4 ML SYRINGE SUB-Q (08:17)
[2020-04-02] MEDS: predniSONE 20 MG TABLET PO (08:17)
[2020-04-02] MEDS: ASPIRIN 81 MG ENTERIC TABLET PO (08:17)
[2020-04-02] MEDS: THERAPEUTIC MULTIVITAMINS/MINERALS TAB (*BKC) 1 TABLET PO (08:17)
[2020-04-02] MEDS: PANTOPRAZOLE 40 MG TABLET PO (08:17)
[2020-04-02] MEDS: MEGESTROL ACETATE (*CHEMO) ORAL SUSP 40 MG/ML SYR 800 MG PO (08:17)
[2020-04-02] MEDS: amLODIPine BESYLATE 5 MG TABLET 10 MG PO (08:17)
[2020-04-02] MEDS: FENOFIBRATE NANOCRYSTALLIZED 145 MG TABLET PO (08:18)
[2020-04-02] MEDS: POTASSIUM CHLORIDE 20 MEQ TABLET 40 MEQ PO (09:45)
--- NOTE | 2020-04-02 10:55 | PM.DS ---
DS: Admitting Diagnosis Admitting Diagnosis Admitting Diagnosis: Covid DS: Discharge Diagnosis Discharge Diagnosis (1) COVID-19 virus detected: Code(s): U07.1 - COVID-19 Status: Acute Assessment and Plan: patient was positive on 02/23/2020, a 2nd test was performed on 03/11/2020 tested neg 03/23 (2) Failure to thrive: Status: Acute Assessment and Plan: Continue Megace, (3) Hyperlipidemia: Code(s): E78.5 - Hyperlipidemia, unspecified Status: Chronic Assessment and Plan: -fenofibrate (does not tolerate statins) (4) Essential (primary) hypertension: Code(s): I10 - Essential (primary) hypertension Status: Chronic Assessment and Plan: Continue metoprolol 25 mg twice daily and Norvasc 10 mg daily (5) GERD (gastroesophageal reflux disease): Code(s): K21.9 - Gastro-esophageal reflux disease without esophagitis Status: Acute Assessment and Plan: Continue Protonix (6) Polyarthralgia: Code(s): M25.50 - Pain in unspecified joint Status: Acute Assessment and Plan: Continue prednisone 5 mg daily (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 - Herpesviral infection, unspecified Status: Acute Assessment and Plan: Blisters to her mouth resolved (8) Hypothyroidism, unspecified: Code(s): E03.9 - Hypothyroidism, unspecified Status: Chronic Assessment and Plan: Continue Synthroid t 25 MCG's daily (9) CAD (coronary artery disease): Code(s): I25.10 - Atherosclerotic heart disease of [place] coronary artery without angina pectoris Status: Acute (10) Urinary tract infection: Code(s): N39.0 - Urinary tract infection, site not specified Status: Acute Assessment and Plan: Resolved DS: Summary Time Spent with Patient Time attestation: Total time spent providing and/or coordinating discharge services:60 Exam Narrative: Exam Narrative: GENERAL: Alert and orientated to self, year and president not aware of location in no apparent distress. HEAD: normocephalic, atraumatic. EYES: PERRL. Sclera clear/white. Vision is grossly intact. EARS: External ears normal, auditory canals clear and without drainage, TMs normal without perforation. Hearing grossly intact. NOSE: External nose normal with no obvious nasal discharge, nares without redness, no rhinorrhea. THROAT: Mucous membranes moist, posterior pharynx clear. NECK: Neck supple, non-tender without lymphadenopathy, masses or thyromegaly. CARDIOVASCULAR: Regular rate and rhythm without murmurs, gallops, or rubs. RESPIRATORY: Clear to auscultation. Breath sounds equal bilaterally. No wheezes, rales, or rhonchi. GASTROINTESTINAL: Abdomen soft, non-tender, nondistended. Bowel sounds are active. No hepato-splenomegaly, or palpable masses. No guarding. SKIN: warm, intact with no suspicious lesions or rash, good texture and turgor. NEURO: awake, alert, and oriented to person, place and time. There were no obvious focal neurologic abnormalities. Steady gait EXTREMITIES: Normal range of motion. Trace edema lower extremities. No calf tenderness. Negative Homans sign bilaterally. BACK: Nontender without deformity or crepitance. No flank tenderness. DS: Data Data Completed and Pending Labs on day of discharge: Labs from last 24 hours 04/02/20 04/02/20 05:29 05:29 WBC 10.4 RBC 3.56 L Hgb 10.5 L Hct 34.1 L MCV 95.8 MCH 29.5 MCHC 30.8 L RDW 15.2 H Plt Count 409 MPV 9.6 Sodium 141 Potassium 3.4 L Chloride 105 Carbon Dioxide 25 Anion Gap 11 BUN 11 Creatinine 0.82 Estim Creat Clear Calc 34 Estimated GFR > 60 Glucose 111 H Calculated Osmolality 292 Calcium 8.2 L Discharge Plan Discharge Attending physician on discharge: Anthony Miller Discharging Clinician: Jak Robins Anticipated Discharge Date/Time: 04/02/20 00:00 Patient Disposition:
--- NOTE | 2020-04-02 12:39 | PC.NURSE ---
discharge instructions reviewed with daughter and patient. teraching provided for medications (inhaler use and incentyive spirometry). all questions answered. daughter packing up belongings at this time.
--- NOTE | 2020-04-03 13:44 | PC.NURSE ---
Daughter states they understood the discharge instructions and also states I appreciate everything that you guys did .
== END 2020-04-02 13:12 | disposition home health service (06) | DRG 177 ==
PROVIDERS: Nurse Practitioner; Nurse Practitioner Family; Admitting Provider Family Medicine; PCP Family Medicine; Visit Provider Family Medicine
DX: U07.1 COVID-19 (principal); J12.89 Other viral pneumonia; N39.0 Urinary tract infection, site not specified; R62.7 Adult failure to thrive; R53.1 Weakness; B00.9 Herpesviral infection, unspecified; R00.0 Tachycardia, unspecified; I10 Essential (primary) hypertension; I25.10 Atherosclerotic heart disease of native coronary artery without angina pectoris; D50.0 Iron deficiency anemia secondary to blood loss (chronic); E78.5 Hyperlipidemia, unspecified; E03.9 Hypothyroidism, unspecified; K21.9 Gastro-esophageal reflux disease without esophagitis; M06.4 Inflammatory polyarthropathy; M54.5 Low back pain; G89.29 Other chronic pain; Z96.642 Presence of left artificial hip joint; Z95.5 Presence of coronary angioplasty implant and graft
CPT/HCPCS: 36415; 71045; 71046; 71275; 80048; 80053; 80202; 81001; 83605; 83735; 83880; 84460; 85027; 85055; 85380; 87040; 87077; 87086; 87088; 87186; 87635; 92610; 93005; 94618; 97110; 97162; 97165; 97530; 97535; A9270; C9803; J0696; J1650; J3370; J3480; J7030; J7040; J7512; Q9965; U0003

== ENCOUNTER 2020-05-08 11:19 | Outpatient (NON) | payer MEDICARE, SELFPAY ==
[2020-05-08 11:40] LABS: Basophils Absolute Auto 0.1 K/mm3 (0.0-0.1); Basophils Percent Auto 0.8 % (0.2-1.2); Eosinophils Absolute Auto 0.1 K/mm3 (0-0.3); Eosinophils Percent Auto 0.4 % (0-4.4); Hematocrit 40.8 % (37.0-47.0); Hemoglobin 13.3 g/dL (12.0-15.0); Immature Granulocyte Absolute 0.29 K/mm3 (0.00-0.031); Immature Granulocyte Percent A 2.2 % (0-0.5); Lymphocytes Absolute Auto 4.46 K/mm3 (0.9-3.2); Lymphocytes Percent Auto 33.3 % (18.3-44.2); Mean Corpuscular HGB Conc 32.6 g/dl (32-36); Mean Corpuscular Hemoglobin 30.9 pg (26-34); Mean Corpuscular Volume 94.7 fl (80-100); Mean Platelet Volume 10.1 fl (7.4-10.4); Monocytes Absolute Auto 0.9 K/mm3 (0.1-0.6); Monocytes Percent Auto 6.5 % (2.6-8.5); Neutrophils Absolute Auto 7.6 K/mm3 (1.3-6.7); Neutrophils Percent Auto 56.8 % (45.5-73.1); Platelet Count Result 418 k/mm3 (150-375); Red Blood Count 4.31 M/mm3 (4.2-5.4); Red Cell Distribution Width 15.2 % (11.5-14.5); White Blood Count 13.4 K/mm3 (4.5-10.0)
[2020-05-08 11:48] LABS: Alanine Aminotransferase 14 U/L (4-35); Albumin Level 3.8 g/dL (3.5-5.1); Alkaline Phosphatase 47 U/L (38-126); Anion Gap 9 mmol/L (8-16); Aspartate Amino Transferase 25 U/L (14-36); Bilirubin,Total 0.5 mg/dL (0.2-1.3); Blood Urea Nitrogen 17 mg/dL (7-17); Calcium 9.9 mg/dL (8.4-10.2); Carbon Dioxide 24 mmol/L (22-30); Chloride 107 mmol/L (98-107); Cholesterol 241 mg/dL (0-200); Estimated Glomerular Filt Rate > 60; Glucose 79 mg/dL (65-105); HDL Direct 40 mg/dL; Potassium 3.7 mmol/L (3.4-5.0); Sodium 140 mmol/L (137-145); Triglycerides 249 mg/dL (<150)
[2020-05-08 11:59] LABS: LDL Cholesterol Direct 198 mg/dL
[2020-05-08 12:27] LABS: Thyroid Stimulating Hormone Reflex 0.661 uIU/mL (0.465-4.68)
== END 2020-05-08 11:20 ==
PROVIDERS: PCP Family Medicine; Visit Provider Family Medicine
DX: I10 Essential (primary) hypertension (principal); Z95.5 Presence of coronary angioplasty implant and graft; E03.9 Hypothyroidism, unspecified
CPT/HCPCS: 80053; 80061; 84443; 85025

== ENCOUNTER 2020-12-04 08:01 | Outpatient (CLI) | payer MEDICARE, OTHER, SELFPAY ==
[2020-12-04 09:09] LABS: HDL Direct 38 mg/dL
[2020-12-04 09:12] LABS: LDL Cholesterol Direct 160 mg/dL
[2020-12-04 09:13] LABS: Cholesterol 355 mg/dL (0-200); Triglycerides 615 mg/dL (<150)
[2020-12-04 09:53] LABS: Thyroid Stimulating Hormone Reflex 0.973 uIU/mL (0.465-4.68)
[2020-12-04 17:11] LABS: Creatinine Urine 50.6 mg/dL
[2020-12-04 17:16] LABS: MALB Creatinine Ratio 23.7 mg/g (0-30)
== END 2020-12-04 08:02 | disposition home or self-care (01) ==
PROVIDERS: PCP Family Medicine; Visit Provider Family Medicine
DX: E03.9 Hypothyroidism, unspecified (principal); E78.5 Hyperlipidemia, unspecified; I10 Essential (primary) hypertension
CPT/HCPCS: 36415; 80061; 82043; 84443

== ENCOUNTER 2021-01-18 12:57 | Emergency (ER) | payer MEDICARE, OTHER, SELFPAY ==
--- NOTE | ~2021-01-18 | CT_ITS ---
EXAMINATION: CT cervical spine wo con DATE: 01/18/2021 13:32 INDICATION: Fall. Right neck and shoulder pain. Patient on blood thinners. TECHNIQUE: Computed tomography (CT) of the cervical spine was performed without intravenous contrast. Automated exposure control and iterative reconstruction technique were employed. Exam dose: 125.13 mGy-cm total exam DLP. COMPARISON: None FINDINGS: Prominent emphysematous changes and scarring are noted in the upper lung zones. Levoscoliosis of the cervical spine. C1 and C2 are normally aligned and the odontoid process is intact. There is minimal retrolisthesis at C3-4. There is degenerative change at the cervical apophyseal joints. Cervical interspaces are relatively w ell preserved. No fracture or dislocation or locked facet is evident. IMPRESSION: No cervical spine fracture is evident Levoscoliosis Minimal retrolisthesis at C3-4 Reviewed, dictated and finalized at [facility]. Reviewed, dictated and finalized at [facility].
--- NOTE | ~2021-01-18 | XR_ITS ---
XR shoulder LT min 2V DATE: 01/18/2021 13:20 INDICATION: Ground-level fall. Left shoulder pain, unable to move arm. TECHNIQUE: 3 views COMPARISON: None FINDINGS: There is diffuse osteopenia. There is a comminuted fractures of the proximal left humerus including mildly medially displaced lozano sverse surgical neck fracture and comminuted fractures of the greater tuberosity. There is an apparen t fracture line extending into the proximal medial humeral shaft. Alignment is preserved at the acromioclavicular and glenohumeral joints. Cardiomegaly and aortic atherosclerotic calcification. IMPRESSION: Comminuted fractures of the proximal humerus including minimally medially displaced trans verse surgical neck fracture, fracture the greater tuberosity. There is an apparent linear fracture l ine extending into the proximal medial humeral shaft. Reviewed, dictated and finalized at [facility]. IMPRESSION: Comminuted fractures of the proximal humerus including minimally me dially displaced transverse surgical neck fracture, fracture the greater tubero sity. There is an apparent linear fracture line extending into the proximal med ial humeral shaft.
--- NOTE | ~2021-01-18 | CT_ITS ---
EXAMINATION: CT brain wo con DATE: 01/18/2021 13:32 INDICATION: Fall. Patient struck forehead. TECHNIQUE: Computed tomography (CT) of the head was performed without intravenous contrast. The mA wa s adjusted according to patient size. Iterative reconstruction technique was employed. Exam dose: 60 5.33 mGy-cm total exam DLP. COMPARISON: None FINDINGS: Bilateral vertebral artery calcifications. Bilateral carotid siphon and supraclinoid chemistry intern al carotid artery calcifications. There is nonspecific diminished attenuation of the subcortical and periventricular cerebral white mat ter, likely due to chronic small vessel ischemic changes. There is central and cortical cerebral and cerebellar atrophy. Mild bilateral basal ganglia calcification. No intracranial mass lesion or hemorrhage, midline shift or mass effect effect or cerebrovascular acc ident is evident. Right frontal cephalohematoma is noted. No skull fracture is detected. No coup or contrecoup intracra nial injury is noted. IMPRESSION: Right frontal cephalohematoma; no coup or contrecoup intracranial injury or other acute intracranial finding No skull fracture Cerebral atherosclerosis and chronic small vessel ischemic changes of cerebral white matter Cerebral and cerebellar atrophy Reviewed, dictated and finalized at [facility] Reviewed, dictated and finalized at [facility].
[2021-01-18 12:58] VITALS: BP 150/84; PULSE 85; RESP 20; TEMP 36.3; O2SAT 96
--- NOTE | 2021-01-18 13:43 | ED.FALL ---
HPI - Fall General Chief Complaint: Fall Stated Complaint: fall Time Seen by Provider: 01/18/21 13:41 History of Present Illness HPI Narrative: 85 yo female presents to the Ed from home after a fall. 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 She has severe pain in the left shoulder. She is unable to move the shoulder. she is able to move her hand and elbow. Sensation intact throughout. She aslo struck her head. No LOC . She has a mild head ache. Related Data Allergies Allergy/AdvReac Type Severity Reaction Status Date / Time Penicillins Allergy Unknown Rash Verified 04/09/20 11:10 [id number]-Gqr-Jpi Reductase Allergy Unknown Muscle Verified 04/09/20 11:10 Inhibitor Spasms tetracycline Allergy Unknown Rash Verified 04/09/20 11:10 Review of Systems Review of Systems: All systems reviewed & are unremarkable except as noted in HPI and below Constitutional: Constitutional: Denies chills, Denies fever(s) and Denies weakness Eyes: Eyes: Reports no additional eye complaints Cardiovascular: Cardiovascular: Denies chest pain Respiratory: Respiratory: Denies dyspnea Gastrointestinal: Gastrointestinal: Denies abdominal pain and Denies nausea Genitourinary: Genitourinary: Reports no additional female genitourinary complaints Musculoskeletal: Musculoskeletal: Denies back pain Neurologic: Denies confusion, Denies dizziness and Denies weakness PMFSH Past Medical History Medical History Acute arthritis Shukla's palsy Essential (primary) hypertension History of myocardial infarction Hyperlipidemia Hypothyroidism, unspecified 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) Low back pain Nausea Other chronic pain Other malaise Weakness Wedge compression fracture of first lumbar vertebra, subsequent encounter for fracture with routine healing Surgical History Surgical History H/O bilateral cataract extraction H/O heart artery stent 2011 H/O tubal ligation Hx of cholecystectomy Presence of left artificial hip joint Family History Family History Mother Hypertension Cerebrovascular accident, Onset Age: 40 Patient's mother is Father Family history of chronic obstructive pulmonary disease, Onset Age: 70 Patient's father is Daughter MS (multiple sclerosis) Social History Social History Social History: . the patient has 7 daughters but 1 has due to MS. The patient does not have a durable power trademark attorney for healthcare. States that she wants to be a DNR. The patient worked at [employer] for brief period time before she retired. She lives home alone. And her daughter comes over to help her out at times. She is a lifelong nonsmoker does not use any marijuana alcohol or illicit drugs. Smoking status: Never smoker Second hand tobacco smoke exposure: No Alcohol intake: never Substance use: never Substance use type: does not use Gender identity (if verbalized by the patient): Female Spiritual care concerns: No Exam Const: General: no acute distress and alert Orientation/consciousness: patient oriented x3 HENMT: Head: contusion (left frontotemporal) Neck: Neck: normal visual inspection and no lymphadenopathy Chest: Chest palpation & inspection: no tenderness Resp: Effort & Inspection: normal respiratory effort Auscultation: clear to auscultation bilaterally, no rales, no rhonchi and no wheezes Cardio: Jugular venous distension: no JVD Rate: regular rate Rhythm: regular rhythm Heart sounds: no murmurs GI: Inspection: non-distended GI Palp: Yes Soft to palpation and No Tenderness to palpation present (GI) Skin: General skin exam
[2021-01-18] MEDS: fentaNYL CITRATE INJ (*CRX) 100 MCG/2 ML VIAL 50 MCG IV PUSH (14:10)
--- NOTE | 2021-01-18 14:11 | PC.NURSE ---
pt arrived with bruising to right side of face, dried blood to her nose. pt has skin tear to right forearm. wounds cleaned and dressed, steri strips appiled
[2021-01-18] MEDS: HYDROcodone/acetaminophen (*CRX) 5-325 MG TABLET 1 TAB (15:04)
--- NOTE | 2021-01-18 15:06 | PC.NURSE ---
ruby from dr drew, for norco 5-325 po x1
[2021-01-18 15:30] VITALS: BP 139/88; PULSE 84; RESP 16; O2SAT 98
[2021-01-18] MEDS: METOCLOPRAMIDE HCL INJ 10 MG/2 ML VIAL (16:54)
== END 2021-01-18 16:56 | disposition home or self-care (01) ==
PROVIDERS: Emergency Provider Emergency Medicine; PCP Family Medicine
DX: S42.002A Fracture of unspecified part of left clavicle, initial encounter for closed fracture (principal); S42.212A Unspecified displaced fracture of surgical neck of left humerus, initial encounter for closed fracture; E03.9 Hypothyroidism, unspecified; I10 Essential (primary) hypertension; I25.2 Old myocardial infarction; W01.0XXA Fall on same level from slipping, tripping and stumbling without subsequent striking against object, initial encounter
CPT/HCPCS: 70450; 72125; 73030; 96374; 99284; A9270; J2765; J3010

== ENCOUNTER 2021-02-01 20:52 | Observation (INO) | payer MEDICARE, OTHER, SELFPAY ==
--- NOTE | ~2021-02-01 | CT_ITS ---
EXAMINATION: CT abdomen pelvis w con DATE: 02/01/2021 22:16 INDICATION: Nausea and vomiting. Abdominal pain. TECHNIQUE: Computed tomography (CT) of the abdomen and pelvis was performed with 100 mL Omnipaque 350 intravenous contrast. Automated exposure control and iterative reconstruction technique were employe d. The dose-length product was 459.91 mGy-cm. COMPARISON: CT abdomen and pelvis 06/24/19, 03/21/20 FINDINGS: The visualized portions of the lung bases demonstrate widespread groundglass opacities with septal thickening and architectural distortion. There is bronchiectasis in right middle lobe and jesús gula. No pleural effusion. Cardiomegaly is noted. There are coronary artery calcifications. No perica rdial effusion. There is heterogeneous hepatic steatosis. There is a small sliding hiatal hernia. The re are changes of prostatectomy. Calcifications in the spleen are consistent with old granulomatous d isease. The pancreas is normal. The adrenal glands are small. There is a 9 mm cyst in right kidney. L eft kidney is normal. There are no dilated loops of bowel. The appendix is normal. There are no patho logically enlarged lymph nodes. There is no free intraperitoneal fluid. There is subcutaneous fat str anding in left buttock, likely a small hematoma or inflammation. There is a left hip arthroplasty. Th ere is a chronic burst fracture of L1. IMPRESSION: 1. Diffuse hepatic steatosis. 2. Small sliding hiatal hernia. 3. Diffuse lung disease, likely at least predominantly chronic interstitial lung disease. Superimpose d mild pulmonary edema cannot be excluded. Reviewed, dictated and finalized at location A. IMPRESSION: 1. Diffuse hepatic steatosis. 2. Small sliding hiatal hernia. 3. Diffuse lung disease, likely at least predominantly chronic interstitial louis g disease. Superimposed mild pulmonary edema cannot be excluded.
[2021-02-01 20:48] VITALS: BP 160/94; PULSE 105; RESP 20; TEMP 37; O2SAT 96
--- NOTE | 2021-02-01 21:05 | ED.NAVMDI ---
HPI - Nausea/Vomiting/Diarrhea General Chief complaint: Nausea/Vomiting/Diarrhea Stated complaint: n/v Time Seen by Provider: 02/01/21 21:00 Source: RN notes reviewed History of Present Illness HPI Narrative: Patient presents emergency department from home via EMS for nausea and vomiting. History is per the patient and the daughter. States that patient's been having nausea and vomiting for the past 2 days but unable to keep anything down. Patient states her she tries anything she becomes nauseous and vomits she states that she cannot take Zofran but has taken Reglan before with good relief she does note some abdominal pain with vomiting but denies no abdominal pain which is not vomiting she denies any fevers or chills, chest pain shortness of breath or any other symptoms the patient does states she is currently being treated for a wound infection on her right arm from a skin tear she had been seen in urgent care last week and started on Bactrim which caused her have nausea vomiting and has been switched of doxycycline which she has been taking Related Data Home Medications Medication Instructions Recorded Confirmed amlodipine benzoate 1 mg/mL oral 5 mg PO DAILY 01/21/21 suspension ascorbic acid (vitamin C) 100 mg See Rx Instructions PO DAILY 01/21/21 tablet aspirin 81 mg tablet,delayed 81 mg PO DAILY 01/21/21 release levothyroxine 13 mcg capsule See Rx Instructions PO DAILY cap 01/21/21 metoprolol tartrate 25 mg tablet 25 mg PO DAILY 01/21/21 polysaccharide iron complex 150 mg See Rx Instructions PO DAILY 01/21/21 iron capsule potassium chloride 8 mEq See Rx Instructions PO DAILY 01/21/21 capsule,extended release prednisone 5 mg tablet 5 mg PO DAILY 01/21/21 travoprost (benzalkonium) 0.004 % drp OPHTHALMIC (EYE) 01/21/21 eye drops Allergies Allergy/AdvReac Type Severity Reaction Status Date / Time Penicillins Allergy Unknown Rash Verified 01/21/21 08:34 Gpudekf-Dvn-Rpo Reductase Allergy Unknown Muscle Verified 01/21/21 08:34 Inhibitor Spasms tetracycline Allergy Unknown Rash Verified 01/21/21 08:34 Review of Systems Review of Systems: Gen.: Denies fevers or chills ENT: Denies congestion Respiratory: Denies shortness of breath or cough CV: Denies chest pain or palpitations GI: See HPI denies burning, urgency, frequency or hematuria Musculoskeletal: Denies back pain or muscle pain Neuro: Denies numbness, tingling, weakness or focal weakness Skin: Denies rash Except as documented, all other systems reviewed and negative [facility] Past Medical History Medical History Acute arthritis Shukla's palsy Essential (primary) hypertension Hearing loss History of myocardial infarction History of shortness of breath Hyperlipidemia Hypothyroidism, unspecified 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) Low back pain Nausea Other chronic pain Other malaise Skin tear of forearm without complication Weakness Wedge compression fracture of first lumbar vertebra, subsequent encounter for fracture with routine healing Surgical History Surgical History H/O bilateral cataract extraction H/O heart artery stent 2011 H/O tubal ligation Hx of cholecystectomy Presence of left artificial hip joint Family History Family History Mother Hypertension Cerebrovascular accident, Onset Age: 40 Patient's mother is Father Family history of chronic obstructive pulmonary disease, Onset Age: 70 Patient's father is Daughter MS (multiple sclerosis) Social History Social History Social History: . the patient has 7 daughters but 1 has due to MS. The patient does not have a durable power immigration attorney for h
[2021-02-01] MEDS: SODIUM CHLORIDE 0.9% IV 1,000 ML 999 ML IV CONT (21:18)
[2021-02-01] MEDS: METOCLOPRAMIDE HCL INJ 10 MG/2 ML VIAL 5 MG IV PUSH (21:18)
[2021-02-01 21:21] LABS: Basophils Absolute Auto 0.1 K/mm3 (0.0-0.1); Basophils Percent Auto 0.7 % (0.2-1.2); Eosinophils Absolute Auto 0.2 K/mm3 (0-0.3); Eosinophils Percent Auto 0.9 % (0-4.4); Hematocrit 44.1 % (37.0-47.0); Hemoglobin 14.8 g/dL (12.0-15.0); Immature Granulocyte Absolute 0.11 K/mm3 (0.00-0.031); Immature Granulocyte Percent A 0.7 % (0-0.5); Lymphocytes Absolute Auto 4.16 K/mm3 (0.9-3.2); Lymphocytes Percent Auto 25.5 % (18.3-44.2); Mean Corpuscular HGB Conc 33.6 g/dl (32-36); Mean Corpuscular Hemoglobin 30.5 pg (26-34); Mean Corpuscular Volume 90.9 fl (80-100); Mean Platelet Volume 9.3 fl (7.4-10.4); Monocytes Absolute Auto 0.8 K/mm3 (0.1-0.6); Monocytes Percent Auto 4.7 % (2.6-8.5); Neutrophils Percent Auto 67.5 % (45.5-73.1); Platelet Count Result 418 k/mm3 (150-375); Red Blood Count 4.85 M/mm3 (4.2-5.4); Red Cell Distribution Width 14.1 % (11.5-14.5); White Blood Count 16.3 K/mm3 (4.5-10.0)
[2021-02-01 21:28] LABS: Prothrombin Time 12.9 Seconds (11.1-14.7)
[2021-02-01 21:29] LABS: Partial Thromboplastin Time 37.1 SECONDS (22.3-36.8)
[2021-02-01 21:42] LABS: Alanine Aminotransferase 17 U/L (4-35); Albumin Level 3.9 g/dL (3.5-5.1); Alkaline Phosphatase 155 U/L (38-126); Anion Gap 10 mmol/L (8-16); Aspartate Amino Transferase 34 U/L (14-36); Bilirubin,Total 0.8 mg/dL (0.2-1.3); Blood Urea Nitrogen 9 mg/dL (7-17); Calcium 8.6 mg/dL (8.4-10.2); Carbon Dioxide 22 mmol/L (22-30); Chloride 94 mmol/L (98-107); Estimated Glomerular Filt Rate > 60; Glucose 147 mg/dL (65-110); Lipase 106 U/L (23-300); Potassium 2.2 mmol/L (3.4-5.0); Sodium 126 mmol/L (137-145)
--- NOTE | 2021-02-01 21:42 | ECG_ITS ---
Measurements Intervals [place] Rate: 105 P: 52 AL: 204 QRS: 267 QRSD: 132 T: 192 QT: 330 QTc: 437 Interpretive Statements SINUS TACHYCARDIA LEFT BUNDLE BRANCH BLOCK BASELINE ARTIFACT- I, II, III, AVR, AVL, AVF, V1-V6 ABNORMAL ECG Electronically Signed On 02-02-2021 7:07:25 CDT by Rui Altman D.O.
[2021-02-01 21:55] LABS: Magnesium 1.4 mg/dL (1.6-2.3)
[2021-02-01 22:16] LABS: Lactic Acid Reflex 2.2 mmol/L (0.7-2.1)
[2021-02-01] MEDS: MAGNESIUM SULF 2 GM/WATER 50ML 2 GM/50 ML BAG IVPB (22:34)
[2021-02-01 22:43] VITALS: BP 167/92; PULSE 104; RESP 18; O2SAT 94
[2021-02-01] MEDS: POTASSIUM CHLORIDE 20 MEQ TABLET 40 MEQ PO (23:41)
[2021-02-01 23:42] VITALS: BP 171/90; PULSE 107; RESP 20; O2SAT 93
[2021-02-01 23:49] LABS: Add Urine Microscopic? YES; Appearance Urine Clear (Clear); Bacteria Urine Trace /hpf; Bilirubin Urine Negative (Negative); Blood Urine 1+ (Negative); Color Urine Colorless (Yellow); Glucose Urine UA Negative (Negative); Ketones Urine Negative (Negative); Leukocyte Esterase Ur Trace LEU/UL (Negative); Nitrate Urine Negative (Negative); Protein Urine Negative (Negative); RBC Urine 0-2 /hpf (0-2); Specific Grav Ur 1.023 (1.001-1.035); Squamous Epithelial Cell Urine Rare /hpf (Few); Urobilinogen Urine Negative mg/dL (<2.0)
[2021-02-02] VITALS (8 sets, daily range): BP systolic 135–161; BP diastolic 72–80; PULSE 107–130; RESP 17–18; TEMP 36.8–36.9; O2SAT 95–96; BMI 24.0
--- NOTE | 2021-02-02 00:56 | ADMGEN ---
This patient, Tra Amin, was admitted to Medical Room 247-. Patient/family oriented to hospital policies and general routines including ID bracelet, bed and alarms, visiting hours, pain management, procedures, bathroom and other care routines, personal items, smoking policy, room service/diet, and visiting hours. Information on how to activate the Rapid Response Team has been discussed. Patient/Family are encouraged to report perceived risks to care and to ask questions if they do not understand what they are told or what they should do.
[2021-02-02 01:03] LABS: Reflex Lactic Acid Yes or No Add Lactic
[2021-02-02 02:42] LABS: Lactic Acid 2.1 mmol/L (0.7-2.1)
--- NOTE | 2021-02-02 03:32 | PM.IMHP ---
H&P: HPI History of Present Illness Date/Time: 02/02/21 03:32 Chief Complaint: Nausea and vomiting Narrative: This is an 85-year-old female with past medical history significant for hypertension, Shukla's palsy, hearing loss: Hyperlipidemia, inflammatory polyarthropathy, iron deficiency anemia, chronic low back pain, osteoporosis, wedge compression fracture of lumbar vertebrae. Patient was brought today to the emergency room due to intractable nausea and vomiting she was just seen and released home after she had a fall with skin tear was sent home on antibiotics and has had nausea and vomiting as well as pain medication. She has not been able to keep anything down. Upon arrival to the emergency preliminary workup was significant for several electrolyte derangements. Patient has a closed fracture of the left proximal humerus for which she has been following outpatient setting with orthopedic surgeon. She denies any rigors any chills, any pain or burning with urination, no shortness of breath, no cough, no sputum production. Review of Systems Review of Systems: Nausea and vomiting Constitutional: Constitutional: Denies chills and Denies fever(s) Eyes: Eyes: Denies change in vision ENT: Denies dysphagia, Denies nasal congestion, Denies nasal discharge, Denies nasal obstruction and Denies odynophagia Cardiovascular: Cardiovascular: Denies irregular heart rhythm, Denies radiating jaw, neck or arm pain, Denies palpitations and Denies dyspnea Respiratory: Respiratory: Denies dyspnea Gastrointestinal: Gastrointestinal: Denies abdominal pain, Denies diarrhea, Reports nausea and Reports vomiting Genitourinary: Genitourinary: Reports no additional female genitourinary complaints Musculoskeletal: Comments: Left closed fracture of proximal femur. Integumentary/Breasts: Skin/Breast: Reports wounds (Right distal forearm) Neurologic: Reports system reviewed and no additional complaints, except as documented Psychiatric: Psychiatric: Reports no additional psychiatric complaints Endocrine: Endocrine: Reports no additional endocrine complaints Hematologic/Lymphatic: Hematologic/Lymphatic: Reports no additional hematologic/lymphatic complaints Allergic/Immunologic: Allergic/Immunologic: Reports no additional allergic/immunologic complaints [facility] Past Medical History Medical History Acute arthritis Shukla's palsy Essential (primary) hypertension Hearing loss History of myocardial infarction History of shortness of breath Hyperlipidemia Hypothyroidism, unspecified 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) Low back pain Nausea Other chronic pain Other malaise Skin tear of forearm without complication Weakness Wedge compression fracture of first lumbar vertebra, subsequent encounter for fracture with routine healing Surgical History Surgical History H/O bilateral cataract extraction H/O heart artery stent 2011 H/O tubal ligation Hx of cholecystectomy Presence of left artificial hip joint Family History Family History Mother Hypertension Cerebrovascular accident, Onset Age: 40 Patient's mother is Father Family history of chronic obstructive pulmonary disease, Onset Age: 70 Patient's father is Daughter MS (multiple sclerosis) Social History Social History Social History: . the patient has 7 daughters but 1 has due to MS. The patient does not have a durable power health care attorney for healthcare. States that she wants to be a DNR. The patient worked at [employer] for brief period time before she retired. She lives home alone. And her daughter comes over to help her out at times. She is a lifelong nonsmoker does not u
[2021-02-02] MEDS: SODIUM CHLORIDE 0.9% IV 1,000 ML 80 ML IV CONT (04:30)
[2021-02-02] MEDS: LEVOTHYROXINE SODIUM 25 MCG TABLET BY MOUTH (06:09)
[2021-02-02 06:12] LABS: Basophils Absolute Auto 0.1 K/mm3 (0.0-0.1); Basophils Percent Auto 0.6 % (0.2-1.2); Eosinophils Absolute Auto 0.1 K/mm3 (0-0.3); Eosinophils Percent Auto 0.7 % (0-4.4); Hematocrit 42.1 % (37.0-47.0); Immature Granulocyte Absolute 0.11 K/mm3 (0.00-0.031); Immature Granulocyte Percent A 0.7 % (0-0.5); Lymphocytes Absolute Auto 2.67 K/mm3 (0.9-3.2); Lymphocytes Percent Auto 17.1 % (18.3-44.2); Mean Corpuscular HGB Conc 33.3 g/dl (32-36); Mean Corpuscular Hemoglobin 30.5 pg (26-34); Mean Corpuscular Volume 91.7 fl (80-100); Mean Platelet Volume 9.9 fl (7.4-10.4); Monocytes Absolute Auto 0.9 K/mm3 (0.1-0.6); Monocytes Percent Auto 5.6 % (2.6-8.5); Neutrophils Absolute Auto 11.8 K/mm3 (1.3-6.7); Neutrophils Percent Auto 75.3 % (45.5-73.1); Platelet Count Result 381 k/mm3 (150-375); Red Blood Count 4.59 M/mm3 (4.2-5.4); Red Cell Distribution Width 13.9 % (11.5-14.5); White Blood Count 15.6 K/mm3 (4.5-10.0)
[2021-02-02 06:23] LABS: Alanine Aminotransferase 16 U/L (4-35); Albumin Level 3.4 g/dL (3.5-5.1); Alkaline Phosphatase 153 U/L (38-126); Anion Gap 8 mmol/L (8-16); Aspartate Amino Transferase 34 U/L (14-36); Bilirubin,Total 0.5 mg/dL (0.2-1.3); Blood Urea Nitrogen 5 mg/dL (7-17); Calcium 8.1 mg/dL (8.4-10.2); Carbon Dioxide 22 mmol/L (22-30); Chloride 102 mmol/L (98-107); Estimated CRCL calculation 54 ml/min; Estimated Glomerular Filt Rate > 60; Glucose 135 mg/dL (65-110); Potassium 2.9 mmol/L (3.4-5.0); Sodium 132 mmol/L (137-145)
[2021-02-02] MEDS: POLYSACCHARIDE IRON COMPLEX 150 MG CAPSULE PO (09:00)
[2021-02-02] MEDS: polyethylene glycoL 3350 17 GM POWD.PACK PO (09:00)
[2021-02-02] MEDS: ASCORBIC ACID 125 MG TABLET PO (09:00)
[2021-02-02] MEDS: amLODIPine BESYLATE 5 MG TABLET PO (09:00)
[2021-02-02] MEDS: POTASSIUM CHLORIDE 10 MEQ TABLET PO (09:00)
[2021-02-02] MEDS: HEPARIN SODIUM 5,000 UNITS/ML VIAL 5000 UNITS SUB-Q (09:00)
[2021-02-02] MEDS: ASPIRIN 81 MG ENTERIC TABLET PO (09:00)
[2021-02-02] MEDS: oxyCODONE HCL (*CRX) 10 MG TAB SR 12HR PO (09:05)
[2021-02-02] MEDS: POTASSIUM CHLORIDE 20 MEQ TABLET PO (09:06)
[2021-02-02 09:13] LABS: Magnesium 2.1 mg/dL (1.6-2.3)
--- NOTE | 2021-02-02 09:50 | PCPTNOTE ---
Attempted eval-pt very nauseated and with dry heaves. Attempt eval later today.
--- NOTE | 2021-02-02 12:28 | PC.NURSE ---
At approximately 1220, pt's daughter, Awa Garcia, called stating that pt has been taking doxycycline since 01/26/21 and did she need to bring the medication to pt so that she may continue with the ABX
[2021-02-02] MEDS: METOPROLOL TARTRATE 25 MG TABLET PO (15:05)
--- NOTE | 2021-02-02 15:20 | PM.TDS ---
Transfer Discharge Sum: Prov Provider Date of admission: 02/01/21 22:49 Primary care physician: Jose Martin Phillips, Admitting clinician: Nadia Ramos MD Attending physician on admission: Nadia Ramos Attending physician on discharge: Keny Floyd Discharging clinician: Yi Corbett Anticipated date of transfer: 02/02/21 Receiving physician/facility: [facility], Dr. Soto DS: Admitting Diagnosis Admitting Diagnosis Nausea and vomiting, hypokalemia DS: Discharge Diagnosis Discharge Diagnosis (1) Nausea and vomiting: Code(s): R11.2 - Nausea with vomiting, unspecified Status: Acute Assessment and Plan: Resolved. May have been due to doxycycline. No evidence of infection or other abnormality on CT abdomen/pelvis. Tolerated clear liquid diet Antiemetics as needed Doxycycline was being held (2) Acute hypokalemia: Code(s): E87.6 - Hypokalemia Status: Acute Assessment and Plan: Secondary to nausea and vomiting. Potassium 2.2 at presentation. Increased to 2.9 today. She received 40 mEq IV KCl and 30 mEq p.o. KCl. Continue to monitor potassium levels closely. Recommend repeat this evening and supplement further as needed. (3) Acute hyponatremia: Code(s): E87.1 - Hypo-osmolality and hyponatremia Status: Acute Assessment and Plan: Likely due to dehydration. Sodium 126 at presentation and improved to 132 with IV fluid rehydration. Continue to monitor. (4) Hypomagnesemia: Code(s): E83.42 - Hypomagnesemia Status: Acute Assessment and Plan: Likely due to GI losses. Magnesium 1.4 presentation and improved to 2.1 was supplementation. Continue to monitor magnesium levels. (5) Skin tear of forearm without complication: Qualifiers: Encounter type: initial encounter Laterality: right Qualified Code(s): S51.811A - Laceration without foreign body of right forearm, initial encounter Code(s): S51.819A - Laceration without foreign body of unspecified forearm, initial encounter Status: Acute Assessment and Plan: Secondary to fall on 01/18/2021. The wound was evaluated at urgent care 1 week ago and she was started on Bactrim for concerns of wound infection. This caused her to have nausea and vomiting, therefore she was switched to doxycycline. Seems that she also had nausea and vomiting with this. No evidence of infection on my exam, no purulence or drainage. Doxycycline on hold. (6) Closed fracture of left proximal humerus: Qualifiers: Encounter type: initial encounter Fracture alignment: displaced Fracture morphology: other fracture Qualified Code(s): S42.292A - Other displaced fracture of upper end of left humerus, initial encounter for closed fracture Code(s): S42.202A - Unspecified fracture of upper end of left humerus, initial encounter for closed fracture Status: Acute Assessment and Plan: Secondary to fall as above. Evaluated by Orthopedic Dr. Louise. Declined surgical treatment. Continue with immobilizer. Supportive care. (7) CAD (coronary artery disease): Code(s): I25.10 - Atherosclerotic heart disease of [place] coronary artery without angina pectoris Status: Acute Assessment and Plan: No acute issues. Continue aspirin and metoprolol. (8) Leukocytosis: Code(s): D72.829 - Elevated white blood cell count, unspecified Status: Acute Assessment and Plan: White blood cell count elevated on arrival at 16.3. Etiology for this not entirely clear. No signs or symptoms to suggest infection clinically or based on CT. The wound did not appear infected. No urinary or respiratory symptoms. No fevers. I do not believe she had been on steroids. May have been reactive. Trended down and was 15.6 today. Continue to monitor CBC at outside facility. Transfer Discharge Sum: Med Medications
[2021-02-02 15:32] LABS: EDCOVIDSCREEN Negative (Negative)
== END 2021-02-02 18:44 | disposition other institution (70) ==
LOC: ANHED 21:38 → ANH2MED 23:04
PROVIDERS: Physician Assistant; Admitting Provider Internal Medicine; Emergency Provider Emergency Medicine; PCP Family Medicine; Visit Provider Internal Medicine
DX: R11.2 Nausea with vomiting, unspecified (principal); E87.6 Hypokalemia; E87.1 Hypo-osmolality and hyponatremia; S51.819D Laceration without foreign body of unspecified forearm, subsequent encounter; S42.202D Unspecified fracture of upper end of left humerus, subsequent encounter for fracture with routine healing; W19.XXXD Unspecified fall, subsequent encounter; D72.829 Elevated white blood cell count, unspecified; J96.11 Chronic respiratory failure with hypoxia; I25.10 Atherosclerotic heart disease of native coronary artery without angina pectoris; M25.50 Pain in unspecified joint; K21.9 Gastro-esophageal reflux disease without esophagitis; S32.010D Wedge compression fracture of first lumbar vertebra, subsequent encounter for fracture with routine healing; R00.0 Tachycardia, unspecified; I10 Essential (primary) hypertension; I25.2 Old myocardial infarction; M81.0 Age-related osteoporosis without current pathological fracture; E78.5 Hyperlipidemia, unspecified; E03.9 Hypothyroidism, unspecified; M15.8 Other polyosteoarthritis; D50.0 Iron deficiency anemia secondary to blood loss (chronic); Z95.5 Presence of coronary angioplasty implant and graft; Z79.82 Long term (current) use of aspirin; Z79.52 Long term (current) use of systemic steroids; Z20.822 Contact with and (suspected) exposure to COVID-19
CPT/HCPCS: 36415; 74177; 80053; 81001; 83605; 83690; 83735; 85025; 85610; 85730; 87040; 87426; 93005; 96361; 96365; 96372; 96375; 96376; 97162; 97165; 99285; A9270; C9803; G0378; J1644; J2765; J3475; J3480; J7030; Q9967

== ENCOUNTER 2021-05-01 09:57 | Inpatient (IN) | payer MEDICARE, OTHER, SELFPAY ==
[2021-05-01] VITALS (33 sets, daily range): BP systolic 140–162; BP diastolic 72–90; PULSE 83–126; RESP 14–39; TEMP 36.4–37.6; O2SAT 90–100; BMI 19.5
--- NOTE | ~2021-05-01 | CT_ITS ---
EXAMINATION: CT chest abdomen pelvis w con EXAM DATE: 05/01/2021 12:50 INDICATION: Chest pain, abd pain, vomiting. TECHNIQUE: Spiral CT of the chest, abdomen and pelvis was performed following intravenous injection o f 100 mL Omnipaque 350. Axial, coronal and sagittal images chest, abdomen and pelvis were reviewed. Coronal maximum intensity pixel images of chest reviewed. The dose-length product (DLP) for this ex amination was 332.51 mGy-cm. The exposure was tailored according to patient size (auto mA exposure c ontrol), and iterative reconstruction (ASIR) was used as additional dose reduction technique. Compari son is made to prior examination from 02/01/2021. FINDINGS: CHEST: There is subsegmental geographic shaped region of consolidation in the right middle lobe appe arance most consistent with pneumonia. This was not present on prior scan. Interlobular septal thicke earl, could be chronic interstitial lung disease an/or edema. There is cardiomegaly. Left anterior de scending coronary artery stent. No central pulmonary emboli. No pleural or pericardial effusions. No thoracic lymphadenopathy. ABDOMEN PELVIS: Again there is heterogeneous liver attenuation, probably regions of focal hepatic scar atosis. 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 Pancreas and adrenal glands are unremarkable. There are cholecystectomy clips. Portal and splenic veins are patent. Kidneys enhance symmetrical ly. Severe stenosis of the right renal artery origin. There is no hydronephrosis. The uterus is unr emarkable. The bladder is unremarkable. There is no retroperitoneal or pelvic lymphadenopathy. T here is mild to moderate scattered arteriosclerotic disease. The appendix is normal. There is small sliding gastroesophageal hiatal hernia. There is colonic flu id, correlate for diarrhea or gastroenteritis. No free intraperitoneal gas. There are no osteobla stic or osteolytic lesions identified. Stable burst fracture of L1. There is left hip arthroplasty. S ubacute appearing left humeral neck fracture. IMPRESSION: 1. Right middle lobe pneumonia. 2. Severely stenotic right renal artery origin. 3. Colonic fluid, possible diarrhea or gastroenteritis. 4. Cardiomegaly. Mild to moderate chronic interstitial lung disease an/or pulmonary edema. 5. Other chronic findings. Reviewed, dictated and finalized at location A. DENT EXAMINER IMPRESSION: 1. Right middle lobe pneumonia. 2. Severely stenotic right renal artery origin. 3. Colonic fluid, possible diarrhea or gastroenteritis. 4. Cardiomegaly. Mild to moderate chronic interstitial lung disease an/or pulm onary edema. 5. Other chronic findings.
--- NOTE | ~2021-05-01 | XR_ITS ---
MODIFIED ESOPHAGRAM HISTORY: Aspiration TECHNIQUE: Modified barium esophagram was performed on 05/03/2021. I administered fluoroscopy and perf ormed the exam with speech pathologist. Patient was seated for lateral fluoroscopic imaging for madalyn stion of thin liquids, pudding, solids and quantified amounts, followed by thin liquids in uncontroll ed amounts. This was recorded on tape. A single fluoroscopic spot image was also recorded. The DAP fo r this procedure was 2.041 Gycm2. The amount of fluoroscopy time used during this procedure was 3.6 m inutes. FINDINGS: Oral stage: Adequate function with reduced labial seal and premature spillage to the piriform sinus w ith thin liquids. Pharyngeal stage: Pharyngeal penetration without aspiration with thin and mildly thickened liquids.. Cervical/esophageal stage: Esophageal/pharyngeal backflow was present.. IMPRESSION: Laryngeal penetration without aspiration with thin and mildly thickened liquids. Please correlate with speech pathologist findings and specific feeding recommendations. Reviewed, dictated and finalized at location A. RINARY SURGERY TECHNICIAN IMPRESSION: Laryngeal penetration without aspiration with thin and mildly thick ened liquids. Please correlate with speech pathologist findings and specific f eeding recommendations.
--- NOTE | ~2021-05-01 | XR_ITS ---
XR chest 2V 05/01/2021 11:29 Indication: Severe right-sided chest pain with nausea Procedure: AP and lateral views of the chest Comparison: 03/09/2020 Findings: Diffuse bilateral airspace disease. Cardiomegaly. Elevated right diaphragm. There is biapic al pleural thickening/scarring. There is elevated right diaphragm which appears chronic. There is ath erosclerosis and ectasia of the aorta. There is an age-indeterminate left humeral neck fracture. Showroom Executive Director vicki upper lumbar burst fracture. Impression: 1: Diffuse bilateral airspace disease which may represent edema or pneumonia. 2: Cardiomegaly. 3: Age-indeterminate left humeral neck fracture. Reviewed, dictated and finalized at location B. MANAGER Impression: 1: Diffuse bilateral airspace disease which may represent edema or pneumonia. 2: Cardiomegaly. 3: Age-indeterminate left humeral neck fracture.
--- NOTE | 2021-05-01 10:05 | ECG_ITS ---
Measurements Intervals [place] Rate: 110 P: 62 NE: 157 QRS: 16 QRSD: 114 T: 191 QT: 344 QTc: 465 Interpretive Statements SINUS TACHYCARDIA FREQUENT VENTRICULAR PREMATURE COMPLEXES INCOMPLETE LEFT BUNDLE BRANCH BLOCK BORDERLINE ST-T WAVE ABNORMALITY IN INF/HIGH LAT LEADS- CONSIDER ISCHEMIA BASELINE ARTIFACT- I, II, III, AVR, AVL, AVF, V3, V6 ABNORMAL ECG Electronically Signed On 05-01-2021 10:22:24 [employer]IGH SCHO[employer] TEACH[employer] by Rui Altman D.O.
--- NOTE | 2021-05-01 11:04 | ED.GENADULT ---
HPI - General Adult General Chief complaint: Unspecified Stated complaint: my whole body hurts Time Seen by Provider: 05/01/21 11:03 Source: patient and family Mode of arrival: ambulatory Limitations: no limitations History of Present Illness HPI narrative: Patient is an 86-year-old female with a history of hypertension, hypothyroidism, chronic steroid use, presenting for evaluation of right-sided chest pain, nausea, vomiting. Patient denies any abdominal pain. No diarrhea. States she has been feeling unwell since early this morning when she awakened with nausea and has had numerous episodes of nonbloody, nonbilious emesis. Patient denies fever or chills. Reports pain in the right chest is dull, aching in nature at times it is sharp and worse with movement. Patient states initially she thought the pain may be due to a muscle strain because she was sitting up, rolling over in bed when she felt the acute pain. Patient denies fever, cough or shortness of breath. Patient does have radiation of pain to the back. No flank pain. No ripping or tearing sensation. No focal numbness or weakness. Patient states she does feel diffusely weak, and dehydrated. She denies constipation. Reports some loose stools this week. She denies rhinorrhea, congestion, shortness of breath. Related Data Home Medications Medication Instructions Recorded Confirmed amlodipine benzoate 1 mg/mL oral 5 mg PO HS 01/21/21 04/01/21 suspension ascorbic acid (vitamin C) 100 mg 100 mg PO BID 01/21/21 04/01/21 tablet aspirin 81 mg tablet,delayed 81 mg PO DAILY 01/21/21 04/01/21 release metoprolol tartrate 25 mg tablet 25 mg PO BID 01/21/21 04/01/21 polysaccharide iron complex 150 mg 150 mg PO DAILY 01/21/21 04/01/21 iron capsule potassium chloride 8 mEq 10 meq PO BID 01/21/21 04/01/21 capsule,extended release travoprost (benzalkonium) 0.004 % 1 drp OPHTHALMIC (EYE) HS 01/21/21 04/01/21 eye drops doxycycline hyclate 100 mg BID 02/02/21 04/01/21 ergocalciferol (vitamin D2) 1,250 mcg WEEKLY 02/02/21 04/01/21 levothyroxine 25 mcg DAILY 02/02/21 04/01/21 ondansetron 4 mg PO Q4-6H 02/02/21 04/01/21 Allergies Allergy/AdvReac Type Severity Reaction Status Date / Time Sulfa (Sulfonamide Allergy Mild Nausea and Verified 04/01/21 09:54 Antibiotics) Vomiting Penicillins Allergy Unknown Rash Verified 04/01/21 09:54 Jdnrbih-NOY-LrV Reductase Allergy Unknown Muscle Verified 04/01/21 09:54 Inhibitor Spasms [Vzdpztm-Src-Xtv Reductase Inhibitor] tetracycline Allergy Unknown Rash Verified 04/01/21 09:54 Review of Systems Review of Systems: CONSTITUTIONAL: Denies fever, chills, or sweats. EYES: Denies visual changes, redness, or discharge. ENT: Denies rhinorrhea, congestion, sore throat, or otalgia. CARDIOVASCULAR: Reports right-sided chest pain without palpitations or edema RESPIRATORY: Denies cough or shortness of breath GASTROINTESTINAL: Denies abdominal pain, reports nausea, vomiting, intermittent loose stools, denies constipation GENITOURINARY: Denies dysuria or hematuria. SKIN: Denies rash or itching. MUSCULOSKELETAL: Reports radiation of the pain to the middle back, denies focal joint pain or myalgias NEUROLOGIC: Denies headache, reports feeling diffusely weak PMFSH Past Medical History Medical History Acute arthritis Shukla's palsy Essential (primary) hypertension Hearing loss History of myocardial infarction History of shortness of breath Hyperlipidemia Hypothyroidism, unspecified 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) Low back pain Nausea Other chronic pain Other malaise Skin tear of forearm without complication Weakness Wedge compression fracture of first lumbar vertebra, subsequent encounter for fracture with routine healing Surgical History Surgical History H/O bilater
[2021-05-01 11:31] LABS: Basophils Absolute Auto 0.1 K/mm3 (0.0-0.1); Basophils Percent Auto 0.5 % (0.2-1.2); Eosinophils Percent Auto 0.1 % (0-4.4); Hematocrit 41.3 % (37.0-47.0); Immature Granulocyte Absolute 0.21 K/mm3 (0.00-0.031); Lymphocytes Absolute Auto 3.67 K/mm3 (0.9-3.2); Lymphocytes Percent Auto 17.2 % (18.3-44.2); Mean Corpuscular HGB Conc 33.9 g/dl (32-36); Mean Corpuscular Hemoglobin 30.8 pg (26-34); Mean Platelet Volume 9.8 fl (7.4-10.4); Monocytes Absolute Auto 1.4 K/mm3 (0.1-0.6); Monocytes Percent Auto 6.4 % (2.6-8.5); Neutrophils Percent Auto 74.8 % (45.5-73.1); Platelet Count Result 355 k/mm3 (150-375); Red Blood Count 4.54 M/mm3 (4.2-5.4); White Blood Count 21.4 K/mm3 (4.5-10.0)
[2021-05-01 11:44] LABS: Alanine Aminotransferase 14 U/L (4-35); Albumin Level 3.7 g/dL (3.5-5.1); Alkaline Phosphatase 96 U/L (38-126); Anion Gap 9 mmol/L (8-16); Aspartate Amino Transferase 26 U/L (14-36); Bilirubin,Total 0.6 mg/dL (0.2-1.3); Blood Urea Nitrogen 4 mg/dL (7-17); Calcium 8.4 mg/dL (8.4-10.2); Carbon Dioxide 24 mmol/L (22-30); Chloride 97 mmol/L (98-107); Estimated CRCL calculation 41 ml/min; Estimated Glomerular Filt Rate > 60; Glucose 107 mg/dL (65-110); Potassium 2.5 mmol/L (3.4-5.0); Sodium 130 mmol/L (137-145)
[2021-05-01 11:45] LABS: D Dimer 0.61 ug/mL (<0.48)
[2021-05-01 11:51] LABS: Lipase 165 U/L (23-300)
[2021-05-01 11:57] LABS: Troponin I < 0.012 ng/mL (0.000-0.034)
[2021-05-01] MEDS: MORPHINE SULFATE (*CRX) 2 MG/ML INJ IV PUSH (12:14)
[2021-05-01] MEDS: SODIUM CHLORIDE 0.9% IV 1,000 ML 999 ML IV CONT (12:14)
[2021-05-01] MEDS: METOCLOPRAMIDE HCL INJ 10 MG/2 ML VIAL IV PUSH (12:15)
[2021-05-01] MEDS: SODIUM CHLORIDE 0.9% IV 1,000 ML 100 ML IV CONT (13:17)
[2021-05-01] MEDS: KCL 40 MEQ/WATER 100 ML 100 ML 20 ML IVPB (13:18)
[2021-05-01 13:36] LABS: Lactic Acid Reflex 2.4 mmol/L (0.7-2.1)
[2021-05-01] MEDS: ERTAPENEM SODIUM 0.5 GM in SODIUM CHLORIDE 0.9% IV 50 ML IVPB (14:43)
[2021-05-01 15:47] LABS: Troponin I 0.014 ng/mL (0.000-0.034)
[2021-05-01 16:17] LABS: Reflex Lactic Acid Yes or No Add Lactic
[2021-05-01 17:17] LABS: Add Urine Microscopic? NO; Appearance Urine Clear (Clear); Bilirubin Urine Negative (Negative); Blood Urine Negative (Negative); Color Urine Straw (Yellow); Glucose Urine UA Negative (Negative); Ketones Urine Negative (Negative); Leukocyte Esterase Ur Negative LEU/UL (Negative); Nitrate Urine Negative (Negative); Protein Urine Negative (Negative); Specific Grav Ur 1.027 (1.001-1.035); Urobilinogen Urine Negative mg/dL (<2.0)
--- NOTE | 2021-05-01 18:04 | PM.IMHP ---
H&P: HPI History of Present Illness Date/Time: 05/01/21 18:04 this is an 86-year-old female patient who lives home alone. She is here today with her daughter at the bedside. The daughter is answering most of the questions as the patient is very hard of hearing. She has a history of coronary artery disease, hypertension, hypothyroidism, and chronic steroid use. Patient presented to the emergency room with right sided chest pain. The patient had been having nausea with dry heaves according to the daughter. Patient had a non bloody emesis previous to this. The patient had been feeling unwell since early this morning. She denied any fever chills or cough for shortness of breath. White count 21.4. D-dimer 0.61. Sodium 130. Potassium 2.5. Troponin 0.012 and 0.014 respectively. Chest x-ray was read as 1. Right middle lobe pneumonia. 2. Severely stenotic right renal artery origin. 3. Colonic fluid, possible diarrhea or gastroenteritis. 4. Cardiomegaly. Mild to moderate chronic interstitial lung disease an/or pulmonary edema. 5. Other chronic findings. The patient was given Tylenol, IV fluids, Reglan, morphine, potassium and ertapenem. The patient is being admitted to inpatient service on the date of service of 05/01/2021. Chief Complaint: Chest pain Review of Systems Review of Systems: All systems reviewed & are unremarkable except as noted in HPI and below Constitutional: Constitutional: Reports as per HPI and Reports no additional constitutional complaints Eyes: Eyes: Reports as per HPI and Reports no additional eye complaints ENT: Reports system reviewed and no additional complaints, except as documented and Reports Normal hearing present Cardiovascular: Cardiovascular: Reports no additional cardiovascular complaints Respiratory: Respiratory: Reports no additional respiratory complaints and Reports no additional respiratory complaints Gastrointestinal: Gastrointestinal: Reports as per HPI and Reports no additional gastrointestinal complaints Musculoskeletal: Musculoskeletal: Reports no additional musculoskeletal complaints Integumentary/Breasts: Skin/Breast: Reports system reviewed and no additional complaints, except as docu and Reports as per HPI Neurologic: Reports system reviewed and no additional complaints, except as documented, Reports as per HPI and Reports Normal hearing present Psychiatric: Psychiatric: Reports no additional psychiatric complaints and Reports as per HPI Endocrine: Endocrine: Reports no additional endocrine complaints Hematologic/Lymphatic: Hematologic/Lymphatic: Reports no additional hematologic/lymphatic complaints Allergic/Immunologic: Allergic/Immunologic: Reports no additional allergic/immunologic complaints PMFSH Past Medical History Medical History Acute arthritis Shukla's palsy Essential (primary) hypertension Hearing loss History of myocardial infarction History of shortness of breath Hyperlipidemia Hypothyroidism, unspecified 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) Low back pain Nausea Other chronic pain Other malaise Skin tear of forearm without complication Weakness Wedge compression fracture of first lumbar vertebra, subsequent encounter for fracture with routine healing Surgical History Surgical History H/O bilateral cataract extraction H/O heart artery stent 2011 H/O tubal ligation Hx of cholecystectomy Presence of left artificial hip joint Family History Family History Mother Hypertension Cerebrovascular accident, Onset Age: 40 Patient's mother is Father Family history of chronic obstructive pulmonary disease, Onset Age: 70 Patient's father is Daughter MS (multiple sclerosis) Social History Social History
[2021-05-01 22:47] LABS: Lactic Acid 1.9 mmol/L (0.7-2.1)
[2021-05-01 22:59] LABS: Troponin I 0.026 ng/mL (0.000-0.034)
[2021-05-02] VITALS (14 sets, daily range): BP systolic 127–157; BP diastolic 61–86; PULSE 70–111; RESP 16–20; TEMP 35.9–36.6; O2SAT 90–97; BMI 19.5
--- NOTE | 2021-05-02 01:30 | ADMGEN ---
This patient, Tra Amin, was admitted to IMU Room 206-02 on 05/01/21 at 2208. Patient/family oriented to hospital policies and general routines including ID bracelet, bed and alarms, visiting hours, pain management, procedures, bathroom and other care routines, personal items, smoking policy, room service/diet, and visiting hours. Information on how to activate the Rapid Response Team has been discussed. Patient/Family are encouraged to report perceived risks to care and to ask questions if they do not understand what they are told or what they should do.
[2021-05-02] MEDS: ACETAMINOPHEN 325 MG TABLET 650 MG PO ×2 (04:18→12:23)
[2021-05-02] MEDS: ONDANSETRON INJ 4 MG/2 ML VIAL IV PUSH (04:19)
[2021-05-02 05:27] LABS: Basophils Absolute Auto 0.1 K/mm3 (0.0-0.1); Basophils Percent Auto 0.6 % (0.2-1.2); Eosinophils Absolute Auto 0.1 K/mm3 (0-0.3); Eosinophils Percent Auto 0.3 % (0-4.4); Hematocrit 40.3 % (37.0-47.0); Hemoglobin 13.3 g/dL (12.0-15.0); Immature Granulocyte Absolute 0.12 K/mm3 (0.00-0.031); Immature Granulocyte Percent A 0.6 % (0-0.5); Lymphocytes Absolute Auto 3.32 K/mm3 (0.9-3.2); Lymphocytes Percent Auto 15.8 % (18.3-44.2); Mean Corpuscular Hemoglobin 30.2 pg (26-34); Mean Corpuscular Volume 91.6 fl (80-100); Mean Platelet Volume 9.6 fl (7.4-10.4); Monocytes Absolute Auto 1.1 K/mm3 (0.1-0.6); Monocytes Percent Auto 5.3 % (2.6-8.5); Neutrophils Absolute Auto 16.3 K/mm3 (1.3-6.7); Neutrophils Percent Auto 77.4 % (45.5-73.1); Platelet Count Result 339 k/mm3 (150-375); Red Cell Distribution Width 14.4 % (11.5-14.5)
[2021-05-02 05:51] LABS: Alanine Aminotransferase 12 U/L (4-35); Albumin Level 3.1 g/dL (3.5-5.1); Alkaline Phosphatase 93 U/L (38-126); Anion Gap 8 mmol/L (8-16); Aspartate Amino Transferase 26 U/L (14-36); Bilirubin,Total 0.7 mg/dL (0.2-1.3); Blood Urea Nitrogen 5 mg/dL (7-17); Carbon Dioxide 24 mmol/L (22-30); Chloride 101 mmol/L (98-107); Estimated CRCL calculation 42 ml/min; Estimated Glomerular Filt Rate > 60; Glucose 104 mg/dL (65-110); Lactate Dehydrogenase 441 U/L (313-618); Magnesium 1.6 mg/dL (1.6-2.3); Potassium 2.9 mmol/L (3.4-5.0); Sodium 133 mmol/L (137-145)
[2021-05-02 06:58] LABS: Thyroid Stimulating Hormone Reflex 0.578 uIU/mL (0.465-4.68)
[2021-05-02] MEDS: MAGNESIUM SULF 4 GM/WATER100ML 4 GM/100 ML BAG IVPB (08:26)
[2021-05-02] MEDS: POTASSIUM CHLORIDE 20 MEQ TABLET 40 MEQ PO (08:26)
[2021-05-02] MEDS: LEVOTHYROXINE SODIUM 25 MCG TABLET PO (08:27)
[2021-05-02] MEDS: ERGOCALCIFEROL 50,000 UNIT CAPSULE 50000 UNITS PO (08:27)
[2021-05-02] MEDS: PANTOPRAZOLE 40 MG TABLET PO (08:27)
[2021-05-02] MEDS: ENOXAPARIN 40 MG/0.4 ML SYRINGE SUB-Q (08:27)
[2021-05-02] MEDS: predniSONE 5 MG TABLET PO (08:27)
[2021-05-02] MEDS: ASPIRIN 81 MG ENTERIC TABLET PO (08:27)
[2021-05-02] MEDS: METOPROLOL TARTRATE 25 MG TABLET PO ×2 (08:28→20:23)
--- NOTE | 2021-05-02 11:30 | PM.IMPN ---
Progress Note: A&P Assessment and Plan (1) Aspiration pneumonia: Code(s): J69.0 - Pneumonitis due to inhalation of food and vomit Status: Acute Assessment and Plan: Continue with ertapenem. Sputum cultures are pending per chest x-ray patient has infiltration in the right middle lobe. His thought that the patient aspirated her vomitus. Blood cultures pending. ST consulted No SOB noted with exertion Modified swallow study tomorrow stable will move out of the IMU (2) Acute hypokalemia: Code(s): E87.6 - Hypokalemia Status: Acute Assessment and Plan: 2.9 today replaced with 40 PO Replace as necessary. (3) Nausea and vomiting: Code(s): R11.2 - Nausea with vomiting, unspecified Status: Acute Assessment and Plan: Stool cultures are pending. Continue with Zofran. (4) Hypothyroidism, unspecified: Code(s): E03.9 - Hypothyroidism, unspecified Status: Chronic Assessment and Plan: Check thyroid level and continue levothyroxine (5) Essential (primary) hypertension: Code(s): I10 - Essential (primary) hypertension Status: Chronic Assessment and Plan: Continue with home medication. Subjective Date/time seen: 05/02/21 1130 Interval history: Date/Time: 05/01/21 18:04 this is an 86-year-old female patient who lives home alone. She is here today with her daughter at the bedside. The daughter is answering most of the questions as the patient is very hard of hearing. She has a history of coronary artery disease, hypertension, hypothyroidism, and chronic steroid use. Patient presented to the emergency room with right sided chest pain. The patient had been having nausea with dry heaves according to the daughter. Patient had a non bloody emesis previous to this. The patient had been feeling unwell since early this morning. She denied any fever chills or cough for shortness of breath. White count 21.4. D-dimer 0.61. Sodium 130. Potassium 2.5. Troponin 0.012 and 0.014 respectively. Chest x-ray was read as 1. Right middle lobe pneumonia. 2. Severely stenotic right renal artery origin. 3. Colonic fluid, possible diarrhea or gastroenteritis. 4. Cardiomegaly. Mild to moderate chronic interstitial lung disease an/or pulmonary edema. 5. Other chronic findings. The patient was given Tylenol, IV fluids, Reglan, morphine, potassium and ertapenem Date/Time 05/02/21 1130 Patient was laying in bed and stated that she was doing ok. She has chest pain that is pleuritic in nature from dry heaving. She is also hungry. Her and her daughter deny that the patient ever had episodes of vomiting. She did state that she is always cold. Her appetite is normal, but she is not eating due to the nausea and vomiting. She denies cardiac pain, shortness of breath, dizziness, or weakness. Review of Systems Review of Systems: All systems reviewed & are unremarkable except as noted in HPI and below Exam Const: General: cooperative, healthy appearing, comfortable, no acute distress and well developed Nutritional Appearance: thin Orientation/consciousness: oriented to person and oriented to place Limitations: no limitations HENMT: Head: normal to inspection, No palpable skull fracture present, normocephalic and atraumatic Ears: external ears normal and hearing grossly impaired General nose exam: Normal external nose present Eyes: General: appearance normal, both eyes and all related structures Eyelids: eyelids normal EOM: EOMs intact bilaterally Neck: Neck: normal visual inspection Chest: Chest palpation & inspection: normal inspection of the chest Resp: Effort & Inspection: normal respiratory effort Auscultation: diminished lung sounds Cardio: Palpation: normal PMI Rate: regular rate Rhythm: regular rhythm Heart sounds: S1 normal heart sound present and S2 normal heart sound present Peripheral pulses: Peripheral pulses 2+ throughout GI:
[2021-05-02] MEDS: POTASSIUM CHLORIDE 10 MEQ TABLET.ER PO ×2 (12:19→18:17)
[2021-05-02] MEDS: ERTAPENEM 1 GM/NS 50 ML 1 GM/50 ML BAG IVPB (12:19)
--- NOTE | 2021-05-02 13:47 | PC.NURSE ---
On 05/02/21, the student, [Ana Goldstein], provided care and completed [facility] documentation on this patient. I have reviewed the student's documentation and agree with the findings.
--- NOTE | 2021-05-02 14:21 | PCNSR ---
On 05/02/21, the student, Fay Amaro, provided care and completed [facility] documentation on this patient. I have reviewed the student's documentation and agree with the findings.
--- NOTE | 2021-05-02 15:59 | PCSTNOTE ---
Please refer to the Bedside Swallow Evaluation in the EMR. Please note, silent aspiration cannot be ruled out at bedside.
[2021-05-02] MEDS: SILVERGEL (ELTA) 45 ML 1 APPLIC TOPICAL (16:06)
--- NOTE | 2021-05-02 19:10 | PC.NURSE ---
This patient, Tra Amin, was transferred to [facility] on 05/02/21 at 1910. Personal belongings sent with patient. Report given to YIFAN Puckett. Appropriate documentation sent with patient.
--- NOTE | 2021-05-02 19:57 | PC.NURSE ---
RECEIVED PT FROM [facility] NO C/O
[2021-05-02] MEDS: LATANOPROST 0.005% OP SOLN 2.5 ML BTL 1 DROP EACH EYE (20:23)
[2021-05-02] MEDS: amLODIPine BESYLATE 5 MG TABLET PO (20:24)
[2021-05-03 05:01] VITALS: BP 145/61; PULSE 82; RESP 18; TEMP 36; O2SAT 92
[2021-05-03] MEDS: LEVOTHYROXINE SODIUM 25 MCG TABLET PO (06:24)
[2021-05-03 07:26] LABS: Basophils Absolute Auto 0.1 K/mm3 (0.0-0.1); Basophils Percent Auto 0.4 % (0.2-1.2); Eosinophils Absolute Auto 0.1 K/mm3 (0-0.3); Hematocrit 40.4 % (37.0-47.0); Immature Granulocyte Absolute 0.06 K/mm3 (0.00-0.031); Immature Granulocyte Percent A 0.5 % (0-0.5); Lymphocytes Absolute Auto 1.95 K/mm3 (0.9-3.2); Lymphocytes Percent Auto 15.7 % (18.3-44.2); Mean Corpuscular HGB Conc 32.2 g/dl (32-36); Mean Corpuscular Hemoglobin 29.9 pg (26-34); Mean Corpuscular Volume 92.9 fl (80-100); Mean Platelet Volume 10.4 fl (7.4-10.4); Monocytes Absolute Auto 0.6 K/mm3 (0.1-0.6); Monocytes Percent Auto 4.5 % (2.6-8.5); Neutrophils Absolute Auto 9.7 K/mm3 (1.3-6.7); Neutrophils Percent Auto 77.9 % (45.5-73.1); Platelet Count Result 326 k/mm3 (150-375); Red Blood Count 4.35 M/mm3 (4.2-5.4); Red Cell Distribution Width 14.2 % (11.5-14.5); White Blood Count 12.4 K/mm3 (4.5-10.0)
[2021-05-03 07:32] LABS: Alanine Aminotransferase 10 U/L (4-35); Albumin Level 2.9 g/dL (3.5-5.1); Alkaline Phosphatase 110 U/L (38-126); Anion Gap 7 mmol/L (8-16); Aspartate Amino Transferase 23 U/L (14-36); Bilirubin,Total 0.5 mg/dL (0.2-1.3); Blood Urea Nitrogen 9 mg/dL (7-17); Calcium 8.1 mg/dL (8.4-10.2); Carbon Dioxide 22 mmol/L (22-30); Chloride 102 mmol/L (98-107); Estimated CRCL calculation 38 ml/min; Estimated Glomerular Filt Rate > 60; Glucose 73 mg/dL (65-110); Magnesium 2.8 mg/dL (1.6-2.3); Potassium 3.9 mmol/L (3.4-5.0); Sodium 131 mmol/L (137-145)
[2021-05-03 09:11] VITALS: PULSE 82
[2021-05-03] MEDS: predniSONE 5 MG TABLET PO (09:11)
[2021-05-03] MEDS: PANTOPRAZOLE 40 MG TABLET PO (09:11)
[2021-05-03] MEDS: METOPROLOL TARTRATE 25 MG TABLET PO ×2 (09:11→21:02)
[2021-05-03] MEDS: ENOXAPARIN 40 MG/0.4 ML SYRINGE SUB-Q (09:12)
[2021-05-03] MEDS: POTASSIUM CHLORIDE 10 MEQ TABLET.ER PO ×2 (09:12→16:52)
[2021-05-03] MEDS: ASPIRIN 81 MG ENTERIC TABLET PO (09:12)
[2021-05-03] MEDS: SILVERGEL (ELTA) 45 ML 1 APPLIC TOPICAL (09:12)
[2021-05-03] MEDS: ERTAPENEM 1 GM/NS 50 ML 1 GM/50 ML BAG IVPB (11:01)
--- NOTE | 2021-05-03 11:21 | PCSTNOTE ---
Please refer to the Modified Barium Swallow Evaluation in the EMR.
--- NOTE | 2021-05-03 11:45 | PM.IMPN ---
Progress Note: A&P Assessment and Plan (1) Aspiration pneumonia: Code(s): J69.0 - Pneumonitis due to inhalation of food and vomit Status: Acute Assessment and Plan: Continue with ertapenem. Sputum cultures are pending per chest x-ray patient has infiltration in the right middle lobe. His thought that the patient aspirated her vomitus. Blood cultures pending. ST consulted No SOB noted with exertion Modified swallow study tomorrow stable will move out of the IMU (2) Acute hypokalemia: Code(s): E87.6 - Hypokalemia Status: Acute Assessment and Plan: 3.9 today Replace as necessary (3) Nausea and vomiting: Code(s): R11.2 - Nausea with vomiting, unspecified Status: Acute Assessment and Plan: Stool cultures are pending. Continue with Zofran. (4) Hypothyroidism, unspecified: Code(s): E03.9 - Hypothyroidism, unspecified Status: Chronic Assessment and Plan: Check thyroid level and continue levothyroxine (5) Essential (primary) hypertension: Code(s): I10 - Essential (primary) hypertension Status: Chronic Assessment and Plan: bp 146/73 Continue with home medication. Adjust therapy as needed Subjective Date/time seen: 05/03/21 11:45 Interval history: Date/Time: 05/01/21 18:04 this is an 86-year-old female patient who lives home alone. She is here today with her daughter at the bedside. The daughter is answering most of the questions as the patient is very hard of hearing. She has a history of coronary artery disease, hypertension, hypothyroidism, and chronic steroid use. Patient presented to the emergency room with right sided chest pain. The patient had been having nausea with dry heaves according to the daughter. Patient had a non bloody emesis previous to this. The patient had been feeling unwell since early this morning. She denied any fever chills or cough for shortness of breath. White count 21.4. D-dimer 0.61. Sodium 130. Potassium 2.5. Troponin 0.012 and 0.014 respectively. Chest x-ray was read as 1. Right middle lobe pneumonia. 2. Severely stenotic right renal artery origin. 3. Colonic fluid, possible diarrhea or gastroenteritis. 4. Cardiomegaly. Mild to moderate chronic interstitial lung disease an/or pulmonary edema. 5. Other chronic findings. The patient was given Tylenol, IV fluids, Reglan, morphine, potassium and ertapenem Date/Time 05/02/21 1130 Patient was laying in bed and stated that she was doing ok. She has chest pain that is pleuritic in nature from dry heaving. She is also hungry. Her and her daughter deny that the patient ever had episodes of vomiting. She did state that she is always cold. Her appetite is normal, but she is not eating due to the nausea and vomiting. She denies cardiac pain, shortness of breath, dizziness, or weakness. Date/Time 05/03/21 1145 Patient is lying in bed. She is very upset because she is going to have to have thickened liquids. Speech took the patient down for bed swallowing found that she is aspirating on thin and nectar thick liquids. Speech therapy thinks is better for the patient be on soft and bite sized and moderately thick liquids. Daughter was in the room with patient explained to her what was going on. Patient will probably benefit from speech therapy outpatient. Patient is not very happy about the decision. She does have any complaints today she denies chest pain, shortness of breath, nausea, vomiting, abdominal pain. She did state that her right chest pain was better which she thinks is pleuritic pain. Patient denies urinary dysfunction as well. Patient should be able to discharge probably tomorrow. I did talk to the daughter about the importance of her having the thickened liquids. Patient does live by herself. Patient said she likes milk shakes however she is not willing to drink thickened soda or water. I explaine
--- NOTE | 2021-05-03 14:30 | PCPTNOTE ---
Awaiting ortho consult due to humeral fx, will attempt PT evaluation once ortho consult has been completed.
[2021-05-03 14:59] VITALS: BP 146/73; PULSE 86; RESP 14; TEMP 35.9; O2SAT 94
[2021-05-03 21:02] VITALS: PULSE 90
[2021-05-03] MEDS: LATANOPROST 0.005% OP SOLN 2.5 ML BTL 1 DROP EACH EYE (21:02)
[2021-05-03] MEDS: amLODIPine BESYLATE 5 MG TABLET PO (21:02)
[2021-05-03 21:04] VITALS: BP 140/80; PULSE 90; RESP 16; TEMP 36.7; O2SAT 93
[2021-05-04 00:01] LABS: IFOB Positive Control Positive; Immunochemical Fecal Occult Bl Negative (N)
[2021-05-04] MEDS: LEVOTHYROXINE SODIUM 25 MCG TABLET PO (05:30)
[2021-05-04 05:59] VITALS: BP 132/73; PULSE 87; RESP 18; TEMP 36.3; O2SAT 94
[2021-05-04 06:44] LABS: Alanine Aminotransferase 9 U/L (4-35); Albumin Level 3.1 g/dL (3.5-5.1); Alkaline Phosphatase 95 U/L (38-126); Anion Gap 4 mmol/L (8-16); Aspartate Amino Transferase 19 U/L (14-36); Bilirubin,Total 0.4 mg/dL (0.2-1.3); Blood Urea Nitrogen 6 mg/dL (7-17); Calcium 8.4 mg/dL (8.4-10.2); Carbon Dioxide 26 mmol/L (22-30); Chloride 101 mmol/L (98-107); Estimated CRCL calculation 38 ml/min; Estimated Glomerular Filt Rate > 60; Glucose 81 mg/dL (65-110); Magnesium 2.2 mg/dL (1.6-2.3); Potassium 3.6 mmol/L (3.4-5.0); Sodium 131 mmol/L (137-145)
[2021-05-04 06:50] LABS: Basophils Percent Auto 0.4 % (0.2-1.2); Eosinophils Absolute Auto 0.1 K/mm3 (0-0.3); Eosinophils Percent Auto 0.8 % (0-4.4); Hematocrit 37.5 % (37.0-47.0); Hemoglobin 12.4 g/dL (12.0-15.0); Immature Granulocyte Absolute 0.04 K/mm3 (0.00-0.031); Immature Granulocyte Percent A 0.4 % (0-0.5); Lymphocytes Absolute Auto 2.24 K/mm3 (0.9-3.2); Lymphocytes Percent Auto 22.7 % (18.3-44.2); Mean Corpuscular HGB Conc 33.1 g/dl (32-36); Mean Corpuscular Hemoglobin 30.7 pg (26-34); Mean Corpuscular Volume 92.8 fl (80-100); Mean Platelet Volume 10.2 fl (7.4-10.4); Monocytes Absolute Auto 0.7 K/mm3 (0.1-0.6); Monocytes Percent Auto 7.3 % (2.6-8.5); Neutrophils Absolute Auto 6.8 K/mm3 (1.3-6.7); Neutrophils Percent Auto 68.4 % (45.5-73.1); Platelet Count Result 346 k/mm3 (150-375); Red Blood Count 4.04 M/mm3 (4.2-5.4); Red Cell Distribution Width 14.2 % (11.5-14.5); White Blood Count 9.9 K/mm3 (4.5-10.0)
[2021-05-04] MEDS: ENOXAPARIN 40 MG/0.4 ML SYRINGE SUB-Q (09:14)
[2021-05-04] MEDS: POTASSIUM CHLORIDE 10 MEQ TABLET.ER PO (09:14)
[2021-05-04] MEDS: METOPROLOL TARTRATE 25 MG TABLET PO (09:14)
[2021-05-04] MEDS: ASPIRIN 81 MG ENTERIC TABLET PO (09:14)
[2021-05-04] MEDS: PANTOPRAZOLE 40 MG TABLET PO (09:14)
[2021-05-04] MEDS: SILVERGEL (ELTA) 45 ML 1 APPLIC TOPICAL (09:15)
--- NOTE | 2021-05-04 11:30 | PM.DS ---
DS: Admitting Diagnosis Discharge Date Date of service 05/04/21 1130 Admitting Diagnosis Aspiration PNA DS: Discharge Diagnosis Discharge Diagnosis (1) Aspiration pneumonia: Code(s): J69.0 - Pneumonitis due to inhalation of food and vomit Status: Acute Assessment and Plan: Continue with ertapenem. Sputum cultures are pending per chest x-ray patient has infiltration in the right middle lobe. His thought that the patient aspirated her vomitus. Blood cultures pending. ST consulted No SOB noted with exertion Modified swallow study tomorrow stable will move out of the IMU Will change antibiotics to monofloxacin 400mg PO daily for five days Education about thickened liquids ST outpatient for strengthing (2) Acute hypokalemia: Code(s): E87.6 - Hypokalemia Status: Acute Assessment and Plan: 3.9 today Replace as necessary Seems stable at 3.6 (3) Nausea and vomiting: Code(s): R11.2 - Nausea with vomiting, unspecified Status: Acute Assessment and Plan: Stool cultures are pending. Continue with Zofran. (4) Hypothyroidism, unspecified: Code(s): E03.9 - Hypothyroidism, unspecified Status: Chronic Assessment and Plan: Check thyroid level and continue levothyroxine (5) Essential (primary) hypertension: Code(s): I10 - Essential (primary) hypertension Status: Chronic Assessment and Plan: bp 132/73 Continue with home medication. Adjust therapy as needed DS: Summary Hospital Course Hospital Course: Patient is an 86-year-old female with a past medical history of hypertension, mi, hyperlipidemia who presented to the ED with complaints right-sided chest pain nausea vomiting and dry heaves. [place] [address] [place] admission. Patient was also noted to be hypokalemic. Potassium was replaced and patient is 3.6 today. Renal function is normal upon discharge 6/0.7. White count is also within range at 9.9. Patient was started on ertapenem for pneumonia which was seen on the chest x-ray. Speech therapy took patient to a modified barium swallow test and found the patient is aspirating on thick and mildly thick liquids. Patient does not have a cough after aspiration. Patient is not really appt or wanting to use thickened liquids however I did explain to her and her daughter about the need for thickened liquids at this time. Patient is feeling better and her chest pain is subsiding. The chest pain is from the cough and dry heaving. Patient is ready to go and denies chest pain, shortness of breath, weakness, fatigue, nausea, vomiting, diarrhea, constipation, sweats, fevers and chills. Status at Discharge Functional status at discharge: independent ambulation Overall status at discharge: patient is back to baseline Time Spent with Patient Time attestation: Total time spent providing and/or coordinating discharge services: 56 minutes Time spent: Greater than 30 minutes Exam Const: General: cooperative, healthy appearing, comfortable, no acute distress and well developed Nutritional Appearance: thin Orientation/consciousness: oriented to person, oriented to place, oriented to time and patient oriented x3 Limitations: no limitations HENMT: Head: normal to inspection, No palpable skull fracture present, normocephalic and atraumatic Ears: external ears normal and hearing grossly impaired General nose exam: Normal external nose present Eyes: General: appearance normal, both eyes and all related structures Eyelids: eyelids normal EOM: EOMs intact bilaterally Neck: Neck: normal visual inspection Chest: Chest palpation & inspection: normal inspection of the chest Resp: Effort & Inspection: normal respiratory effort Auscultation: diminished lung sounds Cardio: Palpation: normal PMI Rate: regular rate Rhythm: regular rhythm Heart sounds: S1 normal heart sound present and S2 normal heart so
[2021-05-04] MEDS: predniSONE 5 MG TABLET PO (12:09)
[2021-05-04] MEDS: ERTAPENEM 1 GM/NS 50 ML 1 GM/50 ML BAG IVPB (12:10)
--- NOTE | 2021-05-04 13:22 | PCSTNOTE ---
Pt discharging to go home. Spoke with the daughter regarding possible locations for outpatient therapy, provided education regarding recent swallow study, and provided exercises to target at home prior to beginning therapy.
== END 2021-05-04 13:42 | disposition home or self-care (01) | DRG 179 ==
LOC: ANHED 13:36 → ANHIMU 15:50 → ANH3MED 05-04 07:46 → ANHIMU 05-07 12:38
PROVIDERS: Nurse Practitioner; Admitting Provider Internal Medicine; Emergency Provider Emergency Medicine; PCP Family Medicine; Visit Provider Nurse Practitioner
DX: J69.0 Pneumonitis due to inhalation of food and vomit (principal); E87.6 Hypokalemia; R11.2 Nausea with vomiting, unspecified; E03.9 Hypothyroidism, unspecified; I10 Essential (primary) hypertension; I25.10 Atherosclerotic heart disease of native coronary artery without angina pectoris; D50.0 Iron deficiency anemia secondary to blood loss (chronic); Z66 Do not resuscitate; I25.2 Old myocardial infarction; Z28.21 Immunization not carried out because of patient refusal; Z79.52 Long term (current) use of systemic steroids; Z79.82 Long term (current) use of aspirin; Z79.899 Other long term (current) drug therapy; Z88.0 Allergy status to penicillin; Z88.1 Allergy status to other antibiotic agents; Z88.2 Allergy status to sulfonamides; Z88.8 Allergy status to other drugs, medicaments and biological substances
CPT/HCPCS: 36415; 71046; 71260; 74177; 80053; 81003; 82274; 83605; 83615; 83690; 83735; 84443; 84484; 85025; 85380; 87015; 87040; 87045; 87269; 87272; 87427; 89055; 92610; 92611; 93005; 96374; 96375; 97162; 97165; 99285; A9270; J1335; J1650; J2270; J2405; J2765; J3475; J3480; J7030; J7512; Q9967

== ENCOUNTER 2021-05-05 14:11 | Inpatient (IN) | payer MEDICARE, OTHER, SELFPAY ==
--- NOTE | ~2021-05-05 | XR_ITS ---
EXAMINATION: XR hip LT 2V w AP pelvis INDICATION: Left hip pain TECHNIQUE: AP view the pelvis and two views of the left hip are obtained. COMPARISON: 05/01/2021 FINDINGS: Bone alignment is normal. There is no fracture. Changes of left hip hemiarthroplasty are no mila. There is no evidence of hardware loosening. Calcified atherosclerosis is noted. There are phlebo liths of pelvis. IMPRESSION: 1. No acute osseous abnormality. Reviewed, dictated and finalized at location A. TER BORE OPERATOR
--- NOTE | ~2021-05-05 | XR_ITS ---
EXAMINATION: XR chest 1V portable DATE: 05/05/2021 15:39 INDICATION: Seizure. Pneumonia. TECHNIQUE: frontal view of the chest was obtained. COMPARISON: Chest radiograph and CT dated 05/01/2021 FINDINGS: Coarse reticular opacities throughout both lungs which could represent either pulmonary edema or rubber attacher vicki interstitial lung disease. Again seen is a subtle patchy groundglass opacity in the lateral right lower lung zone which is more suspicious for pneumonia. Calcified nodule in the left upper lung zone consistent with old granulomatous disease. No pleural effusion or pneumothorax. Mild cardiomegaly. C allus formation about a healing fracture to surgical neck of the proximal left humerus. IMPRESSION: 1. Subtle airspace opacity in the right lower lung zone suspicious for pneumonia. 2. More diffuse coarse reticular opacities throughout both lungs which could represent mild pulmonary edema or additional pneumonia, more chronic interstitial lung disease or some combination thereof. 3. Cardiomegaly. Reviewed, dictated and finalized at location B. LOPMENT CHEMIST IMPRESSION: 1. Subtle airspace opacity in the right lower lung zone suspicious for pneumoni a. 2. More diffuse coarse reticular opacities throughout both lungs which could re present mild pulmonary edema or additional pneumonia, more chronic interstitial lung disease or some combination thereof. 3. Cardiomegaly.
--- NOTE | ~2021-05-05 | CT_ITS ---
EXAMINATION: CT brain wo con DATE: 05/08/2021 00:20 INDICATION: Left periorbital injury. TECHNIQUE: Computed tomography (CT) of the head was performed without intravenous contrast. The mA wa s adjusted according to patient size. Iterative reconstruction technique was employed. The dose-lengt h product was 605.33 mGy-cm. COMPARISON: Head CT 05/05/2021 FINDINGS: There are scattered areas of low attenuation in the cerebral white matter, which is within normal limits for the patient's age. There is no intracranial hemorrhage, acute infarction, or abnorm al intracranial mass lesion. There is mild mucosal thickening in the paranasal sinuses. The mastoid a ir cells are normal. There are likely changes of ocular lens replacement surgeries. There is a lacera tion lateral to left orbit. IMPRESSION: 1. Normal aging brain. Reviewed, dictated and finalized at location A. T DESK ATTENDANT IMPRESSION: 1. Normal aging brain.
--- NOTE | ~2021-05-05 | XR_ITS ---
EXAMINATION: XR chest 1V portable INDICATION: Shortness of breath TECHNIQUE: Portable AP chest at 1038 hours COMPARISON: 05/05/2021 FINDINGS: Coarse interstitial opacities persist without significant change. Previously described righ t lower lung zone opacity has slightly decreased. A calcified nodule of the left upper lobe is consis tent with old granulomatous disease. There is scarring of the lung apices. No definite pleural effusi on or pneumothorax is identified. Cardiomegaly is noted. There is a fracture of the proximal left hum erus with early calcified callus formation. IMPRESSION: 1. Decreased opacity of the right lower lung zone, likely resolving atelectasis versus pneumonia. 2. Persistent coarse interstitial opacities without significant change, consistent with mild pulmonar y edema and/or chronic interstitial lung disease. Reviewed, dictated and finalized at location A. D CARE ATTENDANT IMPRESSION: 1. Decreased opacity of the right lower lung zone, likely resolving atelectasis versus pneumonia. 2. Persistent coarse interstitial opacities without significant change, consist ent with mild pulmonary edema and/or chronic interstitial lung disease.
--- NOTE | ~2021-05-05 | XR_ITS ---
EXAMINATION: XR shoulder LT min 2V EXAM DATE: 05/08/2021 15:40 INDICATION: Left Shoulder pain after fall. TECHNIQUE: Internal and external rotations of the left shoulder. Comparison is made to prior examinat ion from 04/01/2021, 03/11/2021, 02/18/2021. FINDINGS: There is subacute comminuted left humeral neck fracture, some evidence of continued routin e healing but no solid bone bridging is yet. Position appears stable compared to prior study, no defi nite free fracture. IMPRESSION: Comminuted subacute left humeral neck fracture with position unchanged. Reviewed, dictated and finalized at location A. MACHINE OPERATOR
--- NOTE | ~2021-05-05 | CT_ITS ---
EXAMINATION: CT brain wo con EXAM DATE: 05/05/2021 15:35 INDICATION: Seizure, unresponsive. Confusion. TECHNIQUE: Spiral CT of the head was performed without contrast. Axial, coronal and sagittal images were reviewed. The dose-length product (DLP) for this examination was 605.33 mGy-cm. The exposure w as tailored according to patient size, and iterative reconstruction (ASIR) was used as additional dos e reduction technique. 05/05/2021 FINDINGS: There is no acute intraparenchymal hemorrhage. No evidence of intraparenchymal brain mass lesion. No evidence of acute infarction. Please note that initial head CT has limited sensitivity f or small or acute infarctions. There is mild periventricular and subcortical hypodensity, nonspecific but probably related to small vessel ischemic disease. There is moderate prominence of the sulci a nd ventricles related to cerebral atrophy. There is intracranial carotid arteriosclerosis. There a re no extra-axial collections. There is no mass effect or midline shift. Patient has had bilateral ocular lens surgery. Soft tissue is unremarkable. The visualized sinuses and mastoid air cells are well aerated. Previously seen right frontal scalp contusion has resolved. Otherwise, no appreciable interval change. IMPRESSION: 1. No acute intracranial findings. 2. Chronic age related findings. Reviewed, dictated and finalized at location A. ONE BREAKER
--- NOTE | ~2021-05-05 | MR_ITS ---
EXAMINATION: MR brain/brain stem wo/w con DATE: 05/06/2021 12:47 INDICATION: New-onset seizure. TECHNIQUE: Magnetic resonance imaging (MRI) of the brain and brainstem was performed without and with 10 mL MultiHance intravenous contrast. Sequences included sagittal and axial T1-weighted FSE, axial diffusion-weighted FS EPI, axial T2*-weighted GRE, axial T2-weighted FLAIR Propeller, and axial T2-we ighted Propeller. Postcontrast sequences included axial and coronal T1-weighted FSE. Apparent diffusi on coefficient (ADC) maps were created. COMPARISON: Head CT 05/05/2021, brain MRI 06/12/2016 FINDINGS: There are scattered areas of nonspecific increased T2-weighted signal intensity in the cere bral white matter. There is no intracranial hemorrhage, acute infarction, or abnormal intracranial ma ss lesion. The ventricles are normal in size. There is mild mucosal thickening in the ethmoid sinuses . There are likely changes of ocular lens replacement surgeries. The mastoid air cells are normal. IMPRESSION: 1. Mild nonspecific cerebral white matter disease, which likely represents chronic small vessel ische ranulfo disease, slightly worsened from 06/12/2016. Reviewed, dictated and finalized at location A. NTRY SENIOR SERGEANT IMPRESSION: 1. Mild nonspecific cerebral white matter disease, which likely represents hip hop performers vicki small vessel ischemic disease, slightly worsened from 06/12/2016.
[2021-05-05 14:17] VITALS: BP 117/52; PULSE 82; RESP 16; TEMP 36.7; O2SAT 97
--- NOTE | 2021-05-05 14:26 | ECG_ITS ---
Measurements Intervals [place] Rate: 81 P: [place]: 0 QRS: 31 QRSD: 121 T: 239 QT: 386 QTc: 450 Interpretive Statements SINUS RHYTHM BORDERLINE AV CONDUCTION DELAY INTRAVENTRICULAR CONDUCTION DELAY ANTEROSEPTAL INFARCT, AGE INDETERMINATE ST-T WAVE ABNORMALITY IN INF/LAT LEADS- CONSIDER ISCHEMIA BASELINE ARTIFACT- I, II, III, AVR, AVL, AVF, V1-V5 ABNORMAL ECG Electronically Signed On 05-05-2021 15:55:25 LIDAR TECHNICIAN by Rui Altman D.O.
--- NOTE | 2021-05-05 14:29 | ED.GENADULT ---
HPI - General Adult General Chief complaint: Seizure Stated complaint: SEIZURE Time Seen by Provider: 05/05/21 14:16 Source: family and RN notes reviewed History of Present Illness HPI narrative: Patient is a 86 y/o female brought in by EMS for seizure. Daughter states that patient had a seizure around 1:35 PM. Daughter states that the patient stiffed up and was shaking. This lasted about 30 seconds. Daughter reports that patient was up all night and did not go to sleep until around 5:00 AM. Patient was recently admitted for pneumonia and just discharged yesterday. Patient does not have any history of known seizure. Related Data Home Medications Medication Instructions Recorded Confirmed ascorbic acid (vitamin C) 100 mg 100 mg PO DAILY 01/21/21 05/01/21 tablet aspirin 81 mg tablet,delayed 81 mg PO DAILY 01/21/21 05/01/21 release metoprolol tartrate 25 mg tablet 25 mg PO BID 01/21/21 05/01/21 travoprost (benzalkonium) 0.004 % 1 drp OPHTHALMIC (EYE) HS 01/21/21 05/01/21 eye drops ergocalciferol (vitamin D2) 1,250 mcg PO WEEKLY 02/02/21 05/01/21 levothyroxine 25 mcg PO DAILY 02/02/21 05/01/21 acetaminophen 500 mg PO Q6H PRN 05/01/21 05/01/21 amlodipine 5 mg PO HS 05/01/21 05/01/21 pantoprazole 40 mg PO DAILY 05/01/21 05/01/21 potassium chloride 10 meq PO BID 05/01/21 05/01/21 prednisone 5 mg PO DAILY 05/01/21 05/01/21 Allergies Allergy/AdvReac Type Severity Reaction Status Date / Time Sulfa (Sulfonamide Allergy Mild Nausea and Verified 05/05/21 14:36 Antibiotics) Vomiting Penicillins Allergy Unknown Rash Verified 05/05/21 14:36 Dnwyruy-FGB-LaU Reductase Allergy Unknown Muscle Verified 05/05/21 14:36 Inhibitor Spasms [Rgfntxr-Kee-Ffw Reductase Inhibitor] tetracycline Allergy Unknown Rash Verified 05/05/21 14:36 alprazolam [From Xanax] AdvReac Unknown Verified 05/05/21 14:36 lorazepam [From Ativan] AdvReac Unknown Verified 05/05/21 14:36 prochlorperazine AdvReac Unknown Verified 05/05/21 14:36 [From Compazine] Review of Systems Review of Systems: ROS unobtainable: Yes unobtainable due to mental status PMFSH Past Medical History Medical History Acute arthritis Shukla's palsy Essential (primary) hypertension Hearing loss History of myocardial infarction History of shortness of breath Hyperlipidemia Hypothyroidism, unspecified 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) Low back pain Nausea Other chronic pain Other malaise Skin tear of forearm without complication Weakness Wedge compression fracture of first lumbar vertebra, subsequent encounter for fracture with routine healing Surgical History Surgical History H/O bilateral cataract extraction H/O heart artery stent 2011 H/O tubal ligation Hx of cholecystectomy Presence of left artificial hip joint Family History Family History Mother Hypertension Cerebrovascular accident, Onset Age: 40 Patient's mother is Father Family history of chronic obstructive pulmonary disease, Onset Age: 70 Patient's father is Daughter MS (multiple sclerosis) Social History Social History Social History: . the patient has 7 daughters but 1 has due to MS. The patient does not have a durable power state's attorney for healthcare. The patient worked at [employer] for brief period time before she retired. She lives home alone. And her daughter comes over to help her out at times. She is a lifelong nonsmoker does not use any marijuana alcohol or illicit drugs. Code status full code Smoking status: Never smoker Second hand tobacco smoke exposure: No Alcohol intake: never Substance use: never Substance use type: does not use Gender ident
[2021-05-05 15:19] LABS: Basophils Absolute Auto 0.1 K/mm3 (0.0-0.1); Basophils Percent Auto 0.5 % (0.2-1.2); Eosinophils Absolute Auto 0.1 K/mm3 (0-0.3); Hematocrit 41.3 % (37.0-47.0); Hemoglobin 13.3 g/dL (12.0-15.0); Immature Granulocyte Absolute 0.05 K/mm3 (0.00-0.031); Immature Granulocyte Percent A 0.5 % (0-0.5); Lymphocytes Percent Auto 19.2 % (18.3-44.2); Mean Corpuscular HGB Conc 32.2 g/dl (32-36); Mean Corpuscular Hemoglobin 30.8 pg (26-34); Mean Corpuscular Volume 95.6 fl (80-100); Monocytes Absolute Auto 0.8 K/mm3 (0.1-0.6); Monocytes Percent Auto 8.1 % (2.6-8.5); Neutrophils Absolute Auto 7.4 K/mm3 (1.3-6.7); Neutrophils Percent Auto 70.7 % (45.5-73.1); Platelet Count Result 330 k/mm3 (150-375); Red Blood Count 4.32 M/mm3 (4.2-5.4); Red Cell Distribution Width 14.1 % (11.5-14.5); White Blood Count 10.4 K/mm3 (4.5-10.0)
[2021-05-05 15:26] LABS: Add Urine Microscopic? YES; Appearance Urine Clear (Clear); Bilirubin Urine Negative (Negative); Blood Urine 1+ (Negative); Color Urine Yellow (Yellow); Glucose Urine UA Negative (Negative); Ketones Urine Negative (Negative); Leukocyte Esterase Ur Negative LEU/UL (Negative); Mucus Urine Rare /lpf; Nitrate Urine Negative (Negative); Protein Urine Negative (Negative); RBC Urine 0-2 /hpf (0-2); Specific Grav Ur 1.011 (1.001-1.035); Squamous Epithelial Cell Urine Rare /hpf (Few); Urobilinogen Urine Negative mg/dL (<2.0); WBC Urine 0-3 /hpf
[2021-05-05 15:28] LABS: Lactic Acid Reflex 2.5 mmol/L (0.7-2.1)
[2021-05-05 15:30] LABS: Alanine Aminotransferase 12 U/L (4-35); Albumin Level 3.2 g/dL (3.5-5.1); Alkaline Phosphatase 89 U/L (38-126); Anion Gap 6 mmol/L (8-16); Aspartate Amino Transferase 24 U/L (14-36); Bilirubin,Total 0.4 mg/dL (0.2-1.3); Blood Urea Nitrogen 4 mg/dL (7-17); Calcium 8.3 mg/dL (8.4-10.2); Carbon Dioxide 26 mmol/L (22-30); Chloride 101 mmol/L (98-107); Estimated CRCL calculation 43 ml/min; Estimated Glomerular Filt Rate > 60; Glucose 88 mg/dL (65-110); Potassium 3.1 mmol/L (3.4-5.0); Sodium 133 mmol/L (137-145)
--- NOTE | 2021-05-05 17:26 | PC.NURSE ---
ordered dinner tray for patient
[2021-05-05 18:17] LABS: Reflex Lactic Acid Yes or No Add Lactic
[2021-05-05 18:25] VITALS: BP 116/64; PULSE 67; PULSE 68; RESP 18; O2SAT 96; O2SAT 98
[2021-05-05] MEDS: POTASSIUM CHLORIDE 20 MEQ TABLET 40 MEQ PO (19:13)
[2021-05-05] MEDS: DOXYCYCLINE IV 100 MG in SODIUM CHLORIDE 0.9% IV 100 ML IVPB (20:51)
[2021-05-05 21:26] LABS: Lactic Acid 1.5 mmol/L (0.7-2.1)
[2021-05-05 21:45] VITALS: BP 133/72; PULSE 87; RESP 16; TEMP 36.6; O2SAT 100; BMI 21.1
--- NOTE | 2021-05-05 21:49 | PM.IMHP ---
H&P: HPI History of Present Illness Date/Time: 05/05/21 21:49 this is an 86-year-old female patient who was discharged yesterday after being treated for pneumonia. The patient was diagnosed with aspiration pneumonia. She had been on ertapenem and transition to moxifloxacin. The patient had a swallow study and it was explained that the patient needed to use thickened liquids at this time. The patient was brought into the emergency room because the daughter witnessed the patient having a seizure around 1:35 p.m.. The daughter stated that the patient has stiffened up and was shaking. This lasted for approximately 30 seconds. The daughter reports that the patient was up all night and did not go to sleep until 5:00 a.m.. Patient has known known history. However moxifloxacin side effect can be a seizure. Chest x-ray was read as subtle airspace opacities in the right lower lung zone suspicious for pneumonia. Were diffuse coarse reticular opacities throughout both lungs which could represent mild pulmonary edema or dish in no pneumonia, more chronic interstitial lung disease or some combination thereof. Cardiomegaly. Head CT no acute intracranial findings. Chronic age-related findings. Patient was lethargic in the emergency room and the daughters at the bedside answering questions. The patient was placed on doxycycline. The patient is being admitted to observation status on the date of service of 05/05/2021 Chief Complaint: seizure Review of Systems Review of Systems: All systems reviewed & are unremarkable except as noted in HPI and below Constitutional: Constitutional: Reports as per HPI and Reports no additional constitutional complaints Eyes: Eyes: Reports as per HPI and Reports no additional eye complaints ENT: Reports system reviewed and no additional complaints, except as documented and Reports Normal hearing present Cardiovascular: Cardiovascular: Reports no additional cardiovascular complaints Respiratory: Respiratory: Reports no additional respiratory complaints and Reports no additional respiratory complaints Gastrointestinal: Gastrointestinal: Reports as per HPI and Reports no additional gastrointestinal complaints Musculoskeletal: Musculoskeletal: Reports no additional musculoskeletal complaints Integumentary/Breasts: Skin/Breast: Reports system reviewed and no additional complaints, except as docu and Reports as per HPI Neurologic: Reports system reviewed and no additional complaints, except as documented, Reports as per HPI and Reports Normal hearing present Psychiatric: Psychiatric: Reports no additional psychiatric complaints and Reports as per HPI Endocrine: Endocrine: Reports no additional endocrine complaints Hematologic/Lymphatic: Hematologic/Lymphatic: Reports no additional hematologic/lymphatic complaints Allergic/Immunologic: Allergic/Immunologic: Reports no additional allergic/immunologic complaints PMFSH Past Medical History Medical History Acute arthritis Shukla's palsy Essential (primary) hypertension Hearing loss History of myocardial infarction History of shortness of breath Hyperlipidemia Hypothyroidism, unspecified 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
--- NOTE | 2021-05-06 00:12 | ADMGEN ---
This patient, Tra Amin, was admitted to [facility] Surg Room 324-01. Patient/family oriented to hospital policies and general routines including ID bracelet, bed and alarms, visiting hours, pain management, procedures, bathroom and other care routines, personal items, smoking policy, room service/diet, and visiting hours. Information on how to activate the Rapid Response Team has been discussed. Patient/Family are encouraged to report perceived risks to care and to ask questions if they do not understand what they are told or what they should do.
[2021-05-06 06:00] VITALS: BP 138/64; PULSE 93; RESP 18; TEMP 36.4; O2SAT 96
[2021-05-06 07:16] LABS: Basophils Percent Auto 0.5 % (0.2-1.2); Eosinophils Percent Auto 0.3 % (0-4.4); Hematocrit 41.5 % (37.0-47.0); Hemoglobin 13.3 g/dL (12.0-15.0); Immature Granulocyte Absolute 0.05 K/mm3 (0.00-0.031); Immature Granulocyte Percent A 0.7 % (0-0.5); Lymphocytes Absolute Auto 1.81 K/mm3 (0.9-3.2); Lymphocytes Percent Auto 23.8 % (18.3-44.2); Mean Corpuscular Volume 93.7 fl (80-100); Mean Platelet Volume 10.2 fl (7.4-10.4); Monocytes Absolute Auto 0.6 K/mm3 (0.1-0.6); Monocytes Percent Auto 8.1 % (2.6-8.5); Neutrophils Absolute Auto 5.1 K/mm3 (1.3-6.7); Neutrophils Percent Auto 66.6 % (45.5-73.1); Platelet Count Result 374 k/mm3 (150-375); Red Blood Count 4.43 M/mm3 (4.2-5.4); White Blood Count 7.6 K/mm3 (4.5-10.0)
[2021-05-06 07:26] LABS: Alanine Aminotransferase 9 U/L (4-35); Albumin Level 3.3 g/dL (3.5-5.1); Alkaline Phosphatase 97 U/L (38-126); Anion Gap 6 mmol/L (8-16); Aspartate Amino Transferase 23 U/L (14-36); Bilirubin,Total 0.4 mg/dL (0.2-1.3); Blood Urea Nitrogen 4 mg/dL (7-17); Calcium 8.6 mg/dL (8.4-10.2); Carbon Dioxide 26 mmol/L (22-30); Chloride 102 mmol/L (98-107); Estimated CRCL calculation 43 ml/min; Estimated Glomerular Filt Rate > 60; Glucose 92 mg/dL (65-110); Lactate Dehydrogenase 414 U/L (313-618); Lipase 105 U/L (23-300); Magnesium 1.7 mg/dL (1.6-2.3); Sodium 134 mmol/L (137-145)
[2021-05-06 07:34] LABS: Lactic Acid Reflex 0.9 mmol/L (0.7-2.1)
[2021-05-06 08:14] LABS: Thyroid Stimulating Hormone Reflex 0.374 uIU/mL (0.465-4.68)
[2021-05-06 10:00] VITALS: O2SAT 97
--- NOTE | 2021-05-06 10:47 | WPDNEUROLOGY ---
Neurology EEG Report General Information Date of Study: 05/06/21 TEST eeg DIAGNOSIS seizures CONDITION OF RECORDING drowsy and sleep EEG NUMBER [id number] CLINICAL HISTORY no particular history available EEG DESCRIPTION background rhythm consists of low to medium voltage 5 to 7 hertz per 2nd theta admixed with intermittent low-voltage 15 to 18 hertz per 2nd beta during drowsiness. Bilateral symmetrical sleep activity seen during sleep. Photic stimulation not done. Hyperventilation not done. Non paroxysmal. Nonfocal. Nonlateralizing. IMPRESSION No significant abnormalities noted during drowsiness and sleep clinical correlation recommended
[2021-05-06] MEDS: DOXYCYCLINE IV 100 MG in SODIUM CHLORIDE 0.9% IV 100 ML IVPB ×2 (11:12→21:39)
[2021-05-06 11:33] LABS: Free T4 Free Thyroxine Reflex 0.44 ng/dL (0.78-2.19)
--- NOTE | 2021-05-06 11:48 | PM.IMPN ---
Progress Note: A&P Assessment and Plan (1) Seizure: Code(s): R56.9 - Unspecified convulsions Status: Acute Assessment and Plan: No hx of seizures Recently started on moxifloxacin, adverse reaction seizures MRI pending EEG pending Neurology consulted was placed. Keppra initiated per neurology Seizure precautions, supportive care (2) Hypothyroidism, unspecified: Code(s): E03.9 - Hypothyroidism, unspecified Status: Chronic Assessment and Plan: TSH Continue levothyroxine Repeat labs when f/u with PCP (3) Essential (primary) hypertension: Code(s): I10 - Essential (primary) hypertension Status: Chronic Assessment and Plan: Stable Continue with metoprolol Monitor (4) CAP (community acquired pneumonia): Code(s): J18.9 - Pneumonia, unspecified organism Status: Acute Assessment and Plan: Moxifloxacin stopped Continue doxycycline Subjective Date/time seen: 05/06/21 11:48 Interval history: Pt seen morning; daughter at the bedside; labs, vs, diagnostic reports, consult notes reviewed; denies any new complaints Review of Systems Review of Systems: All systems reviewed & are unremarkable except as noted in HPI and below Exam Const: General: no acute distress, alert (could not tell me her birthday; did know she was in the hospital ) and awake Orientation/consciousness: oriented to person HENMT: Head: normocephalic and atraumatic Ears: external ears normal Face and sinus: face symmetric Mouth: Yes Normal oral and palatal mucosa present Eyes: EOM: EOMs intact bilaterally Neck: Neck: full ROM, trachea midline and no JVD Resp: Effort & Inspection: normal respiratory effort Auscultation: clear to auscultation bilaterally Cardio: Jugular venous distension: no JVD Rate: regular rate Rhythm: regular rhythm Heart sounds: S1 normal heart sound present and S2 normal heart sound present GI: GI Palp: Yes Soft to palpation Auscultation: normal bowel sounds : General: Yes no CVA tenderness Skin: General skin exam: normal color Rashes: no rashes Neuro: General: patient oriented x3 and moves all extremities Speech: normal speech Extrem: General: no clubbing, cyanosis or edema Psych: Appearance: grossly normal Affect: normal affect Judgement: Good judgement present (Psych) Objective Data Vital Signs Vital Signs: Vital Signs - 24 hr 05/05/21 14:17 05/05/21 18:25 05/05/21 21:45 Temperature 36.7 C 36.6 C Pulse Rate 82 67 87 Respiratory Rate 16 18 16 Blood Pressure 117/52 L 116/64 133/72 Pulse Oximetry 97 96 100 05/06/21 06:00 05/06/21 10:00 Temperature 36.4 C Pulse Rate 93 Respiratory Rate 18 Blood Pressure 138/64 Pulse Oximetry 96 97 Intake/Output Intake/Output: Intake & Output 05/03/21 05/04/21 05/05/21 05/06/21 23:59 23:59 23:59 23:59 Intake Total 460 Balance 460 Meds/Results Medications: Active Medications Generic Name Dose Route Start Last Admin Trade Name Freq PRN Reason Stop Dose Admin Doxycycline Hyclate 100 mg/ 100 mls @ 100 mls/hr 05/06/21 09:00 05/06/21 11:12 Sodium Chloride IVPB 100 mls/hr Q12H RORY Administration Radiology Results: ITS Impressions Head CT 05/05/21 15:43 IMPRESSION: 1. No acute intracranial findings. 2. Chronic age related findings. Chest X-Ray 05/05/21 15:44 IMPRESSION: 1. Subtle airspace opacity in the right lower lung zone suspicious for pneumonia. 2. More diffuse coarse reticular opacities throughout both lungs which could represent mild pulmonary edema or additional pneumonia, more chronic interstitial lung disease or some combination thereof. 3. Cardiomegaly. Labs Labs: Laboratory Results - last 24 hr 05/05/21 05/05/21 05/05/21 15:02 15:02 15:02 WBC 10.4 H RBC 4.32 Hgb 13.3 Hct 41.3 MCV 95.6 MCH 30.8 MCHC 32.2 RDW 14.1 Plt Count 330 MPV 10.0 Immature Gran % (Auto)
--- NOTE | 2021-05-06 11:58 | WPDNEURCNPN ---
Assessment and Plan Additional Plan 1 seizure 1st time with question regarding related to moxifloxacin 2 will obtain the EEG and consider starting Keppra Consult date: 05/06/21 HPI: Tra Amin is a 86 year old female Admitted to the hospital with information she was just discharged from the hospital yesterday after treatment for pneumonia at that particular time patient was diagnosed to have aspiration pneumonia, his swallowing study which documented the need to use a thickened liquids, she was brought to the emergency room because the daughter witnessed patient having a seizure around 1:35 p.m. reportedly she stiffened up and was shaking all over the whole episode lasted for 30seconds patient had been up all night and did not sleep up until 5:00 a.m. chest x-ray revealed airspace opacities in the right lung zone suspicious for pneumonia along with Coast reticular opacities throughout both lungs which could represent mild pulmonary edema or chronic interstitial lung disease the CT of the head documented no acute intracranial finding that is bleed or major stroke but she was lethargic in the emergency room and was admitted to the hospital for further observation Review of Systems Review of Systems: All systems reviewed & are unremarkable except as noted in HPI and below PMFSH Past Medical History Medical History Acute arthritis Shukla's palsy Essential (primary) hypertension Hearing loss History of myocardial infarction History of shortness of breath Hyperlipidemia Hypothyroidism, unspecified 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) Low back pain Nausea Other chronic pain Other malaise Skin tear of forearm without complication Weakness Wedge compression fracture of first lumbar vertebra, subsequent encounter for fracture with routine healing Surgical History Surgical History H/O bilateral cataract extraction H/O heart artery stent 2011 H/O tubal ligation Hx of cholecystectomy Presence of left artificial hip joint Family History Family History Mother Hypertension Cerebrovascular accident, Onset Age: 40 Patient's mother is Father Family history of chronic obstructive pulmonary disease, Onset Age: 70 Patient's father is Daughter MS (multiple sclerosis) Social History Social History Social History: . the patient has 7 daughters but 1 has due to MS. The patient does not have a durable power corporate attorney for healthcare. The patient worked at [employer] for brief period time before she retired. She lives home alone. And her daughter comes over to help her out at times. She is a lifelong nonsmoker does not use any marijuana alcohol or illicit drugs. Code status full code Smoking status: Unknown if ever smoked Second hand tobacco smoke exposure: No Alcohol intake: unknown Substance use: unknown Substance use type: does not use Gender identity (if verbalized by the patient): Female Sexual Orientation (if Verbalized by the Patient): Straight or Heterosexual Spiritual care concerns: No Meds Home Medications and Allergies Home Medications Medication Instructions Recorded Confirmed Type ascorbic acid (vitamin C) 100 mg 100 mg PO DAILY 01/21/21 05/06/21 History tablet aspirin 81 mg tablet,delayed 81 mg PO DAILY 01/21/21 05/06/21 History release metoprolol tartrate 25 mg tablet 25 mg PO BID 01/21/21 05/06/21 History travoprost (benzalkonium) 0.004 % 1 drp OPHTHALMIC (EYE) HS 01/21/21 05/06/21 History eye drops ergocalciferol (vitamin D2) 1,250 mcg PO WEEKLY 02/02/21 05/06/21 History levothyroxine 25 mcg PO DAILY 02/02/21 05/06/21 History acetaminophen 500 mg PO Q6H PRN 05/01/21 05/06/21 H
[2021-05-06 14:00] VITALS: BP 125/65; PULSE 78; RESP 16; TEMP 35.8; O2SAT 96
[2021-05-06 20:00] VITALS: O2SAT 97
[2021-05-06 21:37] VITALS: PULSE 83
[2021-05-06] MEDS: LATANOPROST 0.005% OP SOLN 2.5 ML BTL 1 DROP EACH EYE (21:37)
[2021-05-06] MEDS: METOPROLOL TARTRATE 25 MG TABLET PO (21:37)
[2021-05-06] MEDS: amLODIPine BESYLATE 5 MG TABLET PO (21:37)
[2021-05-06 22:00] VITALS: BP 148/72; PULSE 83; RESP 18; TEMP 36; O2SAT 99
[2021-05-07] VITALS (9 sets, daily range): BP systolic 143–152; BP diastolic 72–91; PULSE 76–103; RESP 18–20; TEMP 36.3–37.4; O2SAT 93–98
[2021-05-07] MEDS: LEVOTHYROXINE SODIUM 25 MCG TABLET PO (06:06)
[2021-05-07] MEDS: ASPIRIN 81 MG ENTERIC TABLET PO (09:03)
[2021-05-07] MEDS: DOXYCYCLINE IV 100 MG in SODIUM CHLORIDE 0.9% IV 100 ML IVPB (09:04)
[2021-05-07] MEDS: METOPROLOL TARTRATE 25 MG TABLET PO ×2 (09:04→20:14)
[2021-05-07] MEDS: PANTOPRAZOLE 40 MG TABLET PO (09:04)
[2021-05-07] MEDS: POTASSIUM CHLORIDE 10 MEQ TABLET.ER PO ×2 (09:05→17:55)
[2021-05-07] MEDS: predniSONE 5 MG TABLET PO (09:05)
--- NOTE | 2021-05-07 10:16 | PC.NURSE ---
On 05/07/21, the student, Danette Robins, provided care and completed [facility] documentation on this patient. I have reviewed the student's documentation and agree with the findings.
[2021-05-07 11:49] LABS: Hematocrit 40.7 % (37.0-47.0); Hemoglobin 13.9 g/dL (12.0-15.0); Mean Corpuscular HGB Conc 34.2 g/dl (32-36); Mean Corpuscular Volume 90.6 fl (80-100); Platelet Count Result 399 k/mm3 (150-375); Red Blood Count 4.49 M/mm3 (4.2-5.4); Red Cell Distribution Width 13.8 % (11.5-14.5); White Blood Count 14.5 K/mm3 (4.5-10.0)
[2021-05-07 12:06] LABS: Anion Gap 7 mmol/L (8-16); Calcium 8.6 mg/dL (8.4-10.2); Carbon Dioxide 23 mmol/L (22-30); Chloride 101 mmol/L (98-107); Estimated CRCL calculation 43 ml/min; Estimated Glomerular Filt Rate > 60; Glucose 137 mg/dL (65-110); Potassium 2.7 mmol/L (3.4-5.0); Sodium 131 mmol/L (137-145)
[2021-05-07 12:23] LABS: Blood Urea Nitrogen < 2 mg/dL (7-17)
--- NOTE | 2021-05-07 13:33 | PM.IMPN ---
Progress Note: A&P Assessment and Plan (1) Seizure: Code(s): R56.9 - Unspecified convulsions Status: Acute Assessment and Plan: No hx of seizures Recently started on moxifloxacin, adverse reaction seizures MRI-->Mild nonspecific cerebral white matter disease, which likely represents chronic small vessel ischemic disease, slightly worsened from 06/12/2016. EEG pending Neurology consulted was placed. Adore suggested per neurology Seizure precautions, supportive care (2) Hypothyroidism, unspecified: Code(s): E03.9 - Hypothyroidism, unspecified Status: Chronic Assessment and Plan: TSH slightly decreased Continue levothyroxine Repeat labs when f/u with PCP (3) Essential (primary) hypertension: Code(s): I10 - Essential (primary) hypertension Status: Chronic Assessment and Plan: Stable Continue with metoprolol Monitor (4) CAP (community acquired pneumonia): Code(s): J18.9 - Pneumonia, unspecified organism Status: Acute Assessment and Plan: Moxifloxacin stopped Continue doxycycline until 05/09 Subjective Date/time seen: 05/07/21 13:33 Interval history: 05/06 Pt seen morning; daughter at the bedside; labs, vs, diagnostic reports, consult notes reviewed; denies any new complaints 05/07 Pt seen this morning; daughter at the bedside; last evening pt had some confusion and was aggressive and combative Review of Systems Review of Systems: All systems reviewed & are unremarkable except as noted in HPI and below Exam Const: General: cooperative, comfortable, no acute distress, alert (could not tell me her birthday; did know she was in the hospital ), awake, ill appearing and tired appearing Nutritional Appearance: thin Orientation/consciousness: oriented to person Limitations: no limitations HENMT: Head: normal to inspection, No palpable skull fracture present, normocephalic and atraumatic Ears: external ears normal Face and sinus: face symmetric Mouth: Yes Normal oral and palatal mucosa present Eyes: General: appearance normal, both eyes and all related structures EOM: EOMs intact bilaterally Neck: Neck: full ROM, trachea midline and no JVD Resp: Effort & Inspection: normal respiratory effort Auscultation: clear to auscultation bilaterally Cardio: Jugular venous distension: no JVD Rate: regular rate Rhythm: regular rhythm Heart sounds: S1 normal heart sound present and S2 normal heart sound present Peripheral pulses: Peripheral pulses 2+ throughout GI: GI Palp: Yes Soft to palpation Auscultation: normal bowel sounds : General: Yes no CVA tenderness Skin: General skin exam: normal color Lesions: no lesions Rashes: no rashes Neuro: General: oriented to person, moves all extremities and no focal motor deficits Extrem: General: normal to inspection and no clubbing, cyanosis or edema Psych: Attitude: cooperative Insight: Poor insight present (Psych) Objective Data Vital Signs Vital Signs: Vital Signs - 24 hr 05/06/21 14:00 05/06/21 20:00 05/06/21 21:37 Temperature 35.8 C L Pulse Rate 78 83 Respiratory Rate 16 Blood Pressure 125/65 Pulse Oximetry 96 97 05/06/21 22:00 05/07/21 00:31 05/07/21 06:00 Temperature 36.0 C L 36.3 C L Pulse Rate 83 96 Respiratory Rate 18 20 Blood Pressure 148/72 H 146/74 H Pulse Oximetry 99 97 93 05/07/21 09:04 05/07/21 09:37 Temperature Pulse Rate 103 H Respiratory Rate Blood Pressure Pulse Oximetry 95 Intake/Output Intake/Output: Intake & Output 05/04/21 05/05/21 05/06/21 05/07/21 23:59 23:59 23:59 23:59 Intake Total 1500 240 Balance 1500 240 Meds/Results Medications: Active Medications Generic Name Dose Route Start Last Admin Trade Name Freq PRN Reason Stop Dose Admin Acetaminophen 500 mg 05/06/21 20:09 Acetaminophen 500 Mg Tablet PO Q6H PRN Pain (Scale Score 1-3) Amlodipine Besylate 5 mg 05/06/21 21:00
[2021-05-07] MEDS: POTASSIUM CHLORIDE 20 MEQ PACKET (FOR LIQUID) 40 MEQ PO (13:40)
--- NOTE | 2021-05-07 14:45 | PCDIET ---
Follow up with pt. Per EMR, pt is on a heart healthy diet and intake is 0% x2, 5% x2, 15%. Unable to visit with pt. Spoke with nursing who reports that pt has only been taking a few bites of food here and there. Nursing reports that pt like cold drinks such as shakes and prefers chocolate flavor. RDN put in orders for ensure compact BID to provide an additional 220kcal and 9g of protein to increase caloric intake. Agree with current diet orders. Will continue to follow.
[2021-05-07] MEDS: MELATONIN 5 MG TABLET PO (20:14)
[2021-05-07] MEDS: amLODIPine BESYLATE 5 MG TABLET PO (20:15)
[2021-05-07] MEDS: LATANOPROST 0.005% OP SOLN 2.5 ML BTL 1 DROP EACH EYE (20:17)
[2021-05-07] MEDS: DOXYCYCLINE HYCLATE 100 MG TABLET PO (20:19)
[2021-05-08 06:00] VITALS: BP 167/78; PULSE 88; RESP 18; TEMP 36.7; O2SAT 97
--- NOTE | 2021-05-08 06:12 | PC.NURSE ---
2215 Pt found on floor, back in bed with 2 assist .Skin tear to left arm and Laceration to left tempal . [address] call to Chanelle Jackson NP, informed of above information, new orders received. [address] Place call to daughter Flower Lindsey, informed of above information and order for sitter, states she will sit with her, will be here shortly. [address] per bed [address], pt in no acute distress. Daughter at bedside.
[2021-05-08 07:02] LABS: Hematocrit 42.2 % (37.0-47.0); Hemoglobin 13.9 g/dL (12.0-15.0); Mean Corpuscular HGB Conc 32.9 g/dl (32-36); Mean Corpuscular Hemoglobin 30.5 pg (26-34); Mean Corpuscular Volume 92.7 fl (80-100); Platelet Count Result 400 k/mm3 (150-375); Red Blood Count 4.55 M/mm3 (4.2-5.4); Red Cell Distribution Width 13.9 % (11.5-14.5); White Blood Count 12.8 K/mm3 (4.5-10.0)
[2021-05-08 07:30] LABS: Anion Gap 9 mmol/L (8-16); Blood Urea Nitrogen 3 mg/dL (7-17); Carbon Dioxide 23 mmol/L (22-30); Chloride 103 mmol/L (98-107); Estimated CRCL calculation 43 ml/min; Estimated Glomerular Filt Rate > 60; Glucose 93 mg/dL (65-110); Sodium 135 mmol/L (137-145)
[2021-05-08 08:00] VITALS: O2SAT 97
[2021-05-08 09:14] VITALS: PULSE 92
[2021-05-08] MEDS: DOXYCYCLINE HYCLATE 100 MG TABLET PO (09:14)
[2021-05-08] MEDS: POTASSIUM CHLORIDE 10 MEQ TABLET.ER PO (09:14)
[2021-05-08] MEDS: predniSONE 5 MG TABLET PO (09:14)
[2021-05-08] MEDS: PANTOPRAZOLE 40 MG TABLET PO (09:14)
[2021-05-08] MEDS: ASPIRIN 81 MG ENTERIC TABLET PO (09:14)
[2021-05-08] MEDS: METOPROLOL TARTRATE 25 MG TABLET PO (09:14)
[2021-05-08] MEDS: KCL 20 MEQ/SW 100 ML 100 ML 25 MEQ IVPB (10:31)
[2021-05-08 14:00] VITALS: BP 125/65; PULSE 87; RESP 18; TEMP 36.5; O2SAT 93
--- NOTE | 2021-05-08 14:11 | PM.IMPN ---
Progress Note: A&P Assessment and Plan (1) Seizure: Code(s): R56.9 - Unspecified convulsions Status: Acute Assessment and Plan: No hx of seizures Recently started on moxifloxacin, adverse reaction seizures MRI-->Mild nonspecific cerebral white matter disease, which likely represents chronic small vessel ischemic disease, slightly worsened from 06/12/2016. EEG pending Neurology consulted was placed. Adore suggested per neurology pending EEG Seizure precautions, supportive care (2) Hypothyroidism, unspecified: Code(s): E03.9 - Hypothyroidism, unspecified Status: Chronic Assessment and Plan: TSH slightly decreased Continue levothyroxine Repeat labs when f/u with PCP (3) Essential (primary) hypertension: Code(s): I10 - Essential (primary) hypertension Status: Chronic Assessment and Plan: Stable Continue with metoprolol Monitor (4) CAP (community acquired pneumonia): Code(s): J18.9 - Pneumonia, unspecified organism Status: Acute Assessment and Plan: Moxifloxacin stopped Continue doxycycline until 05/09 (5) Hypokalemia: Code(s): E87.6 - Hypokalemia Status: Acute Assessment and Plan: K+ 2.7-->3 today Replace with 20 meq KCL IVPB Monitor and replace prn (6) Hyponatremia: Code(s): E87.1 - Hypo-osmolality and hyponatremia Status: Acute Assessment and Plan: Improving with IVF, with add KCL to fluids Continue IVF, pt is not sleeping or eating well Monitor (7) Fall: Code(s): W19.XXXA - Unspecified fall, initial encounter Status: Acute Assessment and Plan: CT of head with no acute changes Fall precautions PT/OT (8) Altered mental status: Code(s): R41.82 - Altered mental status, unspecified Status: Acute Assessment and Plan: Delirium vs dementia Recent CAP Family does not want to give any psychotropic medications Melatonin initiated The family reports no previous episodes, whoever they report that psych meds have adverse affects Will stop doxy Supportive care for now Subjective Date/time seen: 05/08/21 14:11 Interval history: 05/06 Pt seen morning; daughter at the bedside; labs, vs, diagnostic reports, consult notes reviewed; denies any new complaints 05/07 Pt seen this morning; daughter at the bedside; last evening pt had some confusion and was aggressive and combative 05/08 Pt seen this morning; she had a fall this morning; agitated and confused last evening Review of Systems Review of Systems: All systems reviewed & are unremarkable except as noted in HPI and below Exam Const: General: cooperative, comfortable, no acute distress, alert (could not tell me her birthday; did know she was in the hospital ), awake and tired appearing Nutritional Appearance: thin Orientation/consciousness: oriented to person Limitations: no limitations HENMT: Head: No palpable skull fracture present and normocephalic Ears: external ears normal Face and sinus: face symmetric Mouth: Yes Normal oral and palatal mucosa present Eyes: General: appearance normal, both eyes and all related structures EOM: EOMs intact bilaterally Neck: Neck: full ROM, trachea midline and no JVD Resp: Effort & Inspection: normal respiratory effort Auscultation: clear to auscultation bilaterally Cardio: Jugular venous distension: no JVD Rate: regular rate Rhythm: regular rhythm Heart sounds: S1 normal heart sound present and S2 normal heart sound present Peripheral pulses: Peripheral pulses 2+ throughout GI: Auscultation: normal bowel sounds : General: Yes no CVA tenderness Skin: Trauma: laceration and other (left lutheran laceration; skin tear to left arm) Neuro: General: oriented to person, moves all extremities and no focal motor deficits Speech: normal speech Gait exam (Neuro): Normal gait present Extrem: General: no clubbing, cyanosis or edema Psych: Attitude: cooperative I
[2021-05-08] MEDS: MELATONIN 5 MG TABLET PO (15:19)
[2021-05-08] MEDS: KCL 40 MEQ/0.9% SOD CHL 1,000 ML 25 ML IV CONT (15:31)
[2021-05-08 22:00] VITALS: BP 139/65; PULSE 92; RESP 18; TEMP 37.1; O2SAT 97
[2021-05-08 22:10] VITALS: PULSE 88
[2021-05-09 06:00] VITALS: BP 138/64; PULSE 105; RESP 18; TEMP 36.3; O2SAT 97
[2021-05-09 07:55] LABS: Hematocrit 47.1 % (37.0-47.0); Hemoglobin 15.2 g/dL (12.0-15.0); Mean Corpuscular HGB Conc 32.3 g/dl (32-36); Mean Corpuscular Hemoglobin 30.2 pg (26-34); Mean Corpuscular Volume 93.5 fl (80-100); Mean Platelet Volume 9.9 fl (7.4-10.4); Platelet Count Result 425 k/mm3 (150-375); Red Blood Count 5.04 M/mm3 (4.2-5.4); Red Cell Distribution Width 14.3 % (11.5-14.5); White Blood Count 9.4 K/mm3 (4.5-10.0)
[2021-05-09 08:08] LABS: Anion Gap 12 mmol/L (8-16); Blood Urea Nitrogen 3 mg/dL (7-17); Calcium 8.5 mg/dL (8.4-10.2); Carbon Dioxide 19 mmol/L (22-30); Chloride 104 mmol/L (98-107); Estimated CRCL calculation 43 ml/min; Estimated Glomerular Filt Rate > 60; Glucose 94 mg/dL (65-110); Potassium 2.9 mmol/L (3.4-5.0); Sodium 135 mmol/L (137-145)
[2021-05-09] MEDS: LEVOTHYROXINE SODIUM 25 MCG TABLET PO (11:40)
--- NOTE | 2021-05-09 12:37 | PCDIET ---
Follow up with pt. Unable to visit with pt. Per EMR, pt is on a heart healthy diet and receiving dietary supplement of ensure compacting providing and additional 220kcal and 9g of protein. Per EMR, intake is 10% x2, 0%x3. Spoke with nursing who reports that pt was recently NPO. Nursing reports that NPO status has been lifted. Nursing reports that they were able to get the patient to take some bites of pudding with medications. Nursing agreed to continue to encourage intake. Agree with current diet orders. Recommendations to increase ensure compact from BID to TID if intake remains under 50%. Will continue to follow closely.
[2021-05-09] MEDS: ACETAMINOPHEN 500 MG TABLET PO (12:54)
[2021-05-09 14:32] VITALS: PULSE 100
[2021-05-09] MEDS: METOPROLOL TARTRATE 25 MG TABLET PO ×2 (14:32→22:23)
[2021-05-09] MEDS: ASPIRIN 81 MG ENTERIC TABLET PO (14:32)
[2021-05-09] MEDS: POTASSIUM CHLORIDE 10 MEQ TABLET.ER PO ×2 (14:32→18:17)
[2021-05-09] MEDS: predniSONE 5 MG TABLET PO (14:33)
[2021-05-09] MEDS: ASCORBIC ACID 250 MG TABLET PO (14:33)
[2021-05-09] MEDS: PANTOPRAZOLE 40 MG TABLET PO (14:34)
[2021-05-09] MEDS: SODIUM CHLORIDE 500 MG TABLET PO (14:34)
[2021-05-09 15:15] VITALS: BP 115/50; PULSE 106; RESP 18; TEMP 36.7; O2SAT 96
--- NOTE | 2021-05-09 17:47 | PM.IMPN ---
Progress Note: A&P Assessment and Plan (1) Seizure: Code(s): R56.9 - Unspecified convulsions Status: Acute Assessment and Plan: No hx of seizures Recently started on moxifloxacin, adverse reaction seizures MRI-->Mild nonspecific cerebral white matter disease, which likely represents chronic small vessel ischemic disease, slightly worsened from 06/12/2016. EEG pending Neurology consulted was placed. Keppra suggested per neurology pending EEG Seizure precautions, supportive care 05/09 interval history: patient is a 86-year-old female was recently discharged with moxifloxacin which is known to consult seizures in certain inpatient, patient was seen Dr. Resendez, neurologist suggested if the EEG normal patient does not need to be started on Keppra, patient EEG is normal, patient remains clinically stable, she has not had any seizure while in the hospital, and patient remains clinically stable, I spoke with the patient's daughter. family working with social Service for discharge plan will continue to monitor and further recommendation to follow (2) Hypothyroidism, unspecified: Code(s): E03.9 - Hypothyroidism, unspecified Status: Chronic Assessment and Plan: TSH slightly decreased Continue levothyroxine Repeat labs when f/u with PCP (3) Essential (primary) hypertension: Code(s): I10 - Essential (primary) hypertension Status: Chronic Assessment and Plan: Stable Continue with metoprolol Monitor (4) CAP (community acquired pneumonia): Code(s): J18.9 - Pneumonia, unspecified organism Status: Acute Assessment and Plan: Moxifloxacin stopped Continue doxycycline until 05/09 (5) Hypokalemia: Code(s): E87.6 - Hypokalemia Status: Acute Assessment and Plan: K+ 2.7-->3 today Replace with 20 meq KCL IVPB Monitor and replace prn (6) Hyponatremia: Code(s): E87.1 - Hypo-osmolality and hyponatremia Status: Acute Assessment and Plan: Improving with IVF, with add KCL to fluids Continue IVF, pt is not sleeping or eating well Monitor (7) Fall: Code(s): W19.XXXA - Unspecified fall, initial encounter Status: Acute Assessment and Plan: CT of head with no acute changes Fall precautions PT/OT (8) Altered mental status: Code(s): R41.82 - Altered mental status, unspecified Status: Acute Assessment and Plan: Delirium vs dementia Recent CAP Family does not want to give any psychotropic medications Melatonin initiated The family reports no previous episodes, whoever they report that psych meds have adverse affects Will stop doxy Supportive care for now Subjective Date/time seen: 05/09/21 17:47 Interval history: 05/06 Pt seen morning; daughter at the bedside; labs, vs, diagnostic reports, consult notes reviewed; denies any new complaints 05/07 Pt seen this morning; daughter at the bedside; last evening pt had some confusion and was aggressive and combative 05/08 Pt seen this morning; she had a fall this morning; agitated and confused last evening 05/09 interval history: patient is a 86-year-old female was recently discharged with moxifloxacin which is known to consult seizures in certain inpatient, patient was seen Dr. Resendez, neurologist suggested if the EEG normal patient does not need to be started on Keppra, patient EEG is normal, patient remains clinically stable, she has not had any seizure while in the hospital, and patient remains clinically stable, I spoke with the patient's daughter. family working with social Service for discharge plan will continue to monitor and further recommendation to follow Review of Systems Review of Systems: ROS unobtainable: Yes unobtainable due to medical condition Exam Narrative: elderly frail Patient is comfortable, NAD HEENT: no retraction LUNGS: normal respiratory effort ABD: not distended Lower extremities: no edema SKIN:
[2021-05-09 22:00] VITALS: BP 104/77; PULSE 99; RESP 16; TEMP 36.5; O2SAT 97
[2021-05-09] MEDS: amLODIPine BESYLATE 5 MG TABLET PO (22:20)
[2021-05-09 22:23] VITALS: PULSE 74
[2021-05-09] MEDS: LATANOPROST 0.005% OP SOLN 2.5 ML BTL 1 DROP EACH EYE (22:23)
[2021-05-09] MEDS: MELATONIN 3 MG TABLET PO (22:48)
[2021-05-10] MEDS: LEVOTHYROXINE SODIUM 25 MCG TABLET PO (05:40)
[2021-05-10 05:45] VITALS: BP 112/64; PULSE 84; RESP 16; TEMP 36.6; O2SAT 96
[2021-05-10 07:36] LABS: Hematocrit 39.2 % (37.0-47.0); Hemoglobin 12.6 g/dL (12.0-15.0); Mean Corpuscular HGB Conc 32.1 g/dl (32-36); Mean Corpuscular Hemoglobin 29.9 pg (26-34); Mean Corpuscular Volume 93.1 fl (80-100); Mean Platelet Volume 10.3 fl (7.4-10.4); Platelet Count Result 343 k/mm3 (150-375); Red Blood Count 4.21 M/mm3 (4.2-5.4); Red Cell Distribution Width 14.3 % (11.5-14.5); White Blood Count 7.8 K/mm3 (4.5-10.0)
[2021-05-10 07:52] LABS: Anion Gap 9 mmol/L (8-16); Blood Urea Nitrogen 5 mg/dL (7-17); Calcium 8.2 mg/dL (8.4-10.2); Carbon Dioxide 21 mmol/L (22-30); Chloride 103 mmol/L (98-107); Estimated CRCL calculation 43 ml/min; Estimated Glomerular Filt Rate > 60; Glucose 91 mg/dL (65-110); Potassium 3.3 mmol/L (3.4-5.0); Sodium 133 mmol/L (137-145)
[2021-05-10] MEDS: POTASSIUM CHLORIDE 10 MEQ TABLET.ER PO ×2 (09:28→16:46)
[2021-05-10 09:29] VITALS: PULSE 85
[2021-05-10] MEDS: ASPIRIN 81 MG ENTERIC TABLET PO (09:29)
[2021-05-10] MEDS: METOPROLOL TARTRATE 25 MG TABLET PO ×2 (09:29→20:42)
[2021-05-10] MEDS: ASCORBIC ACID 250 MG TABLET PO (09:29)
[2021-05-10] MEDS: predniSONE 5 MG TABLET PO (09:30)
[2021-05-10] MEDS: PANTOPRAZOLE 40 MG TABLET PO (09:30)
[2021-05-10] MEDS: SODIUM CHLORIDE 500 MG TABLET PO (09:31)
[2021-05-10] MEDS: POTASSIUM CHLORIDE 20 MEQ PACKET (FOR LIQUID) 40 MEQ PO (09:54)
--- NOTE | 2021-05-10 13:55 | PM.IMPN ---
Progress Note: A&P Assessment and Plan (1) Seizure: Code(s): R56.9 - Unspecified convulsions Status: Acute Assessment and Plan: No hx of seizures Recently started on moxifloxacin, adverse reaction seizures MRI-->Mild nonspecific cerebral white matter disease, which likely represents chronic small vessel ischemic disease, slightly worsened from 06/12/2016. EEG pending Neurology consulted was placed. Keppra suggested per neurology pending EEG Seizure precautions, supportive care 05/09 interval history: patient is a 86-year-old female was recently discharged with moxifloxacin which is known to consult seizures in certain inpatient, patient was seen Dr. Resendez, neurologist suggested if the EEG normal patient does not need to be started on Keppra, patient EEG is normal, patient remains clinically stable, she has not had any seizure while in the hospital, and patient remains clinically stable, I spoke with the patient's daughter. family working with social Service for discharge plan will continue to monitor and further recommendation to follow 05/10 interval history: patient is a 86-year-old female was recently discharged with moxifloxacin which is known to cause seizures in certain patient, patient was seen Dr. Resendez, neurologist suggested if the EEG normal patient does not need to be started on Keppra, patient EEG is normal, patient remains clinically stable, she has not had any seizure while in the hospital, and patient remains clinically stable, Repeat CXR showed decresed opacity of the right lung zones suggesting improvement in pneumonia, will CPM, left his x-ray did not show any acute injury, I spoke with the patient's daughter who is present in the room. family working with social Service for discharge plan will continue to monitor and further recommendation to follow (2) Hypothyroidism, unspecified: Code(s): E03.9 - Hypothyroidism, unspecified Status: Chronic Assessment and Plan: TSH slightly decreased Continue levothyroxine Repeat labs when f/u with PCP (3) Essential (primary) hypertension: Code(s): I10 - Essential (primary) hypertension Status: Chronic Assessment and Plan: Stable Continue with metoprolol Monitor (4) CAP (community acquired pneumonia): Code(s): J18.9 - Pneumonia, unspecified organism Status: Acute Assessment and Plan: Moxifloxacin stopped Continue doxycycline until 05/09 (5) Hypokalemia: Code(s): E87.6 - Hypokalemia Status: Acute Assessment and Plan: K+ 2.7-->3 today Replace with 20 meq KCL IVPB Monitor and replace prn (6) Hyponatremia: Code(s): E87.1 - Hypo-osmolality and hyponatremia Status: Acute Assessment and Plan: Improving with IVF, with add KCL to fluids Continue IVF, pt is not sleeping or eating well Monitor (7) Fall: Code(s): W19.XXXA - Unspecified fall, initial encounter Status: Acute Assessment and Plan: CT of head with no acute changes Fall precautions PT/OT (8) Altered mental status: Code(s): R41.82 - Altered mental status, unspecified Status: Acute Assessment and Plan: Delirium vs dementia Recent CAP Family does not want to give any psychotropic medications Melatonin initiated The family reports no previous episodes, whoever they report that psych meds have adverse affects Will stop doxy Supportive care for now Subjective Date/time seen: 05/10/21 13:55 Interval history: 05/06 Pt seen morning; daughter at the bedside; labs, vs, diagnostic reports, consult notes reviewed; denies any new complaints 05/07 Pt seen this morning; daughter at the bedside; last evening pt had some confusion and was aggressive and combative 05/08 Pt seen this morning; she had a fall this morning; agitated and confused last evening 05/09 interval history: patient is a 86-year-old female was recently discharged with moxifloxacin which is
[2021-05-10 14:00] VITALS: BP 114/71; PULSE 81; RESP 14; TEMP 36.5; O2SAT 97
[2021-05-10] MEDS: ACETAMINOPHEN 500 MG TABLET PO (19:42)
[2021-05-10] MEDS: LATANOPROST 0.005% OP SOLN 2.5 ML BTL 1 DROP EACH EYE (20:41)
[2021-05-10] MEDS: amLODIPine BESYLATE 5 MG TABLET PO (20:41)
[2021-05-10 20:42] VITALS: PULSE 74
[2021-05-10] MEDS: MELATONIN 5 MG TABLET PO (20:42)
[2021-05-10 22:00] VITALS: BP 139/70; PULSE 79; RESP 16; TEMP 36.3; O2SAT 98
[2021-05-11] MEDS: LEVOTHYROXINE SODIUM 25 MCG TABLET PO (05:48)
[2021-05-11 06:00] VITALS: BP 132/66; PULSE 74; RESP 16; TEMP 36.2; O2SAT 99
[2021-05-11 09:32] VITALS: PULSE 75
[2021-05-11] MEDS: METOPROLOL TARTRATE 25 MG TABLET PO ×2 (09:32→21:55)
[2021-05-11] MEDS: PANTOPRAZOLE 40 MG TABLET PO (09:32)
[2021-05-11] MEDS: ASCORBIC ACID 250 MG TABLET PO (09:32)
[2021-05-11] MEDS: SODIUM CHLORIDE 500 MG TABLET PO (09:32)
[2021-05-11] MEDS: POTASSIUM CHLORIDE 10 MEQ TABLET.ER PO ×2 (09:33→17:50)
[2021-05-11] MEDS: ASPIRIN 81 MG ENTERIC TABLET PO (09:33)
[2021-05-11] MEDS: predniSONE 5 MG TABLET PO (09:33)
[2021-05-11 09:57] LABS: Hematocrit 43.3 % (37.0-47.0); Hemoglobin 13.8 g/dL (12.0-15.0); Mean Corpuscular HGB Conc 31.9 g/dl (32-36); Mean Corpuscular Hemoglobin 29.7 pg (26-34); Mean Corpuscular Volume 93.1 fl (80-100); Platelet Count Result 440 k/mm3 (150-375); Red Blood Count 4.65 M/mm3 (4.2-5.4); Red Cell Distribution Width 14.2 % (11.5-14.5); White Blood Count 10.2 K/mm3 (4.5-10.0)
[2021-05-11 10:13] LABS: Anion Gap 12 mmol/L (8-16); Blood Urea Nitrogen 4 mg/dL (7-17); Calcium 8.9 mg/dL (8.4-10.2); Carbon Dioxide 18 mmol/L (22-30); Chloride 102 mmol/L (98-107); Estimated CRCL calculation 38 ml/min; Estimated Glomerular Filt Rate > 60; Glucose 108 mg/dL (65-110); Magnesium 1.4 mg/dL (1.6-2.3); Potassium 3.1 mmol/L (3.4-5.0); Sodium 132 mmol/L (137-145)
--- NOTE | 2021-05-11 10:45 | PM.IMPN ---
Progress Note: A&P Assessment and Plan (1) Seizure: Code(s): R56.9 - Unspecified convulsions Status: Acute Assessment and Plan: No hx of seizures Recently started on moxifloxacin, adverse reaction seizures MRI-->Mild nonspecific cerebral white matter disease, which likely represents chronic small vessel ischemic disease, slightly worsened from 06/12/2016. EEG pending Neurology consulted was placed. Keppra suggested per neurology pending EEG Seizure precautions, supportive care 05/09 interval history: patient is a 86-year-old female was recently discharged with moxifloxacin which is known to consult seizures in certain inpatient, patient was seen Dr. Resendez, neurologist suggested if the EEG normal patient does not need to be started on Keppra, patient EEG is normal, patient remains clinically stable, she has not had any seizure while in the hospital, and patient remains clinically stable, I spoke with the patient's daughter. family working with social Service for discharge plan will continue to monitor and further recommendation to follow 05/10 interval history: patient is a 86-year-old female was recently discharged with moxifloxacin which is known to cause seizures in certain patient, patient was seen Dr. Resendez neurologist suggested if the EEG normal patient does not need to be started on Keppra, patient EEG is normal, patient remains clinically stable, she has not had any seizure while in the hospital, and patient remains clinically stable, Repeat CXR showed decresed opacity of the right lung zones suggesting improvement in pneumonia, will CPM, left his x-ray did not show any acute injury, I spoke with the patient's daughter who is present in the room. family working with social Service for discharge plan will continue to monitor and further recommendation to follow 05/11 interval history: patient is a 86-year-old female was recently discharged with moxifloxacin which is known to cause seizures in certain patient, patient was seen Dr. Resendez neurologist suggested if the EEG normal patient does not need to be started on Keppra, patient EEG is normal, patient remains clinically stable, she has not had any seizure while in the hospital, and patient remains clinically stable, Repeat CXR on 05/10 showed decreased opacity of the right lung zones suggesting improvement in pneumonia, will CPM, left hip his x-ray did not show any acute injury, I spoke with the patient's daughter who is present in the room. prior to coming to the hospital patient was living by herself however kendell recommend SNF before going home, family working with social Service for discharge plan will continue to monitor and further recommendation to follow (2) Hypothyroidism, unspecified: Code(s): E03.9 - Hypothyroidism, unspecified Status: Chronic Assessment and Plan: TSH slightly decreased Continue levothyroxine Repeat labs when f/u with PCP (3) Essential (primary) hypertension: Code(s): I10 - Essential (primary) hypertension Status: Chronic Assessment and Plan: Stable Continue with metoprolol Monitor (4) CAP (community acquired pneumonia): Code(s): J18.9 - Pneumonia, unspecified organism Status: Acute Assessment and Plan: Moxifloxacin stopped Continue doxycycline until 05/09 (5) Hypokalemia: Code(s): E87.6 - Hypokalemia Status: Acute Assessment and Plan: K+ 2.7-->3 today Replace with 20 meq KCL IVPB Monitor and replace prn (6) Hyponatremia: Code(s): E87.1 - Hypo-osmolality and hyponatremia Status: Acute Assessment and Plan: Improving with IVF, with add KCL to fluids Continue IVF, pt is not sleeping or eating well Monitor (7) Fall: Code(s): W19.XXXA - Unspecified fall, initial encounter Status: Acute Assessment and Plan: CT of head with no acute changes Fall precautions PT/OT (8) Altered mental status:
[2021-05-11] MEDS: MAGNESIUM SULF 4 GM/WATER100ML 4 GM/100 ML BAG IVPB (11:21)
--- NOTE | 2021-05-11 12:26 | PM.CNOR ---
Assessment and Plan Assessment and plan (1) Closed fracture of left proximal humerus: Qualifiers: Encounter type: sequela Fracture alignment: displaced Fracture morphology: other fracture Qualified Code(s): S42.292S - Other displaced fracture of upper end of left humerus, sequela Code(s): S42.202A - Unspecified fracture of upper end of left humerus, initial encounter for closed fracture Status: Acute Assessment and Plan: Updated history, physical exam and radiographs reviewed with the patient and family. Interval changes reviewed. 4 months status post left proximal humerus fracture. Recent radiographs from last week show fracture alignment remains unchanged. Callus formation and healing noted. Original displacement noted. No other acute changes. Discussed the condition, nature, etiology and course of natural history with the patient. The family's and patient's questions were answered. overall it she seems to be doing well in terms of the shoulder. Continue with activity as tolerated. Physical therapy may be a possibility with range of motion and strength for rehab of the left shoulder. No need for follow-up unless further problems. (2) Fall: Qualifiers: Encounter type: subsequent encounter Qualified Code(s): W19.XXXD - Unspecified fall, subsequent encounter Code(s): W19.XXXA - Unspecified fall, initial encounter Status: Acute (3) History of arthroplasty of left hip: Code(s): Z98.890 - Other specified postprocedural states Status: Acute Assessment and Plan: Radiographs show left hip hemiarthroplasty and right [place] hip in good alignment. No acute changes. Continue with weight-bearing as tolerated. History of Present Illness HPI Consult date: 05/11/21 Requesting physician: Esther Villanueva MD Consult reason: fracture ( Left shoulder fracture) Chief complaint: SEIZURE Narrative: 86-year-old woman known to the Orthopedic service for previous left proximal humerus fracture. Injury occurred in December 2020. She was followed in the orthopedic office and subsequently discharged upon healing. Patient has had repeat fall and injury to the left arm and shoulder. She has had 2 recent hospitalizations, currently still in the hospital from the last 1 for seizure disorder. New radiographs of the left shoulder and bilateral hips were obtained. I have been asked to see the patient for evaluation and any further recommendations or change in treatment. Patient is awake. She denies pain at the left shoulder or arm. Denies hip pain. She has had a previous left hip arthroplasty after fracture in 2019. She states that since her surgery she has done well. Review of Systems Review of Systems: All systems reviewed & are unremarkable except as noted in HPI and below Constitutional: Constitutional: Reports as per HPI and Reports no additional constitutional complaints Eyes: Eyes: Reports as per HPI and Reports no additional eye complaints ENT: Reports system reviewed and no additional complaints, except as documented and Reports Normal hearing present Cardiovascular: Cardiovascular: Reports no additional cardiovascular complaints Respiratory: Respiratory: Reports no additional respiratory complaints and Reports no additional respiratory complaints Gastrointestinal: Gastrointestinal: Reports as per HPI and Reports no additional gastrointestinal complaints Musculoskeletal: Musculoskeletal: Reports no additional musculoskeletal complaints Integumentary/Breasts: Skin/Breast: Reports system reviewed and no additional complaints, except as docu and Reports as per HPI Neurologic: Reports system reviewed and no additional complaints, except as documented, Reports as per HPI and Reports Normal hearing present Psychiatric: Psychiatric: Reports no additional psychiatric complaints and Reports as per HPI Endocrine: Endocrine: Reports no additional endocrine complaints Hematolog
[2021-05-11 14:41] LABS: Anion Gap 11 mmol/L (8-16); Blood Urea Nitrogen 5 mg/dL (7-17); Calcium 8.9 mg/dL (8.4-10.2); Carbon Dioxide 21 mmol/L (22-30); Chloride 100 mmol/L (98-107); Estimated CRCL calculation 43 ml/min; Estimated Glomerular Filt Rate > 60; Glucose 134 mg/dL (65-110); Magnesium 2.5 mg/dL (1.6-2.3); Potassium 3.5 mmol/L (3.4-5.0); Sodium 132 mmol/L (137-145)
[2021-05-11 14:54] VITALS: BP 135/84; PULSE 70; RESP 18; TEMP 36.6; O2SAT 96
[2021-05-11 21:26] VITALS: BP 147/81; PULSE 79; RESP 18; TEMP 37.2; O2SAT 94
[2021-05-11] MEDS: LATANOPROST 0.005% OP SOLN 2.5 ML BTL 1 DROP EACH EYE (21:52)
[2021-05-11] MEDS: MELATONIN 5 MG TABLET PO (21:53)
[2021-05-11] MEDS: amLODIPine BESYLATE 5 MG TABLET PO (21:53)
[2021-05-11 21:55] VITALS: PULSE 72
[2021-05-12] MEDS: ACETAMINOPHEN 500 MG TABLET PO (02:31)
[2021-05-12 05:42] VITALS: BP 137/75; PULSE 70; RESP 18; TEMP 36.2; O2SAT 98
[2021-05-12] MEDS: LEVOTHYROXINE SODIUM 25 MCG TABLET PO (06:39)
[2021-05-12 08:00] VITALS: O2SAT 98
[2021-05-12] MEDS: ASPIRIN 81 MG ENTERIC TABLET PO (08:27)
[2021-05-12] MEDS: POTASSIUM CHLORIDE 10 MEQ TABLET.ER PO (08:27)
[2021-05-12] MEDS: SODIUM CHLORIDE 500 MG TABLET PO (08:27)
[2021-05-12 08:28] VITALS: PULSE 74
[2021-05-12] MEDS: PANTOPRAZOLE 40 MG TABLET PO (08:28)
[2021-05-12] MEDS: predniSONE 5 MG TABLET PO (08:28)
[2021-05-12] MEDS: ASCORBIC ACID 250 MG TABLET PO (08:28)
[2021-05-12] MEDS: METOPROLOL TARTRATE 25 MG TABLET PO (08:28)
[2021-05-12 09:45] LABS: Hemoglobin 15.1 g/dL (12.0-15.0); Mean Corpuscular HGB Conc 33.6 g/dl (32-36); Mean Corpuscular Hemoglobin 30.1 pg (26-34); Mean Corpuscular Volume 89.8 fl (80-100); Mean Platelet Volume 10.4 fl (7.4-10.4); Platelet Count Result 516 k/mm3 (150-375); Red Blood Count 5.01 M/mm3 (4.2-5.4); Red Cell Distribution Width 13.9 % (11.5-14.5); White Blood Count 10.2 K/mm3 (4.5-10.0)
[2021-05-12 09:56] LABS: Magnesium 2.1 mg/dL (1.6-2.3)
[2021-05-12 09:58] LABS: Anion Gap 14 mmol/L (8-16); Blood Urea Nitrogen 4 mg/dL (7-17); Carbon Dioxide 21 mmol/L (22-30); Chloride 101 mmol/L (98-107); Estimated CRCL calculation 43 ml/min; Estimated Glomerular Filt Rate > 60; Glucose 87 mg/dL (65-110); Sodium 136 mmol/L (137-145)
--- NOTE | 2021-05-12 10:19 | PM.DS ---
DS: Admitting Diagnosis Discharge Date 05/12/2021 Admitting Diagnosis seizure DS: Discharge Diagnosis Discharge Diagnosis (1) Seizure: Code(s): R56.9 - Unspecified convulsions Status: Acute Assessment and Plan: No hx of seizures Recently started on moxifloxacin, adverse reaction seizures MRI-->Mild nonspecific cerebral white matter disease, which likely represents chronic small vessel ischemic disease, slightly worsened from 06/12/2016. EEG pending Neurology consulted was placed. Keppra suggested per neurology pending EEG Seizure precautions, supportive care 05/09 interval history: patient is a 86-year-old female was recently discharged with moxifloxacin which is known to consult seizures in certain inpatient, patient was seen Dr. Resendez, neurologist suggested if the EEG normal patient does not need to be started on Keppra, patient EEG is normal, patient remains clinically stable, she has not had any seizure while in the hospital, and patient remains clinically stable, I spoke with the patient's daughter. family working with social Service for discharge plan will continue to monitor and further recommendation to follow 05/10 interval history: patient is a 86-year-old female was recently discharged with moxifloxacin which is known to cause seizures in certain patient, patient was seen Dr. Resendez neurologist suggested if the EEG normal patient does not need to be started on Keppra, patient EEG is normal, patient remains clinically stable, she has not had any seizure while in the hospital, and patient remains clinically stable, Repeat CXR showed decresed opacity of the right lung zones suggesting improvement in pneumonia, will CPM, left his x-ray did not show any acute injury, I spoke with the patient's daughter who is present in the room. family working with social Service for discharge plan will continue to monitor and further recommendation to follow 05/11 interval history: patient is a 86-year-old female was recently discharged with moxifloxacin which is known to cause seizures in certain patient, patient was seen Dr. Resendez neurologist suggested if the EEG normal patient does not need to be started on Keppra, patient EEG is normal, patient remains clinically stable, she has not had any seizure while in the hospital, and patient remains clinically stable, Repeat CXR on 05/10 showed decreased opacity of the right lung zones suggesting improvement in pneumonia, will CPM, left hip his x-ray did not show any acute injury, I spoke with the patient's daughter who is present in the room. prior to coming to the hospital patient was living by herself however kendell recommend SNF before going home, family working with social Service for discharge plan will continue to monitor and further recommendation to follow (2) Hypothyroidism, unspecified: Code(s): E03.9 - Hypothyroidism, unspecified Status: Chronic Assessment and Plan: TSH slightly decreased Continue levothyroxine Repeat labs when f/u with PCP (3) Essential (primary) hypertension: Code(s): I10 - Essential (primary) hypertension Status: Chronic Assessment and Plan: Stable Continue with metoprolol Monitor (4) CAP (community acquired pneumonia): Code(s): J18.9 - Pneumonia, unspecified organism Status: Acute Assessment and Plan: Moxifloxacin stopped Continue doxycycline until 05/09 (5) Hypokalemia: Code(s): E87.6 - Hypokalemia Status: Acute Assessment and Plan: K+ 2.7-->3 today Replace with 20 meq KCL IVPB Monitor and replace prn (6) Hyponatremia: Code(s): E87.1 - Hypo-osmolality and hyponatremia Status: Acute Assessment and Plan: Improving with IVF, with add KCL to fluids Continue IVF, pt is not sleeping or eating well Monitor (7) Fall: Qualifiers: Encounter type: subsequent encounter Qualified Code(s): W19.XXXD - Unspecified fall, sub
--- NOTE | 2021-05-12 11:31 | PCOTNOTE ---
Attempted to see pt., pt. presented sleeping with daughter requesting therapy to return later as pt. has not slept in several days. Will attempt again later if time allows, continue POC.
--- NOTE | 2021-05-12 11:32 | PCNWS ---
Weekly nutritional screen. Patient is tolerating current diet with adequate intake. No weight loss reported. No nutritional needs at this time.
--- NOTE | 2021-05-12 14:15 | PCNSR ---
On 05/12/21, the student,Fay Amaro, provided care and completed [facility] documentation on this patient. I have reviewed the student's documentation and agree with the findings.
== END 2021-05-12 13:40 | disposition home health service (06) | DRG 100 ==
LOC: ANHED 14:21 → ANH3MEDSUR 20:22
PROVIDERS: Nurse Practitioner; Nurse Practitioner Adult Health; Admitting Provider Internal Medicine; Emergency Provider Emergency Medicine; PCP Family Medicine; Visit Provider Family Medicine
DX: G40.89 Other seizures (principal); J18.9 Pneumonia, unspecified organism; J69.0 Pneumonitis due to inhalation of food and vomit; E87.1 Hypo-osmolality and hyponatremia; T36.8X5A Adverse effect of other systemic antibiotics, initial encounter; E03.9 Hypothyroidism, unspecified; I10 Essential (primary) hypertension; E78.5 Hyperlipidemia, unspecified; E87.6 Hypokalemia; M19.90 Unspecified osteoarthritis, unspecified site; F03.90 Unspecified dementia, unspecified severity, without behavioral disturbance, psychotic disturbance, mood disturbance, and anxiety; R41.0 Disorientation, unspecified; Z96.642 Presence of left artificial hip joint; S42.292G Other displaced fracture of upper end of left humerus, subsequent encounter for fracture with delayed healing; W19.XXXA Unspecified fall, initial encounter; Z79.82 Long term (current) use of aspirin; I25.2 Old myocardial infarction; Z95.5 Presence of coronary angioplasty implant and graft; Z98.42 Cataract extraction status, left eye; Z98.41 Cataract extraction status, right eye; Z90.49 Acquired absence of other specified parts of digestive tract
CPT/HCPCS: 36415; 70450; 70553; 71045; 73030; 73502; 80048; 80053; 81001; 83605; 83615; 83690; 83735; 84439; 84443; 85025; 85027; 93005; 95816; 96365; 96366; 96374; 96376; 97110; 97116; 97162; 97165; 97530; 97535; 99285; A9270; A9577; G0378; J3475; J3480; J7512